=== PATIENT | female | born 1945 | race Caucasian/White ===

== ENCOUNTER → 2017-06-18 | Outpatient (CLI) | payer MEDICARE, BC ==
[~2017-06-18] MED LIST: AMLO5TAB22 PO; DIOV80TA4 PO; LEVEMIR SQ; LYRI50CA2 PO; NOVOLOGP2 SQ; PROG1CAP PO; PROT40TA PO; WARF1TAB PO; Z.0.COMMODE-3:1; Z.0.CPM; Z.0.WALKERFRONT
--- NOTE | 2017-06-24 11:33 | RSPPFT ---
DATE OF PROCEDURE: 06/18/17 COMMENTS: Spirometry with FVC of 1.9 predicted 3.3, FEV1 of 1.4 predicted 2.4, FEV1/FVC ratio at 75% predicted 80%. Lung volumes show air trapping with RV at 4.0 predicted 2.5. IMPRESSION: On the basis of the above, patient has a mild obstructive lung defect with FEF 25-75 at 1.0 predicted 2.0. DLCO is 43% of predicted but within predicted range when corrected for alveolar volume.
== END ==
LOC: HRSP 13:07
PROVIDERS: ATTEND Internal Medicine Pulmonary Disease
DX: J44.9 Chronic obstructive pulmonary disease, unspecified (principal)
CPT/HCPCS: 94060; 94618; 94726; 94729

== ENCOUNTER 2017-08-15 16:22 | Emergency (ER) | payer MEDICARE, BC ==
[~2017-08-15] VITALS: Ht 149.9 cm; Wt 98.3 kg
[2017-08-15 16:27] VITALS: BP 159/88; PULSE 75; RESP 16; TEMP 98.5; O2SAT 96
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
[2017-08-15] MEDS ORDERED: INSU1INJ14 SQ (17:18)
[2017-08-15] MEDS ORDERED: WARF4TAB52 PO (17:18)
[2017-08-15] MEDS ORDERED: TACR1 PO (17:18)
[2017-08-15] MEDS ORDERED: NOVOLOGSS SQ (17:18)
[2017-08-15] MEDS ORDERED: METO50TA PO (17:18)
[2017-08-15] MEDS ORDERED: VALS1TAB64 PO (17:18)
[2017-08-15] MEDS ORDERED: AMLO5TAB2 PO (17:18)
[2017-08-15] MEDS ORDERED: PANT40TA3 PO (17:18)
[2017-08-15] MEDS ORDERED: WARF-58 PO (17:18)
[2017-08-15] MEDS ORDERED: LYRI50CA PO (17:18)
[2017-08-15] MEDS ORDERED: TRAD5TAB PO (17:18)
[2017-08-15] MEDS ORDERED: HYDR-3516 PO (17:37)
== END 2017-08-15 17:54 | disposition home or self-care (01) ==
LOC: PHEFT 16:22
DX: S60.222A Contusion of left hand, initial encounter (principal); I10 Essential (primary) hypertension; E11.9 Type 2 diabetes mellitus without complications; E78.00 Pure hypercholesterolemia, unspecified; W20.8XXA Other cause of strike by thrown, projected or falling object, initial encounter; Z94.4 Liver transplant status; Z79.01 Long term (current) use of anticoagulants; Z79.4 Long term (current) use of insulin; Z86.79 Personal history of other diseases of the circulatory system; Z87.39 Personal history of other diseases of the musculoskeletal system and connective tissue; Z86.69 Personal history of other diseases of the nervous system and sense organs
CPT/HCPCS: 73130; 99283

== ENCOUNTER → 2017-11-16 | Outpatient (CLI) | payer MEDICARE, BC ==
[~2017-11-16] MED LIST changes: +AMLO5TAB2 PO; -AMLO5TAB22 PO; -DIOV80TA4 PO; +HYDR-3516 PO; +INSU1INJ14 SQ; -LEVEMIR SQ; +LYRI50CA PO; -LYRI50CA2 PO; +METO50TA PO; -NOVOLOGP2 SQ; +NOVOLOGSS SQ; +PANT40TA3 PO; -PROG1CAP PO; -PROT40TA PO; +TACR1 PO; +TRAD5TAB PO; +VALS1TAB64 PO; +WARF-58 PO; -WARF1TAB PO; +WARF4TAB52 PO; -Z.0.COMMODE-3:1; -Z.0.CPM; -Z.0.WALKERFRONT
--- NOTE | 2017-11-16 11:20 | RADRPT ---
EXAM DATE: 11/16/2017 10:35 AM EDT AGE/SEX: 72 years / Female INDICATIONS: Dysphagia since 2010, liquids and solids cause choking and coughing CLINICAL DATA: This is the patient's initial encounter. Patient reports that signs and symptoms have been present for > 1 year and indicates a pain score of 0/10. MEDICAL/SURGICAL HISTORY: Gastroesophageal reflux disease. esophageal varicies None. COMPARISON: No prior exams available for comparison. FLUORO TIME: 1.2 IMAGE COUNT: 0 FINDINGS: A modified barium swallow was performed with speech pathology. Patient was given a variety of liquids to swallow. For a full detailed report, see report by the speech pathologist. CONCLUSION: Successful modified barium swallow. Electronically signed by: Leonadro Paniagua MD 11/16/2017 11:18 AM EDT
== END ==
LOC: HRAD 09:50
DX: R13.12 Dysphagia, oropharyngeal phase (principal)
CPT/HCPCS: 74230; 92611; G8996; G8997; G8998

== ENCOUNTER 2017-12-29 22:53 | Inpatient (IN) ==
--- NOTE | 2017-12-29 23:27 | ED ---
HPI General Chief complaint: Neuro Symptoms/Deficit Stated complaint: Headaches Time Seen by Provider: 12/29/17 23:20 History of Present Illness HPI narrative: Patient 72-year-old female who presents emergency department for rather abrupt onset of a headache. Patient's on Coumadin for history of portal venous thrombosis. Patient has a history of high blood pressure has not taken any of her blood pressure medication tonight. Patient apparently got up to go to the bathroom when she had onset of headache. She adamantly denies falling. Per EMS blood pressure significantly elevated in excess of 200 systolic in route to the hospital. She threw up twice in the ambulance stating that she felt very dizzy. She states her headache is on the left side of her head. Severe. Context and duration as above. Related Data Home Medications Medication Instructions Recorded Confirmed ciprofloxacin HCl [Cipro] 500 mg PO DAILY 12/25/17 12/25/17 insulin degludec [Tresiba 18 unit SUB-Q HS 12/25/17 12/29/17 FlexTouch U-100] linagliptin [Tradjenta] 5 mg PO QAM 12/25/17 12/29/17 metoprolol tartrate 50 mg PO BID 12/25/17 12/29/17 pantoprazole 40 mg PO DAILY 12/25/17 12/29/17 pregabalin [Lyrica] 50 mg PO BID 12/25/17 12/29/17 tacrolimus 6 mg PO Q12H 12/25/17 12/29/17 valsartan 80 mg PO DAILY 12/25/17 12/29/17 amlodipine 10 mg PO DAILY 12/29/17 12/29/17 warfarin 3 mg PO DAILY 12/29/17 12/29/17 Allergies Allergy/AdvReac Type Severity Reaction Status Date / Time Sulfa (Sulfonamide Allergy Severe Itching Verified 12/29/17 23:18 Antibiotics) Review of Systems Except as stated in HPI: all other systems reviewed are negative [facility] Medical History Medical History GERD (gastroesophageal reflux disease) (Chronic) HBP (high blood pressure) (Chronic) Diabetes (Chronic) Carpal tunnel syndrome (Acute) FHx: total knee replacement (Acute) Hx of acute arthritis (Acute) Surgical History Surgical History Liver transplant recipient (Chronic) History of ear surgery (Acute) Hx of tonsillectomy (Acute) Family History Family History Father FH: premature coronary heart disease Mother Stroke HTN (hypertension) Diabetes Social History Social History Substance History: No History of Abuse Second Hand Smoke Exposure: No () Smoking Status: Never smoker How Often Do You Have a Drink Containing Alcohol: Never Recent Travel in [facility] within the Last 8 Weeks: No Recent Out of Country Travel within the Last 8 Weeks: No Exam Narrative Exam Narrative: GENERAL: Well-developed diaphoretic female with a GCS of 13: [id number]. Emesis on her shirt. SKIN: Focused skin assessment warm/diaphoretic HEAD: Atraumatic. Normocephalic. EYES: Pupils equal and round. No scleral icterus. No injection or drainage. ENT: No nasal bleeding or discharge. Mucous membranes pink and moist. NECK: Trachea midline. No JVD. CARDIOVASCULAR: Regular rate and rhythm. No murmur appreciated. RESPIRATORY: No accessory muscle use. Clear to auscultation. Breath sounds equal bilaterally. GASTROINTESTINAL: Abdomen soft, non-tender, nondistended. Hepatic and splenic margins not palpable. MUSCULOSKELETAL: No obvious deformities. No clubbing. No cyanosis. No edema. NEUROLOGICAL: Awake and alert and oriented, mildly confused, open eyes to verbal. She has generalized weakness but has equal strength bilaterally in all 4 extremities. No obvious cranial nerve deficits. Extract movements intact, pupils equal round and reactive to light and accommodation peer PSYCHIATRIC: Appropriate mood and affect; insight and judgment normal. Procedures Intubation Sedative: etomidate Mg Given: 20 Paralytic: rocuronium Mg Given: 100 Laryngoscope: other (CMAC 4) ET Tube Size: 8 ET Tube Uncuffed: No Tube Placement Confirmation: visualized tube passing through cords, equal breath sounds bilaterally, no breath sounds over epigastrium and confirmation by capnometry Patient Tolerated Procedure: other (Desat approximately 40 or <30secs) Intubation Complications: difficult intubation and hypoxia Additional Comments: Patient being intubated by Dr. Galicia, difficult intubation. She attempted once, asked for my assistance. Sat ~40%, BVM up to 99%. Anterior airway, but intubated fairly smoothly. One attempt from me. Per Dr. Uribe will get CXR in OR. Course Initial Documented Vital Signs Temperature 97.9 F 12/29/17 23:19 Pulse Rate 120 H 12/29/17 23:19 Respiratory Rate 18 12/29/17 23:19 Blood Pressure 169/75 H 12/29/17 23:19 Pulse Oximetry 92 L 12/29/17 23:19 Last Documented Vital Signs Temperature 97.9 F 12/29/17 23:19 Pulse Rate 128 H 12/30/17 01:15 Respiratory Rate 14 12/30/17 01:15 Blood Pressure 186/80 H 12/30/17 01:15 Pulse Oximetry 99 12/30/17 01:15 Critical Care Time Critical Care Time: Yes Total Critical Care Time: 35 Attestation: Aggregate critical care time was 35 minutes. Time to perform other separately billable procedures was not included in the critical care time. My time did not include minutes spent treating any other patients simultaneously or on activities that did not directly contribute to the patient's treatment. The services I provided to this patient were to treat and/or prevent clinically significant deterioration that could result in: , disability, organ failure I provided critical care services requiring my management, as noted below: Chart data review, documentation time, medication orders and management, vital sign assessments/reviewing monitor data, ordering and reviewing lab tests, ordering and interpreting/reviewing x-rays and diagnostic studies, care of the patient and discussion of the patient with the admitting physicians. Medical Decision Making MDM Narrative Medical decision making narrative: Patient is a 72-year-old female presents emergency department for fairly sudden onset headache about an hour prior to presentation. She threw up several times on the way to the ER as well. CT scan he did show a subdural hemorrhage with about a centimeter of irfk-cq-afkaw shift. The patient has remained a GCS of 13 for some mild confusion and losing 1 point for eyes in the emergency department. She is on Coumadin for a a portal venous thrombosis which occurred just prior to her having a liver transplant. Her INR here was 2.8. I could not initially reach her transplant officer at the [facility], therefore he I have weighed the risks and benefits of reversing her anticoagulation and I think that she needs aggressive reversal of her anticoagulation. K Centra was ordered as well as vitamin K. Patient also hypertensive. Patient was discussed with Dr. Uribe who would like the patient to receive K Centra and then have emergent decompression. This was discussed with the family and they are agreeable. He would like the patient to be intubated prior to be moved up to the OR. At 00 50 the patient was discussed with Dr. Galicia who is at the bedside seeing the patient and who will admit to the [facility], she will intubate and the patient will be taken to the operating room. She is in critical condition. Dr. Galicia is also ordered a Cardene drip. Lab Data Result diagrams: 12/29/17 23:25 12/30/17 01:38 Lab Results 12/29/17 12/29/17 12/29/17 Range/Units 23:25 23:25 23:25 WBC 8.5 (4.0-11.0) th/mm3 RBC 5.14 (4.00-5.30) mil/mm3 Hgb 15.7 H (11.6-15.3) gm/dL Hct 45.7 (35.0-46.0) % MCV 89.0 (80.0-100.0) fL MCH 30.6 (27.0-34.0) pg MCHC 34.4 (32.0-36.0) % RDW 13.9 (11.6-17.2) % Plt Count 211 (150-450) th/mm3 MPV 7.7 (7.0-11.0) fL Prelim Diff (Auto) Slide review pending Neut % (Auto) 32.7 (16.0-70.0) % Lymph % (Auto) 55.5 H (9.0-44.0) % [place] % (Auto) 9.4 H (0.0-8.0) % Eos % (Auto) 1.3 (0.0-4.0) % Baso % (Auto) 1.1 (0.0-2.0) % Neut # (Auto) 2.8 (1.8-7.7) th/mm3 Lymph # (Auto) 4.7 (1.0-4.8) th/mm3 [place] # (Auto) 0.8 (0.0-0.9) th/mm3 Eos # (Auto) 0.1 (0.0-0.4) th/mm3 Baso # (Auto) 0.1 (0.0-0.2) th/mm3 WBC Differential . Diff Scan Auto diff confirmed Differential Comment . Platelet Estimate Normal (Normal) Platelet Morphology Normal (Normal) RBC Morphology Normal (Normal) PT 28.2 H (9.8-11.6) sec INR 2.8 Ratio APTT 33.1 H (24.3-30.1) sec Fibrinogen (227-377) mg/dL D-Dimer Quant (PE/DVT) (0.00-0.50) mg/L FEU Patient Temperature O2 Saturation (90-100) % ABG pH (7.380-7.420) ABG pCO2 (38-42) mmHg ABG pO2 (61-120) mmHG ABG HCO3 (22-26) mmol/L ABG O2 Content (12.0-20.0) Vol % ABG Base Excess (-2-2) mmol/L ABG Methemoglobin (0-2) % Hemoglobin (12.0-16.0) G/DL Carboxyhemoglobin (0-4) % Inspired O2 % Critical Value Sodium 141 (136-145) meq/L Potassium 2.9 L* (3.5-5.1) meq/L Chloride 105 (98-107) meq/L Carbon Dioxide 24.0 (21.0-32.0) meq/L Anion Gap 12 (5-15) meq/L BUN 12 (7-18) mg/dL Creatinine 1.48 H (0.50-1.00) mg/dL Estimated GFR 35 L (>89) mL/min Random Glucose 270 H (74-106) mg/dL Calcium 8.7 (8.5-10.1) mg/dL Total Bilirubin 0.6 (0.2-1.0) mg/dL AST 36 (15-37) U/L ALT 37 (10-53) U/L Alkaline Phosphatase 61 (45-117) U/L Total Protein 7.7 (6.4-8.2) g/dL Albumin 3.9 (3.4-5.0) g/dL Blood Type Blood Type Recheck Antibody Screen Blood Bank Comment 12/30/17 12/30/17 12/30/17 Range/Units 00:00 01:38 01:38 WBC (4.0-11.0) th/mm3 RBC (4.00-5.30) mil/mm3 Hgb (11.6-15.3) gm/dL Hct (35.0-46.0) % MCV (80.0-100.0) fL MCH (27.0-34.0) pg MCHC (32.0-36.0) % RDW (11.6-17.2) % Plt Count (150-450) th/mm3 MPV (7.0-11.0) fL Prelim Diff (Auto) Neut % (Auto) (16.0-70.0) % Lymph % (Auto) (9.0-44.0) % [place] % (Auto) (0.0-8.0) % Eos % (Auto) (0.0-4.0) % Baso % (Auto) (0.0-2.0) % Neut # (Auto) (1.8-7.7) th/mm3 Lymph # (Auto) (1.0-4.8) th/mm3 [place] # (Auto) (0.0-0.9) th/mm3 Eos # (Auto) (0.0-0.4) th/mm3 Baso # (Auto) (0.0-0.2) th/mm3 WBC Differential Diff Scan Differential Comment Platelet Estimate (Normal) Platelet Morphology (Normal) RBC Morphology (Normal) PT 12.2 H D (9.8-11.6) sec INR 1.2 Ratio APTT 25.4 D (24.3-30.1) sec Fibrinogen 347 (227-377) mg/dL D-Dimer Quant (PE/DVT) 0.46 (0.00-0.50) mg/L FEU Patient Temperature 98.6 O2 Saturation 97 (90-100) % ABG pH 7.45 H (7.380-7.420) ABG pCO2 31 L (38-42) mmHg ABG pO2 380 H (61-120) mmHG ABG HCO3 21 L (22-26) mmol/L ABG O2 Content 22.0 H (12.0-20.0) Vol % ABG Base Excess -2.0 (-2-2) mmol/L ABG Methemoglobin 1.5 (0-2) % Hemoglobin 15.5 (12.0-16.0) G/DL Carboxyhemoglobin 1.0 (0-4) % Inspired O2 21 % Critical Value No Sodium (136-145) meq/L Potassium (3.5-5.1) meq/L Chloride (98-107) meq/L Carbon Dioxide (21.0-32.0) meq/L Anion Gap (5-15) meq/L BUN (7-18) mg/dL Creatinine (0.50-1.00) mg/dL Estimated GFR (>89) mL/min Random Glucose (74-106) mg/dL Calcium (8.5-10.1) mg/dL Total Bilirubin (0.2-1.0) mg/dL AST (15-37) U/L ALT (10-53) U/L Alkaline Phosphatase (45-117) U/L Total Protein (6.4-8.2) g/dL Albumin (3.4-5.0) g/dL Blood Type A Positive Blood Type Recheck Not needed Antibody Screen Negative Blood Bank Comment 12/30/17 12/30/17 Range/Units 01:38 01:38 WBC (4.0-11.0) th/mm3 RBC (4.00-5.30) mil/mm3 Hgb (11.6-15.3) gm/dL Hct (35.0-46.0) % MCV (80.0-100.0) fL MCH (27.0-34.0) pg MCHC (32.0-36.0) % RDW (11.6-17.2) % Plt Count (150-450) th/mm3 MPV (7.0-11.0) fL Prelim Diff (Auto) Neut % (Auto) (16.0-70.0) % Lymph % (Auto) (9.0-44.0) % [place] % (Auto) (0.0-8.0) % Eos % (Auto) (0.0-4.0) % Baso % (Auto) (0.0-2.0) % Neut # (Auto) (1.8-7.7) th/mm3 Lymph # (Auto) (1.0-4.8) th/mm3 [place] # (Auto) (0.0-0.9) th/mm3 Eos # (Auto) (0.0-0.4) th/mm3 Baso # (Auto) (0.0-0.2) th/mm3 WBC Differential Diff Scan Differential Comment Platelet Estimate (Normal) Platelet Morphology (Normal) RBC Morphology (Normal) PT (9.8-11.6) sec INR Ratio APTT (24.3-30.1) sec Fibrinogen (227-377) mg/dL D-Dimer Quant (PE/DVT) (0.00-0.50) mg/L FEU Patient Temperature O2 Saturation (90-100) % ABG pH (7.380-7.420) ABG pCO2 (38-42) mmHg ABG pO2 (61-120) mmHG ABG HCO3 (22-26) mmol/L ABG O2 Content (12.0-20.0) Vol % ABG Base Excess (-2-2) mmol/L ABG Methemoglobin (0-2) % Hemoglobin (12.0-16.0) G/DL Carboxyhemoglobin (0-4) % Inspired O2 % Critical Value Sodium 138 (136-145) meq/L Potassium 3.3 L (3.5-5.1) meq/L Chloride 103 (98-107) meq/L Carbon Dioxide 23.3 (21.0-32.0) meq/L Anion Gap 12 (5-15) meq/L BUN 11 (7-18) mg/dL Creatinine 1.21 H (0.50-1.00) mg/dL Estimated GFR 44 L (>89) mL/min Random Glucose 285 H (74-106) mg/dL Calcium 8.2 L (8.5-10.1) mg/dL Total Bilirubin (0.2-1.0) mg/dL AST (15-37) U/L ALT (10-53) U/L Alkaline Phosphatase (45-117) U/L Total Protein (6.4-8.2) g/dL Albumin (3.4-5.0) g/dL Blood Type Blood Type Recheck Antibody Screen Blood Bank Comment Imaging Data Radiologist's impression: Head CT 12/29/17 23:19 CONCLUSION: 1. Moderate to large left subdural hematoma with mass effect and midline shift to the right. 2. Slight asymmetry of the suprasellar cisterns with prominence left uncal region which could indicate impending herniation. Discharge Plan Discharge Disposition Patient Disposition: 30 Still Patient Discharge Condition Condition: Critical Discharge Details Diagnosis: SDH (subdural hematoma), Warfarin-induced coagulopathy, Liver transplant recipient, Hypertensive emergency Physicians Team ED Provider: Aristeo Pierce Primary Care Provider: UNKNOWN, Attending Provider: Lilia Galicia Discharge Interventions Interventions: ED Discharge Assessment Last Done: 12/30/17 01:51 Status ED Status: Left Department Discharge Information Discharge Date/Time: 12/30/17 01:52
[2017-12-29 23:44] LABS: Baso # (Auto) 0.1 th/mm3 (0.0-0.2); Baso % (Auto) 1.1 % (0.0-2.0); Eos # (Auto) 0.1 th/mm3 (0.0-0.4); Eos % (Auto) 1.3 % (0.0-4.0); Hematocrit 45.7 % (35.0-46.0); Hemoglobin 15.7 gm/dL (11.6-15.3); Lymph # (Auto) 4.7 th/mm3 (1.0-4.8); Lymph % (Auto) 55.5 % (9.0-44.0); Mean Corpuscular HGB Conc 34.4 % (32.0-36.0); Mean Corpuscular Hemoglobin 30.6 pg (27.0-34.0); Mean Platelet Volume 7.7 fL (7.0-11.0); Mono # (Auto) 0.8 th/mm3 (0.0-0.9); Mono % (Auto) 9.4 % (0.0-8.0); Neut # (Auto) 2.8 th/mm3 (1.8-7.7); Neut % (Auto) 32.7 % (16.0-70.0); Platelet Count 211 th/mm3 (150-450); Red Blood Count 5.14 mil/mm3 (4.00-5.30); Red Cell Distribution Width 13.9 % (11.6-17.2); White Blood Count 8.5 th/mm3 (4.0-11.0)
--- NOTE | 2017-12-29 23:46 | CT ---
EXAM DATE: 12/29/2017 11:38 PM EDT AGE/SEX: 72 years / Female INDICATIONS: Cephalgia. CLINICAL DATA: This is the patient's initial encounter. Patient reports that signs and symptoms have been present for 1 day and indicates a pain score of 5/10. MEDICAL/SURGICAL HISTORY: Hypertension. Tonsillectomy. RADIATION DOSE: 56.35 CTDI (mGy) COMPARISON: [facility], CT TEMPORAL BONE W/O IV CONT, 01/14/2013. . TECHNIQUE: CT of the head without contrast. Using automated exposure control and adjustment of the mA and/or kV according to patient size, radiation dose was kept as low as reasonably achievable to ob tain optimal diagnostic quality images. DICOM format image data is available electronically for revi ew and comparison. FINDINGS: There is a moderate to large sized left subdural hematoma extending along the frontal, parietal and t emporal convexities. This measures up to approximately 1.3 cm in greatest diameter with adjacent mass effect. There is a small amount of subdural hemorrhage extending along the left anterior falx as wel l. There is significant midline shift to the right of approximately 1 cm with deformity of the left lateral ventricular system. Calcifications are also noted along the falx. There is slight asymmetry in the region of the supersellar cisterns with mild prominence in the left uncal region. The posterio r fossa and brainstem are otherwise unremarkable. The bone windows demonstrate no evidence of fracture or underlying bony abnormality. CONCLUSION: 1. Moderate to large left subdural hematoma with mass effect and midline shift to the right. 2. Slight asymmetry of the suprasellar cisterns with prominence left uncal region which could indica te impending herniation. Electronically signed by: Abebe Nowak MD 12/29/2017 11:45 PM EDT
[2017-12-29 23:56] LABS: Activated Partial Thrombo Time 33.1 sec (24.3-30.1); INR 2.8 Ratio; Prothrombin Time 28.2 sec (9.8-11.6)
[2017-12-30] MEDS ORDERED: Phytonadione Inj 10 MG in Sodium Chlor 0.9% Inj 50 ML IV.SIG ONE (00:02)
[2017-12-30] MEDS ORDERED: PROTHROMBIN COMPLEX IV.SIG PRN (00:02)
[2017-12-30 00:14] LABS: Alanine Aminotransferase 37 U/L (10-53); Albumin 3.9 g/dL (3.4-5.0); Alkaline Phosphatase 61 U/L (45-117); Anion Gap 12 meq/L (5-15); Aspartate Aminotransferase 36 U/L (15-37); Blood Urea Nitrogen 12 mg/dL (7-18); Calcium 8.7 mg/dL (8.5-10.1); Chloride 105 meq/L (98-107); Glomerular Filtration Rate 35 mL/min (>89); Glucose,Random 270 mg/dL (74-106); Sodium 141 meq/L (136-145); Total Protein 7.7 g/dL (6.4-8.2)
[2017-12-30 00:15] LABS: Potassium 2.9 meq/L (3.5-5.1)
[2017-12-30] MEDS ORDERED: Dextrose 50% in Water 50 ML Vial IV.PUSH PRN (00:22)
[2017-12-30 00:25] LABS: Platelet Estimate Normal (Normal); Platelet Morphology Normal (Normal); RBC Morphology Normal (Normal)
--- NOTE | 2017-12-30 00:26 | P.HPCC ---
History of Present Illness Service: Critical Care Medicine Primary Care Physician: UNKNOWN Chief Complaint: headache History of Present Illness: 72-year-old female with past medical history of hypertension, diabetes , prior liver transplant in 2010, on chronic anticoagulation with warfarin due to history of portal vein thrombosis which preexisted transplant. She reportedly got up to go to the bathroom around 10 PM. She developed headache, nausea and multiple episodes of vomiting. There is no reported head trauma. CT brain demonstrates left subdural hematoma with 1 cm left to right shift. INR 2.8. Administering k Centra 25 U/kg, vitamin K 10 mg IV. Blood pressure 169/75. Initiating Cardene drip. Dr. Uribe has been consulted and will be taking patient emergently to operating room following correction of coagulopathy. - Diagnosis (1) SDH (subdural hematoma) (2) GERD (gastroesophageal reflux disease) (3) Liver transplant recipient (4) HBP (high blood pressure) (5) Diabetes (6) Warfarin-induced coagulopathy Inpatient Certification: I certify that the inpatient services were ordered in accordance with Medicare regulations governing the order. This includes certification that hospital inpatient services are reasonable and necessary and in the case of services not specified as inpatient-only under 42 CFR 419.22(n), that they are appropriately provided as inpatient services in accordance to with the 2-midnight benchmark under 43 CFR 412.3(e) Review of Systems All other systems reviewed negative except as stated in HPI PMFSH - History History Provided By: Patient, Family Member, Master Fire Control Technician / EMT - Medical History Medical History: Medical History (Last Updated 12/30/17 @ 01:32 by Lilia Galicia MD) GERD (gastroesophageal reflux disease) (Chronic) HBP (high blood pressure) (Chronic) Diabetes (Chronic) Carpal tunnel syndrome FHx: total knee replacement Hx of acute arthritis - Surgical History Surgical History: Surgical History (Last Updated 12/30/17 @ 01:49 by Lilia Galicia MD) Liver transplant recipient (Chronic) History of ear surgery Hx of tonsillectomy - Family History Family History: Family History (Last Updated 12/30/17 @ 01:31 by Lilia Galicia MD) Father FH: premature coronary heart disease Mother Stroke HTN (hypertension) Diabetes - Tobacco History Second Hand Smoke Exposure: No () Smoking Status: Never smoker - Alcohol History How Often Do You Have a Drink Containing Alcohol: Never - Substance Use History Substance History: No History of Abuse - Travel History Recent Travel in the [place] Within the Last 8 Weeks: No Recent Travel Out of the Country Within the Last 8 Weeks: No - Immunization History Tetanus Immunization: >5 Years Hx Influenza Vaccine This Season: Yes Medications and Allergies Active Medications: Active Medications Phytonadione 10 mg/ Sodium (Chloride) 51 mls @ 102 mls/hr IV.SIG ONCE ONE Stop: 12/30/17 00:31 Last Admin: 12/30/17 00:23 Dose: 102 mls/hr Prothrombin Complex Concent ( (Human) 2,500 unit/ Syringe/Bag) 100 mls @ 500 mls/hr IV.SIG ONCE PRN PRN Reason: BLEEDING Sodium Chloride (Ns Flush) 2 ml IV.FLUSH PRN PRN PRN Reason: FLUSH AFTER USING IV ACCESS Allergies Allergy/AdvReac Type Severity Reaction Status Date / Time Sulfa (Sulfonamide Allergy Severe Itching Verified 12/29/17 23:18 Antibiotics) Home Medications Medication Instructions Recorded Confirmed Type ciprofloxacin HCl [Cipro] 500 mg PO DAILY 12/25/17 12/25/17 History insulin degludec [Tresiba 18 unit SUB-Q HS 12/25/17 12/29/17 History FlexTouch U-100] linagliptin [Tradjenta] 5 mg PO QAM 12/25/17 12/29/17 History metoprolol tartrate 50 mg PO BID 12/25/17 12/29/17 History pantoprazole 40 mg PO DAILY 12/25/17 12/29/17 History pregabalin [Lyrica] 50 mg PO BID 12/25/17 12/29/17 History tacrolimus 6 mg PO Q12H 12/25/17 12/29/17 History valsartan 80 mg PO DAILY 12/25/17 12/29/17 History amlodipine 10 mg PO DAILY 12/29/17 12/29/17 History warfarin 3 mg PO DAILY 12/29/17 12/29/17 History Results - Labs CBC & Chem 7: 12/29/17 23:25 12/30/17 01:38 Labs: Short CBC 12/29/17 Range/Units 23:25 WBC 8.5 (4.0-11.0) th/mm3 Hgb 15.7 H (11.6-15.3) gm/dL Hct 45.7 (35.0-46.0) % Plt Count 211 (150-450) th/mm3 BMP 12/29/17 23:25 Sodium 141 Potassium 2.9 L* Chloride 105 Carbon Dioxide 24.0 BUN 12 Creatinine 1.48 H Calcium 8.7 Liver Function 12/29/17 Range/Units 23:25 Total Bilirubin 0.6 (0.2-1.0) mg/dL AST 36 (15-37) U/L ALT 37 (10-53) U/L Alkaline Phosphatase 61 (45-117) U/L Albumin 3.9 (3.4-5.0) g/dL - Imaging Impressions Head CT 12/29/17 23:19 CONCLUSION: 1. Moderate to large left subdural hematoma with mass effect and midline shift to the right. 2. Slight asymmetry of the suprasellar cisterns with prominence left uncal region which could indicate impending herniation. Exam Vital signs: Vital Signs 12/29/17 23:19 Temperature 97.9 F Pulse Rate 120 H Respiratory Rate 18 Blood Pressure 169/75 H Pulse Oximetry 92 L Intake & Output 12/29/17 12/29/17 12/30/17 06:59 18:59 06:59 Weight 100 kg Narrative: GENERAL: Well-nourished, overweight female sitting up in ED stretcher. She is sleepy but arouses to voice and answers questions of orientation SKIN: Warm and dry. HEAD: Atraumatic. Normocephalic. EYES: Pupils equal and round, 2 mm and reactive bilaterally. No scleral icterus. No injection or drainage. ENT: No nasal bleeding or discharge. Mucous membranes pink and moist. NECK: Trachea midline. No JVD. CARDIOVASCULAR: Regular rate and rhythm. No murmurs rubs or gallops. RESPIRATORY: Breathing comfortably on nasal cannula. No accessory muscle use. Clear to auscultation. Breath sounds equal bilaterally. GASTROINTESTINAL: Abdomen soft, non-tender, nondistended. Bowel sounds present. MUSCULOSKELETAL: Extremities without clubbing, cyanosis, or edema. NEUROLOGICAL: Sleepy but arouses and opens eyes to voice. He. Oriented to self , place, year. Positive right pronator drift, good registration officer strength. She reports intact sensation to soft touch. Strength 5/ bilateral lower extremities. No clonus. Caprini VTE Risk Assessment Caprini VTE Risk Assessment: Moderate/High Risk (score >= 2) VTE Pharmacological Exception Reason: Intracranial lesions Caprini Risk Assessment Model: Point Value = 1 Point Value = 2 Point Value = 3 Point Value = 5 Age 41-60 Minor surgery BMI > 25 kg/m2 Swollen legs Varicose veins or History of unexplained or recurrent spontaneous Oral contraceptives or hormone replacement Sepsis (< 1 month) Serious lung disease, including pneumonia (< 1 month) Abnormal pulmonary function Acute myocardial infarction Congestive heart failure (< 1 month) History of inflammatory bowel disease Medical patient at bed rest Age 61-74 Arthroscopic surgery Major open surgery (> 45 min) Laparoscopic surgery (> 45 min) Malignancy Confined to bed (> 72 hours) Immobilizing plaster cast Central venous access Age >= 75 History of VTE Family history of VTE Factor V Leiden Prothrombin [id number] Lupus anticoagulant Anticardiolipin antibodies Elevated serum homocysteine Heparin-induced thrombocytopenia Other congenital or acquired thrombophilia Stroke (< 1 month) Elective arthroplasty Hip, pelvis, or leg fracture Acute spinal cord injury (< 1 month) Prophylaxis Regimen: Total Risk Factor Score Risk Level Prophylaxis Regimen 0-1 Low Early ambulation 2 Moderate Order ONE of the following: *Sequential Compression Device (SCD) *Heparin 5000 units SQ BID 3-4 Higher Order ONE of the following medications: *Heparin 5000 units SQ TID *Enoxaparin/Lovenox 40 mg SQ daily (WT < 150 kg, CrCl > 30 mL/min) *Enoxaparin/Lovenox 30 mg SQ daily (WT < 150 kg, CrCl > 10-29 mL/min) *Enoxaparin/Lovenox 30 mg SQ BID (WT < 150 kg, CrCl > 30 mL/min) AND/OR *Sequential Compression Device (SCD) 5 or more Highest Order ONE of the following medications: *Heparin 5000 units SQ TID (Preferred with Epidurals) *Enoxaparin/Lovenox 40 mg SQ daily (WT < 150 kg, CrCl > 30 mL/min) *Enoxaparin/Lovenox 30 mg SQ daily (WT < 150 kg, CrCl > 10-29 mL/min) *Enoxaparin/Lovenox 30 mg SQ BID (WT < 150 kg, CrCl > 30 mL/min) AND *Sequential Compression Device (SCD) Assessment and Plan - Problem List (1) SDH (subdural hematoma) Code(s): S06.5X9A - Traumatic subdural hemorrhage with loss of consciousness of unspecified duration, initial encounter Status: Acute (2) GERD (gastroesophageal reflux disease) Code(s): K21.9 - Gastro-esophageal reflux disease without esophagitis Status: Chronic (3) Liver transplant recipient Code(s): Z94.4 - Liver transplant status Status: Chronic (4) HBP (high blood pressure) Code(s): I10 - Essential (primary) hypertension Status: Chronic (5) Diabetes Code(s): E11.9 - Type 2 diabetes mellitus without complications Status: Chronic (6) Warfarin-induced coagulopathy Code(s): D68.32 - Hemorrhagic disorder due to extrinsic circulating anticoagulants; T45.515A - Adverse effect of anticoagulants, initial encounter Status: Acute - Assessment and Plan Plan: NEURO: Acute left subdural hematoma with mass-effect Received K Centra 25 units/KG and vitamin K 10 mg IV. Repeat INR ordered. We will be taken emergently to the OR by Dr. Uribe. Keppra 500 mg IV every 12 hours for seizure prophylaxis. Blood pressure management as per below. Received mannitol 25 g IV in the emergency department. Propofol for sedation with target RASS -2. Peripheral neuropathy Hold Lyrica 50 mill grams p.o. twice daily RESP: Acute respiratory failure Intubated in the ED by Dr. Pierce for airway protection and hyperventilation prior to going to the OR. Anterior airway with grade 2/3 view with CMAC. No ventilator weaning until stablized from neurosurgical standpoint Follow-up post intubation x-ray CV: Malignant hypertension Cardene drip to maintain systolic blood pressure less than 160 Hold metoprolol 50 twice daily, valsartan 80 mg p.o. daily, Norvasc 10 mg daily acutely. GI: History of liver transplant Transplant was performed at [facility] in 2010. Her submarine element coordinator is Mariya Munoz. She does not have the phone number but family will bring it in. Confer with submarine element coordinator in a.m. Confirm prograf dosing. Check trough level in am. GERD Continue PPI FEN/RENAL: Chronic kidney disease stage III Hypokalemia Replace potassium with 80 mEq IV. Rushing will be inserted. Monitor intake and output. ID: Immunosuppressed state Monitor for signs and symptoms of infection. Claudia Operative cefazolin per neurosurgery. HEME: Warfarin induced coagulopathyINR 2.8. History of portal vein thrombosis Warfarin on hold. Received K Centra/vitamin K on 12/30 as per above. Repeat INR pending. Platelet count is normal ENDO: Diabetes mellitus with acute hyperglycemia Hold Tradjenta 5 mg p.o. every morning, receive 18 units subcu nightly. Medium dose insulin sliding scale every 6 hours. PROPH: SCDs for DVT prophylaxis. Continue Protonix for stress ulcer prophylaxis and history of GERD ACCESS: Peripheral IV providing adequate access at this time. Will place central line If needed. Will need art line for hemodynamic monitoring. Full code , patient, daughters updated at bedside. Discussed with Dr. Pierce. Discussed with Dr. Uribe Patient is critically ill with high risk for further deterioration. Critical care time 60 minutes exclusive of separately billable procedures per
[2017-12-30] MEDS ORDERED: Potassium Chloride 25 MEQ Effervescent Tablet PO PRN (00:27)
[2017-12-30] MEDS ORDERED: Magnesium Sulfate Inj 4 GM in Sodium Chlor 0.9% Inj 92 ML IV.SIG PRN (00:27)
[2017-12-30] MEDS ORDERED: Potassium Phosphate Inj 30 MMOL in Sodium Chlor 0.9% Inj 250 ML IV.SIG PRN (00:27)
[2017-12-30] MEDS ORDERED: Magnesium Oxide 400 MG Tablet PO PRN (00:27)
[2017-12-30] MEDS ORDERED: Magnesium Sulfate Inj 2 GM in Sodium Chlor 0.9% Inj 96 ML IV.SIG PRN (00:27)
[2017-12-30] MEDS ORDERED: Sodium Phosphate Inj 30 MMOL in Sodium Chlor 0.9% Inj 250 ML IV.SIG PRN (00:27)
[2017-12-30] MEDS ORDERED: Potassium Chlor 40 mEq Premix 40 MEQ/100 ML PIGGYBACK IV.SIG PRN ×2 (00:27)
[2017-12-30] MEDS ORDERED: Potassium Phosphate 500 MG Soluble Tablet PO PRN (00:27)
[2017-12-30] MEDS ORDERED: Etomidate Inj 20 MG/10 ML Ampul IV.PUSH ONE (00:47)
[2017-12-30] MEDS ORDERED: Etomidate Inj 40 MG/20 ML Vial IV.PUSH ONE (00:47)
[2017-12-30] MEDS ORDERED: niCARdipine Inj 25 MG/10 ML Vial ONE (00:51)
[2017-12-30] MEDS ORDERED: Thrombin Topical Soln 5,000 UNIT Vial TOPICAL ONE (00:55)
[2017-12-30] MEDS ORDERED: ceFAZolin 2 GM Premix Inj 2 GM/50 ML PIGGYBACK IV.SIG ONE (00:56)
[2017-12-30] MEDS ORDERED: Lidocaine 1%/Epinephrine 1:100,000 Inj 20 ML Vial ONE (01:02)
[2017-12-30] MEDS ORDERED: Propofol Inj 500 MG/50 ML Vial ONE ×2 (01:07→03:34)
[2017-12-30] MEDS ORDERED: Bisacodyl 10 MG Supp RECTAL PRN ×2 (01:34→02:21)
[2017-12-30] MEDS: niCARdipine Inj 25 MG in Sodium Chlor 0.9% Inj 240 ML IV.CONT PRN ×7 (01:36→23:13)
--- NOTE | 2017-12-30 01:37 | P.CONNS ---
History of Present Illness Service: neurosurgery Consult date: 12/30/17 Requesting Physician: Aristeo Pierce Reason for Consult: Subdural hematoma Primary Care Provider: UNKNOWN Chief Complaint: headache, altered ental status History of Present Illness: This is a 72-year-old female with past medical history of arterial hypertension , diabetes mellitus, prior liver transplant in 2010, on chronic anticoagulation with coumadin due to portal vein thrombosis. She reportedly got up to go to the bathroom around 10 PM. She developed sudden headaches, nausea and multiple episodes of vomiting. No tonic-clonic movement seen. No tongue biting. No seizure activity reported. No incontinence of stool or urine. There is no reported head trauma. CT brain demonstrates left subdural hematoma with 1 cm left to right shift. INR 2.8. Administering k Centra 25 U/kg, vitamin K 10 mg IV. Blood pressure 169/75. Initiating Cardene drip. Neurosurgery consultation was requested Review of Systems All other systems reviewed negative except as stated in HPI PMFSH - History History Provided By: Patient, Construction Mgr / EMT - Medical History Medical History: Medical History (Last Reviewed 12/30/17 @ 13:37 by Wesley Uribe MD) GERD (gastroesophageal reflux disease) (Chronic) HBP (high blood pressure) (Chronic) Diabetes (Chronic) Carpal tunnel syndrome FHx: total knee replacement Hx of acute arthritis - Surgical History Surgical History: Surgical History (Last Reviewed 12/30/17 @ 13:37 by Wesley Uribe MD) Liver transplant recipient (Chronic) History of ear surgery Hx of tonsillectomy - Family History Family History: Family History (Last Reviewed 12/30/17 @ 13:37 by Wesley Uribe MD) Father FH: premature coronary heart disease Mother Stroke HTN (hypertension) Diabetes - Tobacco History Second Hand Smoke Exposure: No Smoking Status: Never smoker - Alcohol History How Often Do You Have a Drink Containing Alcohol: Never - Substance Use History Substance History: No History of Abuse - Travel History Recent Travel in the [place] Within the Last 8 Weeks: No Recent Travel Out of the Country Within the Last 8 Weeks: No - Immunization History Tetanus Immunization: >5 Years Hx Influenza Vaccine This Season: Yes Medications and Allergies Active Medications: Active Medications Dextrose (D50w Vial) 50 ml IV.PUSH UNSCH PRN PRN Reason: PER HYPOGLYCEMIA PROTOCOL Glucagon (Glucagon Inj) 1 mg OTHER PRN PRN PRN Reason: for Hypoglycemia Protocol Prothrombin Complex Concent ( (Human) 2,500 unit/ Syringe/Bag) 100 mls @ 500 mls/hr IV.SIG ONCE PRN PRN Reason: BLEEDING Magnesium Sulfate Inj 2 gm/ (Sodium Chloride) 100 mls @ 50 mls/hr IV.SIG UNSCH PRN PRN Reason: For Magnesium 1.2 - 1.6 mg/dL Potassium Chloride (Kcl 20 Meq Premix Inj) 20 meq in 100 mls @ 50 mls/hr IV.SIG Q2H PRN PRN Reason: For Potassium 3.3 - 3.5 mEq/L Potassium Chloride (Kcl 40 Meq Premix Inj) 40 meq in 100 mls @ 25 mls/hr IV.SIG UNSCH PRN PRN Reason: For Potassium 3.3 - 3.5 mEq/L Sodium Phosphate 30 mmol/ (Sodium Chloride) 260 mls @ 42 mls/hr IV.SIG UNSCH PRN PRN Reason: For Phosphorus < 2.5 mg/dL Magnesium Sulfate Inj 4 gm/ (Sodium Chloride) 100 mls @ 50 mls/hr IV.SIG UNSCH PRN PRN Reason: For Magnesium 0.9 - 1.1 mg/dL Potassium Chloride (Kcl 40 Meq Premix Inj) 40 meq in 100 mls @ 25 mls/hr IV.SIG Q2H PRN PRN Reason: For Potassium 2.8 - 3.2 mEq/L Potassium Chloride (Kcl 20 Meq Premix Inj) 20 meq in 100 mls @ 50 mls/hr IV.SIG Q2H PRN PRN Reason: For Potassium 2.8 - 3.2 mEq/L Potassium Phosphate 30 mmol/ (Sodium Chloride) 260 mls @ 42 mls/hr IV.SIG UNSCH PRN PRN Reason: SEE LABEL COMMENTS Nicardipine HCl 25 mg/ Sodium (Chloride) 250 mls @ 50 mls/hr IV.CONT TITRATE PRN; Protocol PRN Reason: Per Protocol Insulin Aspart (Novolog Insulin Correctional Sugar Inj) 0 unit SQ Q4HR GRICELDA; Protocol Magnesium Oxide (Mag-Ox) 800 mg PO UNSCH PRN PRN Reason: For Magnesium 1.2 - 1.6 mg/dL Potassium Bicarb/Potassium Chloride (K-Lyte Cl Eff) 50 meq PO UNSCH PRN PRN Reason: For Potassium 3.3 - 3.5 mEq/L Potassium Phosphate (K-Phos Original) 2,000 mg PO Q4H PRN PRN Reason: Phosphorus Less Than 2.5 mg/dL Potassium Phosphate (K-Phos Original) 2,000 mg PO UNSCH PRN PRN Reason: SEE LABEL COMMENTS Sodium Chloride (Ns Flush) 2 ml IV.FLUSH PRN PRN PRN Reason: FLUSH AFTER USING IV ACCESS Allergies Allergy/AdvReac Type Severity Reaction Status Date / Time Sulfa (Sulfonamide Allergy Severe Itching Verified 12/29/17 23:18 Antibiotics) Home Medications Medication Instructions Recorded Confirmed Type ciprofloxacin HCl [Cipro] 500 mg PO DAILY 12/25/17 12/25/17 History insulin degludec [Tresiba 18 unit SUB-Q HS 12/25/17 12/29/17 History FlexTouch U-100] linagliptin [Tradjenta] 5 mg PO QAM 12/25/17 12/29/17 History metoprolol tartrate 50 mg PO BID 12/25/17 12/29/17 History pantoprazole 40 mg PO DAILY 12/25/17 12/29/17 History pregabalin [Lyrica] 50 mg PO BID 12/25/17 12/29/17 History tacrolimus 6 mg PO Q12H 12/25/17 12/29/17 History valsartan 80 mg PO DAILY 12/25/17 12/29/17 History amlodipine 10 mg PO DAILY 12/29/17 12/29/17 History warfarin 3 mg PO DAILY 12/29/17 12/29/17 History Exam Vital signs: Vital Signs 12/29/17 23:19 Temperature 97.9 F Pulse Rate 120 H Respiratory Rate 18 Blood Pressure 169/75 H Pulse Oximetry 92 L Intake & Output 12/29/17 12/29/17 12/30/17 06:59 18:59 06:59 Weight 100 kg Narrative: The patient is intubated and sedated. Localizes to painful stimuli with all 4 extremities. Cranial Nerves: Pupils equal, 3 mm round, reactive to light. Eyes appear conjugated. There was no nystagmus, no papilledema. Face musculature appeared symmetrical at rest. Face sensation, olfaction, and hearing cannot be adequately assessed due to the patient's neurological condition. The patient has a corneal reflex. The patient has a gag reflex. The sternocleidomastoid and trapezius were symmetrical. Cervical Spine: The patient's neck is soft, supple, without nuchal rigidity. Motor: His muscle tone and bulk are normal. He moves purposefully all 4 extremities symmetrically. Reflexes: Deep tendon reflexes are 2+ and symmetrical in the biceps, triceps, and brachioradialis, bilaterally, in the upper extremities. In the lower extremities, the patellar and ankles are 2+, bilaterally. There is a bilateral plantar flexion response. There is no clonus or other abnormal reflexes noted. Sensory: On examination there there is response to painful stimuli, localizing with both upper and lower extremities. Cerebellar: Examination cannot be adequately assessed due to the patient's neurological condition. Lungs: clear Heart: Regular rhythm and rate Skin: warm and dry Results - Laboratory Findings CBC and BMP: 12/29/17 23:25 12/30/17 12:00 Abnormal lab findings: Abnormal Labs 12/29/17 12/29/17 12/29/17 23:25 23:25 23:25 Hgb 15.7 H Lymph % (Auto) 55.5 H Burke % (Auto) 9.4 H PT 28.2 H APTT 33.1 H Potassium 2.9 L* Creatinine 1.48 H Estimated GFR 35 L Random Glucose 270 H Assessment and Plan - Plan - Problem List (1) SDH (subdural hematoma) Code(s): S06.5X9A - Traumatic subdural hemorrhage with loss of consciousness of unspecified duration, initial encounter Status: Acute (2) GERD (gastroesophageal reflux disease) Code(s): K21.9 - Gastro-esophageal reflux disease without esophagitis Status: Chronic (3) Liver transplant recipient Code(s): Z94.4 - Liver transplant status Status: Chronic (4) HBP (high blood pressure) Code(s): I10 - Essential (primary) hypertension Status: Chronic (5) Diabetes Code(s): E11.9 - Type 2 diabetes mellitus without complications Status: Chronic (6) Warfarin-induced coagulopathy Code(s): D68.32 - Hemorrhagic disorder due to extrinsic circulating anticoagulants; T45.515A - Adverse effect of anticoagulants, initial encounter Status: Acute I reviewed her clinical and radiological findings including Head CT 12/29/17 23:19 CONCLUSION: 1. Moderate to large left subdural hematoma with mass effect and midline shift to the right. 2. Slight asymmetry of the suprasellar She has compression of the sterns with prominence left uncal region which could indicate impending herniation. NEURO: Acute left subdural hematoma with mass-effect Received K Centra 25 units/KG and vitamin K 10 mg IV. Repeat INR ordered. We will be taken emergently to the OR for a craniotomy with evacuation of the subdural hematoma in an attempt to save her life. Ricardo discussed the step-by- step details of the surgical procedure, its indications, alternatives, risks, and potential complications. Risks and potential complications include, but are not limited to, infection, blood loss, CSF leak, partial or complete loss of sight in one or both eyes, paresis, paralysis, permanent pain or difficulty swallowing, loss of bowel or bladder function, complications from anesthesia, blood clot, stroke, myocardial infarction, or even . The possibility of nonoperative treatment has been offered. Keppra 500 mg IV every 12 hours for seizure prophylaxis. Blood pressure management as per below. Received mannitol 25 g IV in the emergency department. Propofol for sedation with target RASS -2. Peripheral neuropathy Hold Lyrica 50 mill grams p.o. twice daily Acute respiratory failure Intubated in the ED by Dr. Pierce for airway protection and hyperventilation prior to going to the OR. Anterior airway with grade 2/3 view with CMAC. 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 daily, Norvasc 10 mg daily acutely. History of liver transplant Transplant was performed at [facility] in 2010. Her sales recruiting coordinator is Mariya Munoz. Confer with sales recruiting coordinator in a.m. Confirm prograf dosing. Check trough level in am. GERD Continue PPI Chronic kidney disease stage III Hypokalemia Replace potassium with 80 mEq IV. Rushing will be inserted. Monitor intake and output. Immunosuppressed state Monitor for signs and symptoms of infection. Claudia Operative cefazolin per neurosurgery. Warfarin induced coagulopathyINR 2.8. History of portal vein thrombosis Warfarin on hold. Received K Centra/vitamin K on 12/30 as per above. Repeat INR pending. Platelet count is normal Diabetes mellitus with acute hyperglycemia Hold Tradjenta 5 mg p.o. every morning, receive 18 units subcu nightly. Medium dose insulin sliding scale every 6 hours. DVT PROPHILAXIS: SCDs for DVT prophylaxis. Continue Protonix for stress ulcer prophylaxis and history of GERD Junrinjocelyne VTE Risk Assessment Caprini VTE Risk Assessment: Moderate/High Risk (score >= 2) VTE Pharmacological Exception Reason: Intracranial lesions Caprini Risk Assessment Model: Point Value = 1 Point Value = 2 Point Value = 3 Point Value = 5 Age 41-60 Minor surgery BMI > 25 kg/m2 Swollen legs Varicose veins or History of unexplained or recurrent spontaneous Oral contraceptives or hormone replacement Sepsis (< 1 month) Serious lung disease, including pneumonia (< 1 month) Abnormal pulmonary function Acute myocardial infarction Congestive heart failure (< 1 month) History of inflammatory bowel disease Medical patient at bed rest Age 61-74 Arthroscopic surgery Major open surgery (> 45 min) Laparoscopic surgery (> 45 min) Malignancy Confined to bed (> 72 hours) Immobilizing plaster cast Central venous access Age >= 75 History of VTE Family history of VTE Factor V Leiden Prothrombin [id number] Lupus anticoagulant Anticardiolipin antibodies Elevated serum homocysteine Heparin-induced thrombocytopenia Other congenital or acquired thrombophilia Stroke (< 1 month) Elective arthroplasty Hip, pelvis, or leg fracture Acute spinal cord injury (< 1 month) Prophylaxis Regimen: Total Risk Factor Score Risk Level Prophylaxis Regimen 0-1 Low Early ambulation 2 Moderate Order ONE of the following: *Sequential Compression Device (SCD) *Heparin 5000 units SQ BID 3-4 Higher Order ONE of the following medications: *Heparin 5000 units SQ TID *Enoxaparin/Lovenox 40 mg SQ daily (WT < 150 kg, CrCl > 30 mL/min) *Enoxaparin/Lovenox 30 mg SQ daily (WT < 150 kg, CrCl > 10-29 mL/min) *Enoxaparin/Lovenox 30 mg SQ BID (WT < 150 kg, CrCl > 30 mL/min) AND/OR *Sequential Compression Device (SCD) 5 or more Highest Order ONE of the following medications: *Heparin 5000 units SQ TID (Preferred with Epidurals) *Enoxaparin/Lovenox 40 mg SQ daily (WT < 150 kg, CrCl > 30 mL/min) *Enoxaparin/Lovenox 30 mg SQ daily (WT < 150 kg, CrCl > 10-29 mL/min) *Enoxaparin/Lovenox 30 mg SQ BID (WT < 150 kg, CrCl > 30 mL/min) AND *Sequential Compression Device (SCD)
--- NOTE | 2017-12-30 01:38 | P.OP ---
- Preoperative Diagnosis (1) SDH (subdural hematoma) - Postoperative Diagnosis (1) SDH (subdural hematoma) Date of procedure: 12/30/17 Procedure: Left frontal temporal parietal decompressive craniectomy, evacuation of acute subdural hematoma Anesthesia: QUINTON Surgeon: Wesley Uribe MD Merchandising Team Lead: Abebe Rodriguez Pathology: other (subdural hematoma) Operation and Findings: INDICATIONS FOR THE PROCEDURE Ms Cole is a 72 year old female who was brought to [facility] with altered mental status. CT of the brain showed a large acute subdural hematoma with mass effect and midline shift A surgical decompression was indicated as recommended by the Trauma Commitee of [place] [employer] in an attempt to save the patient's life DETAILS OF THE SURGICAL PROCEDURE The patient was endotracheally intubated and mechanically ventilated. A Rushing catheter, bilateral KRISTOHPER hose and sequential compression devices were placed and kept throughout the procedure. The patient was positioned supine on a 3080 table over a soft mattress. The eyes were tapped shut after ointment was applied by the anesthesiologist to prevent corneal abrasion. A Theo hugger was placed over the exposed lower body to maintain control of the core body temperature. The head was placed on a gel doughnut. All pressure points were carefully padded with egg crate mattress. The left frontotemporal parietal area was shaved, prepped and draped in the usual sterile fashion. A standard inverted question darnell incision was outlined on the scalp and infiltrated with 1% lidocaine with epinephrine. The skin incision was made with a #10 blade down to the level of the periosteum in the frontoparietal region and to the temporalis fascia in the temporal region. Emanuel clips were applied to the scalp. Using a Bovie, the temporalis fascia and muscle were incised and a subperiosteal dissection was performed reflecting the scalp flap anteriorly. The scalp was covered with a moist sponge and held in position using fish hooks. The TPS drill was brought to the field and a bur hole was made in the temporalparietal region using the craniotome attachment. Then, using the footplate attachment, a large frontotemporoparietal craniotomy flap was elevated. The dura was bulging, very tense with severe pressure and an underlying dark coloration related to the acute subdural hematoma. The dura was opened with a 15 blade and metzembaun scissors and a large subdural hematoma was found, causing significant mass effect. The hematoma was evacuated by gentle irrigation and sent to the lab for histologic analysis. The bleeding was controlled using the bipolar director of content marketing. Then the incision was irrigated with saline solution. The dural edges were tacked to the bone. The brain was bulging due to underling edema. The bone flap was packed in sterile conditions and stored in the operative room freezer. Then the incision was irrigated with saline solution. There diffuse bleeding due to her coagulopathy. A 10 millimeter Rusty-Mendieta drain was then left in the subgaleal space and externalized through a separate stab incision. The incision was then closed in layers. 0 Vicryl in interrupted sutures were used to close the temporalis fascia. The galea was closed with interrupted 3-0 Vicryl. [place] were applied to the skin. The drain was secured with a 3-0 nylon. At the end of the procedure, the sponge, needle and instrument counts were all correct. Estimated blood loss was less than 100 cc or less. No blood transfusion was given. No intraoperative complications occurred. The patient received prophylactic antibiotics. The patient was then transferred to the recovery room in stable condition. COMPLICATIONS None ESTIMATED BLOOD LOSS Less than 100 cc.
[2017-12-30] MEDS ORDERED: Morphine Inj 4 MG/ML Vial IV.PUSH PRN (01:45)
[2017-12-30] MEDS: Propofol 1000 mg/100 ml Inj 1,000 MG/100 ML BOTTLE IV.CONT PRN ×5 (01:50→18:49)
[2017-12-30 01:53] LABS: ABG PCO2 31 mmHg (38-42); ABG PO2 380 mmHG (61-120)
[2017-12-30 02:11] LABS: Activated Partial Thrombo Time 25.4 sec (24.3-30.1); INR 1.2 Ratio; Prothrombin Time 12.2 sec (9.8-11.6)
[2017-12-30 02:13] LABS: D-Dimer 0.46 mg/L FEU (0.00-0.50)
[2017-12-30] MEDS ORDERED: Acetaminophen 325 MG Tablet PO PRN (02:21)
[2017-12-30 02:25] LABS: Calcium 8.2 mg/dL (8.5-10.1); Carbon Dioxide 23.3 meq/L (21.0-32.0); Potassium 3.3 meq/L (3.5-5.1)
[2017-12-30] MEDS ORDERED: fentaNYL Citrate Inj 100 MCG/2 ML Ampul ONE (03:34)
[2017-12-30 03:41] LABS: ABG Base Excess -3.3 mmol/L (-2-2); ABG PCO2 30 mmHg (38-42); ABG PO2 249 mmHG (61-120)
[2017-12-30] MEDS: Insulin NovoLOG Aspart Correctional Sugar Inj SQ SCH ×6 (03:51→20:13)
[2017-12-30] MEDS: Sod Chloride 0.9% Inj 1,000 ML IV.CONT SCH ×2 (04:00→15:00)
[2017-12-30] MEDS ORDERED: Chlorhexidine Gluconate 2% 1 Pack (2 Cloths) TOPICAL PRN (04:00)
[2017-12-30] MEDS: Chlorhexidine Gluconate 2% 1 Pack (2 Cloths) TOPICAL SCH (04:01)
[2017-12-30 04:11] LABS: ABG Base Excess -0.8 mmol/L (-2-2); ABG PCO2 34 mmHg (38-42); ABG PO2 152 mmHg (61-120)
--- NOTE | 2017-12-30 05:05 | XR ---
EXAM DATE: 12/30/2017 4:41 AM EDT AGE/SEX: 72 years / Female INDICATIONS: Shortness of breath. CLINICAL DATA: This is the patient's subsequent encounter. Patient reports that signs and symptoms h ave been present for 2 days and indicates a pain score of Nonresponsive. MEDICAL/SURGICAL HISTORY: . Hypertension. Diabetes mellitus type II. None. COMPARISON: [facility] [place] 1V SINGLE AP, 12/25/2017. . FINDINGS: A single AP semierect portable view of the chest was obtained. The patient has been intubated with th e endotracheal tube tip approximately 3 cm above the carson. The study is more mid inspiratory with c rowding of the lung vasculature. There are no confluent infiltrates or effusions. Multiple overlying electrocardiogram leads and tubing are present. The heart size is at the upper limits of normal. The bony thorax remains intact. Tracheal calcifications are present. CONCLUSION: 1. Interval intubation. 2. Mid inspiratory study with crowding of the lung vasculature. Electronically signed by: Abebe Nowak MD 12/30/2017 5:04 AM EDT
[2017-12-30] MEDS: Potassium Chlor 20 mEq Premix 20 MEQ/100 ML PIGGYBACK IV.SIG PRN (05:15)
[2017-12-30 05:30] LABS: INR 1.2 Ratio
[2017-12-30] MEDS: fentaNYL Citrate Inj 100 MCG/2 ML Ampul IV.PUSH PRN (06:14)
[2017-12-30] MEDS: Pantoprazole Inj 40 MG Vial IV.PUSH SCH (07:59)
[2017-12-30] MEDS ORDERED: Senna/Docusate Sodium 8.6/50 MG Tablet PO SCH (09:00)
[2017-12-30] MEDS: Sodium Chloride 23.4% Inj 188 MEQ in Sod Chloride 0.9% Inj 1,000 ML IV.CONT SCH (09:43)
[2017-12-30] MEDS: Labetalol HCl Inj 100 MG/20 ML Vial IV.PUSH PRN ×2 (10:22→20:14)
[2017-12-30] MEDS ORDERED: Esmolol Bolus Inj 100 MG/10 ML Vial IV.PUSH ONE (12:00)
--- NOTE | 2017-12-30 12:28 | P.PNNS ---
Subjective Interval history: 72 y/o female with moderate to large left subdural hematoma with mass effect and midline shift to the right, she underwent emergent craniotomy for evacuation of SDH and placement of ICP monitor. Currently intubated, sedated. ICPs controlled o Physical Exam Vital signs: Vital Signs 12/29/17 23:19 12/29/17 23:30 12/30/17 00:00 Temperature 97.9 F Pulse Rate 120 H 116 H 114 H Respiratory Rate 18 14 14 Blood Pressure 169/75 H 203/121 H 216/91 H Pulse Oximetry 92 L 94 L 96 12/30/17 00:30 12/30/17 00:45 12/30/17 01:00 Temperature Pulse Rate 114 H 114 H 124 H Respiratory Rate 14 14 14 Blood Pressure 204/85 H 204/85 H 194/88 H Pulse Oximetry 96 96 100 12/30/17 01:10 12/30/17 01:15 12/30/17 03:30 Temperature Pulse Rate 128 H 89 Respiratory Rate 14 14 Blood Pressure 186/80 H 136/66 Pulse Oximetry 100 99 12/30/17 04:00 12/30/17 04:19 12/30/17 05:00 Temperature 97.5 F L Pulse Rate 92 H 116 H Respiratory Rate 14 14 19 Blood Pressure 140/68 138/64 Pulse Oximetry 100 12/30/17 06:00 12/30/17 08:00 12/30/17 08:22 Temperature 98.2 F Pulse Rate 120 H 116 H Respiratory Rate 23 14 16 Blood Pressure 138/64 141/61 H Pulse Oximetry 100 12/30/17 08:56 12/30/17 11:10 Temperature Pulse Rate 116 H Respiratory Rate 18 Blood Pressure Pulse Oximetry 100 Intake & Output 12/29/17 12/30/17 12/30/17 18:59 06:59 18:59 Intake Total 1350 / 1350 600 / 600 Output Total 1325 / 1325 Balance 25 / 25 600 / 600 Weight 100.4 kg Intake: IV 350 / 350 600 / 600 Diprivan 1000 mg/100 ml Inj 1, 100 / 100 100 / 100 000 mg In 100 ml @ 5 MCG/KG/MIN 3 mls/hr IV.CONT TITRATE PRN Rx#:[id number] Cardene Inj 25 MG In NS Inj 240 250 / 250 500 / 500 ML @ 5 MG/HR 50 mls/hr IV.CONT TITRATE PRN Rx#:[id number] Anesthesia Amount 1000 / 1000 Output: Estimated Blood Loss 200 / 200 Urine Amount (Catheter) 1075 / 1075 Indwelling Urethral Catheter 1075 / 1075 Wound Drainage 50 / 50 # 1 Left Head 30 / 30 # 2 Left Head 20 / 20 Other: # Bowel Movements 0 Narrative: Intubated, well sedated, no response to pain, reports off sedation slight withdrawal left upper pupils equal head with dressing, clean and dry, ICP monitor in place - Urinary Catheter Management Indwelling Urethral Catheter Cath placed during this visit: yes Reason for continuing: Hourly intake/output Insertion date: 12/30/17 Insertion time: 01:30 Assessment and Plan - Plan 72 y/o female s/p emergent craniotomy for evacuation of large left SDH, and placement of ICP monitor 12/30/[address] 12/29/17 23:19 CONCLUSION: 1. Moderate to large left subdural hematoma with mass effect and midline shift to the right. 2. Slight asymmetry of the suprasellar cisterns with prominence left uncal region which could indicate impending herniation. Plan: cont ICP monitoring neuro checks follow up CT Brain tomorrow morning critical care management
[2017-12-30 12:46] LABS: INR 1.2 Ratio; Prothrombin Time 11.8 sec (9.8-11.6)
--- NOTE | 2017-12-30 13:30 | P.OP ---
- Preoperative Diagnosis (1) SDH (subdural hematoma) Date of procedure: 12/30/17 Procedure: Right frontal bur hole with placement of an intracranial pressure monitor Anesthesia: QUINTON Surgeon: Wesley Uribe MD Fagot Heater: MERVAT Pathology: none sent Operation and Findings: INDICATIONS FOR THE PROCEDURE Ms Cole is a 72 year old female who was brought to [facility] with altered mental status. CT of the brain showed a large acute subdural hematoma with mass effect and midline shift A surgical decompression was indicated as recommended by the Trauma Commitee of [place] [employer] in an attempt to save the patient's life DETAILS OF THE SURGICAL PROCEDURE The right frontal area was shaved, prepped and draped in the usual sterile fashion. An entry point was selected behind the hairline, approximately 30 mm lateral to the midline. The incision was infiltrated with 1% lidocaine with epinephrine 1:100,000 dilution. A small incision was made with a 15 blade down to the level of the periosteum. Using a twist drill a romel hole was made. The dura was opened with a blunt stylet, and a Chaparro bolt was secured to the bone. A fiberoptic transducer was calibrated according to the rnfa's instructions, and advanced into the parenchyma of the frontal lobe through the bolt. An intracranial pressure of 5 mmHg was achieved with a good waveform. A Betadine sterile dressing was applied. The patient tolerated the procedure well. There were no intraoperative complications. Blood loss was minimal.
--- NOTE | 2017-12-30 17:16 | ECG ---
Date Performed: 12/29/2017 Time Performed: 23:24:06 PTAGE: 72 years EKG: ATRIAL FIBRILLATION WITH RAPID VENTRICULAR RESPONSE INFERIOR MYOCARDIAL INFARCTION ABNORMAL ECG Compared to PREVIOUS TRACING , now in AF with RVR PREVIOUS TRACIN12/25/2017 16.43 DOCTOR: Micaela Terrazas Interpretating Date/Time 12/30/2017 17:15:15
[2017-12-30] MEDS: Senna/Docusate Sodium 8.6/50 MG Tablet PO SCH ×2 (19:38→20:13)
[2017-12-31] MEDS: Insulin NovoLOG Aspart Correctional Sugar Inj SQ SCH ×6 (00:10→20:57)
[2017-12-31] MEDS: Labetalol HCl Inj 100 MG/20 ML Vial IV.PUSH PRN (00:13)
[2017-12-31] MEDS: Sod Chloride 0.9% Inj 1,000 ML IV.CONT SCH ×3 (01:25→17:38)
[2017-12-31] MEDS: Propofol 1000 mg/100 ml Inj 1,000 MG/100 ML BOTTLE IV.CONT PRN ×6 (01:26→21:16)
[2017-12-31] MEDS: niCARdipine Inj 25 MG in Sodium Chlor 0.9% Inj 240 ML IV.CONT PRN ×8 (01:29→19:10)
[2017-12-31] MEDS: Chlorhexidine Gluconate 2% 1 Pack (2 Cloths) TOPICAL SCH (03:30)
[2017-12-31 04:17] LABS: Baso % (Auto) 0.5 % (0.0-2.0); Eos % (Auto) 0.2 % (0.0-4.0); Hematocrit 31.2 % (35.0-46.0); Hemoglobin 10.7 gm/dL (11.6-15.3); Lymph # (Auto) 0.9 th/mm3 (1.0-4.8); Mean Corpuscular HGB Conc 34.2 % (32.0-36.0); Mean Corpuscular Volume 90.6 fL (80.0-100.0); Mean Platelet Volume 7.6 fL (7.0-11.0); Mono # (Auto) 0.5 th/mm3 (0.0-0.9); Mono % (Auto) 10.5 % (0.0-8.0); Neut # (Auto) 3.3 th/mm3 (1.8-7.7); Neut % (Auto) 69.8 % (16.0-70.0); Platelet Count 115 th/mm3 (150-450); Red Blood Count 3.44 mil/mm3 (4.00-5.30); Red Cell Distribution Width 14.2 % (11.6-17.2); White Blood Count 4.8 th/mm3 (4.0-11.0)
[2017-12-31 04:19] LABS: INR 1.2 Ratio; Prothrombin Time 12.2 sec (9.8-11.6)
--- NOTE | 2017-12-31 04:34 | CT ---
EXAM DATE: 12/31/2017 4:28 AM EDT AGE/SEX: 72 years / Female INDICATIONS: Follow-up intercranial hemorrhage after craniotomy and placement of subdural drainage c anton. CLINICAL DATA: This is the patient's initial encounter. Patient reports that signs and symptoms have been present for 2 days and indicates a pain score of Nonresponsive. MEDICAL/SURGICAL HISTORY: Non-responsive. Non-responsive. RADIATION DOSE: 56.35 CTDI (mGy) COMPARISON: [facility] [place]/O CONTRAST, 12/29/2017. . TECHNIQUE: CT of the head without contrast. Using automated exposure control and adjustment of the mA and/or kV according to patient size, radiation dose was kept as low as reasonably achievable to ob tain optimal diagnostic quality images. DICOM format image data is available electronically for revi ew and comparison. FINDINGS: The patient is status post interval left frontal parietal craniotomy and placement of a left subdural drainage catheter. The previously noted subdural hematoma is no longer present. There is no signific ant residual. The previously noted mass effect and midline shift have resolved. There has been interv al placement of a right frontal pressure probe. The ventricular system is now within normal limits. T he posterior fossa and brainstem are unremarkable. CONCLUSION: 1. Status post left craniotomy and placement of left subdural drainage catheter with removal of the previously noted subdural hematoma with no significant residual. 2. Interval resolution of mass effect and midline shift. 3. No new hemorrhage. . Electronically signed by: Abebe Nowak MD 12/31/2017 4:32 AM EDT
[2017-12-31 04:49] LABS: Albumin 2.6 g/dL (3.4-5.0); Calcium 6.9 mg/dL (8.5-10.1); Carbon Dioxide 21.2 meq/L (21.0-32.0); Magnesium 1.1 mg/dL (1.5-2.5); Phosphorus 1.8 mg/dL (2.5-4.9); Potassium 3.8 meq/L (3.5-5.1)
--- NOTE | 2017-12-31 05:05 | XR ---
EXAM DATE: 12/31/2017 4:04 AM EDT AGE/SEX: 72 years / Female INDICATIONS: Short of breath. CLINICAL DATA: This is the patient's subsequent encounter. Patient reports that signs and symptoms h ave been present for 1 week and indicates a pain score of 0/10. MEDICAL/SURGICAL HISTORY: Hypertension. Diabetes mellitus type II. None. COMPARISON: [facility] – [place], CHEST 1V SINGLE AP, 12/30/2017. . FINDINGS: A single AP semierect view of the chest was obtained and again demonstrates an endotracheal tube in p lace with the tip 3 cm above the carson. There are multiple overlying tubes electrocardiogram leads. No definite confluent infiltrate or effusion is identified. The heart size appears at the upper limit s of normal. There are tracheal calcifications. CONCLUSION: No significant change. Electronically signed by: Abebe Nowak MD 12/31/2017 5:04 AM EDT
[2017-12-31] MEDS: fentaNYL Citrate Inj 100 MCG/2 ML Ampul IV.PUSH PRN ×6 (05:57→19:15)
[2017-12-31] MEDS: Potassium Phosphate 500 MG Soluble Tablet PO PRN (06:02)
[2017-12-31] MEDS: Sodium Chloride 23.4% Inj 188 MEQ in Sod Chloride 0.9% Inj 1,000 ML IV.CONT SCH (08:02)
--- NOTE | 2017-12-31 08:28 | P.PNCC ---
Subjective Subjective Remarks/Hospital Course: 72-year-old female with past medical history of hypertension, diabetes , prior liver transplant in 2010, on chronic anticoagulation for warfarin (per family report due to prior hx of portal vein thrombosis prior to her transplant) . She reportedly got up to go to the bathroom around 10 PM. She developed headache, nausea and multiple episodes of vomiting. There is no reported head trauma. CT brain demonstrates left subdural hematoma with 1 cm left to right shift. INR 2.8. Administering k Centra 25 U/kg, vitamin K 10 mg IV. Blood pressure 169/75. Initiating Cardene drip. Dr. Uribe has been consulted and will be taking patient emergently to operating room following correction of coagulopathy. Subjective: 12/31 Underwent Left frontal temporal parietal decompressive craniectomy, evacuation of acute subdural hematoma on 12/[address] Uribe R frontal fiberoptic ICP monitor also in place. ICPs are <3. Repeat CT brain this morning demonstrates no residual subdural. Mass-effect is resolved. Remains on mechanical ventilation and cardene drip for hypertension management. Objective Vital Signs / I&O: Vital Signs 12/30/17 08:56 12/30/17 11:10 12/30/17 12:00 Temperature 98.8 F Pulse Rate 116 H 86 Respiratory Rate 18 18 Blood Pressure 142/68 H Pulse Oximetry 100 12/30/17 16:00 12/30/17 17:32 12/30/17 20:00 Temperature 99.9 F H 99.2 F Pulse Rate 95 H 100 H Respiratory Rate 16 16 19 Blood Pressure 145/60 H 136/54 L Pulse Oximetry 100 12/30/17 21:35 12/31/17 00:00 12/31/17 00:43 Temperature 100.3 F H Pulse Rate 106 H Respiratory Rate 16 20 21 Blood Pressure 139/60 Pulse Oximetry 100 98 97 12/31/17 04:00 12/31/17 04:12 12/31/17 04:15 Temperature 99.9 F H Pulse Rate 106 H Respiratory Rate 18 24 Blood Pressure 138/54 L Pulse Oximetry 98 97 100 12/31/17 07:54 Temperature Pulse Rate Respiratory Rate 18 Blood Pressure Pulse Oximetry 97 Intake & Output 12/30/17 12/31/17 12/31/17 18:59 06:59 18:59 Intake Total 2317 / 2317 2200 / 2200 240 / 240 Output Total 635 / 635 480 / 480 Balance 1682 / 1682 1720 / 1720 240 / 240 Weight 102.6 kg Intake: IV 2155 / 2155 2200 / 2200 240 / 240 Diprivan 1000 mg/100 ml Inj 1, 300 / 300 200 / 200 000 mg In 100 ml @ 5 MCG/KG/MIN 3 mls/hr IV.CONT TITRATE PRN Rx#:[id number] NS Inj 1,000 ML @ 100 mls/hr IV 1000 / 1000 1000 / 1000 .CONT .Q10H GRICELDA Rx#:[id number] Cardene Inj 25 MG In NS Inj 240 750 / 750 1000 / 1000 240 / 240 ML @ 5 MG/HR 50 mls/hr IV.CONT TITRATE PRN Rx#:[id number] KCl 20 mEq Premix Inj 20 meq In 0 / 0 100 ml @ 50 mls/hr IV.SIG Q2H PRN Rx#:[id number] Keppra Inj 500 MG In NS Inj 100 105 / 105 0 / 0 ML @ 400 mls/hr IV.SIG Q12H GRICELDA Rx#:[id number] Other 162 / 162 Output: Urine Amount (Catheter) 550 / 550 400 / 400 Indwelling Urethral Catheter 550 / 550 400 / 400 Wound Drainage 85 / 85 80 / 80 # 1 Left Head 40 / 40 30 / 30 # 2 Left Head 45 / 45 50 / 50 Other: Other Intake Source Saline Solution # Bowel Movements 0 Result Diagrams: 12/31/17 04:00 12/31/17 12:00 Objective Remarks: Drips: Cardene 15 mg/h Propofol 50 mcg/kg/min GENERAL: Well-nourished, well-developed overweight female patient who is orotracheally intubated and sedated. SKIN: Warm and dry, well-perfused HEAD: Normocephalic. Fiberoptic ICP monitor in place. ICP currently -1. KUMAR in place 2 with serosanguineous output. Dressing overlies left craniectomy flap EYES: Pupils equal and round, pinpoint and reactive.. No scleral icterus. No injection or drainage. ENT: No nasal bleeding or discharge. Mucous membranes pink and moist. NECK: Trachea midline. No JVD. CARDIOVASCULAR: Regular rate and rhythm, sinus rhythm on the monitor. 2 out of 6 system murmur left sternal border RESPIRATORY: Orotracheally intubated. Clear to auscultation bilaterally. GASTROINTESTINAL: Abdomen soft, non-tender, nondistended. Healed scar right upper quadrant. : Rushing in place with yellow urine output MUSCULOSKELETAL: Extremities without clubbing, cyanosis. Trace edema throughout. Scar overlies left knee L radial art line in place with distal perfusion intact. NEUROLOGICAL: Sedation placed on hold. Opens eyes. Spontaneously moves L side. Withdraws RUE/RLE. Assessment and Plan - Problem List (1) SDH (subdural hematoma) Code(s): S06.5X9A - Traumatic subdural hemorrhage with loss of consciousness of unspecified duration, initial encounter Status: Acute (2) GERD (gastroesophageal reflux disease) Code(s): K21.9 - Gastro-esophageal reflux disease without esophagitis Status: Chronic (3) Liver transplant recipient Code(s): Z94.4 - Liver transplant status Status: Chronic (4) HBP (high blood pressure) Code(s): I10 - Essential (primary) hypertension Status: Chronic (5) Diabetes Code(s): E11.9 - Type 2 diabetes mellitus without complications Status: Chronic (6) Warfarin-induced coagulopathy Code(s): D68.32 - Hemorrhagic disorder due to extrinsic circulating anticoagulants; T45.515A - Adverse effect of anticoagulants, initial encounter Status: Acute - Assessment and Plan Plan: NEURO: Acute left subdural hematoma with mass-effect Status post left craniectomy and subdural hematoma evacuation and ICP monitor insertion 12/30/[address] Uribe Repeat CT brain o residual subdural or mass-effect. Was on Coumadin for PVT with INR 2.8 upon presentation.. Received K Centra 25 units/KG and vitamin K 10 mg IV preoperatively. Repeat INR 1.2. Received mannitol 25 g IV in the emergency department 12/30 KUMAR drain and ICP monitor management per neurosurgery. Keppra 500 mg IV every 12 hours for seizure prophylaxis. Blood pressure management as per below. Propofol for sedation with target RASS -2. Fentanyl as needed for analgesia Peripheral neuropathy Hold Lyrica 50 mill grams p.o. twice daily RESP: Acute respiratory failure Intubated in the ED by Dr. Pierce for airway protection and hyperventilation prior to going to the OR. Anterior airway with grade 2/3 view with CMAC. Ventilator weaning when appropriate from neurosurgical standpoint. Chest x-ray satisfactory endotracheal tube position. Mild cardiomegaly CV: Malignant hypertension Cardene drip to maintain systolic blood pressure less than 160 Resumed metoprolol 50 twice daily, Norvasc 10 mg daily. Still hypertensive so started losartan 50 daily (home med is valsartan 80 mg daily which has been recalled). 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 Her patient financial coordinator is Mariya Munoz [phone] Discussed with patient financial coordinator - Current tacrolimus dosing is 3 mg po [id number] with target trough 3-5. Trough was 4.8 on admission, prograf was held, now 2. Will resume at above dosing and monitor trough. Ms Munoz also provided history that the indication for warfarin is Factor V Leiden heterozygosity and that it was managed by a physician executive outside of the [facility] system. Family states it is Dr. Kaiser. GERD Continue PPI Initiate tube feeds with Glucerna 1.5 and advance to goal rate 65 ml/hr, f/u nutrition recs. FEN/RENAL: Chronic kidney disease stage III Hypokalemia (resolved) Continue Rushing. Lasix 40 mg IV q12 x3. KCl 40 mEq per tube q8 x3. ID: Immunosuppressed state Monitor for signs and symptoms of infection. Claudia Operative cefazolin per neurosurgery. HEME: Warfarin induced coagulopathyINR 2.8 (resolved) Factor V Leiden heterozygosity - indication for chronic anticoagulation. History of portal vein thrombosis (remote, prior to transplant, not the indication for warfarin per her transplant team) Thrombocytopenia Warfarin on hold. Received K Centra/vitamin K on 12/30 as per above. Anemia Partially dilutional, partially operative loss Magnetic Doctor is Dr. Kaiser, she sees him in the [place] office. I called Dr. Kaiser's office; they will fax his progress note and prior labs. Spoke with ELAINE Chandler with Dr. Kaiser who states Ms Cole was on warfarin due to Factor V Leiden heterozygosity with prior h/o portal vein thrombosis. Pt has no other history of venous thromboembolism. She has no prior issues with bleeding except for variceal bleed prior to transplant. The fact that she has now had spontaneous subdural while INR was therapeutic could preclude her from therapeutic anticoagulation indefinitely given heterozygosity for mutation. ENDO: Diabetes mellitus with acute hyperglycemia Hold Tradjenta 5 mg p.o. every morning, hold Tresiba 18 units subcu nightly. On Medium dose insulin sliding scale every 4 hours (21 units last 24 hours). GLucose is >200 this morning. Detemir 8 units subcut q12. PROPH: SCDs for DVT prophylaxis. Continue Protonix for stress ulcer prophylaxis and history of GERD ACCESS: Peripheral IV providing adequate access at this time. Left radial art line placed 12/30 in OR #2 Full code Discussed with Dr. Uribe. Discussed with her patient financial coordinator and ULTRASOUND TECHNICIAN with her outpatient physician executive. Updated patients daughters at bedside and their questions were answered. Level 3 follow-up
[2017-12-31] MEDS: Pantoprazole Inj 40 MG Vial IV.PUSH SCH (08:39)
[2017-12-31] MEDS: Senna/Docusate Sodium 8.6/50 MG Tablet PO SCH ×2 (08:39→20:54)
[2017-12-31 08:40] LABS: ABG PCO2 30 mmHg (38-42); ABG PO2 76 mmHg (61-120)
[2017-12-31] MEDS ORDERED: Potassium Chloride 25 MEQ Effervescent Tablet NG/OG ONE (09:13)
[2017-12-31] MEDS: amLODIPine 10 MG Tablet NG/OG SCH (09:51)
[2017-12-31] MEDS: Insulin Detemir Inj 1,000 UNIT/10 ML Vial SQ SCH ×2 (09:51→20:55)
[2017-12-31] MEDS: Metoprolol Tartrate 50 MG Tablet PO SCH ×2 (09:51→20:54)
--- NOTE | 2017-12-31 11:00 | P.PNNS ---
Subjective Interval history: 12/31: reported ICP controlled overnight Physical Exam Vital signs: Vital Signs 12/30/17 11:10 12/30/17 12:00 12/30/17 16:00 Temperature 98.8 F 99.9 F H Pulse Rate 86 95 H Respiratory Rate 18 18 16 Blood Pressure 142/68 H 145/60 H Pulse Oximetry 100 12/30/17 17:32 12/30/17 20:00 12/30/17 21:35 Temperature 99.2 F Pulse Rate 100 H Respiratory Rate 16 19 16 Blood Pressure 136/54 L Pulse Oximetry 100 100 12/31/17 00:00 12/31/17 00:43 12/31/17 04:00 Temperature 100.3 F H 99.9 F H Pulse Rate 106 H 106 H Respiratory Rate 20 21 18 Blood Pressure 139/60 138/54 L Pulse Oximetry 98 97 98 12/31/17 04:12 12/31/17 04:15 12/31/17 07:54 Temperature Pulse Rate Respiratory Rate 24 18 Blood Pressure Pulse Oximetry 97 100 97 12/31/17 08:00 12/31/17 09:00 12/31/17 10:50 Temperature 99.9 F H Pulse Rate 96 H 102 H Respiratory Rate 18 14 Blood Pressure 140/66 Pulse Oximetry 97 94 L Intake & Output 12/30/17 12/31/17 12/31/17 18:59 06:59 18:59 Intake Total 2317 / 2317 2200 / 2200 690 / 690 Output Total 635 / 635 480 / 480 Balance 1682 / 1682 1720 / 1720 690 / 690 Weight 102.6 kg Intake: IV 2155 / 2155 2200 / 2200 690 / 690 Diprivan 1000 mg/100 ml Inj 1, 300 / 300 200 / 200 100 / 100 000 mg In 100 ml @ 5 MCG/KG/MIN 3 mls/hr IV.CONT TITRATE PRN Rx#:[id number] NS Inj 1,000 ML @ 100 mls/hr IV 1000 / 1000 1000 / 1000 .CONT .Q10H GRICELDA Rx#:[id number] Cardene Inj 25 MG In NS Inj 240 750 / 750 1000 / 1000 490 / 490 ML @ 5 MG/HR 50 mls/hr IV.CONT TITRATE PRN Rx#:[id number] Magnesium Sulfate Inj 4 GM In 100 / 100 NS Inj 92 ML @ 50 mls/hr IV.SIG UNSCH PRN Rx#:[id number] KCl 20 mEq Premix Inj 20 meq In 0 / 0 100 ml @ 50 mls/hr IV.SIG Q2H PRN Rx#:[id number] Keppra Inj 500 MG In NS Inj 100 105 / 105 0 / 0 ML @ 400 mls/hr IV.SIG Q12H GRICELDA Rx#:[id number] Other 162 / 162 Output: Urine Amount (Catheter) 550 / 550 400 / 400 Indwelling Urethral Catheter 550 / 550 400 / 400 Wound Drainage 85 / 85 80 / 80 # 1 Left Head 40 / 40 30 / 30 # 2 Left Head 45 / 45 50 / 50 Other: Other Intake Source Saline Solution # Bowel Movements 0 Narrative: Intubated ICPs controlled - Urinary Catheter Management Indwelling Urethral Catheter Cath placed during this visit: yes Reason for continuing: Hourly intake/output Insertion date: 12/30/17 Insertion time: 01:30 Assessment and Plan - Plan Impression 72 y/o female s/p craniotomy for evacuation of SDH, placement of ICP monitor Plan: cont ICP monitoring cont critical care management
[2018-01-01] MEDS: Insulin NovoLOG Aspart Correctional Sugar Inj SQ SCH ×6 (00:59→20:18)
[2018-01-01] MEDS: Propofol 1000 mg/100 ml Inj 1,000 MG/100 ML BOTTLE IV.CONT PRN ×6 (01:02→21:40)
[2018-01-01 01:52] LABS: Baso % (Auto) 0.8 % (0.0-2.0); Eos % (Auto) 0.3 % (0.0-4.0); Hematocrit 29.3 % (35.0-46.0); Hemoglobin 10.1 gm/dL (11.6-15.3); Lymph # (Auto) 0.5 th/mm3 (1.0-4.8); Lymph % (Auto) 12.1 % (9.0-44.0); Mean Corpuscular HGB Conc 34.4 % (32.0-36.0); Mean Corpuscular Hemoglobin 30.9 pg (27.0-34.0); Mean Corpuscular Volume 89.9 fL (80.0-100.0); Mean Platelet Volume 7.8 fL (7.0-11.0); Mono # (Auto) 0.4 th/mm3 (0.0-0.9); Mono % (Auto) 8.6 % (0.0-8.0); Neut # (Auto) 3.4 th/mm3 (1.8-7.7); Neut % (Auto) 78.2 % (16.0-70.0); Platelet Count 109 th/mm3 (150-450); Red Blood Count 3.26 mil/mm3 (4.00-5.30); Red Cell Distribution Width 14.1 % (11.6-17.2); White Blood Count 4.4 th/mm3 (4.0-11.0)
[2018-01-01 02:22] LABS: Calcium 6.6 mg/dL (8.5-10.1); Carbon Dioxide 20.4 meq/L (21.0-32.0); Potassium 3.1 meq/L (3.5-5.1)
[2018-01-01 02:34] LABS: Total Protein 5.7 g/dL (6.4-8.2)
[2018-01-01 04:25] LABS: Magnesium 1.6 mg/dL (1.5-2.5)
[2018-01-01] MEDS ORDERED: niCARdipine Inj 25 MG/10 ML Vial ONE (04:54)
[2018-01-01] MEDS: niCARdipine Inj 25 MG in Sodium Chlor 0.9% Inj 240 ML IV.CONT PRN ×2 (04:57→22:09)
[2018-01-01] MEDS: Potassium Chlor 20 mEq Premix 20 MEQ/100 ML PIGGYBACK IV.SIG PRN ×2 (05:00→07:00)
[2018-01-01] MEDS ORDERED: Calcium Gluconate Inj 2 GM in Sodium Chlor 0.9% Inj 100 ML IV.SIG ONE (06:00)
[2018-01-01] MEDS ORDERED: Calcium Chloride Inj 2 GM in Sodium Chlor 0.9% Inj 100 ML IV.SIG ONE (06:00)
[2018-01-01 06:16] LABS: ABG Base Excess -5.5 mmol/L (-2-2); ABG PCO2 26 mmHg (38-42); ABG PO2 73 mmHg (61-120)
[2018-01-01] MEDS ORDERED: Mineral Oil Liq 30 ML UDC PO ONE (07:02)
--- NOTE | 2018-01-01 07:18 | P.PNCC ---
Subjective Subjective Remarks/Hospital Course: 72-year-old female with past medical history of hypertension, diabetes , prior liver transplant in 2010, on chronic anticoagulation for warfarin (per family report due to prior hx of portal vein thrombosis prior to her transplant) . She reportedly got up to go to the bathroom around 10 PM. She developed headache, nausea and multiple episodes of vomiting. There is no reported head trauma. CT brain demonstrates left subdural hematoma with 1 cm left to right shift. INR 2.8. Administering k Centra 25 U/kg, vitamin K 10 mg IV. Blood pressure 169/75. Initiating Cardene drip. Dr. Uribe has been consulted and will be taking patient emergently to operating room following correction of coagulopathy. 12/31 Underwent Left frontal temporal parietal decompressive craniectomy, evacuation of acute subdural hematoma on 12/[address] Uribe R frontal fiberoptic ICP monitor also in place. ICPs are <3. Repeat CT brain this morning demonstrates no residual subdural. Mass-effect is resolved. Remains on mechanical ventilation and cardene drip for hypertension management. Subjective 01/01: No acute events overnight. T-max 99.9. No bowel movement. Replacing calcium, potassium magnesium. Quite tachypneic this a.m. Objective Vital Signs / I&O: Vital Signs 12/31/17 07:54 12/31/17 08:00 12/31/17 09:00 Temperature 99.9 F H Pulse Rate 96 H 102 H Respiratory Rate 18 18 Blood Pressure 140/66 Pulse Oximetry 97 97 12/31/17 10:50 12/31/17 12:00 12/31/17 15:54 Temperature 99.4 F Pulse Rate 94 H Respiratory Rate 14 18 18 Blood Pressure 120/54 L Pulse Oximetry 94 L 94 L 94 L 12/31/17 16:00 12/31/17 20:00 12/31/17 20:29 Temperature 98.6 F 98.7 F Pulse Rate 94 H 82 Respiratory Rate 16 23 28 H Blood Pressure 126/56 L 140/56 L Pulse Oximetry 94 L 93 L 93 L 12/31/17 20:45 01/01/18 00:00 01/01/18 00:25 Temperature 98.7 F Pulse Rate 109 H 90 97 H Respiratory Rate 27 H 26 H 32 H Blood Pressure 136/56 L Pulse Oximetry 95 99 01/01/18 02:00 01/01/18 03:43 Temperature Pulse Rate 98 H 94 H Respiratory Rate 22 Blood Pressure Pulse Oximetry 97 Intake & Output 12/31/17 01/01/18 01/01/18 18:59 06:59 18:59 Intake Total 2745 / 2745 550 / 550 100 / 100 Output Total 1715 / 1715 Balance 1030 / 1030 550 / 550 100 / 100 Intake: IV 2745 / 2745 550 / 550 100 / 100 Diprivan 1000 mg/100 ml Inj 1, 300 / 300 300 / 300 000 mg In 100 ml @ 5 MCG/KG/MIN 3 mls/hr IV.CONT TITRATE PRN Rx#:[id number] NS Inj 1,000 ML @ 100 mls/hr IV 1000 / 1000 .CONT .Q10H GRICELDA Rx#:[id number] Cardene Inj 25 MG In NS Inj 240 1240 / 1240 250 / 250 ML @ 5 MG/HR 50 mls/hr IV.CONT TITRATE PRN Rx#:[id number] Magnesium Sulfate Inj 4 GM In 100 / 100 NS Inj 92 ML @ 50 mls/hr IV.SIG UNSCH PRN Rx#:[id number] KCl 20 mEq Premix Inj 20 meq In 0 / 0 100 / 100 100 ml @ 50 mls/hr IV.SIG Q2H PRN Rx#:[id number] Keppra Inj 500 MG In NS Inj 100 105 / 105 ML @ 400 mls/hr IV.SIG Q12H GRICELDA Rx#:[id number] Output: Urine Amount (Catheter) 1575 / 1575 Indwelling Urethral Catheter 1575 / 1575 Wound Drainage 140 / 140 # 1 Left Head 10 / 10 # 2 Left Head 130 / 130 Result Diagrams: 01/01/18 01:40 01/01/18 01:40 Imaging: ITS Impressions Chest X-Ray 12/31/17 06:00 CONCLUSION: No significant change. Head CT 12/31/17 06:00 CONCLUSION: 1. Status post left craniotomy and placement of left subdural drainage catheter with removal of the previously noted subdural hematoma with no significant residual. 2. Interval resolution of mass effect and midline shift. 3. No new hemorrhage. . Objective Remarks: GENERAL: 72-year-old female patient who is orotracheally intubated and sedated. SKIN: Warm and dry, well-perfused HEAD: Normocephalic. Fiberoptic ICP monitor in place. ICP currently -2. KUMAR in place 2 with serosanguineous output. Kerlix dressing overlies left craniectomy flap EYES: Pupils equal and round, pinpoint round 1 mm and reactive.. No scleral icterus. No injection or drainage. ENT: No nasal bleeding or discharge. Mucous membranes pink and moist. NECK: Trachea midline. No JVD. CARDIOVASCULAR: Regular rate and rhythm, S1, S2 no S 4.. 2/6 systolic murmur left sternal border RESPIRATORY: Diminished due to body habitus. Clear anteriorly without wheezes, rales, rhonchi. Tachypneic the same with respiratory rates around 30 GASTROINTESTINAL: Abdomen soft, non-tender, nondistended. Well-healed scar right upper quadrant. : Rushing in place with yellow urine output MUSCULOSKELETAL: Extremities with trace bilateral upper and lower extremity edema throughout. Scar overlies left knee L radial art line in place with distal perfusion intact. NEUROLOGICAL: Opens eyes spontaneously to voice.. Currently sedated and not moving upper lower extremities spontaneously. Withdraws bilateral upper and lower extremities. Assessment and Plan - Assessment and Plan Plan: NEURO/PSYCH: Acute left subdural hematoma with mass-effect Status left frontal temporal parietal decompressive craniectomy, evacuation of acute subdural hematoma and right frontal bur hole with placement of an intracranial pressure monitor 12/30/[address] Uribe Peripheral neuropathy Repeat CT brain o residual subdural or mass-effect. Was on warfarin for SMV/IMV thrombosis diagnosed 2008 with INR 2.8 upon presentation.. Received prothrombin complex concentrate 25 units/KG and phytonodione 10 mg IV preoperatively. Repeat INR 1.2 on 12/31. Received mannitol 25 g IV in the emergency department 12/30 KUMAR drain and ICP monitor management per neurosurgery. Levetiracetam 500 mg IV every 12 hours for seizure prophylaxis. Blood pressure management as per below. Propofol currently at 50 mcg/kg/min for sedation. Fentanyl drip will be started today/currently on 50 mcg every hour as needed for analgesia Target RASS -2 Hold pregabalin 50 mill grams p.o. twice daily RESP: Acute respiratory failure secondary to altered mental status Difficult airway [facility] 16/550/45 Ventilator bundle Albuterol/ipratropium aerosols every 4 hours with albuterol aerosols every 2 hours as needed for dyspnea Spontaneous breathing trials when clinically indicated Chest x-ray satisfactory endotracheal tube position. Mild cardiomegaly Patient is on Ventolin HFA 90 mcg inhaler every 4 hours as needed. CV: Malignant hypertension Hypercholesterolemia Nicardipine drip at 6 mg an hour to maintain systolic blood pressure less than 160 Resumed metoprolol tartrate 50 twice daily, amlodipine 10 mg daily. Still hypertensive so started losartan 50 daily (home med is valsartan 80 mg daily). 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 Her curriculum development coordinator is Mariya Alexander [phone] Discussed with curriculum development coordinator - Current tacrolimus dosing is 3 mg po [id number] with target trough 3-5. Trough was 4.8 on admission, prograf was held, now 2. Will resume at above dosing and monitor trough. Ms Munoz also provided history that the indication for warfarin is Factor V Leiden heterozygosity and that it was managed by a adult day care worker outside of the [place] system. Family states it is Dr. Kaiser. Lansoprazole 30 mg daily for GI prophylaxis. Patient is on pantoprazole at home. Docusate serum/senna 1 tablet twice daily for bowel regimen. Add polythene glycol 17 g twice daily Initiate tube feeds with Glucerna 1.5 and advance to goal rate 65 ml/hr, f/u nutrition recs. FEN/RENAL: Chronic kidney disease stage IIIa Hypocalcemia Hypopotassemia Hypomagnesia Receiving 80 mEq KCl IV 1 now. Receiving 0.67 g calcium chloride IV. Receiving 2 g mag sulfate IV 1 now. Recheck in a.m. Maintain Rushing Monitor urine output Accurate I's and O's ICU electrolyte protocol Currently on 2% saline at 20 cc an hour. We changed to 3% saline at 20 cc an hour at goal sodium 150 155 ID: Immunosuppressed state Monitor for signs and symptoms of infection. Claudia Operative cefazolin per neurosurgery. HEME/ONC: Warfarin induced coagulopathyINR 2.8 (resolved) Factor V Leiden heterozygosity - indication for chronic anticoagulation. 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 Resumed after liver translation 11/09 Thrombocytopenia Normocytic anemia Warfarin on hold. Dental Secretary is Dr. Kaiser, she sees him in the [place] office. Spoke with ELAINE Chandler with Dr. Kaiser who states Ms Cole was on warfarin due to Factor V Leiden heterozygosity with prior h/o portal vein thrombosis. Pt has no other history of venous thromboembolism. She has no prior issues with bleeding except for variceal bleed prior to transplant. The fact that she has now had spontaneous subdural while INR was therapeutic could preclude her from therapeutic anticoagulation indefinitely given heterozygosity for mutation. ENDO: Diabetes mellitus with acute hyperglycemia Hold linagliptin 5 mg p.o. every morning, hold insulin degludec flex touch 18 units subcu nightly. On Medium dose aspart insulin sliding scale every 4 hours (18 units last 24 hours). GLucose is >200 this morning. Insulin detemir 8 units subcut q12. MSK: Elevated BMI Weight loss encouraged PROPH: SCDs for DVT prophylaxis. Continue lansoprazole for stress ulcer prophylaxis and history of GERD ACCESS: Peripheral IV providing adequate access at this time. Left radial art line placed 12/30 in OR #2 Full code Level 3 follow-up
[2018-01-01] MEDS ORDERED: Calcium Chloride Inj 1 GM in Sodium Chlor 0.9% Inj 100 ML IV.SIG ONE (07:30)
[2018-01-01] MEDS: Sod Chloride 0.9% Inj 1,000 ML IV.CONT SCH ×2 (07:51→15:21)
[2018-01-01] MEDS: Chlorhexidine Gluconate 2% 1 Pack (2 Cloths) TOPICAL SCH (07:51)
[2018-01-01] MEDS ORDERED: CALCIUM CHLORIDE IV.SIG ONE (08:00)
[2018-01-01] MEDS ORDERED: SODIUM CHLOR 0.9% IV.SIG ONE (08:00)
--- NOTE | 2018-01-01 08:55 | P.PCN ---
Date of procedure: 01/01/18 Pre-op diagnosis: Respiratory failure/left subdural hematoma. Need for hypertonic saline. Post-op diagnosis: same Procedure: DATE: 01/01/2018 CENTRAL LINE PLACEMENT: Right internal jugular vein. Ultrasound-guided INDICATION: Central venous access CONSENT Informed consent for procedure was obtained. DESCRIPTION OF THE PROCEDURE The patient was placed in supine position. The skin was cleansed with Chloraprep. Additional barrier precautions included large sterile drape, sterile gloves, sterile gown, face mask, and hat. 1 % lidocaine was used for local anesthesia. Under direct ultrasound guidance and on second attempt, the vein was accessed with an introducer needle. The guide wire was advanced and the tract was dilated. Using Seldinger technique a 7 Indonesian 20 cm antimicrobial coated triple-lumen catheter was advanced to a depth of 16 centimeters. The guide wire was removed. All ports had good return of dark venous blood and flushed easily with saline. The central line was secured with 2.0 silk. Noted the site was sutured secondary to body habitus/diaphoresis unable to place StatLock securely a sterile dressing with antibiotic disc was applied. Please note that on first attempt of a left IJ an initial attempt and right IJ, the vein was accessed with the introducer needle. The guidewire was advanced about 20 cm but resistance was met. Procedure was stopped and pressure was placed for 5 minutes. ESTIMATED BLOOD LOSS: Minimal COMPLICATIONS: No apparent complications. STAT chest x-ray pending at time of dictation
--- NOTE | 2018-01-01 09:26 | XR ---
EXAM DATE: 01/01/2018 9:12 AM EDT AGE/SEX: 72 years / Female INDICATIONS: Central line placement. CLINICAL DATA: This is the patient's subsequent encounter. Patient reports that signs and symptoms h ave been present for 4 - 6 days and indicates a pain score of Nonresponsive. MEDICAL/SURGICAL HISTORY: Diabetes mellitus type II. Hypertension. None. COMPARISON: . FINDINGS: Single AP view of the chest. Endotracheal tube, nasogastric tube remain in place. Right IJ central ve nous catheter is in place with tip in the distal SVC. Cardiac silhouette is mildly enlarged. There is new hazy opacity in the right hemithorax that may represent parenchymal opacity or layering pleural effusion. No evidence of pneumothorax. CONCLUSION: 1. Right IJ central venous catheter now in place. No evidence of pneumothorax. 2. Hazy opacity in the right hemithorax may represent parenchymal opacity or layering pleural effusi on. Electronically signed by: Ralph Howard MD 01/01/2018 9:25 AM EDT
[2018-01-01] MEDS: fentaNYL 10 mcg/mL Premix Drip 2,500 MCG/250 ML BAG IV.SIG PRN (09:29)
[2018-01-01] MEDS: Potassium Chlor 40 mEq Premix 40 MEQ/100 ML PIGGYBACK IV.SIG SCH ×2 (09:52→11:14)
[2018-01-01] MEDS: Mag Sulf 1 gm/100 ml Premix 100 ML IV.SIG SCH ×2 (10:22→10:44)
[2018-01-01] MEDS: Hypromellose 0.3% Opth Gel 10 GM Bottle EACH EYE SCH ×2 (10:23→21:39)
[2018-01-01] MEDS: amLODIPine 10 MG Tablet NG/OG SCH (10:44)
[2018-01-01] MEDS: Metoprolol Tartrate 50 MG Tablet PO SCH ×2 (10:44→20:19)
[2018-01-01] MEDS: Senna/Docusate Sodium 8.6/50 MG Tablet PO SCH ×2 (10:45→20:19)
[2018-01-01] MEDS: Insulin Detemir Inj 1,000 UNIT/10 ML Vial SQ SCH ×2 (10:46→20:17)
[2018-01-01] MEDS: Polyethylene Glycol 3350 17 GM Packet NG/OG SCH ×2 (10:46→20:30)
--- NOTE | 2018-01-01 12:56 | P.DIET ---
Nutritional Evaluation Type of nutrition evaluation: initial Nutrition consult regarding: Tube Feeding [place] [facility] [place]: [facility] TF[place] Subjective Subjective Comments: SCCM and APEN guidelines for critically ill patients used for assessment here Objective - Diagnosis Subdural Hemorrhage - Objective [place] body weight: 100 kg % IBW: 200 Body Weight Used for Calculations: IBW (IBW used for Kcal needs and Actual wt 100kg used for protein needs) Energy Needs - Lower Range (kCal/kg): 11 Energy Needs - Upper Range (kCal/kg): 14 Lower Limit kCal/kg (kCals): 1,100 Upper Limit kCal/kg (kCals): 1,400 Lower Limit Protein Factor (Grams per Kg): 2.0 Upper Limit Protein Factor (Grams per Kg): 2.3 Lower Protein Needs (Protein): 100 Upper Protein Needs (Protein): 115 Dietitian Reviewed in Medical Record: Curent medications, Intake & Output, Labs , Medical history, Tube feeding Diet Order: TF'ing only: Glucerna 1.5 @ goal rate 65ml/hr Objective Comments: PMH Includes: HTN, DN, Liver Transplant 2010, Chronic anticoagulation w/Warfarin , GERD, HTN Labs Include: Creatinine 1.18, estGFR 45, Glucose 177, Accucheck 206 Meds Include: Propofol, Novolog SSI, Levemir, Lactulose, Prevacid, Prograf Feeding - Current Tube Feeding Tube Feeding Product: Glucerna 1.5 Diprivan Rate: 24 Lipid kCals From Diprivan: 634 Assessment Assessment: Pt is at nutritional risk r/t need for TF'ing. To meet pt's assessed needs, Rec TF'ing w/Vital High Protein @ goal rate 50ml/hr to offer 1200kcal(1834kcal w/ current propofol rate), 105g Protein and 1003ml free water. Labs reviewed- monitor renal labs closely. Additional Recs r/t Clinical Course. Recommendations: 1.To meet pt's assessed needs, Rec TF'ing w/Vital High Protein @ goal rate 50ml/ hr 2. Additional Recs r/t Clinical Course Dietitian to Monitor: Lab values, Renal labs, Glucose level, Intake & Output, Tube feeding tolerance, Weight change, Medical course
[2018-01-01 15:56] LABS: Sodium 148 meq/L (136-145)
[2018-01-01] MEDS ORDERED: Chlorothiazide Inj 500 MG Vial IV.PUSH ONE (17:00)
--- NOTE | 2018-01-01 17:42 | ECHRPT ---
Indication: SHORTNESS OF BREATH CONCLUSIONS Normal left ventricular size. Wall thickness is measured at the upper limits of normal. The left ventricular systolic function is hyperdynamic with an estimated ejection fraction in the ra nge of 65- 70%. Moderate mitral annular calcification. Trace mitral valve regurgitation. Aortic valve sclerosis is present. There is trace tricuspid valve regurgitation. Trivial pulmonary valve regurgitation. A right sided pleural effusion is present. BP: / HR: Rhythm: Sinus MEASUREMENTS (Male / Female) Normal Values Technical Quality:Fair 2D ECHO LV Diastolic Diameter PLAX 3.9 cm 4.2 - 5.9 / 3.9 - 5.3 cm LV Systolic Diameter PLAX 2.6 cm IVS Diastolic Thickness 1.1 cm 0.6 - 1.0 / 0.6 - 0.9 cm LVPW Diastolic Thickness 1.1 cm 0.6 - 1.0 / 0.6 - 0.9 cm LV Relative Wall Thickness 0.6 RV Internal Dim ED PLAX 2.7 cm LVOT Diameter 1.8 cm Aortic Root Diameter 2.9 cm LA Systolic Diameter LX 3.2 cm 3.0 - 4.0 / 2.7 - 3.8 cm M-MODE AV Cusp Separation MM 1.1 cm DOPPLER AV Peak Velocity 263.0 cm/s AV Peak Gradient 27.7 mmHg AV Mean Gradient 15.0 mmHg AV Velocity Time Integral 57.2 cm LVOT Peak Velocity 147.0 cm/s LVOT Peak Gradient 8.6 mmHg LVOT Velocity Time Integral 30.8 cm AV Area Cont Eq vti 1.4 cm AV Area Cont Eq pk 1.4 cm Mitral E Point Velocity 111.0 cm/s Mitral A Point Velocity 157.0 cm/s Mitral E to A Ratio 0.7 TR Peak Velocity 263.0 cm/s TR Peak Gradient 27.7 mmHg PV Peak Velocity 93.2 cm/s PV Peak Gradient 3.5 mmHg FINDINGS LEFT VENTRICLE Normal left ventricular size. Wall thickness is measured at the upper limits of normal. The left ventricular systolic function is hyperdynamic with an estimated ejection fraction in the ra nge of 65- 70%. RIGHT VENTRICLE Normal right ventricular size and systolic function. LEFT ATRIUM The left atrial size is normal. RIGHT ATRIUM The right atrial size is normal. ATRIAL SEPTUM The interatrial septum not well visualized. AORTA The aortic root and proximal ascending aorta are normal in size on limited imaging. MITRAL VALVE Moderate mitral annular calcification. Trace mitral valve regurgitation. AORTIC VALVE Aortic valve sclerosis is present. TRICUSPID VALVE There is trace tricuspid valve regurgitation. PULMONARY VALVE Trivial pulmonary valve regurgitation. VESSELS The inferior vena cava was not well visualized. PERICARDIUM A right sided pleural effusion is present. No pericardial effusion. Jovany Mahmood MD, FACC, [facility] [place] (Electronically Signed) Final Date:01 January 2018 17:41
[2018-01-01] MEDS: Labetalol HCl Inj 100 MG/20 ML Vial IV.PUSH PRN (18:15)
[2018-01-01 18:49] LABS: Potassium 3.8 meq/L (3.5-5.1)
--- NOTE | 2018-01-01 19:17 | P.PNNS ---
Subjective Interval history: 72-year-old female with past medical history of hypertension, diabetes , prior liver transplant in 2010, on chronic anticoagulation with warfarin due to history of portal vein thrombosis which preexisted transplant. She reportedly got up to go to the bathroom around 10 PM. She developed headache, nausea and multiple episodes of vomiting. There is no reported head trauma. CT brain demonstrates left subdural hematoma with 1 cm left to right shift. INR 2.8. Administering k Centra 25 U/kg, vitamin K 10 mg IV. Blood pressure 169/75. Initiating Cardene drip. Dr. Uribe has been consulted and will be taking patient emergently to operating room following correction of coagulopathy. 8/3. Slight improvement in response to pain with withdrawal Physical Exam Vital signs: Vital Signs 12/31/17 20:00 12/31/17 20:29 12/31/17 20:45 Temperature 98.7 F Pulse Rate 82 109 H Respiratory Rate 23 28 H 27 H Blood Pressure 140/56 L Pulse Oximetry 93 L 93 L 01/01/18 00:00 01/01/18 00:25 01/01/18 02:00 Temperature 98.7 F Pulse Rate 90 97 H 98 H Respiratory Rate 26 H 32 H Blood Pressure 136/56 L Pulse Oximetry 95 99 01/01/18 03:43 01/01/18 04:00 01/01/18 06:00 Temperature 99.9 F H Pulse Rate 94 H 119 H 91 H Respiratory Rate 22 20 Blood Pressure 145/62 H Pulse Oximetry 97 95 01/01/18 07:35 01/01/18 08:00 01/01/18 10:00 Temperature 98.1 F Pulse Rate 92 H 95 H 76 Respiratory Rate 29 H 20 Blood Pressure 133/49 L Pulse Oximetry 94 L 93 L 01/01/18 10:47 01/01/18 11:15 01/01/18 12:00 Temperature 98.2 F Pulse Rate 76 71 Respiratory Rate 17 16 17 Blood Pressure 117/57 L Pulse Oximetry 96 96 01/01/18 14:00 01/01/18 15:38 01/01/18 16:00 Temperature 98.3 F Pulse Rate 71 66 68 Respiratory Rate 17 17 Blood Pressure 124/59 L Pulse Oximetry 94 L 96 01/01/18 18:00 Temperature Pulse Rate 76 Respiratory Rate Blood Pressure Pulse Oximetry Intake & Output 0801/01/18 01/02/18 06:59 18:59 06:59 Intake Total 763 / 763 1375 / 1375 Output Total 2170 / 2170 1850 / 1850 Balance -1407 / -1407 -475 / -475 Weight 105.4 kg Intake: IV 550 / 550 710 / 710 Diprivan 1000 mg/100 ml Inj 1, 300 / 300 300 / 300 000 mg In 100 ml @ 5 MCG/KG/MIN 3 mls/hr IV.CONT TITRATE PRN Rx#:[id number] Cardene Inj 25 MG In NS Inj 240 250 / 250 ML @ 5 MG/HR 50 mls/hr IV.CONT TITRATE PRN Rx#:[id number] KCl 20 mEq Premix Inj 20 meq In 100 / 100 100 ml @ 50 mls/hr IV.SIG Q2H PRN Rx#:[id number] KCl 40 mEq Premix Inj 40 meq In 100 / 100 100 ml @ 25 mls/hr IV.SIG Q4H GRICELDA Rx#:[id number] Keppra Inj 500 MG In NS Inj 100 210 / 210 ML @ 400 mls/hr IV.SIG Q12H GRICELDA Rx#:[id number] Tube Feeding 213 / 213 605 / 605 Tube Irrigant 60 / 60 Output: Urine Amount (Catheter) 2049 / 1799 Indwelling Urethral Catheter 2049 / 1799 Wound Drainage 120 / 120 50 / 50 # 1 Left Head 10 / 10 10 / 10 # 2 Left Head 110 / 110 40 / 40 Narrative: CARDIOVASCULAR: Regular rate and rhythm, S1, S2 no S 4.. 2/6 systolic murmur left sternal border RESPIRATORY: Diminished due to body habitus. Clear anteriorly without wheezes, rales, rhonchi. Tachypneic the same with respiratory rates around 30 GASTROINTESTINAL: Abdomen soft, non-tender, nondistended. Well-healed scar right upper quadrant. : Rushing in place with yellow urine output MUSCULOSKELETAL: Extremities with trace bilateral upper and lower extremity edema throughout. Scar overlies left knee L radial art line in place with distal perfusion intact. NEUROLOGICAL: Opens eyes spontaneously to voice.. Currently sedated and not moving upper lower extremities spontaneously. Withdraws bilateral upper and lower extremities. - Urinary Catheter Management Indwelling Urethral Catheter Cath placed during this visit: yes Reason for continuing: Hourly intake/output Insertion date: 12/30/17 Insertion time: 01:30 Assessment and Plan - Plan Impression 72 y/o female s/p craniotomy for evacuation of SDH, placement of ICP monitor Plan: Continue neuro checks in a serial fashion. Continue blood pressure management Pulmonary: aggressive pulmonary toilette, nasotracheal suction, and breathing treatments with nebulizers. Daily PT and OT Renal: Continue to monitor closely urine output, BUN and creatinine Endocrine: Continue to Monitor serial Acu checks and SSI as needed in detail ID continue to monitor for signs of infection Continue Protonix for stress ulcer prophylaxis Continue James hose and SCD's for DVT prophylaxis
[2018-01-02] MEDS: Insulin NovoLOG Aspart Correctional Sugar Inj SQ SCH ×7 (00:16→23:22)
[2018-01-02] MEDS ORDERED: niCARdipine Inj 25 MG/10 ML Vial ONE ×3 (01:02→06:40)
[2018-01-02] MEDS: niCARdipine Inj 25 MG in Sodium Chlor 0.9% Inj 240 ML IV.CONT PRN ×8 (01:07→23:47)
[2018-01-02 01:21] LABS: Phosphorus 2.4 mg/dL (2.5-4.9)
[2018-01-02] MEDS: Labetalol HCl Inj 100 MG/20 ML Vial IV.PUSH PRN ×4 (01:43→06:30)
[2018-01-02] MEDS: Chlorhexidine Gluconate 2% 1 Pack (2 Cloths) TOPICAL SCH (05:54)
[2018-01-02] MEDS: Propofol 1000 mg/100 ml Inj 1,000 MG/100 ML BOTTLE IV.CONT PRN ×4 (05:55→20:20)
[2018-01-02 05:59] LABS: ABG Base Excess -1.3 mmol/L (-2-2); ABG PCO2 37 mmHg (38-42); ABG PO2 73 mmHg (61-120)
--- NOTE | 2018-01-02 06:12 | XR ---
EXAM DATE: 01/02/2018 5:47 AM EDT AGE/SEX: 72 years / Female INDICATIONS: Respiratory failure. CLINICAL DATA: This is the patient's subsequent encounter. Patient reports that signs and symptoms h ave been present for 1 week and indicates a pain score of Nonresponsive. MEDICAL/SURGICAL HISTORY: . Diabetes mellitus type II. Hypertension. None. COMPARISON: [facility] [place], CHEST 1V SINGLE AP, 01/01/2018. . FINDINGS: There is persistent consolidation in the left lower lung with loss of delineation of the entire left hemidiaphragm. Hazy opacity in the right mid and lower lung is also stable. ET tube tip well above th e carson. Right internal jugular catheter tip projects over the cavoatrial junction. Gastric tube tra verses the [id number]. CONCLUSION: Persistent left lower lung consolidation and hazy opacity right lower lung. Electronically signed by: Everardo Juarez MD 01/02/2018 6:10 AM EDT
[2018-01-02 06:59] LABS: Baso % (Auto) 0.6 % (0.0-2.0); Eos % (Auto) 0.8 % (0.0-4.0); Hematocrit 27.7 % (35.0-46.0); Hemoglobin 9.3 gm/dL (11.6-15.3); Lymph # (Auto) 0.4 th/mm3 (1.0-4.8); Lymph % (Auto) 15.1 % (9.0-44.0); Mean Corpuscular HGB Conc 33.6 % (32.0-36.0); Mean Corpuscular Hemoglobin 30.7 pg (27.0-34.0); Mean Corpuscular Volume 91.3 fL (80.0-100.0); Mean Platelet Volume 7.7 fL (7.0-11.0); Mono # (Auto) 0.3 th/mm3 (0.0-0.9); Mono % (Auto) 10.6 % (0.0-8.0); Neut # (Auto) 2.1 th/mm3 (1.8-7.7); Neut % (Auto) 72.9 % (16.0-70.0); Platelet Count 113 th/mm3 (150-450); Red Blood Count 3.03 mil/mm3 (4.00-5.30); Red Cell Distribution Width 14.3 % (11.6-17.2); White Blood Count 2.8 th/mm3 (4.0-11.0)
[2018-01-02 07:12] LABS: Activated Partial Thrombo Time 29.2 sec (24.3-30.1); INR 1.1 Ratio; Prothrombin Time 11.2 sec (9.8-11.6)
[2018-01-02] MEDS ORDERED: Methylnaltrexone Inj 12 MG/0.6 ML Vial SQ ONE (08:09)
[2018-01-02] MEDS ORDERED: Mineral Oil Liq 30 ML UDC PO ONE (08:09)
--- NOTE | 2018-01-02 08:15 | P.PNCC ---
Subjective Subjective Remarks/Hospital Course: 72-year-old female with past medical history of hypertension, diabetes , prior liver transplant in 2010, on chronic anticoagulation for warfarin (per family report due to prior hx of portal vein thrombosis prior to her transplant) . She reportedly got up to go to the bathroom around 10 PM. She developed headache, nausea and multiple episodes of vomiting. There is no reported head trauma. CT brain demonstrates left subdural hematoma with 1 cm left to right shift. INR 2.8. Administering k Centra 25 U/kg, vitamin K 10 mg IV. Blood pressure 169/75. Initiating Cardene drip. Dr. Uribe has been consulted and will be taking patient emergently to operating room following correction of coagulopathy. 12/31 Underwent Left frontal temporal parietal decompressive craniectomy, evacuation of acute subdural hematoma on 12/[address] Uribe R frontal fiberoptic ICP monitor also in place. ICPs are <3. Repeat CT brain this morning demonstrates no residual subdural. Mass-effect is resolved. Remains on mechanical ventilation and cardene drip for hypertension management. 01/01: No acute events overnight. T-max 99.9. No bowel movement. Replacing calcium, potassium magnesium. Quite tachypneic this a.m. Subjective 01/02: Afebrile. Replacing phosphorus this a.m. Appears more comfortable on fentanyl and propofol drips. Remains on nicardipine drip at 6 mg an hour to maintain systolic blood pressure less than 140. Objective Vital Signs / I&O: Vital Signs 01/01/18 10:00 01/01/18 10:47 01/01/18 11:15 Temperature Pulse Rate 76 76 Respiratory Rate 17 16 Blood Pressure Pulse Oximetry 96 01/01/18 12:00 01/01/18 14:00 01/01/18 15:38 Temperature 98.2 F Pulse Rate 71 71 66 Respiratory Rate 17 17 Blood Pressure 117/57 L Pulse Oximetry 96 94 L 01/01/18 16:00 01/01/18 18:00 01/01/18 20:00 Temperature 98.3 F 98.7 F Pulse Rate 68 76 74 Respiratory Rate 17 16 Blood Pressure 124/59 L 140/56 L Pulse Oximetry 96 95 01/01/18 20:15 01/01/18 20:23 01/01/18 22:00 Temperature Pulse Rate 72 72 Respiratory Rate 16 16 Blood Pressure Pulse Oximetry 95 01/01/18 23:45 01/02/18 00:00 01/02/18 02:00 Temperature 99.1 F Pulse Rate 89 82 62 Respiratory Rate 16 16 Blood Pressure 140/56 L Pulse Oximetry 93 L 93 L 01/02/18 04:00 01/02/18 04:16 01/02/18 06:00 Temperature 98.7 F Pulse Rate 64 65 64 Respiratory Rate 16 17 Blood Pressure 138/54 L Pulse Oximetry 96 93 L 01/02/18 07:36 Temperature Pulse Rate 68 Respiratory Rate 16 Blood Pressure Pulse Oximetry 94 L Intake & Output 01/01/18 01/02/18 01/02/18 18:59 06:59 18:59 Intake Total 1375 / 1375 1586 / 1586 250 / 250 Output Total 1850 / 1850 650 / 650 Balance -475 / -475 936 / 936 250 / 250 Weight 105.2 kg Intake: IV 710 / 710 1200 / 1200 250 / 250 Diprivan 1000 mg/100 ml Inj 1, 300 / 300 200 / 200 000 mg In 100 ml @ 5 MCG/KG/MIN 3 mls/hr IV.CONT TITRATE PRN Rx#:[id number] Cardene Inj 25 MG In NS Inj 240 1000 / 1000 250 / 250 ML @ 5 MG/HR 50 mls/hr IV.CONT TITRATE PRN Rx#:[id number] KCl 20 mEq Premix Inj 20 meq In 100 / 100 100 ml @ 50 mls/hr IV.SIG Q2H PRN Rx#:[id number] KCl 40 mEq Premix Inj 40 meq In 100 / 100 100 ml @ 25 mls/hr IV.SIG Q4H GRICELDA Rx#:[id number] Keppra Inj 500 MG In NS Inj 100 210 / 210 ML @ 400 mls/hr IV.SIG Q12H GRICELDA Rx#:[id number] Tube Feeding 605 / 605 326 / 326 Tube Irrigant 60 / 60 Water Bolus Amount 60 / 60 Output: Urine Amount (Catheter) 1800 / 1800 650 / 650 Indwelling Urethral Catheter 1800 / 1800 650 / 650 Wound Drainage 50 / 50 # 1 Left Head 10 / 10 # 2 Left Head 40 / 40 Result Diagrams: 01/02/18 06:30 01/02/18 00:46 Imaging: Head CT 12/29/17 23:19 CONCLUSION: 1. Moderate to large left subdural hematoma with mass effect and midline shift to the right. 2. Slight asymmetry of the suprasellar cisterns with prominence left uncal region which could indicate impending herniation. Chest X-Ray 12/30/17 02:24 CONCLUSION: 1. Interval intubation. 2. Mid inspiratory study with crowding of the lung vasculature. Chest X-Ray 12/31/17 06:00 CONCLUSION: No significant change. Head CT 12/31/17 06:00 CONCLUSION: 1. Status post left craniotomy and placement of left subdural drainage catheter with removal of the previously noted subdural hematoma with no significant residual. 2. Interval resolution of mass effect and midline shift. 3. No new hemorrhage. . Chest X-Ray 01/01/18 00:00 CONCLUSION: 1. Right IJ central venous catheter now in place. No evidence of pneumothorax. 2. Hazy opacity in the right hemithorax may represent parenchymal opacity or layering pleural effusion. Chest X-Ray 01/02/18 06:00 CONCLUSION: Persistent left lower lung consolidation and hazy opacity right lower lung. Objective Remarks: GENERAL: 72-year-old female patient who is orotracheally intubated and sedated. SKIN: Warm and dry, well-perfused HEAD: Normocephalic. Fiberoptic ICP removed 01/01. ICP currently -2. KUMAR in place 2 with serosanguineous output 10/40 cc. Kerlix dressing overlies left craniectomy flap EYES: Pupils equal and round, pinpoint round 2 mm and reactive.. No scleral icterus. No injection or drainage. ENT: No nasal bleeding or discharge. Mucous membranes pink and moist. NECK: Trachea midline. No JVD. CARDIOVASCULAR: Regular rate and rhythm, S1, S2 no S 4.. 2/6 systolic murmur left sternal border RESPIRATORY: Diminished due to body habitus. Clear anteriorly without wheezes, rales, rhonchi. Tachypneic the same with respiratory rates around 30 GASTROINTESTINAL: Abdomen soft, non-tender, nondistended. Well-healed scar right upper quadrant. : Rushing in place with yellow urine output MUSCULOSKELETAL: Extremities with trace bilateral upper and lower extremity edema throughout. Scar overlies left knee L radial art line in place with distal perfusion intact. NEUROLOGICAL: Opens eyes spontaneously to voice.. Currently sedated and not moving upper lower extremities spontaneously. Withdraws bilateral upper and lower extremities. Assessment and Plan - Assessment and Plan Plan: NEURO/PSYCH: Acute left subdural hematoma with mass-effect Status left frontal temporal parietal decompressive craniectomy, evacuation of acute subdural hematoma and right frontal bur hole with placement of an intracranial pressure monitor 12/30/[address] Uribe ICP monitor removed 01/[address] brain o residual subdural or mass-effect. Was on warfarin for SMV/IMV thrombosis diagnosed 2008 with INR 2.8 upon presentation.. Received prothrombin complex concentrate 25 units/KG and phytonodione 10 mg IV preoperatively. Repeat INR 1.2 on 12/31. Received mannitol 25 g IV in the emergency department 12/30 KUMAR drain management per neurosurgery. cc ss Levetiracetam 500 mg IV every 12 hours for seizure prophylaxis. Blood pressure management as per below. Goal 120-140 systolic Propofol currently at 30 mcg/kg/min for sedation. Fentanyl drip currently at 75 mcg/h Target RASS -2 Hold pregabalin 50 mill grams p.o. twice daily RESP: Acute respiratory failure secondary to altered mental status Difficult airway [facility] 16/1.06/07/44 Ventilator bundle Albuterol/ipratropium aerosols every 4 hours with albuterol aerosols every 2 hours as needed for dyspnea Spontaneous breathing trials when clinically indicated Chest x-ray satisfactory endotracheal tube position. Mild cardiomegaly Patient is on Ventolin HFA 90 mcg inhaler every 4 hours as needed. CV: Malignant hypertension Hypercholesterolemia Nicardipine drip at 6 mg an hour to maintain systolic blood pressure less than 160 Resumed metoprolol tartrate 50 twice daily and increase to 3 times daily, amlodipine 10 mg daily. Still hypertensive so started losartan 50 daily and increase to twice daily ( home med is valsartan 80 mg daily). As needed labetalol 01/01 2d Echo - Normal left ventricular size. Wall thickness is measured at the upper limits of normal. The left ventricular systolic function is hyperdynamic with an estimated ejection fraction in the range of 65-70%. Moderate mitral annular calcification. Trace mitral valve regurgitation. Aortic valve sclerosis is present. There is trace tricuspid valve regurgitation. Trivial pulmonary valve regurgitation. A right sided pleural effusion is present. 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 Her closing coordinator is Mariya Munoz [phone] Discussed with closing coordinator - Current tacrolimus dosing is 3 mg po [id number] with target trough 3-5. Currently 6.3. A.m. pending. Possibly will decrease to 2 mg every 12 hours Trough was 4.8 on admission, prograf was held, now 2. Will resume at above dosing and monitor trough. Ms Munoz also provided history that the indication for warfarin is Factor V Leiden heterozygosity and that it was managed by a diesel locomotive firer/fireman outside of the [place] system. Family states it is Dr. Kaiser. Lansoprazole 30 mg daily for GI prophylaxis. Patient is on pantoprazole 40 mg daily at home. Docusate serum/senna 1 tablet twice daily for bowel regimen. Add polythene glycol 17 g twice daily. Add lactulose 30 cc 4 times daily, mineral oil 15 cc 1 and glycerin suppository 1. Follow-up KUB. Initiate tube feeds with vital high-protein goal 50 cc an hour. Current Glucerna 1.5 at 30 cc an hour. FEN/RENAL: Chronic kidney disease stage IIIa Hypophosphatemia Hypernatremia Receiving 15 mmol K-Phos IV 1 now. Maintain Rushing Monitor urine output Accurate I's and O's ICU electrolyte protocol Currently on 3% saline at 20 cc an hour and normal saline at 30 cc an hour ID: Immunosuppressed state Monitor for signs and symptoms of infection. Claudia Operative cefazolin per neurosurgery. HEME/ONC: Warfarin induced coagulopathyINR 2.8 (resolved) Factor V Leiden heterozygosity - indication for chronic anticoagulation. 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 Resumed after liver translation 11/09 Thrombocytopenia Normocytic anemia Leukopenia Warfarin on hold. Cross Tie Cutter is Dr. Kaiser, she sees him in the [facility] office. Spoke with ELAINE Chandler with Dr. Kaiser who states Ms Cole was on warfarin due to Factor V Leiden heterozygosity with prior h/o portal vein thrombosis. Pt has no other history of venous thromboembolism. She has no prior issues with bleeding except for variceal bleed prior to transplant. The fact that she has now had spontaneous subdural while INR was therapeutic could preclude her from therapeutic anticoagulation indefinitely given heterozygosity for mutation. ENDO: Diabetes mellitus with acute hyperglycemia Hold linagliptin 5 mg p.o. every morning, hold insulin degludec flex touch 18 units subcu nightly. On Medium dose aspart insulin sliding scale every 4 hours (18 units last 24 hours). GLucose is >200 this morning. Insulin detemir 14 units subcut q12. MSK: Elevated BMI Weight loss encouraged PROPH: SCDs for DVT prophylaxis. Continue lansoprazole for stress ulcer prophylaxis and history of GERD ACCESS: Right IJ CVL day #2 placed /. Left radial art line placed 12/30 in OR # 3 Full code Level 3 follow-up
[2018-01-02 08:31] LABS: Alanine Aminotransferase 18 U/L (10-53); Albumin 2.1 g/dL (3.4-5.0); Anion Gap 9 meq/L (5-15); Aspartate Aminotransferase 15 U/L (15-37); Blood Urea Nitrogen 17 mg/dL (7-18); Calcium 7.9 mg/dL (8.5-10.1); Carbon Dioxide 22.2 meq/L (21.0-32.0); Chloride 117 meq/L (98-107); Glomerular Filtration Rate 51 mL/min (>89); Glucose,Random 211 mg/dL (74-106); Potassium 3.9 meq/L (3.5-5.1); Sodium 148 meq/L (136-145)
[2018-01-02 08:41] LABS: Alkaline Phosphatase 50 U/L (45-117); Total Protein 5.8 g/dL (6.4-8.2)
--- NOTE | 2018-01-02 08:58 | XR ---
EXAM DATE: 01/02/2018 8:40 AM EDT AGE/SEX: 72 years / Female INDICATIONS: Abdominal distention. CLINICAL DATA: This is the patient's initial encounter. Patient reports that signs and symptoms have been present for 1 week and indicates a pain score of Nonresponsive. MEDICAL/SURGICAL HISTORY: . Diabetes mellitus type II. Hypertension. None. COMPARISON: POI, XR ABDOMEN KUB, 10/31/2016. C, CT ABDOMEN & PELVIS W CONTRAST, 12/25/2017. . FINDINGS: The abdominal bowel gas pattern is normal. There is a nasogastric tubing overlying the stomach with the proximal port below the level of the diaphragm. No abnormal masses, calcifications, or organomeg vanessa is seen. The osseous structures are unremarkable. CONCLUSION: No evidence of bowel obstruction. Gastric tubing appears appropriate in position. Electronically signed by: Becki Min MD 01/02/2018 8:57 AM EDT
[2018-01-02] MEDS: amLODIPine 10 MG Tablet NG/OG SCH (09:15)
[2018-01-02] MEDS: Senna/Docusate Sodium 8.6/50 MG Tablet PO SCH ×2 (09:15→20:13)
[2018-01-02] MEDS: Insulin Detemir Inj 1,000 UNIT/10 ML Vial SQ SCH ×2 (09:25→20:13)
[2018-01-02] MEDS: Glycerin Adult 2 GM Supp RECTAL SCH ×2 (09:25→20:30)
[2018-01-02] MEDS: Hypromellose 0.3% Opth Gel 10 GM Bottle EACH EYE SCH ×2 (09:26→20:15)
[2018-01-02] MEDS: Metoprolol Tartrate 50 MG Tablet PO SCH ×2 (09:26→12:47)
[2018-01-02] MEDS: Polyethylene Glycol 3350 17 GM Packet NG/OG SCH ×2 (09:27→20:15)
[2018-01-02] MEDS: fentaNYL 10 mcg/mL Premix Drip 2,500 MCG/250 ML BAG IV.SIG PRN (09:43)
[2018-01-02] MEDS ORDERED: Potassium Phosphate Inj 15 MMOL in Sodium Chlor 0.9% Inj 150 ML IV.SIG ONE (10:00)
--- NOTE | 2018-01-02 15:29 | P.PNNS ---
Subjective Interval history: Postop day #2 left craniotomy evacuation large subdural hematoma. Bone flap left out. ICP monitor discontinued 01/01/2018. Drain in place. 50 cc out drain #2 the past day, minimal output drain #1. Nursing staff reports patient grimacing and flexing/localizing with upper extremities with sedation off Physical Exam Vital signs: Vital Signs 01/01/18 15:38 01/01/18 16:00 01/01/18 18:00 Temperature 98.3 F Pulse Rate 66 68 76 Respiratory Rate 17 17 Blood Pressure 124/59 L Pulse Oximetry 94 L 96 01/01/18 20:00 01/01/18 20:15 01/01/18 20:23 Temperature 98.7 F Pulse Rate 74 72 Respiratory Rate 16 16 16 Blood Pressure 140/56 L Pulse Oximetry 95 95 01/01/18 22:00 01/01/18 23:45 01/02/18 00:00 Temperature 99.1 F Pulse Rate 72 89 82 Respiratory Rate 16 16 Blood Pressure 140/56 L Pulse Oximetry 93 L 93 L 01/02/18 02:00 01/02/18 04:00 01/02/18 04:16 Temperature 98.7 F Pulse Rate 62 64 65 Respiratory Rate 16 17 Blood Pressure 138/54 L Pulse Oximetry 96 93 L 01/02/18 06:00 01/02/18 07:36 01/02/18 08:00 Temperature 98.7 F Pulse Rate 64 68 70 Respiratory Rate 16 16 Blood Pressure 133/50 L Pulse Oximetry 94 L 93 L 01/02/18 10:00 01/02/18 12:00 01/02/18 12:04 Temperature 98.8 F Pulse Rate 67 72 35 L Respiratory Rate 16 16 Blood Pressure 146/56 H Pulse Oximetry 94 L 01/02/18 14:00 Temperature Pulse Rate 69 Respiratory Rate Blood Pressure Pulse Oximetry Intake & Output 01/01/18 01/02/18 01/02/18 18:59 06:59 18:59 Intake Total 1375 / 1375 1941 / 1941 950 / 950 Output Total 1850 / 1850 650 / 650 Balance -475 / -475 1291 / 1291 950 / 950 Weight 105.2 kg Intake: IV 710 / 710 1555 / 1555 950 / 950 Diprivan 1000 mg/100 ml Inj 1, 300 / 300 200 / 200 200 / 200 000 mg In 100 ml @ 5 MCG/KG/MIN 3 mls/hr IV.CONT TITRATE PRN Rx#:[id number] Cardene Inj 25 MG In NS Inj 240 1000 / 1000 750 / 750 ML @ 5 MG/HR 50 mls/hr IV.CONT TITRATE PRN Rx#:[id number] KCl 20 mEq Premix Inj 20 meq In 100 / 100 100 ml @ 50 mls/hr IV.SIG Q2H PRN Rx#:[id number] KCl 40 mEq Premix Inj 40 meq In 100 / 100 100 ml @ 25 mls/hr IV.SIG Q4H GRICELDA Rx#:[id number] fentaNYL 10 mcg/mL Premix Drip 250 / 250 2,500 mcg In 250 ml @ 50 MCG/HR 5 mls/hr IV.SIG TITRATE PRN Rx #:[id number] Keppra Inj 500 MG In NS Inj 100 210 / 210 105 / 105 ML @ 400 mls/hr IV.SIG Q12H GRICELDA Rx#:[id number] Tube Feeding 605 / 605 326 / 326 Tube Irrigant 60 / 60 Water Bolus Amount 60 / 60 Output: Urine Amount (Catheter) 1800 / 1800 650 / 650 Indwelling Urethral Catheter 1800 / 1800 650 / 650 Wound Drainage 50 / 50 # 1 Left Head 10 / 10 # 2 Left Head 40 / 40 Narrative: Intubated and sedated on propofol and fentanyl. Head dressing dry and intact Drains [address] Respirations clear Cardiac regular Abdomen soft Pupils 2 mm nonreactive Slight wandering gaze-disconjugate with minimal oculocephalic responses. Presently no grimacing or response to deep pain upper and lower extremities with IV sedation infusing. - Urinary Catheter Management Indwelling Urethral Catheter Cath placed during this visit: yes Reason for continuing: Hourly intake/output Insertion date: 12/30/17 Insertion time: 01:30 Assessment and Plan - Plan Impression 72 y/o female s/p craniotomy for evacuation of SDH, placement of ICP monitor No significant change in neurologic exam over the past day Plan: Continue neuro checks in a serial fashion. Continue blood pressure management Pulmonary: aggressive pulmonary toilette, nasotracheal suction, and breathing treatments with nebulizers. Daily PT and OT Renal: Continue to monitor closely urine output, BUN and creatinine Endocrine: Continue to Monitor serial Acu checks and SSI as needed in detail ID continue to monitor for signs of infection Continue Protonix for stress ulcer prophylaxis Continue James hose and SCD's for DVT prophylaxis Plan discontinue 1 drain today, second drain tomorrow depending on output.
[2018-01-02] MEDS: Sod Chloride 0.9% Inj 1,000 ML IV.CONT SCH (15:46)
[2018-01-02] MEDS ORDERED: hydrALAZINE 25 MG Tablet PO SCH (18:00)
[2018-01-02] MEDS: Carvedilol 12.5 MG Tablet PO SCH (20:13)
[2018-01-03] MEDS: niCARdipine Inj 25 MG in Sodium Chlor 0.9% Inj 240 ML IV.CONT PRN (01:56)
[2018-01-03] MEDS: niCARdipine Inj 25 MG in Sodium Chlor 0.9% Inj 250 ML IV.CONT PRN ×3 (03:50→08:01)
[2018-01-03] MEDS: Propofol 1000 mg/100 ml Inj 1,000 MG/100 ML BOTTLE IV.CONT PRN ×2 (03:54→09:44)
[2018-01-03] MEDS: Chlorhexidine Gluconate 2% 1 Pack (2 Cloths) TOPICAL SCH (04:22)
[2018-01-03] MEDS: Insulin NovoLOG Aspart Correctional Sugar Inj SQ SCH ×5 (04:22→20:43)
[2018-01-03 05:22] LABS: Baso % (Auto) 0.8 % (0.0-2.0); Eos # (Auto) 0.1 th/mm3 (0.0-0.4); Eos % (Auto) 2.6 % (0.0-4.0); Hematocrit 27.7 % (35.0-46.0); Hemoglobin 9.2 gm/dL (11.6-15.3); Lymph # (Auto) 0.5 th/mm3 (1.0-4.8); Mean Corpuscular HGB Conc 33.2 % (32.0-36.0); Mean Corpuscular Hemoglobin 30.5 pg (27.0-34.0); Mean Corpuscular Volume 91.8 fL (80.0-100.0); Mean Platelet Volume 7.6 fL (7.0-11.0); Mono # (Auto) 0.4 th/mm3 (0.0-0.9); Mono % (Auto) 13.7 % (0.0-8.0); Neut # (Auto) 2.1 th/mm3 (1.8-7.7); Neut % (Auto) 65.9 % (16.0-70.0); Platelet Count 135 th/mm3 (150-450); Red Blood Count 3.02 mil/mm3 (4.00-5.30); Red Cell Distribution Width 14.1 % (11.6-17.2); White Blood Count 3.1 th/mm3 (4.0-11.0)
[2018-01-03 05:42] LABS: Albumin 1.9 g/dL (3.4-5.0); Anion Gap 10 meq/L (5-15); Aspartate Aminotransferase 28 U/L (15-37); Blood Urea Nitrogen 16 mg/dL (7-18); Calcium 8.1 mg/dL (8.5-10.1); Carbon Dioxide 23.3 meq/L (21.0-32.0); Chloride 120 meq/L (98-107); Glomerular Filtration Rate 52 mL/min (>89); Glucose,Random 181 mg/dL (74-106); Magnesium 1.8 mg/dL (1.5-2.5); Potassium 3.5 meq/L (3.5-5.1); Sodium 153 meq/L (136-145)
[2018-01-03 05:43] LABS: Alanine Aminotransferase 23 U/L (10-53); Phosphorus 2.8 mg/dL (2.5-4.9)
[2018-01-03 05:46] LABS: Alkaline Phosphatase 56 U/L (45-117); Total Protein 5.7 g/dL (6.4-8.2)
[2018-01-03] MEDS ORDERED: hydrALAZINE 25 MG Tablet PO SCH (07:53)
--- NOTE | 2018-01-03 08:48 | P.PNCC ---
Subjective Subjective Remarks/Hospital Course: 72-year-old female with past medical history of hypertension, diabetes , prior liver transplant in 2010, on chronic anticoagulation for warfarin (per family report due to prior hx of portal vein thrombosis prior to her transplant) . She reportedly got up to go to the bathroom around 10 PM. She developed headache, nausea and multiple episodes of vomiting. There is no reported head trauma. CT brain demonstrates left subdural hematoma with 1 cm left to right shift. INR 2.8. Administering k Centra 25 U/kg, vitamin K 10 mg IV. Blood pressure 169/75. Initiating Cardene drip. Dr. Uribe has been consulted and will be taking patient emergently to operating room following correction of coagulopathy. 12/31 Underwent Left frontal temporal parietal decompressive craniectomy, evacuation of acute subdural hematoma on 12/[address] Uribe R frontal fiberoptic ICP monitor also in place. ICPs are <3. Repeat CT brain this morning demonstrates no residual subdural. Mass-effect is resolved. Remains on mechanical ventilation and cardene drip for hypertension management. 01/01: No acute events overnight. T-max 99.9. No bowel movement. Replacing calcium, potassium magnesium. Quite tachypneic this a.m. 01/02: Afebrile. Replacing phosphorus this a.m. Appears more comfortable on fentanyl and propofol drips. Remains on nicardipine drip at 6 mg an hour to maintain systolic blood pressure less than 140. Subjective 01/03: Afebrile. Currently on nicardipine 15 mg/h. Was off last night. Tube feeds currently at 30 cc an hour due to high residuals. Positive bowel movement 2. Remains on propofol and fentanyl drips. Objective Vital Signs / I&O: Vital Signs 01/02/18 10:00 01/02/18 12:00 01/02/18 12:04 Temperature 98.8 F Pulse Rate 67 72 35 L Respiratory Rate 16 16 Blood Pressure 146/56 H Pulse Oximetry 94 L 01/02/18 14:00 01/02/18 16:00 01/02/18 16:02 Temperature 98.7 F Pulse Rate 69 73 69 Respiratory Rate 16 16 Blood Pressure 143/57 H Pulse Oximetry 94 L 93 L 01/02/18 17:59 01/02/18 20:00 01/02/18 20:04 Temperature 98.8 F Pulse Rate 73 76 74 Respiratory Rate 16 17 Blood Pressure 148/54 H Pulse Oximetry 93 L 92 L 01/02/18 22:00 01/02/18 23:06 01/03/18 00:00 Temperature 98.6 F Pulse Rate 68 75 72 Respiratory Rate 16 16 Blood Pressure 142/50 H Pulse Oximetry 94 L 94 L 01/03/18 02:00 01/03/18 03:00 01/03/18 04:00 Temperature 98.7 F Pulse Rate 67 72 74 Respiratory Rate 16 26 H Blood Pressure 142/48 H Pulse Oximetry 93 L 93 L 01/03/18 06:00 01/03/18 07:32 Temperature Pulse Rate 95 H 80 Respiratory Rate 17 Blood Pressure Pulse Oximetry 98 Intake & Output 01/02/18 01/03/18 01/03/18 18:59 06:59 18:59 Intake Total 2805 / 2805 2508 / 2508 260 / 260 Output Total 880 / 880 2060 / 2060 Balance 1925 / 1925 448 / 448 260 / 260 Weight 109.7 kg Intake: IV 2305 / 2305 1805 / 1805 260 / 260 Diprivan 1000 mg/100 ml Inj 1, 200 / 200 200 / 200 000 mg In 100 ml @ 5 MCG/KG/MIN 3 mls/hr IV.CONT TITRATE PRN Rx#:[id number] NS Inj 1,000 ML @ 30 mls/hr IV. 1000 / 1000 CONT .Q24H GRICELDA Rx#:[id number] Cardene Inj 25 MG In NS Inj 250 1000 / 1000 1000 / 1000 260 / 260 ML @ 5 MG/HR 52 mls/hr IV.CONT TITRATE PRN Rx#:[id number] Sodium Chloride 3% Inj 500 ML @ 500 / 500 10 mls/hr IV.SIG Q24H GRICELDA Rx#: [id number] Magnesium Sulfate Inj 4 GM In 0 / 0 NS Inj 92 ML @ 50 mls/hr IV.SIG UNSCH PRN Rx#:[id number] KCl 20 mEq Premix Inj 20 meq In 0 / 0 100 ml @ 50 mls/hr IV.SIG Q2H PRN Rx#:[id number] Keppra Inj 500 MG In NS Inj 100 105 / 105 105 / 105 0 / 0 ML @ 400 mls/hr IV.SIG Q12H GRICELDA Rx#:[id number] Tube Feeding 200 / 200 553 / 553 Tube Irrigant 200 / 200 Water Bolus Amount 100 / 100 150 / 150 Output: Estimated Blood Loss 200 / 200 Urine Amount (Catheter) 800 / 800 1780 / 1780 Indwelling Urethral Catheter 800 / 800 178 / 1780 Wound Drainage 80 / 80 80 / 80 # 1 Left Head # 2 Left Head 70 / 70 70 / 70 Other: Date of Last Bowel Movement 01/03/18 # Bowel Movements 1 # Incontinent Bowel Movements 1 Result Diagrams: 01/03/18 05:10 01/03/18 05:10 Imaging: Head CT 12/29/17 23:19 CONCLUSION: 1. Moderate to large left subdural hematoma with mass effect and midline shift to the right. 2. Slight asymmetry of the suprasellar cisterns with prominence left uncal region which could indicate impending herniation. Chest X-Ray 12/30/17 02:24 CONCLUSION: 1. Interval intubation. 2. Mid inspiratory study with crowding of the lung vasculature. Chest X-Ray 12/31/17 06:00 CONCLUSION: No significant change. Head CT 12/31/17 06:00 CONCLUSION: 1. Status post left craniotomy and placement of left subdural drainage catheter with removal of the previously noted subdural hematoma with no significant residual. 2. Interval resolution of mass effect and midline shift. 3. No new hemorrhage. . Chest X-Ray 01/01/18 00:00 CONCLUSION: 1. Right IJ central venous catheter now in place. No evidence of pneumothorax. 2. Hazy opacity in the right hemithorax may represent parenchymal opacity or layering pleural effusion. Abdomen X-Ray 01/02/18 00:00 CONCLUSION: No evidence of bowel obstruction. Gastric tubing appears appropriate in position. Chest X-Ray 01/02/18 06:00 CONCLUSION: Persistent left lower lung consolidation and hazy opacity right lower lung. Objective Remarks: GENERAL: 72-year-old female patient who is orotracheally intubated and sedated. SKIN: Warm and dry, well-perfused HEAD: Normocephalic. Fiberoptic ICP removed 01/01. ICP currently -2. KUMAR in place 2 with serosanguineous output 10/40 cc. Kerlix dressing overlies left craniectomy flap EYES: Pupils equal and round, pinpoint round 2 mm and reactive.. No scleral icterus. No injection or drainage. ENT: No nasal bleeding or discharge. Mucous membranes pink and moist. NECK: Trachea midline. No JVD. Obese. Right IJ is clean dry and intact. CARDIOVASCULAR: Regular rate and rhythm, S1, S2 no S 4.. 2/6 systolic murmur left sternal border RESPIRATORY: Diminished due to body habitus. Clear anteriorly without wheezes, rales, rhonchi. Tachypneic the same with respiratory rates around 30 GASTROINTESTINAL: Abdomen soft, non-tender, nondistended. Well-healed scar right upper quadrant. : Rushing in place with yellow urine output MUSCULOSKELETAL: Extremities with trace bilateral upper and lower extremity edema throughout. Scar overlies left knee L radial art line in place with distal perfusion intact. NEUROLOGICAL: Opens eyes spontaneously to voice.. Currently sedated and not moving upper lower extremities spontaneously. Withdraws bilateral upper and lower extremities. Assessment and Plan - Assessment and Plan Plan: NEURO/PSYCH: Acute left subdural hematoma with mass-effect Status left frontal temporal parietal decompressive craniectomy, evacuation of acute subdural hematoma and right frontal bur hole with placement of an intracranial pressure monitor 12/30/[address] Uribe ICP monitor removed 01/[address] brain o residual subdural or mass-effect. Was on warfarin for SMV/IMV thrombosis diagnosed 2008 with INR 2.8 upon presentation.. Received prothrombin complex concentrate 25 units/KG and phytonodione 10 mg IV preoperatively. Repeat INR 1.2 on 12/31. Received mannitol 25 g IV in the emergency department 12/30 KUMAR drain management per neurosurgery. 10/40 cc ss Levetiracetam 500 mg IV every 12 hours for seizure prophylaxis. Blood pressure management as per below. Goal 120-140 systolic Propofol currently at 30 mcg/kg/min for sedation. Fentanyl drip currently at 100 mcg/h Target RASS -2 Hold pregabalin 50 mill grams p.o. twice daily RESP: Acute respiratory failure secondary to altered mental status Difficult airway [facility] 15/1.06/07/44 Ventilator bundle Albuterol/ipratropium aerosols every 4 hours with albuterol aerosols every 2 hours as needed for dyspnea Spontaneous breathing trials when clinically indicated Chest x-ray satisfactory endotracheal tube position. Mild cardiomegaly. Recheck in a.m. 01/04 with ABG Patient is on Ventolin HFA 90 mcg inhaler every 4 hours as needed. CV: Malignant hypertension Hypercholesterolemia Nicardipine drip at 15 mg an hour to maintain systolic blood pressure less than 140 Resumed initially metoprolol tartrate 50 twice daily and increased to 3 times daily Switch to carvedilol 25 mg twice daily, amlodipine 10 mg daily. Added hydralazine 75 mg 3 times daily Still hypertensive so started losartan 50 daily and increase to twice daily ( home med is valsartan 80 mg daily). As needed labetalol 10 mg every hour and clonidine 0.1 mg by tube every 4 hours 01/01 2d Echo - Normal left ventricular size. Wall thickness is measured at the upper limits of normal. The left ventricular systolic function is hyperdynamic with an estimated ejection fraction in the range of 65-70%. Moderate mitral annular calcification. Trace mitral valve regurgitation. Aortic valve sclerosis is present. There is trace tricuspid valve regurgitation. Trivial pulmonary valve regurgitation. A right sided pleural effusion is present. 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 Her airport operations coordinator is Mariya [phone] Discussed with airport operations coordinator - Current tacrolimus dosing is 3 mg po [id number] with target trough 3-5. Currently 3.2. A.m. pending. Trough was 4.8 on admission, prograf was held, now 3.2. Will resume at above dosing and monitor trough. Ms Munoz also provided history that the indication for warfarin is Factor V Leiden heterozygosity and that it was managed by a viscose department worker outside of the [facility] system. Family states it is Dr. Kaiser. Lansoprazole 30 mg daily for GI prophylaxis. Patient is on pantoprazole 40 mg daily at home. Docusate serum/senna 1 tablet twice daily for bowel regimen. Add polythene glycol 17 g twice daily. Follow-up KUB revealed no obstructive type process.. Initiate tube feeds with vital high-protein goal 50 cc an hour. Current at 30 cc an hour. Metoclopramide 10 mg 3 times daily FEN/RENAL: Chronic kidney disease stage IIIa Hypophosphatemia Hypernatremia Receiving 15 mmol K-Phos IV 1 now. Maintain Rushing Monitor urine output Accurate I's and O's ICU electrolyte protocol Currently on 3% saline at 10 cc an hour ID: Immunosuppressed state Monitor for signs and symptoms of infection. Claudia Operative cefazolin per neurosurgery. HEME/ONC: Warfarin induced coagulopathyINR 2.8 (resolved) Factor V Leiden heterozygosity - indication for chronic anticoagulation. 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 Resumed after liver translation 11/09 Thrombocytopenia Normocytic anemia Leukopenia Warfarin on hold. Branch Billing Payroll Clerk is Dr. Kaiser, she sees him in the [place] office. Spoke with ELAINE Chandler with Dr. Kaiser who states Ms Cole was on warfarin due to Factor V Leiden heterozygosity with prior h/o portal vein thrombosis. Pt has no other history of venous thromboembolism. She has no prior issues with bleeding except for variceal bleed prior to transplant. The fact that she has now had spontaneous subdural while INR was therapeutic could preclude her from therapeutic anticoagulation indefinitely given heterozygosity for mutation. ENDO: Diabetes mellitus with acute hyperglycemia Hold linagliptin 5 mg p.o. every morning, hold insulin degludec flex touch 18 units subcu nightly. On Medium dose aspart insulin sliding scale every 4 hours (24 units last 24 hours). GLucose is >200 this morning. Insulin detemir 18 units subcut q12. MSK: Elevated BMI Weight loss encouraged PROPH: SCDs for DVT prophylaxis. Continue lansoprazole for stress ulcer prophylaxis and history of GERD ACCESS: Right IJ CVL day #3 placed 01/01. Left radial art line placed 12/30 in OR # 5 Full code Level 3 follow-up
[2018-01-03] MEDS: Mag Sulf 1 gm/100 ml Premix 100 ML IV.SIG SCH ×2 (09:39→10:48)
[2018-01-03] MEDS: hydrALAZINE 25 MG Tablet PO SCH ×3 (09:40→17:21)
[2018-01-03] MEDS: Carvedilol 12.5 MG Tablet PO SCH ×2 (09:40→20:45)
[2018-01-03] MEDS: amLODIPine 10 MG Tablet NG/OG SCH (09:41)
[2018-01-03] MEDS: Insulin Detemir Inj 1,000 UNIT/10 ML Vial SQ SCH ×2 (09:42→20:44)
[2018-01-03] MEDS: Hypromellose 0.3% Opth Gel 10 GM Bottle EACH EYE SCH ×2 (09:43→20:57)
[2018-01-03] MEDS: Polyethylene Glycol 3350 17 GM Packet NG/OG SCH ×2 (09:43→21:56)
[2018-01-03] MEDS: Glycerin Adult 2 GM Supp RECTAL SCH ×2 (09:43→21:55)
[2018-01-03] MEDS: Senna/Docusate Sodium 8.6/50 MG Tablet PO SCH ×2 (09:44→20:43)
[2018-01-03] MEDS: Potassium Chlor 20 mEq Premix 20 MEQ/100 ML PIGGYBACK IV.SIG PRN (10:08)
[2018-01-03] MEDS: Potassium Chlor 20 mEq Premix 20 MEQ/100 ML PIGGYBACK IV.SIG SCH ×2 (10:08→12:16)
--- NOTE | 2018-01-03 23:53 | P.PNNS ---
Physical Exam Vital signs: Vital Signs 01/03/18 00:00 01/03/18 02:00 01/03/18 03:00 Temperature 98.6 F Pulse Rate 72 67 72 Respiratory Rate 16 16 Blood Pressure 142/50 H Pulse Oximetry 94 L 93 L 01/03/18 04:00 01/03/18 06:00 01/03/18 07:32 Temperature 98.7 F Pulse Rate 74 95 H 80 Respiratory Rate 26 H 17 Blood Pressure 142/48 H Pulse Oximetry 93 L 98 01/03/18 08:00 01/03/18 10:00 01/03/18 11:46 Temperature 99.5 F Pulse Rate 90 74 78 Respiratory Rate 17 18 Blood Pressure 160/50 H Pulse Oximetry 91 L 94 L 01/03/18 12:00 01/03/18 14:00 01/03/18 15:54 Temperature 99.9 F H Pulse Rate 92 H 82 96 H Respiratory Rate 16 20 Blood Pressure 174/56 H Pulse Oximetry 92 L 96 01/03/18 16:00 01/03/18 18:00 01/03/18 19:35 Temperature 100.7 F H Pulse Rate 92 H 95 H 83 Respiratory Rate 21 21 Blood Pressure 162/46 H Pulse Oximetry 96 96 01/03/18 20:00 01/03/18 22:00 01/03/18 23:31 Temperature 100.4 F H Pulse Rate 88 83 88 Respiratory Rate 17 16 Blood Pressure 168/50 H Pulse Oximetry 98 97 Intake & Output 01/03/18 01/03/18 01/04/18 06:59 18:59 06:59 Intake Total 2508 / 2508 2360 / 2360 Output Total 2060 / 2060 3100 / 3100 Balance 448 / 448 -740 / -740 Weight 109.7 kg Intake: IV 1805 / 1805 1760 / 1760 Diprivan 1000 mg/100 ml Inj 1, 200 / 200 100 / 100 000 mg In 100 ml @ 5 MCG/KG/MIN 3 mls/hr IV.CONT TITRATE PRN Rx#:[id number] NS Inj 1,000 ML @ 30 mls/hr IV. 1000 / 1000 CONT .Q24H GRICELDA Rx#:[id number] Cardene Inj 25 MG In NS Inj 250 1000 / 1000 260 / 260 ML @ 5 MG/HR 52 mls/hr IV.CONT TITRATE PRN Rx#:[id number] Sodium Chloride 3% Inj 500 ML @ 500 / 500 10 mls/hr IV.SIG Q24H GRICELDA Rx#: [id number] Magnesium Sulfate 1 gm/D5W 100 200 / 200 ml Premix 100 ML @ 100 mls/hr IV.SIG Q1H GRICELDA Rx#:[id number] Magnesium Sulfate Inj 4 GM In 0 / 0 NS Inj 92 ML @ 50 mls/hr IV.SIG UNSCH PRN Rx#:[id number] KCl 20 mEq Premix Inj 20 meq In 200 / 200 100 ml @ 50 mls/hr IV.SIG Q2H GRICELDA Rx#:[id number] Keppra Inj 500 MG In NS Inj 100 105 / 105 0 / 0 ML @ 400 mls/hr IV.SIG Q12H GRICELDA Rx#:[id number] Tube Feeding 553 / 553 400 / 400 Water Bolus Amount 150 / 150 200 / 200 Output: Estimated Blood Loss 200 / 200 Urine Amount (Catheter) 1780 / 1780 3000 / 3000 Indwelling Urethral Catheter 1779 / 1779 3000 / 3000 Wound Drainage 80 / 80 100 / 100 # 1 Left Head 10 / 10 # 2 Left Head 70 / 70 100 / 100 Other: Date of Last Bowel Movement 01/03/18 01/03/18 01/03/18 # Bowel Movements 1 2 # Incontinent Bowel Movements 1 2 Narrative: Intubated and sedated on propofol and fentanyl. Head dressing dry and intact Drains [address] Respirations clear Cardiac regular Abdomen soft Pupils 2 mm nonreactive Slight wandering gaze-disconjugate with minimal oculocephalic responses. Presently no grimacing or response to deep pain upper and lower extremities with IV sedation infusing. - Urinary Catheter Management Indwelling Urethral Catheter Cath placed during this visit: yes Reason for continuing: Hourly intake/output Insertion date: 12/30/17 Insertion time: 01:30 Assessment and Plan - Plan Impression 72 y/o female s/p craniotomy for evacuation of SDH, placement of ICP monitor No significant change in neurologic exam over the past day Plan: Continue neuro checks in a serial fashion. Continue blood pressure management Pulmonary: aggressive pulmonary toilette, nasotracheal suction, and breathing treatments with nebulizers. Daily PT and OT Renal: Continue to monitor closely urine output, BUN and creatinine Endocrine: Continue to Monitor serial Acu checks and SSI as needed in detail ID continue to monitor for signs of infection Continue Protonix for stress ulcer prophylaxis Continue James hose and SCD's for DVT prophylaxis Plan discontinue 1 drain today, second drain tomorrow depending on output.
[2018-01-04] MEDS: Insulin NovoLOG Aspart Correctional Sugar Inj SQ SCH ×6 (00:32→20:26)
[2018-01-04 01:35] LABS: Sodium 151 meq/L (136-145)
[2018-01-04] MEDS: Labetalol HCl Inj 100 MG/20 ML Vial IV.PUSH PRN ×3 (02:50→05:36)
[2018-01-04] MEDS: fentaNYL 10 mcg/mL Premix Drip 2,500 MCG/250 ML BAG IV.SIG PRN (03:35)
[2018-01-04 04:26] LABS: Baso % (Auto) 0.8 % (0.0-2.0); Eos % (Auto) 1.1 % (0.0-4.0); Hematocrit 25.1 % (35.0-46.0); Hemoglobin 8.3 gm/dL (11.6-15.3); Lymph # (Auto) 0.7 th/mm3 (1.0-4.8); Lymph % (Auto) 25.7 % (9.0-44.0); Mean Corpuscular HGB Conc 33.1 % (32.0-36.0); Mean Corpuscular Hemoglobin 30.2 pg (27.0-34.0); Mean Corpuscular Volume 91.2 fL (80.0-100.0); Mean Platelet Volume 7.5 fL (7.0-11.0); Mono # (Auto) 0.4 th/mm3 (0.0-0.9); Mono % (Auto) 15.7 % (0.0-8.0); Neut # (Auto) 1.5 th/mm3 (1.8-7.7); Neut % (Auto) 56.7 % (16.0-70.0); Platelet Count 109 th/mm3 (150-450); Red Blood Count 2.75 mil/mm3 (4.00-5.30); Red Cell Distribution Width 14.1 % (11.6-17.2); White Blood Count 2.6 th/mm3 (4.0-11.0)
[2018-01-04 04:38] LABS: Alanine Aminotransferase 27 U/L (10-53); Albumin 1.7 g/dL (3.4-5.0); Anion Gap 9 meq/L (5-15); Aspartate Aminotransferase 29 U/L (15-37); Blood Urea Nitrogen 23 mg/dL (7-18); Calcium 7.8 mg/dL (8.5-10.1); Chloride 117 meq/L (98-107); Glomerular Filtration Rate 51 mL/min (>89); Glucose,Random 195 mg/dL (74-106); Magnesium 1.9 mg/dL (1.5-2.5); Potassium 3.7 meq/L (3.5-5.1); Sodium 152 meq/L (136-145)
[2018-01-04 04:41] LABS: Alkaline Phosphatase 58 U/L (45-117); Total Protein 5.4 g/dL (6.4-8.2)
--- NOTE | 2018-01-04 04:42 | XR ---
EXAM DATE: 01/04/2018 4:33 AM EDT AGE/SEX: 72 years / Female INDICATIONS: Short of breath. CLINICAL DATA: This is the patient's subsequent encounter. Patient reports that signs and symptoms h ave been present for 3 days and indicates a pain score of Nonresponsive. MEDICAL/SURGICAL HISTORY: . Diabetes mellitus type II. Hypertension. None. COMPARISON: C, CHEST 1V SINGLE AP, 01/02/2018. . FINDINGS: Enteric tube, right jugular line, cardiomegaly again seen. There are bilateral parenchymal infiltrate s not changed. Osseous structures are intact. CONCLUSION: Stable appearance of the chest. Electronically signed by: Ritchie Hahn MD 01/04/2018 4:40 AM EDT
[2018-01-04 06:12] LABS: ABG Base Excess 1.3 mmol/L (-2-2); ABG PCO2 38 mmHg (38-42); ABG PO2 94 mmHg (61-120)
--- NOTE | 2018-01-04 08:30 | P.PNCC ---
Subjective Subjective Remarks/Hospital Course: 72-year-old female with past medical history of hypertension, diabetes , prior liver transplant in 2010, on chronic anticoagulation for warfarin (per family report due to prior hx of portal vein thrombosis prior to her transplant) . She reportedly got up to go to the bathroom around 10 PM. She developed headache, nausea and multiple episodes of vomiting. There is no reported head trauma. CT brain demonstrates left subdural hematoma with 1 cm left to right shift. INR 2.8. Administering k Centra 25 U/kg, vitamin K 10 mg IV. Blood pressure 169/75. Initiating Cardene drip. Dr. Uribe has been consulted and will be taking patient emergently to operating room following correction of coagulopathy. 12/31 Underwent Left frontal temporal parietal decompressive craniectomy, evacuation of acute subdural hematoma on 12/[address] Uribe R frontal fiberoptic ICP monitor also in place. ICPs are <3. Repeat CT brain this morning demonstrates no residual subdural. Mass-effect is resolved. Remains on mechanical ventilation and cardene drip for hypertension management. 01/01: No acute events overnight. T-max 99.9. No bowel movement. Replacing calcium, potassium magnesium. Quite tachypneic this a.m. 01/02: Afebrile. Replacing phosphorus this a.m. Appears more comfortable on fentanyl and propofol drips. Remains on nicardipine drip at 6 mg an hour to maintain systolic blood pressure less than 140. Subjective 01/03: Afebrile. Currently on nicardipine 15 mg/h. Was off last night. Tube feeds currently at 30 cc an hour due to high residuals. Positive bowel movement 2. Remains on propofol and fentanyl drips. 01/04: Neuro exam remains unchanged, low-grade temperature noted. Poorly controlled hypertension with minimal stimulation becomes very hypotensive. Remains sedated with propofol and fentanyl. Will restart Cardene for blood pressure control to facilitate weaning trials Objective Vital Signs / I&O: Vital Signs 01/03/18 10:00 01/03/18 11:46 01/03/18 12:00 Temperature 99.9 F H Pulse Rate 74 78 92 H Respiratory Rate 18 16 Blood Pressure 174/56 H Pulse Oximetry 94 L 92 L 01/03/18 14:00 01/03/18 15:54 01/03/18 16:00 Temperature 100.7 F H Pulse Rate 82 96 H 92 H Respiratory Rate 20 21 Blood Pressure 162/46 H Pulse Oximetry 96 96 01/03/18 18:00 01/03/18 19:35 01/03/18 20:00 Temperature 100.4 F H Pulse Rate 95 H 83 88 Respiratory Rate 21 17 Blood Pressure 168/50 H Pulse Oximetry 96 98 01/03/18 22:00 01/03/18 23:31 01/04/18 00:05 Temperature 98.1 F Pulse Rate 83 88 84 Respiratory Rate 16 17 Blood Pressure 150/59 H Pulse Oximetry 97 99 01/04/18 02:00 01/04/18 03:59 01/04/18 04:00 Temperature 100.5 F H Pulse Rate 84 77 73 Respiratory Rate 16 17 Blood Pressure 143/53 H Pulse Oximetry 98 99 01/04/18 04:15 01/04/18 06:00 01/04/18 07:35 Temperature Pulse Rate 84 76 Respiratory Rate 16 16 Blood Pressure Pulse Oximetry 97 Intake & Output 01/03/18 01/04/18 01/04/18 18:59 06:59 18:59 Intake Total 2360 / 2360 1250 / 1250 Output Total 3100 / 3100 700 / 700 Balance -740 / -740 550 / 550 Weight 108 kg Intake: IV 1760 / 1760 600 / 600 Diprivan 1000 mg/100 ml Inj 1, 100 / 100 000 mg In 100 ml @ 5 MCG/KG/MIN 3 mls/hr IV.CONT TITRATE PRN Rx#:[id number] NS Inj 1,000 ML @ 30 mls/hr IV. 1000 / 1000 CONT .Q24H [facility] Rx#:[id number] Cardene Inj 25 MG In NS Inj 250 260 / 260 ML @ 5 MG/HR 52 mls/hr IV.CONT TITRATE PRN Rx#:[id number] Sodium Chloride 3% Inj 500 ML @ 500 / 500 10 mls/hr IV.SIG Q24H [facility] Rx#: [id number] Magnesium Sulfate 1 gm/D5W 100 200 / 200 ml Premix 100 ML @ 100 mls/hr IV.SIG Q1H [facility] Rx#:[id number] Magnesium Sulfate Inj 4 GM In 0 / 0 NS Inj 92 ML @ 50 mls/hr IV.SIG UNSCH PRN Rx#:[id number] KCl 20 mEq Premix Inj 20 meq In 200 / 200 100 ml @ 50 mls/hr IV.SIG Q2H [facility] Rx#:[id number] fentaNYL 10 mcg/mL Premix Drip 100 / 100 2,500 mcg In 250 ml @ 50 MCG/HR 5 mls/hr IV.SIG TITRATE PRN Rx #:[id number] Keppra Inj 500 MG In NS Inj 100 0 / 0 ML @ 400 mls/hr IV.SIG Q12H [facility] Rx#:[id number] Tube Feeding 400 / 400 550 / 550 Tube Irrigant 100 / 100 Water Bolus Amount 200 / 200 Output: Urine Amount (Catheter) 3000 / 3000 700 / 700 Indwelling Urethral Catheter 3000 / 3000 700 / 700 Wound Drainage 100 / 100 # 2 Left Head 100 / 100 Other: Date of Last Bowel Movement 01/03/18 01/03/18 # Bowel Movements 2 # Incontinent Bowel Movements 2 Result Diagrams: 01/04/18 04:00 01/04/18 04:00 Objective Remarks: GENERAL: 72-year-old female patient who is orotracheally intubated and sedated. SKIN: Warm and dry, well-perfused HEAD: Normocephalic. Fiberoptic ICP removed 01/01. ICP currently -2. KUMAR in place 2 with serosanguineous output. Kerlix dressing overlies left craniectomy flap EYES: Pupils equal and round, pinpoint round 2 mm and reactive.. No scleral icterus. No injection or drainage. ENT: No nasal bleeding or discharge. Mucous membranes pink and moist. NECK: Trachea midline. No JVD. Obese. Right IJ is clean dry and intact. CARDIOVASCULAR: Regular rate and rhythm, S1, S2 no S 4.. 2/6 systolic murmur left sternal border RESPIRATORY: Diminished due to body habitus. Clear anteriorly without wheezes, rales, rhonchi. Tachypneic the same with respiratory rates around 30 GASTROINTESTINAL: Abdomen soft, non-tender, nondistended. Well-healed scar right upper quadrant. : Rushing in place with yellow urine output MUSCULOSKELETAL: Extremities with trace bilateral upper and lower extremity edema throughout. Scar overlies left knee L radial art line in place with distal perfusion intact. NEUROLOGICAL: Opens eyes spontaneously to voice.. On sedation not moving upper lower extremities spontaneously. Withdraws severino upper and lower extremities. Assessment and Plan - Assessment and Plan Plan: NEURO/PSYCH: Acute left subdural hematoma with mass-effect Status left frontal temporal parietal decompressive craniectomy, evacuation of acute subdural hematoma and ICP monitor 12/30/[address] Uribe ICP monitor removed 01/[address] brain o residual subdural or mass-effect. Was on warfarin for SMV/IMV thrombosis diagnosed 2008 with INR 2.8 upon presentation. Received prothrombin complex concentrate 25 units/KG and phytonodione 10 mg IV preoperatively. Repeat INR 1.2 on 12/31. Received mannitol 25 g IV in the emergency department 12/30 KUMAR drain management per neurosurgery. Levetiracetam 500 mg IV every 12 hours for seizure prophylaxis. Blood pressure management as per below. Goal 120-140 systolic Propofol and fentanyl for sedation and vent synchrony. Start sedation vacation when okayed by neurosurgery Target RASS -2 Hold pregabalin 50 mill grams p.o. twice daily RESP: Acute respiratory failure secondary to altered mental status Difficult airway PRVC 15/550/1.06/07/44. Ventilator bundle Albuterol/ipratropium aerosols every 4 hours with albuterol aerosols every 2 hours as needed for dyspnea Spontaneous breathing trials when clinically indicated Chest x-ray satisfactory endotracheal tube position. Mild cardiomegaly. Recheck in a.m. 01/04 with ABG Patient is on Ventolin HFA 90 mcg inhaler every 4 hours as needed. Check sputum culture patient has bibasilar infiltrates CV: Malignant hypertension Hypercholesterolemia Nicardipine drip to maintain systolic blood pressure less than 140 Continue Carvedilol 25 mg twice daily, amlodipine 10 mg daily. Increase hydralazine to 100 mg 3 times daily Continue losartan 50 BID (home med is valsartan 80 mg daily). Add scheduled clonidine 0.2 mg every 8 hours As needed labetalol 10 mg every hour and clonidine 0.1 mg by tube every 4 hours. 01/01 2d Echo - Normal left ventricular size. Wall thickness is measured at the upper limits of normal. The left ventricular systolic function is hyperdynamic with an estimated ejection fraction in the range of 65-70%. 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 Her clinical resource coordinator is Mariya Munoz [phone] Discussed with clinical resource coordinator - Current tacrolimus dosing is 3 mg po [id number] with target trough 3-5. Currently 3.2. A.m. pending. Trough was 4.8 on admission, prograf was held, now 3.5 on 01/03 today level pending. Continue current dosing Ms Munoz also provided history that the indication for warfarin is Factor V Leiden heterozygosity and that it was managed by a digital account supervisor outside of the [place] system. Family states it is Dr. Kaiser. Lansoprazole 30 mg daily for GI prophylaxis. Patient is on pantoprazole 40 mg daily at home. Docusate serum/senna 1 tablet twice daily for bowel regimen. Add polythene glycol 17 g twice daily. Follow-up KUB revealed no obstructive type process.. Tube feeds with vital high-protein goal 50 cc an hour. Current at 30 cc an hour. Metoclopramide 10 mg 3 times daily FEN/RENAL: Chronic kidney disease stage IIIa Hypophosphatemia Hypernatremia Maintain Rushing Monitor urine output Accurate I's and O's ICU electrolyte protocol Currently on 3% saline at 10 cc an hour ID: Immunosuppressed state Low-grade fever, bilateral lung infiltrates Monitor for signs and symptoms of infection. Claudia Operative cefazolin per neurosurgery. Check sputum culture. HEME/ONC: Warfarin induced coagulopathyINR 2.8 (resolved) Factor V Leiden heterozygosity - indication for chronic anticoagulation. 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 Resumed after liver translation 11/09 Thrombocytopenia Normocytic anemia Leukopenia Warfarin on hold. Box Bender is Dr. Kaiser, she sees him in the [place] office. Spoke with ELAINE Chandler with Dr. Kaiser who states Ms Cole was on warfarin due to Factor V Leiden heterozygosity with prior h/o portal vein thrombosis. Pt has no other history of venous thromboembolism. She has no prior issues with bleeding except for variceal bleed prior to transplant. The fact that she has now had spontaneous subdural while INR was therapeutic could preclude her from therapeutic anticoagulation indefinitely given heterozygosity for mutation. ENDO: Diabetes mellitus with acute hyperglycemia Hold linagliptin 5 mg p.o. every morning, hold insulin degludec flex touch 18 units subcu nightly. On Medium dose aspart insulin sliding scale every 4 hours (24 units last 24 hours). GLucose is >200 this morning. Insulin detemir 18 units subcut q12. PROPH: SCDs for DVT prophylaxis. Continue lansoprazole for stress ulcer prophylaxis and history of GERD ACCESS: Right IJ CVL day #4 placed 8/3. Left radial art line placed 12/30 in OR # 6 Full code CCT 32 MIN Patient is critically ill with severe encephalopathy and uncontrolled and malignant hypertension. Multiple medication adjustment made added clonidine restarted nicardipine increased hydralazine. Continue nicardipine infusion to permit weaning of sedation. Remains critically ill at this time
[2018-01-04 08:52] LABS: Sodium 152 meq/L (136-145)
[2018-01-04] MEDS: amLODIPine 10 MG Tablet NG/OG SCH (09:45)
[2018-01-04] MEDS: Hypromellose 0.3% Opth Gel 10 GM Bottle EACH EYE SCH ×2 (09:45→20:00)
[2018-01-04] MEDS: Carvedilol 12.5 MG Tablet PO SCH ×2 (09:45→21:55)
[2018-01-04] MEDS: Senna/Docusate Sodium 8.6/50 MG Tablet PO SCH ×2 (09:45→21:56)
[2018-01-04] MEDS: Glycerin Adult 2 GM Supp RECTAL SCH ×2 (09:46→21:37)
[2018-01-04] MEDS: Polyethylene Glycol 3350 17 GM Packet NG/OG SCH ×3 (09:46→21:59)
[2018-01-04] MEDS: Insulin Detemir Inj 1,000 UNIT/10 ML Vial SQ SCH ×2 (09:46→21:57)
[2018-01-04] MEDS: niCARdipine Inj 25 MG in Sodium Chlor 0.9% Inj 250 ML IV.CONT PRN (10:34)
[2018-01-04 14:14] LABS: Sodium 151 meq/L (136-145)
[2018-01-04] MEDS: Propofol 1000 mg/100 ml Inj 1,000 MG/100 ML BOTTLE IV.CONT PRN (16:00)
[2018-01-04] MEDS ORDERED: Lidocaine 1%/Epinephrine 1:100,000 Inj 20 ML Vial INFILTRATN ONE (18:00)
[2018-01-04 18:48] LABS: Sodium 152 meq/L (136-145)
[2018-01-04] MEDS: niCARdipine Inj 50 MG in Sodium Chlor 0.9% Inj 230 ML IV.CONT PRN (19:03)
--- NOTE | 2018-01-04 19:12 | P.PNNS ---
Subjective Interval history: Pt sedated on Diprivan and Fentanyl drips. Pt becomes hypertensive if held. Intubated PRVC A/C rate 16. Peep 7. FiO2 45%. <Ciaran Cotton - Last Filed: 01/04/18 19:06> Physical Exam Vital signs: Vital Signs 01/03/18 19:35 01/03/18 20:00 01/03/18 22:00 Temperature 100.4 F H Pulse Rate 83 88 83 Respiratory Rate 21 17 Blood Pressure 168/50 H Pulse Oximetry 96 98 01/03/18 23:31 01/04/18 00:05 01/04/18 02:00 Temperature 98.1 F Pulse Rate 88 84 84 Respiratory Rate 16 17 Blood Pressure 150/59 H Pulse Oximetry 97 99 01/04/18 03:59 01/04/18 04:00 01/04/18 04:15 Temperature 100.5 F H Pulse Rate 77 73 Respiratory Rate 16 17 16 Blood Pressure 143/53 H Pulse Oximetry 98 99 01/04/18 06:00 01/04/18 07:35 01/04/18 08:00 Temperature 99.5 F Pulse Rate 84 76 77 Respiratory Rate 16 16 Blood Pressure 152/54 H Pulse Oximetry 97 96 01/04/18 10:00 01/04/18 11:14 01/04/18 12:00 Temperature 99.2 F Pulse Rate 76 78 84 Respiratory Rate 16 16 Blood Pressure 158/62 H Pulse Oximetry 95 94 L 01/04/18 14:00 01/04/18 15:32 01/04/18 16:00 Temperature 99.2 F Pulse Rate 82 94 H 86 Respiratory Rate 22 16 Blood Pressure 148/52 H Pulse Oximetry 94 L 93 L 01/04/18 18:00 Temperature Pulse Rate 78 Respiratory Rate Blood Pressure Pulse Oximetry Intake & Output 01/04/18 01/04/18 01/05/18 06:59 18:59 06:59 Intake Total 1350 / 1350 856 / 856 Output Total 700 / 700 345 / 345 Balance 650 / 650 511 / 511 Weight 108 kg Intake: IV 700 / 700 250 / 250 Diprivan 1000 mg/100 ml Inj 1, 100 / 100 000 mg In 100 ml @ 5 MCG/KG/MIN 3 mls/hr IV.CONT TITRATE PRN Rx#:[id number] Cardene Inj 25 MG In NS Inj 250 250 / 250 ML @ 5 MG/HR 52 mls/hr IV.CONT TITRATE PRN Rx#:[id number] Sodium Chloride 3% Inj 500 ML @ 500 / 500 10 mls/hr IV.SIG Q24H [facility] Rx#: [id number] fentaNYL 10 mcg/mL Premix Drip 100 / 100 2,500 mcg In 250 ml @ 50 MCG/HR 5 mls/hr IV.SIG TITRATE PRN Rx #:[id number] Tube Feeding 550 / 550 516 / 516 Tube Irrigant 100 / 100 90 / 90 Output: Urine Amount (Catheter) 700 / 700 275 / 275 Indwelling Urethral Catheter 700 / 700 275 / 275 Wound Drainage 70 / 70 # 2 Left Head 70 / 70 Other: Date of Last Bowel Movement 01/03/18 01/04/18 # Bowel Movements 1 - Constitutional obese - Routine HEENT Exam Head: Absent: normocephalic (Left craniectomy site clean and dry. No signs of infection.), atraumatic Eye: Present: PERRL (Pupils 2mm bilaterally reactive bilaterally.). Absent: conjunctival icterus ENT: Absent: oropharynx clear (ET tube in place.) - Routine Neck Exam Present: trachea midline - Routine Respiratory Exam Present: patient mechanically ventilated. Absent: CTA bilaterally (Mild coarse bs bilaterally.), respiratory distress, wheezes - Routine Cardiovascular Exam Present: RRR, S1, S2. Absent: murmur - Routine Abdominal Exam Present: soft, normoactive bowel sounds. Absent: distended - Routine Skin Exam Absent: cyanosis, erythema - Routine Neurological Exam Present: altered mental status (Pt sedated.), moving all extremities (Withdraws extremities to pain.) - Detailed Neurological Exam: Coma Scale Eye Opening: None Verbal Response: None Motor Response: Normal flexion [place] Coma Scale Total: 6 - Routine Psychiatric Exam Present: unable to assess - Urinary Catheter Management Indwelling Urethral Catheter Cath placed during this visit: yes Reason for continuing: Hourly intake/output Insertion date: 12/30/17 Insertion time: 01:30 <Ciaran Cotton - Last Filed: 01/04/18 19:06> Vital signs: Vital Signs 01/04/18 10:00 01/04/18 11:14 01/04/18 12:00 Temperature 99.2 F Pulse Rate 76 78 84 Respiratory Rate 16 16 Blood Pressure 158/62 H Pulse Oximetry 95 94 L 01/04/18 14:00 01/04/18 15:32 01/04/18 16:00 Temperature 99.2 F Pulse Rate 82 94 H 86 Respiratory Rate 22 16 Blood Pressure 148/52 H Pulse Oximetry 94 L 93 L 01/04/18 18:00 01/04/18 20:00 01/04/18 20:33 Temperature 101.3 F H Pulse Rate 78 83 99 H Respiratory Rate 16 22 Blood Pressure 140/50 L Pulse Oximetry 95 96 01/04/18 22:00 01/05/18 00:00 01/05/18 00:15 Temperature 99.2 F Pulse Rate 81 84 73 Respiratory Rate 16 16 Blood Pressure 151/60 H Pulse Oximetry 97 98 01/05/18 02:00 01/05/18 04:00 01/05/18 04:02 Temperature 99.5 F Pulse Rate 84 81 78 Respiratory Rate 16 16 Blood Pressure 160/56 H Pulse Oximetry 98 95 01/05/18 06:00 01/05/18 07:42 Temperature Pulse Rate 84 97 H Respiratory Rate 23 Blood Pressure Pulse Oximetry 93 L Intake & Output 01/04/18 01/05/18 01/05/18 18:59 06:59 18:59 Intake Total 856 / 856 1850 / 1850 Output Total 345 / 345 670 / 670 Balance 511 / 511 1180 / 1180 Weight 107.4 kg Intake: IV 250 / 250 1250 / 1250 Cardene Inj 25 MG In NS Inj 250 250 / 250 250 / 250 ML @ 5 MG/HR 52 mls/hr IV.CONT TITRATE PRN Rx#:[id number] Sodium Chloride 3% Inj 500 ML @ 500 / 500 10 mls/hr IV.SIG Q24H [facility] Rx#: [id number] NS Inj 500 ML @ As Directed IV. 500 / 500 SIG ONCE ONE Rx#:[id number] Tube Feeding 516 / 516 400 / 400 Tube Irrigant 90 / 90 200 / 200 Output: Urine Amount (Catheter) 275 / 275 650 / 650 Indwelling Urethral Catheter 275 / 275 650 / 650 Wound Drainage 70 / 70 20 / 20 # 2 Left Head 70 / 70 20 / 20 Other: Date of Last Bowel Movement 01/04/18 01/04/18 # Bowel Movements 1 - Urinary Catheter Management Indwelling Urethral Catheter Cath placed during this visit: no <Humza Borden - Last Filed: 01/05/18 08:32> Assessment and Plan - Assessment (1) Hypertensive emergency Code(s): I16.1 - Hypertensive emergency Status: Acute (2) Subdural hematoma Code(s): S06.5X9A - Traumatic subdural hemorrhage with loss of consciousness of unspecified duration, initial encounter Status: Acute - Plan Impression 72 y/o female s/p craniotomy for evacuation of SDH, placement of ICP monitor No significant change in neurologic exam over the past day Plan: Continue neuro checks in a serial fashion. Continue blood pressure management Pulmonary: aggressive pulmonary toilette, nasotracheal suction, and breathing treatments with nebulizers. Daily PT and OT Renal: Continue to monitor closely urine output, BUN and creatinine Endocrine: Continue to Monitor serial Acu checks and SSI as needed in detail ID continue to monitor for signs of infection Continue Protonix for stress ulcer prophylaxis Continue James hose and SCD's for DVT prophylaxis <Ciaran Cotton - Last Filed: 01/04/18 19:06> - Attending Attestation The exam, history, and the medical decision-making described in the above note were completed with the assistance of the mid-level provider. I reviewed and agree with the findings presented. I attest that I had a [id number] encounter with the patient on the same day, and personally performed and documented my assessment and findings in the medical record. <Humza Borden - Last Filed: 01/05/18 08:32>
[2018-01-04] MEDS ORDERED: Sodium Chlor 0.9% Inj 500 ML IV.SIG ONE (20:00)
[2018-01-04] MEDS: Potassium Phosphate 500 MG Soluble Tablet PO PRN (20:26)
[2018-01-05] MEDS: Insulin NovoLOG Aspart Correctional Sugar Inj SQ SCH ×6 (00:55→21:07)
[2018-01-05 01:06] LABS: Sodium 153 meq/L (136-145)
[2018-01-05] MEDS: Labetalol HCl Inj 100 MG/20 ML Vial IV.PUSH PRN ×2 (04:21→06:25)
[2018-01-05 05:09] LABS: Hemoglobin 8.6 gm/dL (11.6-15.3); Mean Corpuscular HGB Conc 33.1 % (32.0-36.0); Mean Corpuscular Hemoglobin 30.3 pg (27.0-34.0); Mean Corpuscular Volume 91.4 fL (80.0-100.0); Mean Platelet Volume 7.5 fL (7.0-11.0); Platelet Count 117 th/mm3 (150-450); Red Blood Count 2.84 mil/mm3 (4.00-5.30); Red Cell Distribution Width 14.3 % (11.6-17.2)
--- NOTE | 2018-01-05 05:14 | XR ---
EXAM DATE: 01/05/2018 4:50 AM EDT AGE/SEX: 72 years / Female INDICATIONS: Shortness of breath. Possible respiratory disease. CLINICAL DATA: This is the patient's subsequent encounter. Patient reports that signs and symptoms h ave been present for 4 - 6 days and indicates a pain score of Nonresponsive. MEDICAL/SURGICAL HISTORY: . Diabetes mellitus type II. Hypertension. None. COMPARISON: C, CHEST 1V SINGLE AP, 01/04/2018. . FINDINGS: Mild interstitial prominence, and left greater than right lower lobe airspace disease with air bronch ogram formation. Endotracheal tube and enteric tube again seen. Right jugular line overlies the SVC. CONCLUSION: Stable appearance of the chest. Electronically signed by: Ritchie Hahn MD 01/05/2018 5:13 AM EDT
[2018-01-05 05:33] LABS: Albumin 1.7 g/dL (3.4-5.0); Anion Gap 10 meq/L (5-15); Aspartate Aminotransferase 30 U/L (15-37); Blood Urea Nitrogen 33 mg/dL (7-18); Calcium 8.3 mg/dL (8.5-10.1); Chloride 118 meq/L (98-107); Glomerular Filtration Rate 57 mL/min (>89); Glucose,Random 189 mg/dL (74-106); Magnesium 2.1 mg/dL (1.5-2.5); Potassium 3.9 meq/L (3.5-5.1); Sodium 152 meq/L (136-145)
[2018-01-05 05:34] LABS: Alanine Aminotransferase 27 U/L (10-53)
[2018-01-05 05:36] LABS: Alkaline Phosphatase 63 U/L (45-117); Total Protein 5.7 g/dL (6.4-8.2)
[2018-01-05] MEDS: Hypromellose 0.3% Opth Gel 10 GM Bottle EACH EYE SCH ×2 (09:18→20:00)
[2018-01-05] MEDS: Glycerin Adult 2 GM Supp RECTAL SCH ×2 (09:21→21:11)
[2018-01-05] MEDS: Carvedilol 12.5 MG Tablet PO SCH ×2 (09:21→21:04)
[2018-01-05] MEDS: Insulin Detemir Inj 1,000 UNIT/10 ML Vial SQ SCH ×2 (09:22→21:44)
[2018-01-05] MEDS: amLODIPine 10 MG Tablet NG/OG SCH (09:22)
[2018-01-05] MEDS: Polyethylene Glycol 3350 17 GM Packet NG/OG SCH ×2 (09:22→21:11)
[2018-01-05] MEDS: Senna/Docusate Sodium 8.6/50 MG Tablet PO SCH ×2 (09:23→21:04)
[2018-01-05] MEDS: niCARdipine Inj 50 MG in Sodium Chlor 0.9% Inj 230 ML IV.CONT PRN ×2 (09:36→23:03)
[2018-01-05] MEDS ORDERED: Vancomycin Consult Pharmacy 1 EACH OTHER SCH (10:00)
--- NOTE | 2018-01-05 10:06 | P.PNCC ---
Subjective Subjective Remarks/Hospital Course: 72-year-old female with past medical history of hypertension, diabetes , prior liver transplant in 2010, on chronic anticoagulation for warfarin (per family report due to prior hx of portal vein thrombosis prior to her transplant) . She reportedly got up to go to the bathroom around 10 PM. She developed headache, nausea and multiple episodes of vomiting. There is no reported head trauma. CT brain demonstrates left subdural hematoma with 1 cm left to right shift. INR 2.8. Administering k Centra 25 U/kg, vitamin K 10 mg IV. Blood pressure 169/75. Initiating Cardene drip. Dr. Uribe has been consulted and will be taking patient emergently to operating room following correction of coagulopathy. 12/31 Underwent Left frontal temporal parietal decompressive craniectomy, evacuation of acute subdural hematoma on 12/[address] Uribe R frontal fiberoptic ICP monitor also in place. ICPs are <3. Repeat CT brain this morning demonstrates no residual subdural. Mass-effect is resolved. Remains on mechanical ventilation and cardene drip for hypertension management. 01/01: No acute events overnight. T-max 99.9. No bowel movement. Replacing calcium, potassium magnesium. Quite tachypneic this a.m. 01/02: Afebrile. Replacing phosphorus this a.m. Appears more comfortable on fentanyl and propofol drips. Remains on nicardipine drip at 6 mg an hour to maintain systolic blood pressure less than 140. Subjective 01/03: Afebrile. Currently on nicardipine 15 mg/h. Was off last night. Tube feeds currently at 30 cc an hour due to high residuals. Positive bowel movement 2. Remains on propofol and fentanyl drips. 01/04: Neuro exam remains unchanged, low-grade temperature noted. Poorly controlled hypertension with minimal stimulation becomes very hypotensive. Remains sedated with propofol and fentanyl. Will restart Cardene for blood pressure control to facilitate weaning trials 01/05: Remains intubated sedated. Neuro unchanged. Sedation restarted due to hypoxia and ventilator asynchrony. Increased ET tube secretions, chest x-ray showing bibasilar infiltrate. Currently FiO2 at 60%. Probable healthcare associated pneumonia, fever up to 101.3. Start vancomycin and cefepime. Unable to completely discontinue sedation due to uncontrolled hypertension Objective Vital Signs / I&O: Vital Signs 01/04/18 10:00 01/04/18 11:14 01/04/18 12:00 Temperature 99.2 F Pulse Rate 76 78 84 Respiratory Rate 16 16 Blood Pressure 158/62 H Pulse Oximetry 95 94 L 01/04/18 14:00 01/04/18 15:32 01/04/18 16:00 Temperature 99.2 F Pulse Rate 82 94 H 86 Respiratory Rate 22 16 Blood Pressure 148/52 H Pulse Oximetry 94 L 93 L 01/04/18 18:00 01/04/18 20:00 01/04/18 20:33 Temperature 101.3 F H Pulse Rate 78 83 99 H Respiratory Rate 16 22 Blood Pressure 140/50 L Pulse Oximetry 95 96 01/04/18 22:00 01/05/18 00:00 01/05/18 00:15 Temperature 99.2 F Pulse Rate 81 84 73 Respiratory Rate 16 16 Blood Pressure 151/60 H Pulse Oximetry 97 98 01/05/18 02:00 01/05/18 04:00 01/05/18 04:02 Temperature 99.5 F Pulse Rate 84 81 78 Respiratory Rate 16 16 Blood Pressure 160/56 H Pulse Oximetry 98 95 01/05/18 06:00 01/05/18 07:42 Temperature Pulse Rate 84 97 H Respiratory Rate 23 Blood Pressure Pulse Oximetry 93 L Intake & Output 01/04/18 01/05/18 01/05/18 18:59 06:59 18:59 Intake Total 856 / 856 1850 / 1850 250 / 250 Output Total 345 / 345 670 / 670 Balance 511 / 511 1180 / 1180 250 / 250 Weight 107.4 kg Intake: IV 250 / 250 1250 / 1250 250 / 250 Cardene Inj 50 MG In NS Inj 230 250 / 250 250 / 250 250 / 250 ML @ 5 MG/HR 25 mls/hr IV.CONT TITRATE PRN Rx#:[id number] Sodium Chloride 3% Inj 500 ML @ 500 / 500 10 mls/hr IV.SIG Q24H GRICELDA Rx#: [id number] NS Inj 500 ML @ As Directed IV. 500 / 500 SIG ONCE ONE Rx#:[id number] Tube Feeding 516 / 516 400 / 400 Tube Irrigant 90 / 90 200 / 200 Output: Urine Amount (Catheter) 275 / 275 650 / 650 Indwelling Urethral Catheter 275 / 275 650 / 650 Wound Drainage 70 / 70 20 / 20 # 2 Left Head 70 / 70 Other: Date of Last Bowel Movement 01/04/18 01/04/18 # Bowel Movements 1 Result Diagrams: 01/05/18 04:45 01/05/18 04:45 Objective Remarks: GENERAL: 72-year-old female patient who is orotracheally intubated and sedated with propofol SKIN: Warm and dry, well-perfused HEAD: Normocephalic. Fiberoptic ICP removed 01/01. KUMAR in place with serosanguineous output. Kerlix dressing overlies left craniectomy flap EYES: Pupils equal and round, sluggishly reactive.. No scleral icterus. No injection or drainage. ENT: No nasal bleeding or discharge. Mucous membranes pink and moist. NECK: Trachea midline. No JVD. Obese. Right IJ is clean dry and intact. CARDIOVASCULAR: Regular rate and rhythm, S1, S2 no S 4.. 2/6 systolic murmur left sternal border RESPIRATORY: Diminished due to body habitus. Clear anteriorly without wheezes, rales, rhonchi. GASTROINTESTINAL: Abdomen soft, non-tender, nondistended. Well-healed scar right upper quadrant. : Rushing in place with yellow urine output MUSCULOSKELETAL: Extremities with trace bilateral upper and lower extremity edema throughout. Scar overlies left knee. L radial art line in place with distal perfusion intact. NEUROLOGICAL: Currently sedated with propofol 40 mcg/kg/min. On sedation not moving upper lower extremities spontaneously. Weakly withdraws severino upper and lower extremities. Assessment and Plan - Assessment and Plan Plan: NEURO/PSYCH: Acute left subdural hematoma with mass-effect Status left frontal temporal parietal decompressive craniectomy, evacuation of subdural hematoma and ICP monitor 12/30/[address] Uribe ICP monitor removed 01/[address] brain o residual subdural or mass-effect. Was on warfarin for SMV/IMV thrombosis diagnosed 2008 with INR 2.8 upon presentation. Received prothrombin complex concentrate 25 units/KG and phytonodione 10 mg IV preoperatively. Repeat INR 1.2 on 12/31. Received mannitol 25 g IV in the emergency department 12/30 KUMAR drain management per neurosurgery. Levetiracetam 500 mg IV every 12 hours for seizure prophylaxis. Blood pressure management as per below. Goal 120-140 systolic Propofol and fentanyl for sedation and vent synchrony. Daily sedation vacation when okayed by neurosurgery Unable to wean sedation off completely due to uncontrolled hypertension Hold pregabalin 50 mill grams p.o. twice daily RESP: Acute respiratory failure secondary to altered mental status Difficult airway Healthcare associated pneumonia [facility] 15/1.06/07/44. Ventilator bundle Albuterol/ipratropium aerosols every 4 hours with albuterol aerosols every 2 hours as needed for dyspnea Spontaneous breathing trials when clinically indicated. Currently unable to do because of increased oxygen requirement Chest x-ray today with bibasilar infiltrates. Sputum culture pending Start vancomycin and cefepime Patient is on Ventolin HFA 90 mcg inhaler every 4 hours as needed. CV: Malignant hypertension Hypercholesterolemia Nicardipine drip to maintain systolic blood pressure less than 140 Continue Carvedilol 25 mg twice daily, amlodipine 10 mg daily. Hydralazine to 100 mg 3 times daily Continue losartan 50 BID (home med is valsartan 80 mg daily). Scheduled clonidine 0.2 mg every 8 hours As needed labetalol 10 mg every hour and clonidine 0.1 mg by tube every 4 hours. 01/01 2d Echo - Normal left ventricular size. LVEF 65-70%. 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 pharmacy intake coordinator is Mariya [phone] Discussed with transplant rn - Current tacrolimus dosing is 3 mg po [id number] with target trough 3-5. Currently 3.0. Trough was 4.8 on admission, prograf was held, now 3.0 on 01/04. Continue current dosing of 3 mg BID Ms Munoz provided history that warfarin is for Factor V Leiden heterozygosity and that it was managed by a armhole raiser lockstitch outside of the [employer] system. Family states it is Dr. Kaiser. Lansoprazole 30 mg daily for GI prophylaxis. Patient is on pantoprazole 40 mg daily at home. Docusate serum/senna 1 tablet twice daily for bowel regimen. Add polythene glycol 17 g twice daily. Follow-up KUB revealed no obstructive type process.. Tube feeds with vital high-protein goal 50 cc an hour. Current at 30 cc an hour. Metoclopramide 10 mg 3 times daily FEN/RENAL: Chronic kidney disease stage IIIa Hypophosphatemia Hypernatremia Maintain Rushing. Monitor urine output Accurate I's and O's ICU electrolyte protocol Currently on 3% saline at 10 cc an hour ID: Immunosuppressed state High fever, bilateral lung infiltrates Sepsis Appears to have developed healthcare associated pneumonia Received Claudia Operative cefazolin per neurosurgery. Follow-up sputum culture. Check blood and urine culture Broad-spectrum antibiotics with vancomycin and cefepime HEME/ONC: Warfarin induced coagulopathyINR 2.8 (resolved) Factor V Leiden heterozygosity - indication for chronic anticoagulation. 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 Resumed after liver translation 11/09 Thrombocytopenia, anemia, leukopenia Warfarin on hold. Wigs Salesperson is Dr. Kaiser, she sees him in the [place] office. Spoke with Roseanna Lea, SIDE PIECE COVERER with Dr. Kaiser who states Ms Cole was on warfarin due to Factor V Leiden heterozygosity with prior h/o portal vein thrombosis. Pt has no other history of venous thromboembolism. She has no prior issues with bleeding except for variceal bleed prior to transplant. The fact that she has now had spontaneous subdural while INR was therapeutic could preclude her from therapeutic anticoagulation indefinitely given heterozygosity for mutation. ENDO: Diabetes mellitus with acute hyperglycemia Hold linagliptin 5 mg p.o. every morning, hold insulin degludec flex touch 18 units subcu nightly. On Medium dose aspart insulin sliding scale every 4 hours (24 units last 24 hours). GLucose is >200 this morning. Insulin detemir 18 units subcut q12, increase to 22 q12 PROPH: SCDs for DVT prophylaxis. Continue lansoprazole for stress ulcer prophylaxis and history of GERD ACCESS: Right IJ CVL day #5 placed 01/01. Left radial art line placed 12/30 in OR # 7 Full code CCT 35 MIN Patient is critically ill with severe encephalopathy from acute subdural hemorrhage and uncontrolled and malignant hypertension. No improvement in mentation. Now complicated with severe sepsis most likely from healthcare associated pneumonia and hypoxemic respiratory failure. Remains critically ill at this time Code Status: Full code
[2018-01-05] MEDS ORDERED: Vancomycin Inj 1,250 MG in Sodium Chlor 0.9% Inj 250 ML IV.SIG ONE (11:00)
[2018-01-05] MEDS: fentaNYL Citrate Inj 100 MCG/2 ML Ampul IV.PUSH PRN ×3 (11:34→20:10)
[2018-01-05] MEDS: Propofol 1000 mg/100 ml Inj 1,000 MG/100 ML BOTTLE IV.CONT PRN ×2 (17:31→21:47)
[2018-01-05] MEDS ORDERED: Sodium Chlor 0.9% Inj 500 ML IV.SIG ONE (18:00)
[2018-01-05 21:30] LABS: Bacteria,Urine Moderate /hpf; Bilirubin,Urine Negative (Negative); Clarity,Urine Cloudy (Clear); Color,Urine Amber (Yellw/Straw); Glucose,Urine (UA) Negative (Negative); Leukocyte Esterase,Urine Moderate (Negative); Mucus,Urine Few /lpf (Occasional); Nitrite,Urine Negative (Negative); Specific Gravity,Urine 1.034 (1.002-1.035); Squamous Epithelial Cell,Urine 2 /hpf (0-5)
--- NOTE | 2018-01-05 22:52 | P.PNNS ---
Physical Exam Vital signs: Vital Signs 01/05/18 00:00 01/05/18 00:15 01/05/18 02:00 Temperature 99.2 F Pulse Rate 84 73 84 Respiratory Rate 16 16 Blood Pressure 151/60 H Pulse Oximetry 97 98 01/05/18 04:00 01/05/18 04:02 01/05/18 06:00 Temperature 99.5 F Pulse Rate 81 78 84 Respiratory Rate 16 16 Blood Pressure 160/56 H Pulse Oximetry 98 95 01/05/18 07:42 01/05/18 08:00 01/05/18 10:00 Temperature 100.0 F H Pulse Rate 97 H 96 H 84 Respiratory Rate 23 16 Blood Pressure 184/64 H Pulse Oximetry 93 L 98 01/05/18 10:19 01/05/18 12:00 01/05/18 13:30 Temperature 101.5 F H Pulse Rate 81 Respiratory Rate 20 20 16 Blood Pressure 112/46 L Pulse Oximetry 95 96 98 01/05/18 14:00 01/05/18 16:00 01/05/18 16:22 Temperature 99.6 F Pulse Rate 79 75 Respiratory Rate 23 20 Blood Pressure 129/50 L Pulse Oximetry 97 01/05/18 18:00 01/05/18 18:29 01/05/18 20:00 Temperature 100.3 F H Pulse Rate 83 92 H 73 Respiratory Rate 31 H 26 H Blood Pressure 129/60 Pulse Oximetry 01/05/18 20:24 Temperature Pulse Rate Respiratory Rate 18 Blood Pressure Pulse Oximetry 97 Intake & Output 01/05/18 01/05/18 01/06/18 06:59 18:59 06:59 Intake Total 1850 / 1850 1797.5 / 1797.5 100 / 100 Output Total 670 / 670 425 / 425 Balance 1180 / 1180 1372.5 / 1372.5 100 / 100 Weight 107.4 kg Intake: IV 1250 / 1250 1312.5 / 1312.5 100 / 100 Diprivan 1000 mg/100 ml Inj 1, 100 / 100 100 / 100 000 mg In 100 ml @ 5 MCG/KG/MIN 3 mls/hr IV.CONT TITRATE PRN Rx#:[id number] Cardene Inj 50 MG In NS Inj 230 250 / 250 250 / 250 ML @ 5 MG/HR 25 mls/hr IV.CONT TITRATE PRN Rx#:[id number] Sodium Chloride 3% Inj 500 ML @ 500 / 500 10 mls/hr IV.SIG Q24H GRICELDA Rx#: [id number] Maxipime Inj 2,000 MG In NS Inj 200 / 200 100 ML @ 200 mls/hr IV.SIG Q8H GRICELDA Rx#:[id number] NS Inj 500 ML @ 999 mls/hr IV. 500 / 500 500 / 500 SIG BOLUS ONE Rx#:[id number] Vancomycin Inj 1,250 MG In NS 262.5 / 262.5 Inj 250 ML @ 250 mls/hr IV.SIG ONCE ONE Rx#:[id number] Tube Feeding 400 / 400 435 / 435 Tube Irrigant 200 / 200 50 / 50 Output: Stool 5 / 5 Urine Amount (Catheter) 650 / 650 350 / 350 Indwelling Urethral Catheter 650 / 650 350 / 350 Wound Drainage 70 # 2 Left Head Other: Date of Last Bowel Movement 01/04/18 01/05/18 01/05/18 - Urinary Catheter Management Indwelling Urethral Catheter Cath placed during this visit: yes Reason for continuing: Hourly intake/output Insertion date: 12/30/17 Insertion time: 01:30 Assessment and Plan - Assessment (1) Hypertensive emergency Code(s): I16.1 - Hypertensive emergency Status: Acute (2) Subdural hematoma Code(s): S06.5X9A - Traumatic subdural hemorrhage with loss of consciousness of unspecified duration, initial encounter Status: Acute - Plan Impression 72 y/o female s/p craniotomy for evacuation of SDH, placement of ICP monitor No significant change in neurologic exam over the past day Plan: Continue neuro checks in a serial fashion. Continue blood pressure management Pulmonary: aggressive pulmonary toilette, nasotracheal suction, and breathing treatments with nebulizers. Daily PT and OT Renal: Continue to monitor closely urine output, BUN and creatinine Endocrine: Continue to Monitor serial Acu checks and SSI as needed in detail ID continue to monitor for signs of infection Continue Protonix for stress ulcer prophylaxis Continue James jhon and SCD's for DVT prophylaxis
[2018-01-06] MEDS: Insulin NovoLOG Aspart Correctional Sugar Inj SQ SCH ×6 (00:49→20:15)
[2018-01-06 01:07] LABS: Sodium 152 meq/L (136-145)
[2018-01-06] MEDS: Propofol 1000 mg/100 ml Inj 1,000 MG/100 ML BOTTLE IV.CONT PRN (02:08)
--- NOTE | 2018-01-06 05:36 | CT ---
EXAM DATE: 01/06/2018 5:14 AM EDT AGE/SEX: 72 years / Female INDICATIONS: Follow up hemorrhage. CLINICAL DATA: This is the patient's subsequent encounter. Patient reports that signs and symptoms h ave been present for 1 week and indicates a pain score of Nonresponsive. MEDICAL/SURGICAL HISTORY: None. Craniotomy. RADIATION DOSE: 56.35 CTDI (mGy) [place] [facility] [place]. . TECHNIQUE: CT of the head without contrast. Using automated exposure control and adjustment of the mA and/or kV according to patient size, radiation dose was kept as low as reasonably achievable to ob tain optimal diagnostic quality images. DICOM format image data is available electronically for revi ew and comparison. FINDINGS: There are calcifications of the vertebral arteries and carotid arteries. The patient is status post l eft sided craniectomy, with a subdural drain identified, tip terminating in the left frontal region. There is a small parenchymal focus of hemorrhage with surrounding edema in the left temporal lobe. Th ere is opacification of the sphenoid, and ethmoid air cells. CONCLUSION: 1. Postsurgical changes are identified. 2. There is an evolving area of low density with trace associated intraparenchymal blood in the left temporal lobe identified. . Electronically signed by: Ritchie Hahn MD 01/06/2018 5:35 AM EDT
[2018-01-06 06:16] LABS: Hematocrit 21.9 % (35.0-46.0); Hemoglobin 7.4 gm/dL (11.6-15.3); Mean Corpuscular HGB Conc 33.8 % (32.0-36.0); Mean Corpuscular Hemoglobin 31.1 pg (27.0-34.0); Mean Corpuscular Volume 92.2 fL (80.0-100.0); Platelet Count 102 th/mm3 (150-450); Red Blood Count 2.38 mil/mm3 (4.00-5.30); Red Cell Distribution Width 14.5 % (11.6-17.2); White Blood Count 2.7 th/mm3 (4.0-11.0)
--- NOTE | 2018-01-06 06:28 | XR ---
EXAM DATE: 01/06/2018 6:25 AM EDT AGE/SEX: 72 years / Female INDICATIONS: Shortness of breath. CLINICAL DATA: This is the patient's subsequent encounter. Patient reports that signs and symptoms h ave been present for 1 week and indicates a pain score of Nonresponsive. MEDICAL/SURGICAL HISTORY: . . Diabetes mellitus type II. Hypertension. None. COMPARISON: [facility] – [place]ST 1V SINGLE AP, 01/05/2018. . FINDINGS: There is patchy airspace disease in the lower lobes as well as right upper lobe, increased from previ ous. Cardiomegaly, endotracheal tube, right jugular line and NG tube are noted. CONCLUSION: Increased right upper lobe airspace disease otherwise stable. Electronically signed by: Ritchie Hahn MD 01/06/2018 6:27 AM EDT
[2018-01-06 06:42] LABS: Albumin 1.6 g/dL (3.4-5.0); Anion Gap 11 meq/L (5-15); Blood Urea Nitrogen 47 mg/dL (7-18); Calcium 8.3 mg/dL (8.5-10.1); Carbon Dioxide 22.6 meq/L (21.0-32.0); Chloride 119 meq/L (98-107); Glomerular Filtration Rate 35 mL/min (>89); Glucose,Random 160 mg/dL (74-106); Potassium 3.9 meq/L (3.5-5.1); Sodium 153 meq/L (136-145)
[2018-01-06 06:43] LABS: Alanine Aminotransferase 22 U/L (10-53); Aspartate Aminotransferase 20 U/L (15-37)
[2018-01-06 06:45] LABS: Alkaline Phosphatase 57 U/L (45-117); Total Protein 5.3 g/dL (6.4-8.2)
[2018-01-06] MEDS: Hypromellose 0.3% Opth Gel 10 GM Bottle EACH EYE SCH ×2 (09:05→20:15)
[2018-01-06] MEDS: Glycerin Adult 2 GM Supp RECTAL SCH ×2 (09:06→20:16)
[2018-01-06] MEDS: Carvedilol 12.5 MG Tablet PO SCH ×2 (09:06→20:14)
[2018-01-06] MEDS: Insulin Detemir Inj 1,000 UNIT/10 ML Vial SQ SCH ×2 (09:07→20:15)
[2018-01-06] MEDS: Polyethylene Glycol 3350 17 GM Packet NG/OG SCH ×2 (09:07→20:16)
[2018-01-06] MEDS: amLODIPine 10 MG Tablet NG/OG SCH (09:08)
[2018-01-06] MEDS: Senna/Docusate Sodium 8.6/50 MG Tablet PO SCH ×2 (09:08→20:14)
[2018-01-06] MEDS: Dexmedetomidine Inj 200 MCG in Sodium Chlor 0.9% Inj 48 ML IV.CONT PRN ×3 (10:37→21:01)
[2018-01-06] MEDS ORDERED: RASS Change Order MISCELLANE ONE (11:00)
--- NOTE | 2018-01-06 12:32 | P.PNCC ---
Subjective Subjective Remarks/Hospital Course: 72-year-old female with past medical history of hypertension, diabetes , prior liver transplant in 2010, on chronic anticoagulation for warfarin (per family report due to prior hx of portal vein thrombosis prior to her transplant) . She reportedly got up to go to the bathroom around 10 PM. She developed headache, nausea and multiple episodes of vomiting. There is no reported head trauma. CT brain demonstrates left subdural hematoma with 1 cm left to right shift. INR 2.8. Administering k Centra 25 U/kg, vitamin K 10 mg IV. Blood pressure 169/75. Initiating Cardene drip. Dr. Uribe has been consulted and will be taking patient emergently to operating room following correction of coagulopathy. 12/31 Underwent Left frontal temporal parietal decompressive craniectomy, evacuation of acute subdural hematoma on 12/[address] Uribe R frontal fiberoptic ICP monitor also in place. ICPs are <3. Repeat CT brain this morning demonstrates no residual subdural. Mass-effect is resolved. Remains on mechanical ventilation and cardene drip for hypertension management. 01/01: No acute events overnight. T-max 99.9. No bowel movement. Replacing calcium, potassium magnesium. Quite tachypneic this a.m. 01/02: Afebrile. Replacing phosphorus this a.m. Appears more comfortable on fentanyl and propofol drips. Remains on nicardipine drip at 6 mg an hour to maintain systolic blood pressure less than 140. Subjective 01/03: Afebrile. Currently on nicardipine 15 mg/h. Was off last night. Tube feeds currently at 30 cc an hour due to high residuals. Positive bowel movement 2. Remains on propofol and fentanyl drips. 01/04: Neuro exam remains unchanged, low-grade temperature noted. Poorly controlled hypertension with minimal stimulation becomes very hypotensive. Remains sedated with propofol and fentanyl. Will restart Cardene for blood pressure control to facilitate weaning trials 01/05: Remains intubated sedated. Neuro unchanged. Sedation restarted due to hypoxia and ventilator asynchrony. Increased ET tube secretions, chest x-ray showing bibasilar infiltrate. Currently FiO2 at 60%. Probable healthcare associated pneumonia, fever up to 101.3. Start vancomycin and cefepime. Unable to completely discontinue sedation due to uncontrolled hypertension 01/06: CT of the head done today shows evolving area of low density with trace associated intraparenchymal blood in the left temporal lobe identified. Clinically remains unchanged. Sputum culture growing E. coli and Enterobacter. Fever trending down after starting cefepime yesterday. Sedation with propofol will change to Precedex to facilitate neuro exam Objective Vital Signs / I&O: Vital Signs 01/05/18 13:30 01/05/18 14:00 01/05/18 16:00 Temperature 99.6 F Pulse Rate 79 75 Respiratory Rate 16 23 Blood Pressure 129/50 L Pulse Oximetry 98 01/05/18 16:22 01/05/18 18:00 01/05/18 18:29 Temperature Pulse Rate 83 92 H Respiratory Rate 20 31 H Blood Pressure Pulse Oximetry 97 01/05/18 20:00 01/05/18 20:24 01/05/18 22:00 Temperature 100.3 F H Pulse Rate 73 75 Respiratory Rate 26 H 18 Blood Pressure 129/60 Pulse Oximetry 97 01/05/18 23:37 01/06/18 00:00 01/06/18 02:00 Temperature 99.2 F Pulse Rate 73 72 Respiratory Rate 16 16 Blood Pressure 138/60 Pulse Oximetry 99 01/06/18 04:00 01/06/18 04:09 01/06/18 06:00 Temperature 98.6 F Pulse Rate 70 67 Respiratory Rate 16 17 Blood Pressure 133/60 Pulse Oximetry 100 01/06/18 08:00 01/06/18 08:37 01/06/18 10:00 Temperature 98.3 F Pulse Rate 72 70 Respiratory Rate 16 19 Blood Pressure 173/74 H Pulse Oximetry 100 97 Intake & Output 01/05/18 01/06/18 01/06/18 18:59 06:59 18:59 Intake Total 1797.5 / 1797.5 1309 / 1309 Output Total 425 / 425 750 / 750 Balance 1372.5 / 1372.5 559 / 559 Weight 110.8 kg Intake: IV 1312.5 / 1312.5 670 / 670 Diprivan 1000 mg/100 ml Inj 1, 100 / 100 200 / 200 000 mg In 100 ml @ 5 MCG/KG/MIN 3 mls/hr IV.CONT TITRATE PRN Rx#:[id number] Cardene Inj 50 MG In NS Inj 230 250 / 250 250 / 250 ML @ 5 MG/HR 25 mls/hr IV.CONT TITRATE PRN Rx#:[id number] Sodium Chloride 3% Inj 500 ML @ 120 / 120 10 mls/hr IV.SIG Q24H [facility] Rx#: [id number] Maxipime Inj 2,000 MG In NS Inj 200 / 200 100 / 100 100 ML @ 200 mls/hr IV.SIG Q8H [facility] Rx#:[id number] NS Inj 500 ML @ 999 mls/hr IV. 500 / 500 SIG BOLUS ONE Rx#:[id number] Vancomycin Inj 1,250 MG In NS 262.5 / 262.5 Inj 250 ML @ 250 mls/hr IV.SIG ONCE ONE Rx#:[id number] Tube Feeding 435 / 435 489 / 489 Tube Irrigant 50 / 50 150 / 150 Output: Stool 5 / 5 Urine Amount (Catheter) 350 / 350 750 / 750 Indwelling Urethral Catheter 350 / 350 750 / 750 Wound Drainage 70 / 70 # 2 Left Head 70 / 70 Other: Date of Last Bowel Movement 01/05/18 01/06/18 01/05/18 # Bowel Movements 1 Result Diagrams: 01/06/18 06:00 01/06/18 06:00 Objective Remarks: GENERAL: 72-year-old female patient who is orotracheally intubated and sedated now with Precedex SKIN: Warm and dry, well-perfused HEAD: Normocephalic. Fiberoptic ICP removed 01/01. KUMAR in place with serosanguineous output. Kerlix dressing overlies left craniectomy flap EYES: Pupils equal and round, sluggishly reactive. No scleral icterus. No injection or drainage. ENT: No nasal bleeding or discharge. Mucous membranes pink and moist. NECK: Trachea midline. No JVD. Obese. Right IJ is clean dry and intact. CARDIOVASCULAR: Regular rate and rhythm, S1, S2 no S 4.. 2/6 systolic murmur left sternal border RESPIRATORY: Diminished due to body habitus. Clear anteriorly without wheezes, rales, rhonchi. GASTROINTESTINAL: Abdomen soft, non-tender, nondistended. Well-healed scar right upper quadrant. : Rushing in place with yellow urine output MUSCULOSKELETAL: Extremities with trace upper and lower extremity edema. Scar overlies left knee. L radial art line in place with distal perfusion intact. NEUROLOGICAL: Currently sedated with Precedex at 0.2 mcg/kg/hour. On sedation not moving upper lower extremities spontaneously. Weakly withdraws severino upper and lower extremities. Wincing to painful stimuli, partial eye opening Assessment and Plan - Assessment and Plan Plan: NEURO/PSYCH: Acute left subdural hematoma with mass-effect s/p left frontal temporal parietal decompressive craniectomy, evacuation of SDH and ICP monitor 12/30/[address] Uribe ICP monitor removed 01/[address] brain o residual subdural or mass-effect. F/u CT 01/06/18-an evolving area of low density with trace associated intraparenchymal blood in the left temporal lobe identified Was on warfarin for SMV/IMV thrombosis diagnosed 2008 with INR 2.8 upon presentation. Received prothrombin complex concentrate 25 units/KG and phytonodione 10 mg IV preoperatively. Repeat INR 1.2 on 12/31. Received mannitol 25 g IV in the emergency department 12/30 KUMAR drain management per neurosurgery. Levetiracetam 500 mg IV every 12 hours for seizure prophylaxis. Blood pressure management as per below. Goal 120-140 systolic Start Precedex to facilitate neuro exam. Discontinue propofol. Use as needed fentanyl Check EEG. Holding pregabalin 50 mill grams p.o. twice daily RESP: Acute respiratory failure secondary to altered mental status Difficult airway Healthcare associated pneumonia [facility] 15/550/1.06/07/44. Ventilator bundle Albuterol/ipratropium aerosols every 4 hours with albuterol aerosols every 2 hours as needed for dyspnea Spontaneous breathing trials when clinically indicated. Mental status will not permit extubation Chest x-ray today with bibasilar infiltrates. Sputum culture E Coli, Enterobacter Continue vancomycin and cefepime Patient is on Ventolin HFA 90 mcg inhaler every 4 hours as needed. CV: Malignant hypertension Hypercholesterolemia Nicardipine drip to maintain systolic blood pressure less than 140 Continue Carvedilol 25 mg twice daily, amlodipine 10 mg daily. Hydralazine to 100 mg 3 times daily- ? Unavailable Continue losartan 50 BID (home med is valsartan 80 mg daily). Scheduled clonidine 0.2 mg every 8 hours As needed labetalol 10 mg every hour and clonidine 0.1 mg by tube every 4 hours. 01/01 2d Echo - Normal left ventricular size. LVEF 65-70%. 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 sustainability coordinator is Mariya Munoz [phone] Discussed with housekeeping coordinator - Current tacrolimus dosing is 3 mg po [id number] with target trough 3-5. Trough was 4.8 on admission, prograf was held, now 3.0 on 01/04. Current dosing of 3 mg BID. Level less than 2.0 01/06, increase tacrolimus to 6 mg twice daily Ms Munoz provided history that warfarin is for Factor V Leiden heterozygosity and that it was managed by a boiler setter outside of the [facility] system. Family states it is Dr. Kaiser. Lansoprazole 30 mg daily for GI prophylaxis. Patient is on pantoprazole 40 mg daily at home. Docusate serum/senna 1 tablet twice daily for bowel regimen. Add polythene glycol 17 g twice daily. Follow-up KUB revealed no obstructive type process.. Tube feeds with vital high-protein goal 50 cc an hour. Current at 30 cc an hour. Metoclopramide 10 mg 3 times daily FEN/RENAL: Chronic kidney disease stage IIIa Hypophosphatemia Hypernatremia Maintain Rushing. Monitor urine output Accurate I's and O's, ICU electrolyte protocol Currently on 3% saline at 10 cc an hour ID: Immunosuppressed state Healthcare associated pneumonia Sepsis Appears to have developed healthcare associated pneumonia. Sputum culture with enterococcus and E. coli Broad-spectrum antibiotics with vancomycin and cefepime Received Claudia Operative cefazolin per neurosurgery. HEME/ONC: Warfarin induced coagulopathyINR 2.8 (resolved) Factor V Leiden heterozygosity - indication for chronic anticoagulation. 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 Resumed after liver translation 11/09 Thrombocytopenia, anemia, leukopenia Warfarin on hold. Kicking Machine Operator is Dr. Kaiser, she sees him in the [place] office. Spoke with ELAINE Chandler with Dr. Kaiser who states Ms Cole was on warfarin due to Factor V Leiden heterozygosity with prior h/o portal vein thrombosis. Pt has no other history of venous thromboembolism. She has no prior issues with bleeding except for variceal bleed prior to transplant. The fact that she has now had spontaneous subdural while INR was therapeutic could preclude her from therapeutic anticoagulation indefinitely given heterozygosity for mutation. ENDO: Diabetes mellitus with acute hyperglycemia Hold linagliptin 5 mg p.o. every morning, hold insulin degludec flex touch 18 units subcu nightly. On Medium dose aspart insulin sliding scale every 4 hours (24 units last 24 hours). GLucose is >200 this morning. Insulin detemir 18 units subcut q12, increase to 22 q12 PROPH: SCDs for DVT prophylaxis. Continue lansoprazole for stress ulcer prophylaxis and history of GERD ACCESS: Right IJ CVL day #6 placed /. Left radial art line placed 12/30 in OR # 8 Full code CCT 35 MIN Patient is critically ill with severe encephalopathy from acute subdural hemorrhage and uncontrolled and malignant hypertension. No improvement in mentation. Now complicated with severe sepsis most likely from healthcare associated pneumonia and hypoxemic respiratory failure. Remains critically ill at this time
[2018-01-06] MEDS ORDERED: Vancomycin Inj 1,500 MG in Sodium Chlor 0.9% Inj 500 ML IV.SIG SCH (13:00)
--- NOTE | 2018-01-06 14:09 | P.CONPAL ---
Consult Service: Palliative Care Requesting Physician: Jose Patterson Reason for Consult: a. To assist with evaluation and management of symptoms including: Dyspnea, encephalopathy, pain b. To assist medical decision maker(s) with: better understanding of current medical conditions; weighing benefits/burdens of medical treatment options; making medical treatment decisions. Primary Care Provider: UNKNOWN History of Present Illness History of Present Illness: This 72-year-old female, with a past history of cirrhosis leading to liver transplant 2010, hypertension, neuropathy, and diabetes, presented to the hospital on 12/29/17 because of sudden onset of left-sided headache and subsequent vomiting and altered mental status. The patient has been on Coumadin for quite some time since a portal vein thrombosis prior to her liver transplant. En route to the hospital, her systolic blood pressure was noted to be 200. There was reportedly no history of trauma. In the emergency department , findings included: * Lethargy * Temp 97.9, pulse 120, respirations 18, blood pressure 169/75, oxygen saturation 92% * White count 8.5, hemoglobin 15.7 * INR 2.8 * Sodium 141, creatinine 1.48, albumin 3.9 * CT scan of the head revealed a subdural hematoma on the left, with 1 cm left to right shift. Cardene was initiated for control of the blood pressure, the patient was INTUBATED, and she was then taken to the operating room by neurosurgery. She underwent a decompressive craniectomy, evacuation of acute subdural hematoma, and placement of ICP monitor. By the following day, a repeat CT scan indicated that the subdural hematoma was resolved, and the midline shift no longer existed. By 01/01/18, the ICP monitor was discontinued, but the patient had some increased tachypnea. Chest x-rays revealed bilateral haziness consistent with consolidation/infiltrate. A right internal jugular line was placed. The patient's hypertension would worsen when sedation was lightened during the subsequent couple days, but finally today she was able to be taken off the sedation. She has had minimal response to stimuli up to this point in time. A repeat CT scan on 01/06/18 indicated a small hemorrhage in the left frontal area , but no recurrent subdural. The family was questioning some of the staff with respect to advanced directives , and Palliative Care was consulted to assist with symptom management, and to enter into discussions with the family regarding her current illnesses and problems, the prognosis, and the benefits and burdens of the various treatment choices. Function/Cognitive Trajectory: The patient was reportedly functioning independently prior to this admission, but she had been becoming more debilitated over the past few months. She was weaker, having more difficulty getting around, and was getting short of breath with minimal exertion. She had come to the emergency department the week before this admission because of abdominal pain, but lab work and scanning did not reveal any pathology. The family believes that her mental status had remained sharp. Review of Systems other (History provided by family, records, and staff) Constitutional: Reports headache(s) (Acute just prior to admission), Denies chills Eyes: Denies irritation Ears, Nose, Mouth, and Throat: Reports dizziness (After the headache started), Denies bleeding gums, Denies mouth lesions Cardiovascular: Reports shortness of breath (More tachypneic the past couple days intermittently), Denies chest pain Respiratory: Denies cough Gastrointestinal: Denies abdominal pain, Denies black, tarry stools, Denies vomiting blood Musculoskeletal: Denies back pain Skin/Breast: Denies itching, Denies lesions Neurologic: Denies convulsions, Denies seizure-like activity Psychiatric: Reports confusion (After the headache started) Endocrine: Denies flushing Hematologic/Lymphatic: Denies easy bleeding Allergic/Immunologic: Denies hives PMFSH - History History Provided By: Patient, Breast Buffer / EMT - Medical History Medical History: Medical History (Last Updated 01/06/18 @ 14:05 by Alma Delia Keenan MD) Anticoagulated on Coumadin Degenerative arthritis GERD (gastroesophageal reflux disease) Neuropathy Carpal tunnel syndrome Hx of acute arthritis - Surgical History Surgical History: Surgical History (Last Updated 01/06/18 @ 14:06 by Alma Delia Keenan MD) History of ear surgery History of tonsillectomy and adenoidectomy Liver transplant recipient Total knee replacement status - Family History Family History: Family History (Last Reviewed 01/01/18 @ 13:56 by Cathleen Lacey) Father FH: premature coronary heart disease Mother Stroke HTN (hypertension) Diabetes - Tobacco History Second Hand Smoke Exposure: No Smoking Status: Unknown if ever smoked - Alcohol History How Often Do You Have a Drink Containing Alcohol: Unable to Obtain - Substance Use History Substance History: No History of Abuse - Travel History Recent Travel in the [place] Within the Last 8 Weeks: No Recent Travel Out of the Country Within the Last 8 Weeks: No - Immunization History Tetanus Immunization: Unable to Assess Hx Influenza Vaccine This Season: Unable to Assess Medications and Allergies Active Medications: Active Medications Acetaminophen (Tylenol Liq) 650 mg NG/OG Q6H PRN PRN Reason: FEVER Last Admin: 01/05/18 12:21 Dose: 650 mg Al Hydroxide/Mg Hydroxide (Milk Of Magnesia Liq) 30 ml PO Q12H PRN PRN Reason: Mild Constipation Albuterol (Albuterol Neb (Prn)) 2.5 mg NEB Q2HR NEB PRN PRN Reason: SHORTNESS OF BREATH/WHEEZING Last Admin: 01/06/18 12:42 Dose: 2.5 mg Amlodipine Besylate (Norvasc) 10 mg NG/OG DAILY [facility] Last Admin: 01/06/18 09:08 Dose: 10 mg Artificial Tears (Genteal Severe Dry Eye Relief 0.3% Opth Gel) 1 drops EACH EYE Q12H [facility] Last Admin: 01/06/18 09:05 Dose: 1 drops Carvedilol (Coreg) 25 mg PO BID [facility] Last Admin: 01/06/18 09:06 Dose: 25 mg Clonidine HCl (Catapres) 0.1 mg PO Q4H PRN PRN Reason: SBP > 140, HR > 60 Last Admin: 01/04/18 02:13 Dose: 0.1 mg Clonidine HCl (Catapres) 0.3 mg PO Q8HR [facility] Last Admin: 01/06/18 13:34 Dose: 0.3 mg Dextrose (D50w Vial) 50 ml IV.PUSH UNSCH PRN PRN Reason: PER HYPOGLYCEMIA PROTOCOL Fentanyl Citrate (Fentanyl Inj) 50 mcg IV.PUSH Q1H PRN PRN Reason: Acute Pain Last Admin: 01/05/18 20:10 Dose: 50 mcg Glucagon (Glucagon Inj) 1 mg OTHER PRN PRN PRN Reason: for Hypoglycemia Protocol Glycerin (Glycerin Adult Supp) 2 gm RECTAL BID [facility] Last Admin: 01/06/18 09:06 Dose: Not Given Hydralazine HCl (Apresoline) 100 mg PO TID [facility] Last Admin: 01/06/18 13:34 Dose: 100 mg Prothrombin Complex Concent ( (Human) 2,500 unit/ Syringe/Bag) 100 mls @ 500 mls/hr IV.SIG ONCE PRN PRN Reason: BLEEDING Magnesium Sulfate Inj 2 gm/ (Sodium Chloride) 100 mls @ 50 mls/hr IV.SIG UNSCH PRN PRN Reason: For Magnesium 1.2 - 1.6 mg/dL Last Infusion: 01/03/18 07:00 Dose: Infused Potassium Chloride (Kcl 20 Meq Premix Inj) 20 meq in 100 mls @ 50 mls/hr IV.SIG Q2H PRN PRN Reason: For Potassium 3.3 - 3.5 mEq/L Last Infusion: 12/31/17 07:00 Dose: Infused Potassium Chloride (Kcl 40 Meq Premix Inj) 40 meq in 100 mls @ 25 mls/hr IV.SIG UNSCH PRN PRN Reason: For Potassium 3.3 - 3.5 mEq/L Sodium Phosphate 30 mmol/ (Sodium Chloride) 260 mls @ 42 mls/hr IV.SIG UNSCH PRN PRN Reason: For Phosphorus < 2.5 mg/dL Magnesium Sulfate Inj 4 gm/ (Sodium Chloride) 100 mls @ 50 mls/hr IV.SIG UNSCH PRN PRN Reason: For Magnesium 0.9 - 1.1 mg/dL Last Infusion: 01/03/18 07:00 Dose: Infused Potassium Chloride (Kcl 40 Meq Premix Inj) 40 meq in 100 mls @ 25 mls/hr IV.SIG Q2H PRN PRN Reason: For Potassium 2.8 - 3.2 mEq/L Potassium Chloride (Kcl 20 Meq Premix Inj) 20 meq in 100 mls @ 50 mls/hr IV.SIG Q2H PRN PRN Reason: For Potassium 2.8 - 3.2 mEq/L Last Infusion: 01/03/18 07:00 Dose: Infused Potassium Phosphate 30 mmol/ (Sodium Chloride) 260 mls @ 42 mls/hr IV.SIG UNSCH PRN PRN Reason: SEE LABEL COMMENTS Sodium Chloride (Sodium Chloride 3% Inj) 500 mls @ 10 mls/hr IV.SIG Q24H [facility] Last Admin: 01/06/18 05:01 Dose: 10 mls/hr Nicardipine HCl 50 mg/ Sodium (Chloride) 250 mls @ 25 mls/hr IV.CONT TITRATE PRN; Protocol PRN Reason: Per Protocol Last Titration: 01/06/18 06:00 Dose: 0 mg/hr, 0 mls/hr Cefepime HCl 2,000 mg/ Sodium (Chloride) 100 mls @ 200 mls/hr IV.SIG Q8H [facility] Last Admin: 01/06/18 09:09 Dose: 200 mls/hr Pharmacy Profile Note (Vancomycin Consult Pharmacy) 0 mls @ 0 mls/hr OTHER UNSCH [facility] Vancomycin HCl 1,500 mg/ (Sodium Chloride) 515 mls @ 250 mls/hr IV.SIG Q24H [facility] Last Admin: 01/06/18 13:34 Dose: 250 mls/hr Dexmedetomidine HCl 200 mcg/ (Sodium Chloride) 50 mls @ 5.54 mls/hr IV.CONT TITRATE PRN; Protocol PRN Reason: Per Protocol Last Admin: 01/06/18 10:37 Dose: 0.2 mcg/kg/hr, 5.54 mls/hr Insulin Aspart (Novolog Insulin Correctional Sugar Inj) 0 unit SQ Q4HR [facility]; Protocol Last Admin: 01/06/18 12:00 Dose: 2 unit Insulin Detemir (Levemir Inj) 22 unit SQ BID [facility] Last Admin: 01/06/18 09:07 Dose: 22 unit Labetalol HCl (Trandate Inj) 10 mg IV.PUSH Q1H PRN PRN Reason: SBP>160, DBP>90 Last Admin: 01/05/18 06:25 Dose: 10 mg Lactulose (Lactulose Liq) 30 ml PO DAILY PRN PRN Reason: SEVERE CONSITIPATION Lansoprazole (Prevacid Solutab) 30 mg NG/OG DAILY [facility] Last Admin: 01/06/18 09:08 Dose: 30 mg Levetiracetam (Keppra Liq) 500 mg NG/OG BID [facility] Last Admin: 01/06/18 09:06 Dose: 500 mg Losartan Potassium (Cozaar) 50 mg NG/OG BID [facility] Last Admin: 01/06/18 09:06 Dose: 50 mg Magnesium Oxide (Mag-Ox) 800 mg PO UNSCH PRN PRN Reason: For Magnesium 1.2 - 1.6 mg/dL Metoclopramide HCl (Reglan Inj) 10 mg IV.PUSH Q8H [facility]; Protocol Last Admin: 01/06/18 09:08 Dose: 10 mg Miscellaneous Information ([facility] Ordered Lab Info) 0 each OTHER ONCE ONE Stop: 01/08/18 12:46 Ondansetron HCl (Zofran Odt) 4 mg PO Q6H PRN PRN Reason: NAUSEA OR VOMITING Polyethylene Glycol (Miralax) 17 gm NG/OG BID [facility] Last Admin: 01/06/18 09:07 Dose: 17 gm Potassium Bicarb/Potassium Chloride (K-Lyte Cl Eff) 50 meq PO UNSCH PRN PRN Reason: For Potassium 3.3 - 3.5 mEq/L Potassium Phosphate (K-Phos Original) 2,000 mg PO Q4H PRN PRN Reason: Phosphorus Less Than 2.5 mg/dL Last Admin: 01/04/18 20:26 Dose: 2,000 mg Potassium Phosphate (K-Phos Original) 2,000 mg PO UNSCH PRN PRN Reason: SEE LABEL COMMENTS Senna/Docusate Sodium (Claudia-Colace) 1 tab PO BID [facility] Last Admin: 01/06/18 09:08 Dose: 1 tab Sennosides (Senokot) 17.2 mg PO Q12H PRN PRN Reason: Moderate Constipation Sodium Chloride (Ns Flush) 2 ml IV.FLUSH BID [facility] Last Admin: 01/06/18 09:08 Dose: 2 ml Sodium Chloride (Ns Flush) 2 ml IV.FLUSH PRN PRN PRN Reason: FLUSH AFTER USING IV ACCESS Tacrolimus (Prograf) 6 mg PO BID@0600,1800 [facility] Allergies Allergy/AdvReac Type Severity Reaction Status Date / Time Sulfa (Sulfonamide Allergy Severe Itching Verified 12/29/17 23:18 Antibiotics) Home Medications Medication Instructions Recorded Confirmed Type ciprofloxacin HCl [Cipro] 500 mg PO DAILY 12/25/17 12/25/17 History insulin degludec [Tresiba 18 unit SUB-Q HS 12/25/17 12/29/17 History FlexTouch U-100] linagliptin [Tradjenta] 5 mg PO QAM 12/25/17 12/29/17 History metoprolol tartrate 50 mg PO BID 12/25/17 12/29/17 History pantoprazole 40 mg PO DAILY 12/25/17 12/29/17 History pregabalin [Lyrica] 50 mg PO BID 12/25/17 12/29/17 History tacrolimus 6 mg PO Q12H 12/25/17 12/29/17 History valsartan 80 mg PO DAILY 12/25/17 12/29/17 History amlodipine 10 mg PO DAILY 12/29/17 12/29/17 History warfarin 3 mg PO DAILY 12/29/17 12/29/17 History Advance Directives Living Will: No Healthcare Surrogate: No Power of Health Psychologist: No Family/friends goals: The patient's and 2 daughters all report that the patient had told them in the past that she would not want to be kept alive artificially if she had an injury or medical problems "keep her from going back home normal." They definitely feel that she would want to be withdrawn from life support and allowed to naturally if she is not waking up after being off sedation this week. Ethical and Legal Issues: The patient is unable to make her own wishes known. The patient lacks capacity for decision-making, and it seems very unlikely that she will regain that capacity. The patient's is the decision-making proxy. Physical Exam Vital Signs: Vital Signs - 24 hr 01/05/18 14:00 01/05/18 16:00 01/05/18 16:22 Temperature 99.6 F Pulse Rate 79 75 Respiratory Rate 23 20 Blood Pressure 129/50 L Pulse Oximetry 97 01/05/18 18:00 01/05/18 18:29 01/05/18 20:00 Temperature 100.3 F H Pulse Rate 83 92 H 73 Respiratory Rate 31 H 26 H Blood Pressure 129/60 Pulse Oximetry 01/05/18 20:24 01/05/18 22:00 01/05/18 23:37 Temperature Pulse Rate 75 Respiratory Rate 18 16 Blood Pressure Pulse Oximetry 97 99 01/06/18 00:00 01/06/18 02:00 01/06/18 04:00 Temperature 99.2 F 98.6 F Pulse Rate 73 72 70 Respiratory Rate 16 16 Blood Pressure 138/60 133/60 Pulse Oximetry 100 01/06/18 04:09 01/06/18 06:00 01/06/18 08:00 Temperature 98.3 F Pulse Rate 67 72 Respiratory Rate 17 16 Blood Pressure 173/74 H Pulse Oximetry 100 01/06/18 08:37 01/06/18 10:00 01/06/18 12:40 Temperature Pulse Rate 70 Respiratory Rate 19 19 Blood Pressure Pulse Oximetry 97 95 01/06/18 12:44 Temperature Pulse Rate 80 Respiratory Rate 21 Blood Pressure Pulse Oximetry I&O: Intake & Output 01/04/18 01/05/18 01/06/18 01/07/18 06:59 06:59 06:59 06:59 Intake Total 3710 / 3710 2706 / 2706 3106.5 / 3106.5 Output Total 3800 / 3800 1015 / 1015 1175 / 1175 Balance -90 / -90 1691 / 1691 1931.5 / 1931.5 Weight 108 kg 107.4 kg 110.8 kg Physical Exam: CONSTITUTIONAL/GENERAL: This is an adequately nourished patient, in no apparent distress; unresponsive, intubated. TUBES/LINES/DRAINS: ET tube, OG tube, SCDs, central line SKIN: No jaundice, rashes, or lesions. Ecchymoses on upper extremities. No wounds seen anteriorly. Skin temperature appropriate. Not diaphoretic. HEAD: Atraumatic. Normocephalic. EYES: Pupils equal and round, 1.5 mm. No scleral icterus. No injection or drainage. Fundi not examined. ENT: Nose without bleeding or purulent drainage. Throat without visible erythema , exudates, masses, or lesions. NECK: Trachea midline. Supple, nontender. No palpable thyroid enlargement or nodularity. CARDIOVASCULAR: Regular rate and rhythm without murmurs, gallops, or rubs. No JVD. Peripheral pulses symmetric. RESPIRATORY/CHEST: Symmetric, unlabored respirations. Scattered rhonchi. GASTROINTESTINAL: Abdomen soft, non-tender, nondistended. No hepato-splenomegaly , or palpable masses. No guarding. Bowel sounds present. GENITOURINARY: Without palpable bladder distension. Rushing catheter in place. MUSCULOSKELETAL: Extremities without clubbing, cyanosis, or edema. No joint tenderness or effusion noted. No calf tenderness. No mottling or clubbing. LYMPHATICS: No palpable cervical or supraclavicular adenopathy. NEUROLOGICAL: Does not respond to voice, touch, or pain PSYCHIATRIC: Unable to assess due to clinical condition. Diagnostic Tests Laboratory: Laboratory Results - last 72 hr 01/03/18 01/03/18 01/03/18 16:24 18:46 20:27 WBC RBC Hgb Hct MCV MCH MCHC RDW Plt Count MPV Neut % (Auto) Lymph % (Auto) [place] % (Auto) Eos % (Auto) Baso % (Auto) Neut # (Auto) Lymph # (Auto) [place] # (Auto) Eos # (Auto) Baso # (Auto) WBC Differential Differential Comment Puncture Site Patient Temperature O2 Saturation ABG pH ABG pCO2 ABG pO2 ABG HCO3 ABG O2 Content ABG Base Excess ABG Methemoglobin Hemoglobin Carboxyhemoglobin O2 Delivery Device Vent Setting Inspired O2 Critical Value Sodium 150 H Potassium Chloride Carbon Dioxide Anion Gap BUN Creatinine Estimated GFR POC Glucose 209 H 237 H Random Glucose Osmolality Calcium Phosphorus Magnesium Total Bilirubin AST ALT Alkaline Phosphatase Total Protein Albumin Urine Color Urine Clarity Urine pH Ur Specific Thelma Urine Protein Urine Glucose (UA) Urine Ketones Urine Occult Blood Urine Nitrate Urine Bilirubin Urine Urobilinogen Ur Leukocyte Esterase Urine RBC Urine WBC Urine WBC Clumps Ur Squamous Epith Cells Urine Bacteria Granular Casts Urine Mucus Micro UA Comment Urine Culture Comments Tacrolimus 01/04/18 01/04/18 01/04/18 00:12 01:15 04:00 WBC RBC Hgb Hct MCV MCH MCHC RDW Plt Count MPV Neut % (Auto) Lymph % (Auto) [place] % (Auto) Eos % (Auto) Baso % (Auto) Neut # (Auto) Lymph # (Auto) [place] # (Auto) Eos # (Auto) Baso # (Auto) WBC Differential Differential Comment Puncture Site Patient Temperature O2 Saturation ABG pH ABG pCO2 ABG pO2 ABG HCO3 ABG O2 Content ABG Base Excess ABG Methemoglobin Hemoglobin Carboxyhemoglobin O2 Delivery Device Vent Setting Inspired O2 Critical Value Sodium 151 H 152 H Potassium 3.7 Chloride 117 H Carbon Dioxide 26.0 Anion Gap 9 BUN 23 H Creatinine 1.07 H Estimated GFR 51 L POC Glucose 222 H Random Glucose 195 H Osmolality 320 H Calcium 7.8 L Phosphorus 2.0 L Magnesium 1.9 Total Bilirubin 0.4 AST 29 ALT 27 Alkaline Phosphatase 58 Total Protein 5.4 L Albumin 1.7 L Urine Color Urine Clarity Urine pH Ur Specific Thelma Urine Protein Urine Glucose (UA) Urine Ketones Urine Occult Blood Urine Nitrate Urine Bilirubin Urine Urobilinogen Ur Leukocyte Esterase Urine RBC Urine WBC Urine WBC Clumps Ur Squamous Epith Cells Urine Bacteria Granular Casts Urine Mucus Micro UA Comment Urine Culture Comments Tacrolimus 01/04/18 01/04/18 01/04/18 04:00 04:00 05:02 WBC 2.6 L RBC 2.75 L Hgb 8.3 L Hct 25.1 L MCV 91.2 MCH 30.2 MCHC 33.1 RDW 14.1 Plt Count 109 L MPV 7.5 Neut % (Auto) 56.7 Lymph % (Auto) 25.7 [place] % (Auto) 15.7 H Eos % (Auto) 1.1 Baso % (Auto) 0.8 Neut # (Auto) 1.5 L Lymph # (Auto) 0.7 L [place] # (Auto) 0.4 Eos # (Auto) 0.0 Baso # (Auto) 0.0 WBC Differential . Differential Comment Auto diff final Puncture Site Patient Temperature O2 Saturation ABG pH ABG pCO2 ABG pO2 ABG HCO3 ABG O2 Content ABG Base Excess ABG Methemoglobin Hemoglobin Carboxyhemoglobin O2 Delivery Device Vent Setting Inspired O2 Critical Value Sodium Potassium Chloride Carbon Dioxide Anion Gap BUN Creatinine Estimated GFR POC Glucose 207 H Random Glucose Osmolality Calcium Phosphorus Magnesium Total Bilirubin AST ALT Alkaline Phosphatase Total Protein Albumin Urine Color Urine Clarity Urine pH Ur Specific Thelma Urine Protein Urine Glucose (UA) Urine Ketones Urine Occult Blood Urine Nitrate Urine Bilirubin Urine Urobilinogen Ur Leukocyte Esterase Urine RBC Urine WBC Urine WBC Clumps Ur Squamous Epith Cells Urine Bacteria Granular Casts Urine Mucus Micro UA Comment Urine Culture Comments Tacrolimus 3.0 L 01/04/18 01/04/18 01/04/18 06:00 07:27 09:33 WBC RBC Hgb Hct MCV MCH MCHC RDW Plt Count MPV Neut % (Auto) Lymph % (Auto) [place] % (Auto) Eos % (Auto) Baso % (Auto) Neut # (Auto) Lymph # (Auto) [place] # (Auto) Eos # (Auto) Baso # (Auto) WBC Differential Differential Comment Puncture Site Art line Patient Temperature 98.6 O2 Saturation 96 ABG pH 7.44 H ABG pCO2 38 ABG pO2 94 ABG HCO3 25 ABG O2 Content 11.6 L ABG Base Excess 1.3 ABG Methemoglobin 0.9 Hemoglobin 8.5 L Carboxyhemoglobin 1.5 O2 Delivery Device Ventilator Vent Setting Prvc/ac Inspired O2 45 Critical Value No Sodium 152 H Potassium Chloride Carbon Dioxide Anion Gap BUN Creatinine Estimated GFR POC Glucose 205 H Random Glucose Osmolality 321 H Calcium Phosphorus Magnesium Total Bilirubin AST ALT Alkaline Phosphatase Total Protein Albumin Urine Color Urine Clarity Urine pH Ur Specific Thelma Urine Protein Urine Glucose (UA) Urine Ketones Urine Occult Blood Urine Nitrate Urine Bilirubin Urine Urobilinogen Ur Leukocyte Esterase Urine RBC Urine WBC Urine WBC Clumps Ur Squamous Epith Cells Urine Bacteria Granular Casts Urine Mucus Micro UA Comment Urine Culture Comments Tacrolimus 01/04/18 01/04/18 01/04/18 12:58 13:30 15:46 WBC RBC Hgb Hct MCV MCH MCHC RDW Plt Count MPV Neut % (Auto) Lymph % (Auto) [place] % (Auto) Eos % (Auto) Baso % (Auto) Neut # (Auto) Lymph # (Auto) [place] # (Auto) Eos # (Auto) Baso # (Auto) WBC Differential Differential Comment Puncture Site Patient Temperature O2 Saturation ABG pH ABG pCO2 ABG pO2 ABG HCO3 ABG O2 Content ABG Base Excess ABG Methemoglobin Hemoglobin Carboxyhemoglobin O2 Delivery Device Vent Setting Inspired O2 Critical Value Sodium 151 H Potassium Chloride Carbon Dioxide Anion Gap BUN Creatinine Estimated GFR POC Glucose 212 H 205 H Random Glucose Osmolality 327 H Calcium Phosphorus Magnesium Total Bilirubin AST ALT Alkaline Phosphatase Total Protein Albumin Urine Color Urine Clarity Urine pH Ur Specific Thelma Urine Protein Urine Glucose (UA) Urine Ketones Urine Occult Blood Urine Nitrate Urine Bilirubin Urine Urobilinogen Ur Leukocyte Esterase Urine RBC Urine WBC Urine WBC Clumps Ur Squamous Epith Cells Urine Bacteria Granular Casts Urine Mucus Micro UA Comment Urine Culture Comments Tacrolimus 01/04/18 01/04/18 01/05/18 18:10 20:10 00:26 WBC RBC Hgb Hct MCV MCH MCHC RDW Plt Count MPV Neut % (Auto) Lymph % (Auto) [place] % (Auto) Eos % (Auto) Baso % (Auto) Neut # (Auto) Lymph # (Auto) [place] # (Auto) Eos # (Auto) Baso # (Auto) WBC Differential Differential Comment Puncture Site Patient Temperature O2 Saturation ABG pH ABG pCO2 ABG pO2 ABG HCO3 ABG O2 Content ABG Base Excess ABG Methemoglobin Hemoglobin Carboxyhemoglobin O2 Delivery Device Vent Setting Inspired O2 Critical Value Sodium 152 H Potassium Chloride Carbon Dioxide Anion Gap BUN Creatinine Estimated GFR POC Glucose 203 H 199 H Random Glucose Osmolality 327 H Calcium Phosphorus Magnesium Total Bilirubin AST ALT Alkaline Phosphatase Total Protein Albumin Urine Color Urine Clarity Urine pH Ur Specific Thelma Urine Protein Urine Glucose (UA) Urine Ketones Urine Occult Blood Urine Nitrate Urine Bilirubin Urine Urobilinogen Ur Leukocyte Esterase Urine RBC Urine WBC Urine WBC Clumps Ur Squamous Epith Cells Urine Bacteria Granular Casts Urine Mucus Micro UA Comment Urine Culture Comments Tacrolimus 0801/05/18 01/05/18 00:35 04:45 04:45 WBC RBC Hgb Hct MCV MCH MCHC RDW Plt Count MPV Neut % (Auto) Lymph % (Auto) [place] % (Auto) Eos % (Auto) Baso % (Auto) Neut # (Auto) Lymph # (Auto) [place] # (Auto) Eos # (Auto) Baso # (Auto) WBC Differential Differential Comment Puncture Site Patient Temperature O2 Saturation ABG pH ABG pCO2 ABG pO2 ABG HCO3 ABG O2 Content ABG Base Excess ABG Methemoglobin Hemoglobin Carboxyhemoglobin O2 Delivery Device Vent Setting Inspired O2 Critical Value Sodium 153 H 152 H Potassium 3.9 Chloride 118 H Carbon Dioxide 24.0 Anion Gap 10 BUN 33 H Creatinine 0.97 Estimated GFR 57 L POC Glucose Random Glucose 189 H Osmolality 322 H 325 H Calcium 8.3 L Phosphorus Magnesium 2.1 Total Bilirubin 0.4 AST 30 ALT 27 Alkaline Phosphatase 63 Total Protein 5.7 L Albumin 1.7 L Urine Color Urine Clarity Urine pH Ur Specific Thelma Urine Protein Urine Glucose (UA) Urine Ketones Urine Occult Blood Urine Nitrate Urine Bilirubin Urine Urobilinogen Ur Leukocyte Esterase Urine RBC Urine WBC Urine WBC Clumps Ur Squamous Epith Cells Urine Bacteria Granular Casts Urine Mucus Micro UA Comment Urine Culture Comments Tacrolimus 2.4 L 01/05/18 01/05/18 01/05/18 04:45 04:45 04:57 WBC 3.0 L RBC 2.84 L Hgb 8.6 L Hct 26.0 L MCV 91.4 MCH 30.3 MCHC 33.1 RDW 14.3 Plt Count 117 L MPV 7.5 Neut % (Auto) Lymph % (Auto) [place] % (Auto) Eos % (Auto) Baso % (Auto) Neut # (Auto) Lymph # (Auto) [place] # (Auto) Eos # (Auto) Baso # (Auto) WBC Differential Differential Comment Puncture Site Patient Temperature O2 Saturation ABG pH ABG pCO2 ABG pO2 ABG HCO3 ABG O2 Content ABG Base Excess ABG Methemoglobin Hemoglobin Carboxyhemoglobin O2 Delivery Device Vent Setting Inspired O2 Critical Value Sodium Potassium Chloride Carbon Dioxide Anion Gap BUN Creatinine Estimated GFR POC Glucose 204 H Random Glucose Osmolality Calcium Phosphorus 2.7 Magnesium Total Bilirubin AST ALT Alkaline Phosphatase Total Protein Albumin Urine Color Urine Clarity Urine pH Ur Specific Thelma Urine Protein Urine Glucose (UA) Urine Ketones Urine Occult Blood Urine Nitrate Urine Bilirubin Urine Urobilinogen Ur Leukocyte Esterase Urine RBC Urine WBC Urine WBC Clumps Ur Squamous Epith Cells Urine Bacteria Granular Casts Urine Mucus Micro UA Comment Urine Culture Comments Tacrolimus 01/05/18 01/05/18 01/05/18 08:34 11:28 12:30 WBC RBC Hgb Hct MCV MCH MCHC RDW Plt Count MPV Neut % (Auto) Lymph % (Auto) [place] % (Auto) Eos % (Auto) Baso % (Auto) Neut # (Auto) Lymph # (Auto) [place] # (Auto) Eos # (Auto) Baso # (Auto) WBC Differential Differential Comment Puncture Site Patient Temperature O2 Saturation ABG pH ABG pCO2 ABG pO2 ABG HCO3 ABG O2 Content ABG Base Excess ABG Methemoglobin Hemoglobin Carboxyhemoglobin O2 Delivery Device Vent Setting Inspired O2 Critical Value Sodium 153 H Potassium Chloride Carbon Dioxide Anion Gap BUN Creatinine Estimated GFR POC Glucose 189 H 189 H Random Glucose Osmolality Calcium Phosphorus Magnesium Total Bilirubin AST ALT Alkaline Phosphatase Total Protein Albumin Urine Color Urine Clarity Urine pH Ur Specific Thelma Urine Protein Urine Glucose (UA) Urine Ketones Urine Occult Blood Urine Nitrate Urine Bilirubin Urine Urobilinogen Ur Leukocyte Esterase Urine RBC Urine WBC Urine WBC Clumps Ur Squamous Epith Cells Urine Bacteria Granular Casts Urine Mucus Micro UA Comment Urine Culture Comments Tacrolimus 01/05/18 01/05/18 01/05/18 12:30 16:37 19:30 WBC RBC Hgb Hct MCV MCH MCHC RDW Plt Count MPV Neut % (Auto) Lymph % (Auto) [place] % (Auto) Eos % (Auto) Baso % (Auto) Neut # (Auto) Lymph # (Auto) [place] # (Auto) Eos # (Auto) Baso # (Auto) WBC Differential Differential Comment Puncture Site Patient Temperature O2 Saturation ABG pH ABG pCO2 ABG pO2 ABG HCO3 ABG O2 Content ABG Base Excess ABG Methemoglobin Hemoglobin Carboxyhemoglobin O2 Delivery Device Vent Setting Inspired O2 Critical Value Sodium Potassium Chloride Carbon Dioxide Anion Gap BUN Creatinine Estimated GFR POC Glucose 202 H Random Glucose Osmolality 323 H 326 H Calcium Phosphorus Magnesium Total Bilirubin AST ALT Alkaline Phosphatase Total Protein Albumin Urine Color Urine Clarity Urine pH Ur Specific Thelma Urine Protein Urine Glucose (UA) Urine Ketones Urine Occult Blood Urine Nitrate Urine Bilirubin Urine Urobilinogen Ur Leukocyte Esterase Urine RBC Urine WBC Urine WBC Clumps Ur Squamous Epith Cells Urine Bacteria Granular Casts Urine Mucus Micro UA Comment Urine Culture Comments Tacrolimus 01/05/18 01/05/18 01/05/18 19:30 20:15 20:15 WBC RBC Hgb Hct MCV MCH MCHC RDW Plt Count MPV Neut % (Auto) Lymph % (Auto) [place] % (Auto) Eos % (Auto) Baso % (Auto) Neut # (Auto) Lymph # (Auto) [place] # (Auto) Eos # (Auto) Baso # (Auto) WBC Differential Differential Comment Puncture Site Patient Temperature O2 Saturation ABG pH ABG pCO2 ABG pO2 ABG HCO3 ABG O2 Content ABG Base Excess ABG Methemoglobin Hemoglobin Carboxyhemoglobin O2 Delivery Device Vent Setting Inspired O2 Critical Value Sodium 153 H Potassium Chloride Carbon Dioxide Anion Gap BUN Creatinine Estimated GFR POC Glucose 197 H Random Glucose Osmolality Calcium Phosphorus Magnesium Total Bilirubin AST ALT Alkaline Phosphatase Total Protein Albumin Urine Color Pepper Urine Clarity Cloudy H Urine pH 5.0 Ur Specific Thelma 1.034 Urine Protein 100 H Urine Glucose (UA) Negative Urine Ketones Trace H Urine Occult Blood Negative Urine Nitrate Negative Urine Bilirubin Negative Urine Urobilinogen 2.0 H Ur Leukocyte Esterase Moderate H Urine RBC 3 Urine WBC 166 H Urine WBC Clumps Rare H Ur Squamous Epith Cells 2 Urine Bacteria Moderate H Granular Casts 6 Urine Mucus Few H Micro UA Comment Culture indicated Urine Culture Comments Culture indicated Tacrolimus 01/06/18 01/06/18 01/06/18 00:30 00:31 03:37 WBC RBC Hgb Hct MCV MCH MCHC RDW Plt Count MPV Neut % (Auto) Lymph % (Auto) [place] % (Auto) Eos % (Auto) Baso % (Auto) Neut # (Auto) Lymph # (Auto) [place] # (Auto) Eos # (Auto) Baso # (Auto) WBC Differential Differential Comment Puncture Site Patient Temperature O2 Saturation ABG pH ABG pCO2 ABG pO2 ABG HCO3 ABG O2 Content ABG Base Excess ABG Methemoglobin Hemoglobin Carboxyhemoglobin O2 Delivery Device Vent Setting Inspired O2 Critical Value Sodium 152 H Potassium Chloride Carbon Dioxide Anion Gap BUN Creatinine Estimated GFR POC Glucose 200 H 210 H Random Glucose Osmolality 328 H Calcium Phosphorus Magnesium Total Bilirubin AST ALT Alkaline Phosphatase Total Protein Albumin Urine Color Urine Clarity Urine pH Ur Specific Thelma Urine Protein Urine Glucose (UA) Urine Ketones Urine Occult Blood Urine Nitrate Urine Bilirubin Urine Urobilinogen Ur Leukocyte Esterase Urine RBC Urine WBC Urine WBC Clumps Ur Squamous Epith Cells Urine Bacteria Granular Casts Urine Mucus Micro UA Comment Urine Culture Comments Tacrolimus 01/06/18 01/06/18 01/06/18 06:00 06:00 06:00 WBC 2.7 L RBC 2.38 L Hgb 7.4 L Hct 21.9 L MCV 92.2 MCH 31.1 MCHC 33.8 RDW 14.5 Plt Count 102 L MPV 8.0 Neut % (Auto) Lymph % (Auto) [place] % (Auto) Eos % (Auto) Baso % (Auto) Neut # (Auto) Lymph # (Auto) [place] # (Auto) Eos # (Auto) Baso # (Auto) WBC Differential Differential Comment Puncture Site Patient Temperature O2 Saturation ABG pH ABG pCO2 ABG pO2 ABG HCO3 ABG O2 Content ABG Base Excess ABG Methemoglobin Hemoglobin Carboxyhemoglobin O2 Delivery Device Vent Setting Inspired O2 Critical Value Sodium 153 H Potassium 3.9 Chloride 119 H Carbon Dioxide 22.6 Anion Gap 11 BUN 47 H Creatinine 1.49 H Estimated GFR 35 L POC Glucose Random Glucose 160 H Osmolality 328 H Calcium 8.3 L Phosphorus Magnesium Total Bilirubin 0.4 AST 20 ALT 22 Alkaline Phosphatase 57 Total Protein 5.3 L Albumin 1.6 L Urine Color Urine Clarity Urine pH Ur Specific Thelma Urine Protein Urine Glucose (UA) Urine Ketones Urine Occult Blood Urine Nitrate Urine Bilirubin Urine Urobilinogen Ur Leukocyte Esterase Urine RBC Urine WBC Urine WBC Clumps Ur Squamous Epith Cells Urine Bacteria Granular Casts Urine Mucus Micro UA Comment Urine Culture Comments Tacrolimus Less than 2.0 L 01/06/18 01/06/18 07:51 13:23 WBC RBC Hgb Hct MCV MCH MCHC RDW Plt Count MPV Neut % (Auto) Lymph % (Auto) [place] % (Auto) Eos % (Auto) Baso % (Auto) Neut # (Auto) Lymph # (Auto) [place] # (Auto) Eos # (Auto) Baso # (Auto) WBC Differential Differential Comment Puncture Site Patient Temperature O2 Saturation ABG pH ABG pCO2 ABG pO2 ABG HCO3 ABG O2 Content ABG Base Excess ABG Methemoglobin Hemoglobin Carboxyhemoglobin O2 Delivery Device Vent Setting Inspired O2 Critical Value Sodium Potassium Chloride Carbon Dioxide Anion Gap BUN Creatinine Estimated GFR POC Glucose 148 H 186 H Random Glucose Osmolality Calcium Phosphorus Magnesium Total Bilirubin AST ALT Alkaline Phosphatase Total Protein Albumin Urine Color Urine Clarity Urine pH Ur Specific Thelma Urine Protein Urine Glucose (UA) Urine Ketones Urine Occult Blood Urine Nitrate Urine Bilirubin Urine Urobilinogen Ur Leukocyte Esterase Urine RBC Urine WBC Urine WBC Clumps Ur Squamous Epith Cells Urine Bacteria Granular Casts Urine Mucus Micro UA Comment Urine Culture Comments Tacrolimus Result Diagrams: 01/06/18 06:00 01/06/18 06:00 Microbiology: Microbiology 01/05/18 20:15 Urine Culture - Preliminary Clean Catch Urine Group D Enterococcus 01/05/18 12:36 Aerobic Blood Culture - Preliminary Blood - Peripheral No growth in 1 day Anaerobic Blood Culture - Preliminary No growth in 1 day 01/05/18 12:30 Aerobic Blood Culture - Preliminary Blood - Peripheral No growth in 1 day Anaerobic Blood Culture - Preliminary No growth in 1 day 01/04/18 09:30 Gram Stain - Final Sputum - Endotracheal Sputum Culture - Final Escherichia coli Enterobacter cloacae Imaging: Abdomen X-Ray 01/02/18 00:00 CONCLUSION: No evidence of bowel obstruction. Gastric tubing appears appropriate in position. Chest X-Ray 01/06/18 06:00 CONCLUSION: Increased right upper lobe airspace disease otherwise stable. Head CT 01/06/18 06:00 CONCLUSION: 1. Postsurgical changes are identified. 2. There is an evolving area of low density with trace associated intraparenchymal blood in the left temporal lobe identified. . Patient/Family Conference Present at Family Conference: , two daughtersKevon [facility] Family Conference Time: 39 Family Conference Location: Consult Room Issues Discussed: * Palliative care role, purpose, approach * Additional medical, psychosocial, and spiritual history * Patients general health, functional status, and cognitive changes in the months leading up to the current hospitalization * Patient/family understanding of the current medical problems * Patient/family understanding of prognosis * Patients goals of care as best understood from advance directives and/or conversations and/or values * Current medical treatment options and benefits/burdens of those options * Likely scenarios comparing ongoing aggressive care with a transition to comfort measures only * Questions answered to the best of my ability * Palliative care contact information provided Assessment and Plan Pertinent Non-Medical Issues: Psychosocial: Originally from [place], came to [place] in 1999. Lives with . Second marriage, now for 20 years. She has 2 daughters that live locally and a son that lives in [place]. 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 Spiritual: Holiness background, not connected with any buddhist or clergy recently. Family would like a battery vent plug inserter come visit. Legal: The patient lacks capacity for decision-making, and it seems very unlikely that she will regain that capacity. The patient's is the decision-making proxy. Ethical issues impacting care: Important Contacts: : Jair Cole Cell phone: [phone] Prognosis: Her prognosis is poor, as it appears that she has had a significant brain injury. Code Status: Alternative Code Plan: * ALTERNATE CODE, intubation only, per request of and both daughters 01/06 * DECISION-MAKING: The patient lacks capacity for decision-making, and it seems very unlikely that she will regain that capacity. The patient's is the decision-making proxy. * GOALS: The patient's family reports that the patient made it clear that she would not want to be kept alive artificially if she had a significant injury to her brain that would prevent a resumption of "normal life." They understand the sedation was just discontinued today, and would like to "give it a couple days to see if she wakes up." If she does not improve significantly, with a informed me that they would be looking to have us compassionately withdraw the life support. * SYMPTOMS: The patient's encephalopathy is profound. Dyspnea is being managed by the ventilator. I see no obvious signs of pain now, 7 days postop. I have no further medication recommendations at this time. * Rn Residential visit requested. * I discussed the case with Dr. Patterson and with Dr. Borden. * Palliative Care will continue to follow the patient during this hospitalization. Time Spent Total Floor Time (mins): 78 Face to Face Time (mins): 20 >50% Time in Counseling or Coordination of Care: Yes (d/w Dr. Patterson, Dr. Borden, and with RN) Appreciation Thank you for the opportunity to participate in the care of Ileana Cole.
[2018-01-06] MEDS: fentaNYL Citrate Inj 100 MCG/2 ML Ampul IV.PUSH PRN ×2 (15:59→20:14)
--- NOTE | 2018-01-06 17:55 | P.PNNS ---
Subjective Interval history: Pt seen early this morning. She is sedated with Diprivan. She is not opening eyes or following commands. Pupils 3mm bilaterally slight reaction bilaterally. <Ciaran Cotton - Last Filed: 01/06/18 17:57> Physical Exam Vital signs: Vital Signs 01/05/18 18:00 01/05/18 18:29 01/05/18 20:00 Temperature 100.3 F H Pulse Rate 83 92 H 73 Respiratory Rate 31 H 26 H Blood Pressure 129/60 Pulse Oximetry 01/05/18 20:24 01/05/18 22:00 01/05/18 23:37 Temperature Pulse Rate 75 Respiratory Rate 18 16 Blood Pressure Pulse Oximetry 97 99 01/06/18 00:00 01/06/18 02:00 01/06/18 04:00 Temperature 99.2 F 98.6 F Pulse Rate 73 72 70 Respiratory Rate 16 16 Blood Pressure 138/60 133/60 Pulse Oximetry 100 01/06/18 04:09 01/06/18 06:00 01/06/18 08:00 Temperature 98.3 F Pulse Rate 67 72 Respiratory Rate 17 16 Blood Pressure 173/74 H Pulse Oximetry 100 01/06/18 08:37 01/06/18 10:00 01/06/18 12:00 Temperature 98.2 F Pulse Rate 70 72 Respiratory Rate 19 18 Blood Pressure 134/62 Pulse Oximetry 97 96 01/06/18 12:40 01/06/18 12:44 01/06/18 14:00 Temperature Pulse Rate 80 76 Respiratory Rate 19 21 Blood Pressure Pulse Oximetry 95 01/06/18 16:00 01/06/18 16:29 Temperature 99.0 F Pulse Rate 76 Respiratory Rate 16 19 Blood Pressure 122/58 L Pulse Oximetry 96 97 Intake & Output 01/05/18 01/06/18 01/06/18 18:59 06:59 18:59 Intake Total 1797.5 / 1797.5 1309 / 1309 50 / 50 Output Total 425 / 425 750 / 750 Balance 1372.5 / 1372.5 559 / 559 50 / 50 Weight 110.8 kg Intake: IV 1312.5 / 1312.5 670 / 670 50 / 50 Precedex Inj 200 MCG In NS Inj 50 / 50 48 ML @ 0.2 MCG/KG/HR 5.54 mls/ hr IV.CONT TITRATE PRN Rx#: [id number] Diprivan 1000 mg/100 ml Inj 1, 100 / 100 200 / 200 000 mg In 100 ml @ 5 MCG/KG/MIN 3 mls/hr IV.CONT TITRATE PRN Rx#:[id number] Cardene Inj 50 MG In NS Inj 230 250 / 250 250 / 250 ML @ 5 MG/HR 25 mls/hr IV.CONT TITRATE PRN Rx#:[id number] Sodium Chloride 3% Inj 500 ML @ 120 / 120 10 mls/hr IV.SIG Q24H GRICELDA Rx#: [id number] Maxipime Inj 2,000 MG In NS Inj 200 / 200 100 / 100 100 ML @ 200 mls/hr IV.SIG Q8H GRICELDA Rx#:[id number] NS Inj 500 ML @ 999 mls/hr IV. 500 / 500 SIG BOLUS ONE Rx#:[id number] Vancomycin Inj 1,250 MG In NS 262.5 / 262.5 Inj 250 ML @ 250 mls/hr IV.SIG ONCE ONE Rx#:[id number] Tube Feeding 435 / 435 489 / 489 Tube Irrigant 50 / 50 150 / 150 Output: Stool 5 / 5 Urine Amount (Catheter) 350 / 350 750 / 750 Indwelling Urethral Catheter 350 / 350 750 / 750 Wound Drainage 70 / 70 # 2 Left Head 70 / 70 Other: Date of Last Bowel Movement 01/05/18 01/06/18 01/06/18 # Bowel Movements 1 - Constitutional no acute distress, obese Comments: Sedated on Diprivan. - Routine HEENT Exam Head: Absent: atraumatic (Left craniectomy site clean and dry without signs of infection.) Eye: Present: PERRL (Pupils 3mm bilaterally reactive bilaterally. Not opening eyes.). Absent: conjunctival icterus ENT: Absent: oropharynx clear (ET intubated.) - Routine Neck Exam Present: trachea midline - Routine Respiratory Exam Present: patient mechanically ventilated (PRVC A/C rate 16. Peep 7. FiO2 55%.) , CTA bilaterally. Absent: respiratory distress, rhonchi, wheezes - Routine Cardiovascular Exam Present: RRR, S1, S2. Absent: murmur - Routine Abdominal Exam Present: soft, normoactive bowel sounds. Absent: distended - Routine Skin Exam Absent: cyanosis, erythema Comments: SCDs in place. - Routine Neurological Exam Present: motor deficit (Not following for muscle testing. She withdraws LEs slightly and minimally withdraws UEs to pain.), altered mental status (Pt sedated on Diprivan.). Absent: alert (Not opening eyes. Sedated on Diprivan.) - Detailed Neurological Exam: Coma Scale Eye Opening: None Verbal Response: None Motor Response: None (Slight withdrawal in LEs and minimal withdrawal in UEs.) [place] Coma Scale Total: 3 - Routine Psychiatric Exam Present: unable to assess - Urinary Catheter Management Indwelling Urethral Catheter Cath placed during this visit: yes Reason for continuing: Hourly intake/output Insertion date: 12/30/17 Insertion time: 01:30 <Ciaran Cotton - Last Filed: 01/06/18 17:57> Vital signs: Vital Signs 01/05/18 18:29 01/05/18 20:00 01/05/18 20:24 Temperature 100.3 F H Pulse Rate 92 H 73 Respiratory Rate 31 H 26 H 18 Blood Pressure 129/60 Pulse Oximetry 97 01/05/18 22:00 01/05/18 23:37 01/06/18 00:00 Temperature 99.2 F Pulse Rate 75 73 Respiratory Rate 16 16 Blood Pressure 138/60 Pulse Oximetry 99 01/06/18 02:00 01/06/18 04:00 01/06/18 04:09 Temperature 98.6 F Pulse Rate 72 70 Respiratory Rate 16 17 Blood Pressure 133/60 Pulse Oximetry 100 01/06/18 06:00 01/06/18 08:00 01/06/18 08:37 Temperature 98.3 F Pulse Rate 67 72 Respiratory Rate 16 19 Blood Pressure 173/74 H Pulse Oximetry 100 97 01/06/18 10:00 01/06/18 12:00 01/06/18 12:40 Temperature 98.2 F Pulse Rate 70 72 Respiratory Rate 18 19 Blood Pressure 134/62 Pulse Oximetry 96 95 01/06/18 12:44 01/06/18 14:00 01/06/18 16:00 Temperature 99.0 F Pulse Rate 80 76 76 Respiratory Rate 21 16 Blood Pressure 122/58 L Pulse Oximetry 96 01/06/18 16:29 Temperature Pulse Rate Respiratory Rate 19 Blood Pressure Pulse Oximetry 97 Intake & Output 01/05/18 01/06/18 01/06/18 18:59 06:59 18:59 Intake Total 1797.5 / 1797.5 1309 / 1309 50 / 50 Output Total 425 / 425 750 / 750 Balance 1372.5 / 1372.5 559 / 559 50 / 50 Weight 110.8 kg Intake: IV 1312.5 / 1312.5 670 / 670 50 / 50 Precedex Inj 200 MCG In NS Inj 50 / 50 48 ML @ 0.2 MCG/KG/HR 5.54 mls/ hr IV.CONT TITRATE PRN Rx#: [id number] Diprivan 1000 mg/100 ml Inj 1, 100 / 100 200 / 200 000 mg In 100 ml @ 5 MCG/KG/MIN 3 mls/hr IV.CONT TITRATE PRN Rx#:[id number] Cardene Inj 50 MG In NS Inj 230 250 / 250 250 / 250 ML @ 5 MG/HR 25 mls/hr IV.CONT TITRATE PRN Rx#:[id number] Sodium Chloride 3% Inj 500 ML @ 120 / 120 10 mls/hr IV.SIG Q24H GRICELDA Rx#: [id number] Maxipime Inj 2,000 MG In NS Inj 200 / 200 100 / 100 100 ML @ 200 mls/hr IV.SIG Q8H GRICELDA Rx#:[id number] NS Inj 500 ML @ 999 mls/hr IV. 500 / 500 SIG BOLUS ONE Rx#:[id number] Vancomycin Inj 1,250 MG In NS 262.5 / 262.5 Inj 250 ML @ 250 mls/hr IV.SIG ONCE ONE Rx#:[id number] Tube Feeding 435 / 435 489 / 489 Tube Irrigant 50 / 50 150 / 150 Output: Stool 5 / 5 Urine Amount (Catheter) 350 / 350 750 / 750 Indwelling Urethral Catheter 350 / 350 750 / 750 Wound Drainage 70 / 70 # 2 Left Head 70 / 70 Other: Date of Last Bowel Movement 01/05/18 01/06/18 01/06/18 # Bowel Movements 1 - Urinary Catheter Management Indwelling Urethral Catheter Cath placed during this visit: no <Humza Borden - Last Filed: 01/06/18 18:18> Assessment and Plan - Assessment (1) Hypertensive emergency Code(s): I16.1 - Hypertensive emergency Status: Acute (2) Subdural hematoma Code(s): S06.5X9A - Traumatic subdural hemorrhage with loss of consciousness of unspecified duration, initial encounter Status: Acute - Plan Impression 72 y/o female s/p craniotomy for evacuation of SDH, placement of ICP monitor No significant change in neurologic exam over the past day Follow up CT head from 01/06/18 shows post op changes with bone flap removal and no significant subdural collection. Midline shift improved from preop. Plan: Continue neuro checks in a serial fashion. Continue blood pressure management Pulmonary: aggressive pulmonary toilette, nasotracheal suction, and breathing treatments with nebulizers. Daily PT and OT Renal: Continue to monitor closely urine output, BUN and creatinine Endocrine: Continue to Monitor serial Acu checks and SSI as needed in detail ID continue to monitor for signs of infection Continue Protonix for stress ulcer prophylaxis Continue James hose and SCD's for DVT prophylaxis The KUMAR drain exit site was cleaned with Betadine. Lidocaine 1% with epi was used for local anesthetic. The KUMAR drain suction was released. The drain was removed. 2 noah were placed without any further drainage. Sterile technique was used. <Ciaran Cotton - Last Filed: 01/06/18 17:57> - Attending Attestation The exam, history, and the medical decision-making described in the above note were completed with the assistance of the mid-level provider. I reviewed and agree with the findings presented. I attest that I had a [id number] encounter with the patient on the same day, and personally performed and documented my assessment and findings in the medical record. Discussed with and family at bedside. They relate that they do not want to continued supportive care if prognosis for functional outcome is a grim and requesting palliative care consultation. I am recommending weaning the sedation to evaluate her neurologic function and if this remains poor with a comatose state and this was flexed severe traumatic brain injury and likelihood of functional recovery would be poor. Discussed with skid worker and palliative care. <Humza Borden - Last Filed: 01/06/18 18:18>
[2018-01-06 21:27] LABS: Sodium 151 meq/L (136-145)
[2018-01-07] MEDS: Insulin NovoLOG Aspart Correctional Sugar Inj SQ SCH ×6 (00:28→21:14)
[2018-01-07] MEDS: Dexmedetomidine Inj 200 MCG in Sodium Chlor 0.9% Inj 48 ML IV.CONT PRN ×4 (00:29→11:26)
[2018-01-07] MEDS: Labetalol HCl Inj 100 MG/20 ML Vial IV.PUSH PRN ×2 (05:16→14:30)
--- NOTE | 2018-01-07 07:04 | MG ---
cc: Golden Burt MD DATE: 01/06/2018 ELECTROENCEPHALOGRAM RECORD NUMBER: [id number]. DESCRIPTION: Left-sided craniotomy bone flap. Cefepime. There is left hemisphere slowing in the delta range, with some field into the right hemisphere, with some phase reversing delta waves over the left central frontal head region, with some slight sharply contoured waves there, although no spikes are noted. It is fairly rhythmic at about 1-2 Hz, does not look particularly epileptiform. Photic stimulation is performed without significant posterior driving. IMPRESSION: Left hemisphere slowing. No epileptiform activity. Clinical correlation is needed. MD LEIDY Aviles/CHRISTOPHER , 04:39 PM , 04:44 PM
[2018-01-07] MEDS: amLODIPine 10 MG Tablet NG/OG SCH (08:05)
[2018-01-07] MEDS: Carvedilol 12.5 MG Tablet PO SCH ×2 (08:05→21:14)
[2018-01-07] MEDS: Insulin Detemir Inj 1,000 UNIT/10 ML Vial SQ SCH ×2 (08:06→21:14)
[2018-01-07] MEDS: Polyethylene Glycol 3350 17 GM Packet NG/OG SCH ×2 (08:07→20:49)
[2018-01-07] MEDS: Senna/Docusate Sodium 8.6/50 MG Tablet PO SCH ×2 (08:07→20:49)
[2018-01-07] MEDS: Glycerin Adult 2 GM Supp RECTAL SCH ×2 (08:08→20:49)
[2018-01-07 08:30] LABS: Vancomycin,Random 20.7 Comment
[2018-01-07 08:55] LABS: ABG Base Excess -0.8 mmol/L (-2-2); ABG PCO2 33 mmHg (38-42); ABG PO2 86 mmHg (61-120)
[2018-01-07] MEDS: Hypromellose 0.3% Opth Gel 10 GM Bottle EACH EYE SCH ×2 (10:17→21:13)
--- NOTE | 2018-01-07 11:50 | P.PNPAL ---
Reason for Visit Reason for visit: a. To assist with evaluation and management of symptoms including: Dyspnea, encephalopathy, pain b. To assist medical decision maker(s) with: better understanding of current medical conditions; weighing benefits/burdens of medical treatment options; making medical treatment decisions. Subjective Subjective/Interval History: INTERVAL NOTE: Rechecking patient to assess pain, dyspnea, encephalopathy Neurologically, the patient seems about the same, not responding to voice, touch , or noxious stimulation while I am in the room. She is breathing a few breaths over the ventilator. Remains afebrile, highest temperature 99.6 last evening. White count 2.7. EEG revealed left hemispheric slowing. She remains on some Precedex but no sedation since yesterday. Objective Vital Signs: Vital Signs 01/06/18 12:00 01/06/18 12:40 01/06/18 12:44 Temperature 98.2 F Pulse Rate 72 80 Respiratory Rate 18 19 21 Blood Pressure 134/62 Pulse Oximetry 96 95 01/06/18 14:00 01/06/18 16:00 01/06/18 16:29 Temperature 99.0 F Pulse Rate 76 76 Respiratory Rate 16 19 Blood Pressure 122/58 L Pulse Oximetry 96 97 01/06/18 18:00 01/06/18 19:36 01/06/18 20:00 Temperature 99.6 F Pulse Rate 76 82 Respiratory Rate 23 21 Blood Pressure 157/72 H Pulse Oximetry 100 92 L 01/07/18 00:00 01/07/18 01:10 01/07/18 04:00 Temperature 99.2 F 99.2 F Pulse Rate 77 78 Respiratory Rate 19 16 19 Blood Pressure 130/59 L 187/76 H Pulse Oximetry 95 97 97 01/07/18 04:20 01/07/18 08:00 01/07/18 10:00 Temperature 98.9 F Pulse Rate 78 Respiratory Rate 16 22 22 Blood Pressure 158/72 H Pulse Oximetry 97 97 97 Intake & Output 01/06/18 01/07/18 01/07/18 18:59 06:59 18:59 Intake Total 599 / 599 1147 / 1147 100 / 100 Output Total 325 / 325 400 / 400 Balance 274 / 274 747 / 747 100 / 100 Weight 113 kg Intake: IV 50 / 50 490 / 490 100 / 100 Precedex Inj 200 MCG In NS Inj 50 / 50 150 / 150 100 / 100 48 ML @ 0.2 MCG/KG/HR 5.54 mls/ hr IV.CONT TITRATE PRN Rx#: [id number] Sodium Chloride 3% Inj 500 ML @ 240 / 240 10 mls/hr IV.SIG Q24H GRICELDA Rx#: [id number] Maxipime Inj 2,000 MG In NS Inj 100 / 100 100 ML @ 200 mls/hr IV.SIG Q12H GRICELDA Rx#:[id number] Tube Feeding 399 / 399 537 / 537 Tube Irrigant 150 / 150 120 / 120 Output: Urine Amount (Catheter) 325 / 325 400 / 400 Indwelling Urethral Catheter 325 / 325 400 / 400 Other: Date of Last Bowel Movement 01/06/18 01/07/18 01/07/18 # Bowel Movements 1 Physical Exam: CONSTITUTIONAL/GENERAL: This is an adequately nourished patient, in no apparent distress; unresponsive, intubated. TUBES/LINES/DRAINS: ET tube, OG tube, SCDs, central line EYES: Pupils equal and round, 2 mm. No scleral icterus. No injection or drainage. Fundi not examined. CARDIOVASCULAR: Regular rate and rhythm without murmurs, gallops, or rubs. No JVD. Peripheral pulses symmetric. RESPIRATORY/CHEST: Symmetric, unlabored respirations. Scattered rhonchi. GASTROINTESTINAL: Abdomen soft, non-tender, nondistended. No hepato-splenomegaly , or palpable masses. No guarding. Bowel sounds present. GENITOURINARY: Without palpable bladder distension. Rushing catheter in place. MUSCULOSKELETAL: Extremities without clubbing, cyanosis, or edema. No joint tenderness or effusion noted. No calf tenderness. No mottling or clubbing. NEUROLOGICAL: Does not respond to voice, touch, or pain PSYCHIATRIC: Unable to assess due to clinical condition. Diagnostic Tests Laboratory: Laboratory Results - last 72 hr 01/04/18 01/04/18 01/04/18 04:00 12:58 13:30 WBC RBC Hgb Hct MCV MCH MCHC RDW Plt Count MPV Puncture Site Patient Temperature O2 Saturation ABG pH ABG pCO2 ABG pO2 ABG HCO3 ABG O2 Content ABG Base Excess ABG Methemoglobin Kojo Test Hemoglobin Carboxyhemoglobin O2 Delivery Device Vent Setting Inspired O2 Critical Value Sodium 151 H Potassium Chloride Carbon Dioxide Anion Gap BUN Creatinine Estimated GFR POC Glucose 212 H Random Glucose Osmolality 327 H Calcium Phosphorus Magnesium Total Bilirubin AST ALT Alkaline Phosphatase Ammonia Total Protein Albumin Urine Color Urine Clarity Urine pH Ur Specific [place] Urine Protein Urine Glucose (UA) Urine Ketones Urine Occult Blood Urine Nitrate Urine Bilirubin Urine Urobilinogen Ur Leukocyte Esterase Urine RBC Urine WBC Urine WBC Clumps Ur Squamous Epith Cells Urine Bacteria Granular Casts Urine Mucus Micro UA Comment Urine Culture Comments Random Vancomycin Tacrolimus 3.0 L 01/04/18 01/04/18 01/04/18 15:46 18:10 20:10 WBC RBC Hgb Hct MCV MCH MCHC RDW Plt Count MPV Puncture Site Patient Temperature O2 Saturation ABG pH ABG pCO2 ABG pO2 ABG HCO3 ABG O2 Content ABG Base Excess ABG Methemoglobin Kojo Test Hemoglobin Carboxyhemoglobin O2 Delivery Device Vent Setting Inspired O2 Critical Value Sodium 152 H Potassium Chloride Carbon Dioxide Anion Gap BUN Creatinine Estimated GFR POC Glucose 205 H 203 H Random Glucose Osmolality 327 H Calcium Phosphorus Magnesium Total Bilirubin AST ALT Alkaline Phosphatase Ammonia Total Protein Albumin Urine Color Urine Clarity Urine pH Ur Specific [place] Urine Protein Urine Glucose (UA) Urine Ketones Urine Occult Blood Urine Nitrate Urine Bilirubin Urine Urobilinogen Ur Leukocyte Esterase Urine RBC Urine WBC Urine WBC Clumps Ur Squamous Epith Cells Urine Bacteria Granular Casts Urine Mucus Micro UA Comment Urine Culture Comments Random Vancomycin Tacrolimus 01/05/18 01/05/18 01/05/18 00:26 00:35 04:45 WBC RBC Hgb Hct MCV MCH MCHC RDW Plt Count MPV Puncture Site Patient Temperature O2 Saturation ABG pH ABG pCO2 ABG pO2 ABG HCO3 ABG O2 Content ABG Base Excess ABG Methemoglobin Kojo Test Hemoglobin Carboxyhemoglobin O2 Delivery Device Vent Setting Inspired O2 Critical Value Sodium 153 H 152 H Potassium 3.9 Chloride 118 H Carbon Dioxide 24.0 Anion Gap 10 BUN 33 H Creatinine 0.97 Estimated GFR 57 L POC Glucose 199 H Random Glucose 189 H Osmolality 322 H 325 H Calcium 8.3 L Phosphorus Magnesium 2.1 Total Bilirubin 0.4 AST 30 ALT 27 Alkaline Phosphatase 63 Ammonia Total Protein 5.7 L Albumin 1.7 L Urine Color Urine Clarity Urine pH Ur Specific [place] Urine Protein Urine Glucose (UA) Urine Ketones Urine Occult Blood Urine Nitrate Urine Bilirubin Urine Urobilinogen Ur Leukocyte Esterase Urine RBC Urine WBC Urine WBC Clumps Ur Squamous Epith Cells Urine Bacteria Granular Casts Urine Mucus Micro UA Comment Urine Culture Comments Random Vancomycin Tacrolimus 01/05/18 01/05/18 01/05/18 04:45 04:45 04:45 WBC 3.0 L RBC 2.84 L Hgb 8.6 L Hct 26.0 L MCV 91.4 MCH 30.3 MCHC 33.1 RDW 14.3 Plt Count 117 L MPV 7.5 Puncture Site Patient Temperature O2 Saturation ABG pH ABG pCO2 ABG pO2 ABG HCO3 ABG O2 Content ABG Base Excess ABG Methemoglobin Kojo Test Hemoglobin Carboxyhemoglobin O2 Delivery Device Vent Setting Inspired O2 Critical Value Sodium Potassium Chloride Carbon Dioxide Anion Gap BUN Creatinine Estimated GFR POC Glucose Random Glucose Osmolality Calcium Phosphorus 2.7 Magnesium Total Bilirubin AST ALT Alkaline Phosphatase Ammonia Total Protein Albumin Urine Color Urine Clarity Urine pH Ur Specific [place] Urine Protein Urine Glucose (UA) Urine Ketones Urine Occult Blood Urine Nitrate Urine Bilirubin Urine Urobilinogen Ur Leukocyte Esterase Urine RBC Urine WBC Urine WBC Clumps Ur Squamous Epith Cells Urine Bacteria Granular Casts Urine Mucus Micro UA Comment Urine Culture Comments Random Vancomycin Tacrolimus 2.4 L 01/05/18 01/05/18 01/05/18 04:57 08:34 11:28 WBC RBC Hgb Hct MCV MCH MCHC RDW Plt Count MPV Puncture Site Patient Temperature O2 Saturation ABG pH ABG pCO2 ABG pO2 ABG HCO3 ABG O2 Content ABG Base Excess ABG Methemoglobin Kojo Test Hemoglobin Carboxyhemoglobin O2 Delivery Device Vent Setting Inspired O2 Critical Value Sodium Potassium Chloride Carbon Dioxide Anion Gap BUN Creatinine Estimated GFR POC Glucose 204 H 189 H 189 H Random Glucose Osmolality Calcium Phosphorus Magnesium Total Bilirubin AST ALT Alkaline Phosphatase Ammonia Total Protein Albumin Urine Color Urine Clarity Urine pH Ur Specific [place] Urine Protein Urine Glucose (UA) Urine Ketones Urine Occult Blood Urine Nitrate Urine Bilirubin Urine Urobilinogen Ur Leukocyte Esterase Urine RBC Urine WBC Urine WBC Clumps Ur Squamous Epith Cells Urine Bacteria Granular Casts Urine Mucus Micro UA Comment Urine Culture Comments Random Vancomycin Tacrolimus 01/05/18 01/05/18 01/05/18 12:30 12:30 16:37 WBC RBC Hgb Hct MCV MCH MCHC RDW Plt Count MPV Puncture Site Patient Temperature O2 Saturation ABG pH ABG pCO2 ABG pO2 ABG HCO3 ABG O2 Content ABG Base Excess ABG Methemoglobin Kojo Test Hemoglobin Carboxyhemoglobin O2 Delivery Device Vent Setting Inspired O2 Critical Value Sodium 153 H Potassium Chloride Carbon Dioxide Anion Gap BUN Creatinine Estimated GFR POC Glucose 202 H Random Glucose Osmolality 323 H Calcium Phosphorus Magnesium Total Bilirubin AST ALT Alkaline Phosphatase Ammonia Total Protein Albumin Urine Color Urine Clarity Urine pH Ur Specific [place] Urine Protein Urine Glucose (UA) Urine Ketones Urine Occult Blood Urine Nitrate Urine Bilirubin Urine Urobilinogen Ur Leukocyte Esterase Urine RBC Urine WBC Urine WBC Clumps Ur Squamous Epith Cells Urine Bacteria Granular Casts Urine Mucus Micro UA Comment Urine Culture Comments Random Vancomycin Tacrolimus 01/05/18 01/05/18 01/05/18 19:30 19:30 20:15 WBC RBC Hgb Hct MCV MCH MCHC RDW Plt Count MPV Puncture Site Patient Temperature O2 Saturation ABG pH ABG pCO2 ABG pO2 ABG HCO3 ABG O2 Content ABG Base Excess ABG Methemoglobin Kojo Test Hemoglobin Carboxyhemoglobin O2 Delivery Device Vent Setting Inspired O2 Critical Value Sodium 153 H Potassium Chloride Carbon Dioxide Anion Gap BUN Creatinine Estimated GFR POC Glucose 197 H Random Glucose Osmolality 326 H Calcium Phosphorus Magnesium Total Bilirubin AST ALT Alkaline Phosphatase Ammonia Total Protein Albumin Urine Color Urine Clarity Urine pH Ur Specific [place] Urine Protein Urine Glucose (UA) Urine Ketones Urine Occult Blood Urine Nitrate Urine Bilirubin Urine Urobilinogen Ur Leukocyte Esterase Urine RBC Urine WBC Urine WBC Clumps Ur Squamous Epith Cells Urine Bacteria Granular Casts Urine Mucus Micro UA Comment Urine Culture Comments Random Vancomycin Tacrolimus 01/05/18 01/06/18 01/06/18 20:15 00:30 00:31 WBC RBC Hgb Hct MCV MCH MCHC RDW Plt Count MPV Puncture Site Patient Temperature O2 Saturation ABG pH ABG pCO2 ABG pO2 ABG HCO3 ABG O2 Content ABG Base Excess ABG Methemoglobin Kojo Test Hemoglobin Carboxyhemoglobin O2 Delivery Device Vent Setting Inspired O2 Critical Value Sodium 152 H Potassium Chloride Carbon Dioxide Anion Gap BUN Creatinine Estimated GFR POC Glucose 200 H Random Glucose Osmolality 328 H Calcium Phosphorus Magnesium Total Bilirubin AST ALT Alkaline Phosphatase Ammonia Total Protein Albumin Urine Color Pepper Urine Clarity Cloudy H Urine pH 5.0 Ur Specific [place] 1.034 Urine Protein 100 H Urine Glucose (UA) Negative Urine Ketones Trace H Urine Occult Blood Negative Urine Nitrate Negative Urine Bilirubin Negative Urine Urobilinogen 2.0 H Ur Leukocyte Esterase Moderate H Urine RBC 3 Urine WBC 166 H Urine WBC Clumps Rare H Ur Squamous Epith Cells 2 Urine Bacteria Moderate H Granular Casts 6 Urine Mucus Few H Micro UA Comment Culture indicated Urine Culture Comments Culture indicated Random Vancomycin Tacrolimus 01/06/18 01/06/18 01/06/18 03:37 06:00 06:00 WBC RBC Hgb Hct MCV MCH MCHC RDW Plt Count MPV Puncture Site Patient Temperature O2 Saturation ABG pH ABG pCO2 ABG pO2 ABG HCO3 ABG O2 Content ABG Base Excess ABG Methemoglobin Kojo Test Hemoglobin Carboxyhemoglobin O2 Delivery Device Vent Setting Inspired O2 Critical Value Sodium 153 H Potassium 3.9 Chloride 119 H Carbon Dioxide 22.6 Anion Gap 11 BUN 47 H Creatinine 1.49 H Estimated GFR 35 L POC Glucose 210 H Random Glucose 160 H Osmolality 328 H Calcium 8.3 L Phosphorus Magnesium Total Bilirubin 0.4 AST 20 ALT 22 Alkaline Phosphatase 57 Ammonia Total Protein 5.3 L Albumin 1.6 L Urine Color Urine Clarity Urine pH Ur Specific [place] Urine Protein Urine Glucose (UA) Urine Ketones Urine Occult Blood Urine Nitrate Urine Bilirubin Urine Urobilinogen Ur Leukocyte Esterase Urine RBC Urine WBC Urine WBC Clumps Ur Squamous Epith Cells Urine Bacteria Granular Casts Urine Mucus Micro UA Comment Urine Culture Comments Random Vancomycin Tacrolimus Less than 2.0 L 01/06/18 01/06/18 01/06/18 06:00 07:51 13:23 WBC 2.7 L RBC 2.38 L Hgb 7.4 L Hct 21.9 L MCV 92.2 MCH 31.1 MCHC 33.8 RDW 14.5 Plt Count 102 L MPV 8.0 Puncture Site Patient Temperature O2 Saturation ABG pH ABG pCO2 ABG pO2 ABG HCO3 ABG O2 Content ABG Base Excess ABG Methemoglobin Kojo Test Hemoglobin Carboxyhemoglobin O2 Delivery Device Vent Setting Inspired O2 Critical Value Sodium Potassium Chloride Carbon Dioxide Anion Gap BUN Creatinine Estimated GFR POC Glucose 148 H 186 H Random Glucose Osmolality Calcium Phosphorus Magnesium Total Bilirubin AST ALT Alkaline Phosphatase Ammonia Total Protein Albumin Urine Color Urine Clarity Urine pH Ur Specific [place] Urine Protein Urine Glucose (UA) Urine Ketones Urine Occult Blood Urine Nitrate Urine Bilirubin Urine Urobilinogen Ur Leukocyte Esterase Urine RBC Urine WBC Urine WBC Clumps Ur Squamous Epith Cells Urine Bacteria Granular Casts Urine Mucus Micro UA Comment Urine Culture Comments Random Vancomycin Tacrolimus 01/06/18 01/06/18 01/06/18 14:30 16:06 19:22 WBC RBC Hgb Hct MCV MCH MCHC RDW Plt Count MPV Puncture Site Patient Temperature O2 Saturation ABG pH ABG pCO2 ABG pO2 ABG HCO3 ABG O2 Content ABG Base Excess ABG Methemoglobin Kojo Test Hemoglobin Carboxyhemoglobin O2 Delivery Device Vent Setting Inspired O2 Critical Value Sodium Potassium Chloride Carbon Dioxide Anion Gap BUN Creatinine Estimated GFR POC Glucose 178 H 167 H Random Glucose Osmolality Calcium Phosphorus Magnesium Total Bilirubin AST ALT Alkaline Phosphatase Ammonia Less than 10 L Total Protein Albumin Urine Color Urine Clarity Urine pH Ur Specific [place] Urine Protein Urine Glucose (UA) Urine Ketones Urine Occult Blood Urine Nitrate Urine Bilirubin Urine Urobilinogen Ur Leukocyte Esterase Urine RBC Urine WBC Urine WBC Clumps Ur Squamous Epith Cells Urine Bacteria Granular Casts Urine Mucus Micro UA Comment Urine Culture Comments Random Vancomycin Tacrolimus 01/06/18 01/06/18 01/07/18 20:25 23:54 03:41 WBC RBC Hgb Hct MCV MCH MCHC RDW Plt Count MPV Puncture Site Patient Temperature O2 Saturation ABG pH ABG pCO2 ABG pO2 ABG HCO3 ABG O2 Content ABG Base Excess ABG Methemoglobin Kojo Test Hemoglobin Carboxyhemoglobin O2 Delivery Device Vent Setting Inspired O2 Critical Value Sodium 151 H Potassium Chloride Carbon Dioxide Anion Gap BUN Creatinine Estimated GFR POC Glucose 172 H 180 H Random Glucose Osmolality 330 H Calcium Phosphorus Magnesium Total Bilirubin AST ALT Alkaline Phosphatase Ammonia Total Protein Albumin Urine Color Urine Clarity Urine pH Ur Specific [place] Urine Protein Urine Glucose (UA) Urine Ketones Urine Occult Blood Urine Nitrate Urine Bilirubin Urine Urobilinogen Ur Leukocyte Esterase Urine RBC Urine WBC Urine WBC Clumps Ur Squamous Epith Cells Urine Bacteria Granular Casts Urine Mucus Micro UA Comment Urine Culture Comments Random Vancomycin Tacrolimus 01/07/18 01/07/18 01/07/18 06:45 08:13 08:51 WBC RBC Hgb Hct MCV MCH MCHC RDW Plt Count MPV Puncture Site Right radial Patient Temperature 98.6 O2 Saturation 94 ABG pH 7.46 H ABG pCO2 33 L ABG pO2 86 ABG HCO3 23 ABG O2 Content 13.7 ABG Base Excess -0.8 ABG Methemoglobin 1.2 Kojo Test Present Hemoglobin 10.3 L Carboxyhemoglobin 1.4 O2 Delivery Device Ventilator Vent Setting Inspired O2 40 Critical Value No Sodium 152 H Potassium Chloride Carbon Dioxide Anion Gap BUN Creatinine Estimated GFR POC Glucose 175 H Random Glucose Osmolality 334 H Calcium Phosphorus Magnesium Total Bilirubin AST ALT Alkaline Phosphatase Ammonia Total Protein Albumin Urine Color Urine Clarity Urine pH Ur Specific [place] Urine Protein Urine Glucose (UA) Urine Ketones Urine Occult Blood Urine Nitrate Urine Bilirubin Urine Urobilinogen Ur Leukocyte Esterase Urine RBC Urine WBC Urine WBC Clumps Ur Squamous Epith Cells Urine Bacteria Granular Casts Urine Mucus Micro UA Comment Urine Culture Comments Random Vancomycin 20.7 Tacrolimus Result Diagrams: 01/06/18 06:00 01/07/18 06:45 Microbiology: Microbiology 01/05/18 12:36 Aerobic Blood Culture - Preliminary Blood - Peripheral No growth in 2 days Anaerobic Blood Culture - Preliminary No growth in 2 days 01/05/18 12:30 Aerobic Blood Culture - Preliminary Blood - Peripheral No growth in 2 days Anaerobic Blood Culture - Preliminary No growth in 2 days 01/05/18 20:15 Urine Culture - Preliminary Clean Catch Urine Group D Enterococcus 01/04/18 09:30 Gram Stain - Final Sputum - Endotracheal Sputum Culture - Final Escherichia coli Enterobacter cloacae Assessment and Plan Pertinent Non-Medical Issues: Psychosocial: Originally from [place], came to [place] in 1999. Lives with . Second marriage, now for 20 years. She has 2 daughters that live locally and a son that lives in [place]. 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 Spiritual: Zoroastrian background, not connected with any muslim or clergy recently. Family would like a commercial lending relationship manager come visit. Legal: The patient lacks capacity for decision-making, and it seems very unlikely that she will regain that capacity. The patient's is the decision-making proxy. Ethical issues impacting care: Important Contacts: : Jair Cole Cell phone: [phone] Prognosis: Her prognosis is poor, as it appears that she has had a significant brain injury. Code Status: Alternative Code Plan: * ALTERNATE CODE, intubation only, per request of and both daughters 01/06 * DECISION-MAKING: The patient lacks capacity for decision-making, and it seems very unlikely that she will regain that capacity. The patient's is the decision-making proxy. * GOALS: The patient's family reports that the patient made it clear that she would not want to be kept alive artificially if she had a significant injury to her brain that would prevent a resumption of "normal life." They understand the sedation was just discontinued Thursday, and would like to "give it a couple days to see if she wakes up." If she does not improve significantly, they informed me that they would be looking to have us compassionately withdraw the life support. * SYMPTOMS: The patient's encephalopathy is profound. Dyspnea is being managed by the ventilator. I see no obvious signs of pain now, 7 days postop. I have no further medication recommendations at this time. * Palliative Care will continue to follow the patient during this hospitalization. Time Spent Total Floor Time (mins): 36 Face to Face Time (mins): 19 >50% Time in Counseling or Coordination of Care: Yes (d/w RN) Attestation Attestation: To help prompt me to consider important information that might be impacting today's encounter and assessment, information from prior notes written by myself or my colleagues may have been "brought forward" into today's note. My signature on this note, however, is an attestation that I personally performed the exam, history, and/or decision-making noted today, and, unless otherwise indicated, the interactions with patient, family, and staff as well as the review of records all occurred today. I also attest that the listed assessment and stated plan reflect my best clinical judgment today based on the combination of historical information, prior notes, and today's exam/ interactions. When time spent is documented, it refers only to time spent today by the signer, or if indicated, combined time spent today by collaborating physician/nurse practitioner.
[2018-01-07 12:58] LABS: Sodium 154 meq/L (136-145)
[2018-01-07] MEDS: Vancomycin Inj 1,250 MG in Sodium Chlor 0.9% Inj 250 ML IV.SIG SCH (13:28)
--- NOTE | 2018-01-07 13:50 | P.PNCC ---
Subjective Subjective Remarks/Hospital Course: 72-year-old female with past medical history of hypertension, diabetes , prior liver transplant in 2010, on chronic anticoagulation for warfarin (per family report due to prior hx of portal vein thrombosis prior to her transplant) . She reportedly got up to go to the bathroom around 10 PM. She developed headache, nausea and multiple episodes of vomiting. There is no reported head trauma. CT brain demonstrates left subdural hematoma with 1 cm left to right shift. INR 2.8. Administering k Centra 25 U/kg, vitamin K 10 mg IV. Blood pressure 169/75. Initiating Cardene drip. Dr. Uribe has been consulted and will be taking patient emergently to operating room following correction of coagulopathy. 12/31 Underwent Left frontal temporal parietal decompressive craniectomy, evacuation of acute subdural hematoma on 12/[address] Uribe R frontal fiberoptic ICP monitor also in place. ICPs are <3. Repeat CT brain this morning demonstrates no residual subdural. Mass-effect is resolved. Remains on mechanical ventilation and cardene drip for hypertension management. 01/01: No acute events overnight. T-max 99.9. No bowel movement. Replacing calcium, potassium magnesium. Quite tachypneic this a.m. 01/02: Afebrile. Replacing phosphorus this a.m. Appears more comfortable on fentanyl and propofol drips. Remains on nicardipine drip at 6 mg an hour to maintain systolic blood pressure less than 140. Subjective 01/03: Afebrile. Currently on nicardipine 15 mg/h. Was off last night. Tube feeds currently at 30 cc an hour due to high residuals. Positive bowel movement 2. Remains on propofol and fentanyl drips. 01/04: Neuro exam remains unchanged, low-grade temperature noted. Poorly controlled hypertension with minimal stimulation becomes very hypotensive. Remains sedated with propofol and fentanyl. Will restart Cardene for blood pressure control to facilitate weaning trials 01/05: Remains intubated sedated. Neuro unchanged. Sedation restarted due to hypoxia and ventilator asynchrony. Increased ET tube secretions, chest x-ray showing bibasilar infiltrate. Currently FiO2 at 60%. Probable healthcare associated pneumonia, fever up to 101.3. Start vancomycin and cefepime. Unable to completely discontinue sedation due to uncontrolled hypertension 01/06: CT of the head done today shows evolving area of low density with trace associated intraparenchymal blood in the left temporal lobe identified. Clinically remains unchanged. Sputum culture growing E. coli and Enterobacter. Fever trending down after starting cefepime yesterday. Sedation with propofol will change to Precedex to facilitate neuro exam 01/07: Patient remains unresponsive, sedated only with Precedex at 0.5 mcg/kg/h. EEG showed Left hemisphere slowing. No epileptiform activity. Urine cx with Group D Enterococcus. Palliative care following, ALT CODE now Objective Vital Signs / I&O: Vital Signs 01/06/18 14:00 01/06/18 16:00 01/06/18 16:29 Temperature 99.0 F Pulse Rate 76 76 Respiratory Rate 16 19 Blood Pressure 122/58 L Pulse Oximetry 96 97 01/06/18 18:00 01/06/18 19:36 01/06/18 20:00 Temperature 99.6 F Pulse Rate 76 82 Respiratory Rate 23 21 Blood Pressure 157/72 H Pulse Oximetry 100 92 L 01/07/18 00:00 01/07/18 01:10 01/07/18 04:00 Temperature 99.2 F 99.2 F Pulse Rate 77 78 Respiratory Rate 19 16 19 Blood Pressure 130/59 L 187/76 H Pulse Oximetry 95 97 97 01/07/18 04:20 01/07/18 08:00 01/07/18 10:00 Temperature 98.9 F Pulse Rate 78 Respiratory Rate 16 22 22 Blood Pressure 158/72 H Pulse Oximetry 97 97 97 Intake & Output 01/06/18 01/07/18 01/07/18 18:59 06:59 18:59 Intake Total 599 / 599 1147 / 1147 100 / 100 Output Total 325 / 325 400 / 400 Balance 274 / 274 747 / 747 100 / 100 Weight 113 kg Intake: IV 50 / 50 490 / 490 100 / 100 Precedex Inj 200 MCG In NS Inj 50 / 50 150 / 150 100 / 100 48 ML @ 0.2 MCG/KG/HR 5.54 mls/ hr IV.CONT TITRATE PRN Rx#: [id number] Sodium Chloride 3% Inj 500 ML @ 240 / 240 10 mls/hr IV.SIG Q24H GRICELDA Rx#: [id number] Maxipime Inj 2,000 MG In NS Inj 100 / 100 100 ML @ 200 mls/hr IV.SIG Q12H GRICELDA Rx#:[id number] Tube Feeding 399 / 399 537 / 537 Tube Irrigant 150 / 150 120 / 120 Output: Urine Amount (Catheter) 325 / 325 400 / 400 Indwelling Urethral Catheter 325 / 325 400 / 400 Other: Date of Last Bowel Movement 01/06/18 01/07/18 01/07/18 # Bowel Movements 1 Result Diagrams: 01/06/18 06:00 01/07/18 11:42 Objective Remarks: GENERAL: 72-year-old female patient who is orotracheally intubated and sedated now with Precedex SKIN: Warm and dry, well-perfused HEAD: Normocephalic. Fiberoptic ICP removed 01/01. Left craniectomy site clean and dry without signs of infection. EYES: Pupils equal and round, sluggishly reactive. No scleral icterus. No injection or drainage. ENT: No nasal bleeding or discharge. Mucous membranes pink and moist. NECK: Trachea midline. No JVD. Obese. Right IJ is clean dry and intact. CARDIOVASCULAR: Regular rate and rhythm, S1, S2 no S 4. 2/6 systolic murmur left sternal border RESPIRATORY: Diminished due to body habitus. Clear anteriorly without wheezes, rales, rhonchi. GASTROINTESTINAL: Abdomen soft, non-tender, nondistended. Well-healed scar right upper quadrant. : Rushing in place with yellow urine output MUSCULOSKELETAL: Extremities with trace upper and lower extremity edema. Scar overlies left knee. L radial art line in place with distal perfusion intact. NEUROLOGICAL: Currently sedated with Precedex at 0.5 mcg/kg/hour. On sedation not moving upper lower extremities spontaneously. Winces to painful stimuli, partial eye opening. Very mild withdrawal Assessment and Plan - Assessment and Plan Plan: NEURO/PSYCH: Acute left subdural hematoma with mass-effect s/p left frontal temporal parietal decompressive craniectomy, evacuation of SDH and ICP monitor 12/30/[address] Uribe ICP monitor removed 01/[address] brain o residual subdural or mass-effect. F/u CT 01/06/18-an evolving area of low density with trace associated intraparenchymal blood in the left temporal lobe identified EEG 01/06: Left hemispheric slowing no seizures Was on warfarin for SMV/IMV thrombosis diagnosed 2008 with INR 2.8 upon presentation. Received prothrombin complex concentrate 25 units/KG and phytonodione 10 mg IV preoperatively. Repeat INR 1.2 on 12/31. Received mannitol 25 g IV in the emergency department 12/30 Levetiracetam 500 mg IV every 12 hours for seizure prophylaxis. Blood pressure management as per below. Goal 120-140 systolic Precedex to facilitate neuro exam. Use as needed fentanyl Holding pregabalin 50 mill grams p.o. twice daily RESP: Acute respiratory failure secondary to altered mental status Difficult airway Healthcare associated pneumonia [facility] /1.06/07/44. Ventilator bundle Albuterol/ipratropium aerosols every 4 hours with albuterol aerosols every 2 hours as needed for dyspnea Spontaneous breathing trials when clinically indicated. Mental status will not permit extubation Chest x-ray today with bibasilar infiltrates. Sputum culture E Coli, Enterobacter Continue vancomycin and cefepime Patient is on Ventolin HFA 90 mcg inhaler every 4 hours as needed. CV: Malignant hypertension Hypercholesterolemia Nicardipine drip to maintain systolic blood pressure less than 140, currently weaned off Continue Carvedilol 25 mg twice daily, amlodipine 10 mg daily. Hydralazine to 100 mg 3 times daily- ? Unavailable Continue losartan 50 BID (home med is valsartan 80 mg daily). Scheduled clonidine 0.2 mg every 8 hours As needed labetalol 10 mg every hour and clonidine 0.1 mg by tube every 4 hours. 01/01 2d Echo - Normal left ventricular size. LVEF 65-70%. 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 materials coordinator is Mariya Munoz [phone] Discussed with talent acquisition coordinator - Current tacrolimus dosing is 6 mg po [id number] with target trough 3-5. Ms Munoz provided history that warfarin is for Factor V Leiden heterozygosity and that it was managed by a vice president medical affairs outside of the [facility]. Family states it is Dr. Kaiser. Lansoprazole 30 mg daily for GI prophylaxis. Patient is on pantoprazole 40 mg daily at home. Docusate serum/senna 1 tablet twice daily for bowel regimen. Polythene glycol 17 g twice daily. F Tube feeds with vital high-protein Metoclopramide 10 mg 3 times daily FEN/RENAL: Chronic kidney disease stage IIIa Hypophosphatemia Hypernatremia Maintain Rushing. Monitor urine output Accurate I's and O's, ICU electrolyte protocol Currently on 3% saline at 10 cc an hour ID: Immunosuppressed state Healthcare associated pneumonia UTI Sepsis Appears to have developed healthcare associated pneumonia. Sputum culture E Coli, Enterobacter UTI with enterococcus Continue vancomycin and cefepime Received Claudia Operative cefazolin per neurosurgery. HEME/ONC: Warfarin induced coagulopathyINR 2.8 (resolved) Factor V Leiden heterozygosity - indication for chronic anticoagulation. 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 Resumed after liver translation 11/09 Thrombocytopenia, anemia, leukopenia Warfarin on hold. Ramp Jockey is Dr. Kaiser, she sees him in the [place] office. Spoke with Roseanna Lea, COMPUTATIONAL SCIENTIST with Dr. Kaiser who states Ms Cole was on warfarin due to Factor V Leiden heterozygosity with prior h/o portal vein thrombosis. The fact that she has now had spontaneous subdural while INR was therapeutic could preclude her from therapeutic anticoagulation indefinitely given heterozygosity for mutation. ENDO: Diabetes mellitus with acute hyperglycemia Hold linagliptin 5 mg p.o. every morning, hold insulin degludec flex touch 18 units subcu nightly. On Medium dose aspart insulin sliding scale every 4 hours (24 units last 24 hours). GLucose is >200 this morning. Insulin detemir 22 q12 PROPH: SCDs for DVT prophylaxis. Continue lansoprazole for stress ulcer prophylaxis and history of GERD ACCESS: Right IJ CVL day #7 placed 01/01. Left radial art line placed 12/30 in OR # 9 Full code CCT 35 MIN Patient is critically ill with severe encephalopathy from acute subdural hemorrhage and uncontrolled and malignant hypertension. No improvement in mentation. Now complicated with severe sepsis most likely from healthcare associated pneumonia and hypoxemic respiratory failure. Remains critically ill at this time Code Status: ALT CODE
--- NOTE | 2018-01-07 16:35 | P.PNNS ---
Subjective Interval history: Pt on Precedex. She is not opening eyes or following commands. <Ciaran Cotton - Last Filed: 01/07/18 16:27> Physical Exam Vital signs: Vital Signs 01/06/18 16:29 01/06/18 18:00 01/06/18 19:36 Temperature Pulse Rate 76 Respiratory Rate 19 23 Blood Pressure Pulse Oximetry 97 100 01/06/18 20:00 01/07/18 00:00 01/07/18 01:10 Temperature 99.6 F 99.2 F Pulse Rate 82 77 Respiratory Rate 21 19 16 Blood Pressure 157/72 H 130/59 L Pulse Oximetry 92 L 95 97 01/07/18 04:00 01/07/18 04:20 01/07/18 08:00 Temperature 99.2 F 98.9 F Pulse Rate 78 78 Respiratory Rate 19 16 22 Blood Pressure 187/76 H 158/72 H Pulse Oximetry 97 97 97 01/07/18 10:00 01/07/18 13:56 Temperature Pulse Rate Respiratory Rate 22 23 Blood Pressure Pulse Oximetry 97 96 Intake & Output 01/06/18 01/07/18 01/07/18 18:59 06:59 18:59 Intake Total 599 / 599 1147 / 1147 100 / 100 Output Total 325 / 325 400 / 400 Balance 274 / 274 747 / 747 100 / 100 Weight 113 kg Intake: IV 50 / 50 490 / 490 100 / 100 Precedex Inj 200 MCG In NS Inj 50 / 50 150 / 150 100 / 100 48 ML @ 0.2 MCG/KG/HR 5.54 mls/ hr IV.CONT TITRATE PRN Rx#: [id number] Sodium Chloride 3% Inj 500 ML @ 240 / 240 10 mls/hr IV.SIG Q24H GRICELDA Rx#: [id number] Maxipime Inj 2,000 MG In NS Inj 100 / 100 100 ML @ 200 mls/hr IV.SIG Q12H GRICELDA Rx#:[id number] Tube Feeding 399 / 399 537 / 537 Tube Irrigant 150 / 150 120 / 120 Output: Urine Amount (Catheter) 325 / 325 400 / 400 Indwelling Urethral Catheter 325 / 325 400 / 400 Other: Date of Last Bowel Movement 01/06/18 01/07/18 01/07/18 # Bowel Movements 1 - Constitutional no acute distress, obese Comments: Pt sedated on Precedex. - Routine HEENT Exam Head: Absent: normocephalic (left craniectomy site clean and dry.) Eye: Present: PERRL (Pupils 4mm bilaterally reactive bilaterally.) ENT: Absent: oropharynx clear (ET intubated.) - Routine Neck Exam Present: trachea midline - Routine Respiratory Exam Present: patient mechanically ventilated (PRVC A/C rate 16. Peep 7. FiO2 40%.) - Routine Cardiovascular Exam Present: RRR, S1, S2. Absent: murmur - Routine Abdominal Exam Present: soft, normoactive bowel sounds. Absent: distended - Routine Skin Exam Absent: cyanosis, erythema - Routine Neurological Exam Present: motor deficit (No spontaneous movement. Not following commands.). Absent: alert (Pupils 4mm bilaterally reactive bilaterally.) - Detailed Neurological Exam: Coma Scale Eye Opening: None Verbal Response: None Motor Response: None Rosalie Coma Scale Total: 3 - Routine Psychiatric Exam Present: unable to assess - Urinary Catheter Management Indwelling Urethral Catheter Cath placed during this visit: yes Reason for continuing: Hourly intake/output Insertion date: 12/30/17 Insertion time: 01:30 <Ciaran Cotton - Last Filed: 01/07/18 16:27> Vital signs: Vital Signs 01/07/18 10:00 01/07/18 12:00 01/07/18 13:56 Temperature 99.1 F Pulse Rate 72 Respiratory Rate 22 16 23 Blood Pressure 167/71 H Pulse Oximetry 97 96 96 01/07/18 14:00 01/07/18 16:00 01/07/18 18:00 Temperature 99.7 F H Pulse Rate 84 78 84 Respiratory Rate 24 Blood Pressure 157/67 H Pulse Oximetry 96 01/07/18 20:00 01/07/18 21:24 01/07/18 23:24 Temperature 99.8 F H Pulse Rate 88 95 H 78 Respiratory Rate 20 20 Blood Pressure 138/62 Pulse Oximetry 95 01/08/18 00:00 01/08/18 00:07 01/08/18 01:00 Temperature 99.2 F Pulse Rate 77 Respiratory Rate 23 20 20 Blood Pressure 168/71 H Pulse Oximetry 97 96 97 01/08/18 02:00 01/08/18 04:00 01/08/18 04:02 Temperature 99.0 F Pulse Rate 75 77 Respiratory Rate 23 20 Blood Pressure 155/57 H Pulse Oximetry 97 01/08/18 06:00 01/08/18 08:00 Temperature Pulse Rate 78 Respiratory Rate 16 Blood Pressure Pulse Oximetry 92 L Intake & Output 01/07/18 01/08/18 01/08/18 18:59 06:59 18:59 Intake Total 570 / 570 1892 / 1892 Output Total 500 / 500 400 / 400 Balance 70 / 70 1492 / 1492 Weight 114.1 kg Intake: IV 200 / 200 1330 / 1330 Precedex Inj 200 MCG In NS Inj 100 / 100 48 ML @ 0.2 MCG/KG/HR 5.54 mls/ hr IV.CONT TITRATE PRN Rx#: [id number] Cardene Inj 50 MG In NS Inj 230 1000 / 1000 ML @ 5 MG/HR 25 mls/hr IV.CONT TITRATE PRN Rx#:[id number] Sodium Chloride 3% Inj 500 ML @ 230 / 230 10 mls/hr IV.SIG Q24H GRICELDA Rx#: [id number] Maxipime Inj 2,000 MG In NS Inj 100 / 100 100 / 100 100 ML @ 200 mls/hr IV.SIG Q12H GRICELDA Rx#:[id number] Tube Feeding 280 / 280 442 / 442 Tube Irrigant 90 / 90 120 / 120 Output: Urine Amount (Catheter) 500 / 500 400 / 400 Indwelling Urethral Catheter 500 / 500 400 / 400 Other: Date of Last Bowel Movement 01/07/18 01/08/18 # Bowel Movements 1 2 # Incontinent Bowel Movements 2 - Urinary Catheter Management Indwelling Urethral Catheter Cath placed during this visit: no <Humza Borden - Last Filed: 01/08/18 09:42> Assessment and Plan - Assessment (1) Hypertensive emergency Code(s): I16.1 - Hypertensive emergency Status: Acute (2) Subdural hematoma Code(s): S06.5X9A - Traumatic subdural hemorrhage with loss of consciousness of unspecified duration, initial encounter Status: Acute - Plan Impression 72 y/o female s/p craniotomy for evacuation of SDH, placement of ICP monitor No significant change in neurologic exam over the past day Follow up CT head from 01/06/18 shows post op changes with bone flap removal and no significant subdural collection. Midline shift improved from preop. Plan: Continue neuro checks in a serial fashion. Continue blood pressure management Pulmonary: aggressive pulmonary toilette, nasotracheal suction, and breathing treatments with nebulizers. Daily PT and OT Renal: Continue to monitor closely urine output, BUN and creatinine Endocrine: Continue to Monitor serial Acu checks and SSI as needed in detail ID continue to monitor for signs of infection Continue Protonix for stress ulcer prophylaxis Continue James hose and SCD's for DVT prophylaxis <Ciaran Cotton - Last Filed: 01/07/18 16:27> - Attending Attestation The exam, history, and the medical decision-making described in the above note were completed with the assistance of the mid-level provider. I reviewed and agree with the findings presented. I attest that I had a [id number] encounter with the patient on the same day, and personally performed and documented my assessment and findings in the medical record. <Humza Borden - Last Filed: 01/08/18 09:42>
[2018-01-07] MEDS: niCARdipine Inj 50 MG in Sodium Chlor 0.9% Inj 230 ML IV.CONT PRN ×2 (19:27→23:02)
[2018-01-08] MEDS: Insulin NovoLOG Aspart Correctional Sugar Inj SQ SCH ×6 (00:19→22:07)
[2018-01-08] MEDS: niCARdipine Inj 50 MG in Sodium Chlor 0.9% Inj 230 ML IV.CONT PRN ×5 (02:33→17:31)
[2018-01-08] MEDS: Labetalol HCl Inj 100 MG/20 ML Vial IV.PUSH PRN ×3 (04:00→21:50)
--- NOTE | 2018-01-08 04:14 | XR ---
EXAM DATE: 01/08/2018 3:55 AM EDT AGE/SEX: 72 years / Female INDICATIONS: Respiratory disease. CLINICAL DATA: This is the patient's subsequent encounter. Patient reports that signs and symptoms h ave been present for 2 weeks and indicates a pain score of Nonresponsive. MEDICAL/SURGICAL HISTORY: . Hypertension. Diabetes mellitus type II. None. COMPARISON: [facility] [place], CHEST 1V SINGLE AP, 01/06/2018. [facility] [place], CHEST 1V SINGLE AP, 01/05/2018. . FINDINGS: Portable AP view of the chest demonstrates a normal size cardiac silhouette. Endotracheal tube, nasog astric tube, and right IJ line remain present. Multiple lines overlie the patient. There is right bas ilar pleural-parenchymal opacity with possible opacity in the right upper lobe. No pneumothorax is id entified. Bones demonstrate no acute finding. CONCLUSION: Stable chest x-ray with right basilar pleural-parenchymal opacity likely representing airspace consol idation with small pleural effusion. Electronically signed by: Leonardo Collier MD 01/08/2018 4:13 AM EDT
[2018-01-08 05:14] LABS: Hematocrit 23.3 % (35.0-46.0); Hemoglobin 7.6 gm/dL (11.6-15.3); Mean Corpuscular HGB Conc 32.5 % (32.0-36.0); Mean Corpuscular Hemoglobin 30.3 pg (27.0-34.0); Mean Corpuscular Volume 93.2 fL (80.0-100.0); Platelet Count 126 th/mm3 (150-450); Red Cell Distribution Width 14.6 % (11.6-17.2); White Blood Count 4.3 th/mm3 (4.0-11.0)
[2018-01-08 05:18] LABS: Alanine Aminotransferase 21 U/L (10-53); Albumin 1.5 g/dL (3.4-5.0); Alkaline Phosphatase 58 U/L (45-117); Anion Gap 7 meq/L (5-15); Aspartate Aminotransferase 19 U/L (15-37); Blood Urea Nitrogen 58 mg/dL (7-18); Calcium 8.1 mg/dL (8.5-10.1); Carbon Dioxide 24.4 meq/L (21.0-32.0); Chloride 124 meq/L (98-107); Glomerular Filtration Rate 34 mL/min (>89); Glucose,Random 132 mg/dL (74-106); Magnesium 2.5 mg/dL (1.5-2.5); Sodium 155 meq/L (136-145); Total Protein 5.6 g/dL (6.4-8.2)
[2018-01-08] MEDS: amLODIPine 10 MG Tablet NG/OG SCH (10:00)
[2018-01-08] MEDS: Senna/Docusate Sodium 8.6/50 MG Tablet PO SCH ×2 (10:00→21:38)
[2018-01-08] MEDS: Carvedilol 12.5 MG Tablet PO SCH ×2 (10:00→21:41)
[2018-01-08] MEDS: Glycerin Adult 2 GM Supp RECTAL SCH ×2 (10:01→22:04)
[2018-01-08] MEDS: Polyethylene Glycol 3350 17 GM Packet NG/OG SCH ×2 (10:02→22:03)
[2018-01-08] MEDS: Hypromellose 0.3% Opth Gel 10 GM Bottle EACH EYE SCH ×2 (10:10→21:42)
[2018-01-08] MEDS: Insulin Detemir Inj 1,000 UNIT/10 ML Vial SQ SCH ×2 (10:32→22:15)
[2018-01-08] MEDS ORDERED: Pharmacy Ordered Lab Info OTHER ONE (12:45)
--- NOTE | 2018-01-08 13:13 | P.DIET ---
Nutritional Evaluation Type of nutrition evaluation: follow-up Nutrition consult regarding: Tube Feeding Nutrition screening: [facility] [place] Screening comments: [facility] TF'ing Objective - Diagnosis Subdural Hemorrhage - Objective [place] body weight: 50 kg % IBW: 210 Body Weight Used for Calculations: IBW (IBW used for Kcal needs and Actual wt 100kg used for protein needs) Energy Needs - Lower Range (kCal/kg): 28 Energy Needs - Upper Range (kCal/kg): 33 Lower Limit kCal/kg (kCals): 1,400 Upper Limit kCal/kg (kCals): 1,650 Lower Limit Protein Factor (Grams per Kg): 2.0 Upper Limit Protein Factor (Grams per Kg): 2.3 Lower Protein Needs (Protein): 100 Upper Protein Needs (Protein): 115 Dietitian Reviewed in Medical Record: Curent medications, Intake & Output, Labs , Medical history, Tube feeding Diet Order: TF'ing only: Vital High Protein @ goal rate 50ml/hr Objective Comments: PMH Includes: HTN, DN, Liver Transplant 2010, Chronic anticoagulation w/Warfarin , GERD, HTN Labs Include: Creatinine 1.51, estGFR 34, Glucose 132, Accucheck 117 Meds Include: Novolog SSI, Levemir, Lactulose, Prevacid, Prograf +2BM, -UOP 900ml Feeding - Current Tube Feeding Tube Feeding Product: Glucerna 1.5 Tube Feeding Rate: 50 Current kCals Provided by Tube Feedin,800 Current Protein Provided by Tube Feeding (gPRO): 99 Current Free H2O Provided (m/l): 911 Assessment Assessment: Pt is at nutritional risk r/t need for TF'ing. Previous TF'ing Rec was for Vital High Protein @ goal rate 50ml/hr. Pt continues to receive TF'ing w/ Glucerna 1.5 and Propofol has been discontinued. Therefore, to meet pt's needs w /Glucerna 1.5, Rec a goal rate @ 45ml/hr PLUS Beneprotein packet TID to offer 1695 kcal, 107g Protein and 820ml free water. Labs reviewed-continue to monitor renal labs closely. Wt changes noted w/an increase of 8.9kg since admission. Additional Recs r/t Clinical Course. Recommendations: 1. Pt continues to receive TF'ing w/Glucerna 1.5 2. To meet pt's needs w/Glucerna 1.5, Rec a goal rate @ 45ml/hr PLUS Beneprotein packet TID 3. Additional Recs r/t Clinical Course Dietitian to Monitor: Lab values, Renal labs, Liver enzymes, Glucose level, Intake & Output, Tube feeding tolerance, Weight change, Medical course
[2018-01-08] MEDS: Vancomycin Inj 1,250 MG in Sodium Chlor 0.9% Inj 250 ML IV.SIG SCH (13:26)
--- NOTE | 2018-01-08 15:28 | P.PNCC ---
Subjective Subjective Remarks/Hospital Course: 72-year-old female with past medical history of hypertension, diabetes , prior liver transplant in 2010, on chronic anticoagulation for warfarin (per family report due to prior hx of portal vein thrombosis prior to her transplant) . She reportedly got up to go to the bathroom around 10 PM. She developed headache, nausea and multiple episodes of vomiting. There is no reported head trauma. CT brain demonstrates left subdural hematoma with 1 cm left to right shift. INR 2.8. Administering k Centra 25 U/kg, vitamin K 10 mg IV. Blood pressure 169/75. Initiating Cardene drip. Dr. Uribe has been consulted and will be taking patient emergently to operating room following correction of coagulopathy. 12/31 Underwent Left frontal temporal parietal decompressive craniectomy, evacuation of acute subdural hematoma on 12/[address] Uribe R frontal fiberoptic ICP monitor also in place. ICPs are <3. Repeat CT brain this morning demonstrates no residual subdural. Mass-effect is resolved. Remains on mechanical ventilation and cardene drip for hypertension management. 01/01: No acute events overnight. T-max 99.9. No bowel movement. Replacing calcium, potassium magnesium. Quite tachypneic this a.m. 01/02: Afebrile. Replacing phosphorus this a.m. Appears more comfortable on fentanyl and propofol drips. Remains on nicardipine drip at 6 mg an hour to maintain systolic blood pressure less than 140. Subjective 01/03: Afebrile. Currently on nicardipine 15 mg/h. Was off last night. Tube feeds currently at 30 cc an hour due to high residuals. Positive bowel movement 2. Remains on propofol and fentanyl drips. 01/04: Neuro exam remains unchanged, low-grade temperature noted. Poorly controlled hypertension with minimal stimulation becomes very hypotensive. Remains sedated with propofol and fentanyl. Will restart Cardene for blood pressure control to facilitate weaning trials 01/05: Remains intubated sedated. Neuro unchanged. Sedation restarted due to hypoxia and ventilator asynchrony. Increased ET tube secretions, chest x-ray showing bibasilar infiltrate. Currently FiO2 at 60%. Probable healthcare associated pneumonia, fever up to 101.3. Start vancomycin and cefepime. Unable to completely discontinue sedation due to uncontrolled hypertension 01/06: CT of the head done today shows evolving area of low density with trace associated intraparenchymal blood in the left temporal lobe identified. Clinically remains unchanged. Sputum culture growing E. coli and Enterobacter. Fever trending down after starting cefepime yesterday. Sedation with propofol will change to Precedex to facilitate neuro exam 01/07: Patient remains unresponsive, sedated only with Precedex at 0.5 mcg/kg/h. EEG showed Left hemisphere slowing. No epileptiform activity. Urine cx with Group D Enterococcus. Palliative care following, ALT CODE now. 01/08: Osmolality suitably concentrated. Left hemispheric swelling remains problematic. Unable to elicit any response today. Culture results well covered with antibiotics. Objective Vital Signs / I&O: Vital Signs 01/07/18 16:00 01/07/18 18:00 01/07/18 20:00 Temperature 99.7 F H 99.8 F H Pulse Rate 78 84 88 Respiratory Rate 24 20 Blood Pressure 157/67 H 138/62 Pulse Oximetry 96 95 01/07/18 21:24 01/07/18 23:24 01/08/18 00:00 Temperature 99.2 F Pulse Rate 95 H 78 77 Respiratory Rate 20 23 Blood Pressure 168/71 H Pulse Oximetry 97 01/08/18 00:07 01/08/18 01:00 01/08/18 02:00 Temperature Pulse Rate 75 Respiratory Rate 20 20 Blood Pressure Pulse Oximetry 96 97 01/08/18 04:00 01/08/18 04:02 01/08/18 06:00 Temperature 99.0 F Pulse Rate 77 78 Respiratory Rate 23 20 Blood Pressure 155/57 H Pulse Oximetry 97 01/08/18 08:00 Temperature Pulse Rate Respiratory Rate 16 Blood Pressure Pulse Oximetry 92 L Intake & Output 01/07/18 01/08/18 01/08/18 18:59 06:59 18:59 Intake Total 570 / 570 1892 / 1892 600 / 600 Output Total 500 / 500 400 / 400 Balance 70 / 70 1492 / 1492 600 / 600 Weight 114.1 kg Intake: IV 200 / 200 1330 / 1330 600 / 600 Precedex Inj 200 MCG In NS Inj 100 / 100 48 ML @ 0.2 MCG/KG/HR 5.54 mls/ hr IV.CONT TITRATE PRN Rx#: [id number] Cardene Inj 50 MG In NS Inj 230 1000 / 1000 500 / 500 ML @ 5 MG/HR 25 mls/hr IV.CONT TITRATE PRN Rx#:[id number] Sodium Chloride 3% Inj 500 ML @ 230 / 230 10 mls/hr IV.SIG Q24H [facility] Rx#: [id number] Maxipime Inj 2,000 MG In NS Inj 100 / 100 100 / 100 100 / 100 100 ML @ 200 mls/hr IV.SIG Q12H [facility] Rx#:[id number] Vancomycin Inj 1,250 MG In NS 0 / 0 Inj 250 ML @ 250 mls/hr IV.SIG Q24H [facility] Rx#:[id number] Tube Feeding 280 / 280 442 / 442 Tube Irrigant 90 / 90 120 / 120 Output: Urine Amount (Catheter) 500 / 500 400 / 400 Indwelling Urethral Catheter 500 / 500 400 / 400 Other: Date of Last Bowel Movement 01/07/18 01/08/18 # Bowel Movements 1 2 # Incontinent Bowel Movements 2 Result Diagrams: 01/08/18 04:40 01/08/18 04:40 Objective Remarks: GENERAL: 72-year-old female patient who is orotracheally intubated and minimally sedated now with Precedex SKIN: Warm and dry, well-perfused HEAD: Normocephalic. Fiberoptic ICP removed 01/01. Left craniectomy site clean and dry without signs of infection. EYES: Pupils equal and round, sluggishly reactive. No scleral icterus. No injection or drainage. ENT: No nasal bleeding or discharge. Mucous membranes pink and moist. NECK: Trachea midline. Obese. Right IJ is clean dry and intact. CARDIOVASCULAR: Regular rate and rhythm, S1, S2 no S 4. 2/6 systolic murmur left sternal border. No JVD. RESPIRATORY: Diminished in bases due to body habitus. Clear anteriorly without wheezes, rales, rhonchi. GASTROINTESTINAL: Abdomen soft, non-tender, nondistended. Well-healed scar right upper quadrant. No guarding. Bowel sounds present. : Rushing in place with yellow urine output MUSCULOSKELETAL: Extremities with some upper and lower extremity edema. Scar overlies left knee. L radial art line in place with distal perfusion intact. NEUROLOGICAL: Currently sedated with Precedex at 0.5 mcg/kg/hour. On sedation not moving upper lower extremities spontaneously. Winces to painful stimuli, partial eye opening. Very mild withdrawal only. Assessment and Plan - Assessment and Plan Plan: NEURO/PSYCH: Acute left subdural hematoma with mass-effect s/p left frontal temporal parietal decompressive craniectomy, evacuation of SDH and ICP monitor 12/30/[address] Uribe ICP monitor removed 01/[address] brain o residual subdural or mass-effect. F/u CT 01/06/18-an evolving area of low density with trace associated intraparenchymal blood in the left temporal lobe identified EEG 01/06: Left hemispheric slowing no seizures Was on warfarin for SMV/IMV thrombosis diagnosed 2008 with INR 2.8 upon presentation. Received prothrombin complex concentrate 25 units/KG and phytonodione 10 mg IV preoperatively. Repeat INR 1.2 on 12/31. Received mannitol 25 g IV in the emergency department 12/30 Levetiracetam 500 mg IV every 12 hours for seizure prophylaxis. Blood pressure management as per below. Goal 120-140 systolic Precedex to facilitate neuro exam. Use as needed fentanyl Holding pregabalin 50 mill grams p.o. twice daily RESP: Acute respiratory failure secondary to altered mental status Difficult airway Healthcare associated pneumonia [facility] 15550/1.06/07/44. Ventilator bundle Albuterol/ipratropium aerosols every 4 hours with albuterol aerosols every 2 hours as needed for dyspnea Spontaneous breathing trials when clinically indicated. Mental status will not permit extubation Chest x-ray today with bibasilar infiltrates. Sputum culture E Coli, Enterobacter Continue vancomycin and cefepime CV: Malignant hypertension Hypercholesterolemia Nicardipine drip to maintain systolic blood pressure less than 140, currently weaned off Continue Carvedilol 25 mg twice daily, amlodipine 10 mg daily. Hydralazine to 100 mg 3 times daily- ? Unavailable Continue losartan 50 BID (home med is valsartan 80 mg daily). Scheduled clonidine 0.2 mg every 8 hours As needed labetalol 10 mg every hour and clonidine 0.1 mg by tube every 4 hours. 01/01 2d Echo - Normal left ventricular size. LVEF 65-70%. 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 senior clinical data coordinator is Mariya Munoz [phone] Discussed with product coordinator - Current tacrolimus dosing is 6 mg po [id number] with target trough 3-5. Ms Munoz provided history that warfarin is for Factor V Leiden heterozygosity and that it was managed by a health director outside of the [facility] system. Family states it is Dr. Kaiser. Lansoprazole 30 mg daily for GI prophylaxis. Patient is on pantoprazole 40 mg daily at home. Docusate serum/senna 1 tablet twice daily for bowel regimen. Polythene glycol 17 g twice daily. F Tube feeds with vital high-protein Metoclopramide 10 mg 3 times daily FEN/RENAL: Chronic kidney disease stage IIIa Hypophosphatemia Hypernatremia Maintain Rushing. Monitor urine output Accurate I's and O's, ICU electrolyte protocol Currently on 3% saline at 10 cc an hour Follow serum osmolality closely ID: Immunosuppressed state Healthcare associated pneumonia UTI Sepsis Appears to have developed healthcare associated pneumonia. Sputum culture E Coli, Enterobacter UTI with enterococcus Continue vancomycin and cefepime Received Claudia Operative cefazolin per neurosurgery. HEME/ONC: Warfarin induced coagulopathyINR 2.8 (resolved) Factor V Leiden heterozygosity - indication for chronic anticoagulation. 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 Resumed after liver translation 11/09 Thrombocytopenia, anemia, leukopenia Warfarin on hold. Residential Assistant is Dr. Kaiser, she sees him in the [place] office. Spoke with ELAINE Chandler with Dr. Kaiser who states Ms Cole was on warfarin due to Factor V Leiden heterozygosity with prior h/o portal vein thrombosis. The fact that she has now had spontaneous subdural while INR was therapeutic could preclude her from therapeutic anticoagulation indefinitely given heterozygosity for mutation. ENDO: Diabetes mellitus with acute hyperglycemia Hold linagliptin 5 mg p.o. every morning, hold insulin degludec flex touch 18 units subcu nightly. On Medium dose aspart insulin sliding scale every 4 hours (24 units last 24 hours). GLucose is >200 this morning. Insulin detemir 22 q12 PROPH: SCDs for DVT prophylaxis. Continue lansoprazole for stress ulcer prophylaxis and history of GERD ACCESS: Right IJ CVL day #7 placed 01/01, DC. Left radial art line placed 12/30 in OR #9 Full code Overall impression: Patient is critically ill with severe encephalopathy from acute subdural hemorrhage and cerebral edema. Care now complicated with severe sepsis most likely from healthcare associated pneumonia and hypoxemic respiratory failure. Remains critically ill at this time, prognosis poor. Critical Care 40 mins
--- NOTE | 2018-01-08 15:54 | P.PNPAL ---
Reason for Visit Reason for visit: a. To assist with evaluation and management of symptoms including: Dyspnea, encephalopathy, pain b. To assist medical decision maker(s) with: better understanding of current medical conditions; weighing benefits/burdens of medical treatment options; making medical treatment decisions. Subjective Subjective/Interval History: INTERVAL NOTE: Rechecking patient to assess pain, dyspnea, encephalopathy Neurologically, the patient seems about the same, although family reports that she open her eyes a couple times (but did not track). She is breathing a few breaths over the ventilator. EEG revealed left hemispheric slowing. She has been off the Precedex for a day, and is on no sedating medications.. Family/Friend Interactions: I met with the and both daughters again. They are aware that this spontaneous eye opening does NOT likely mean the patient will "wake up and be normal again." They also aware that they face the decision about tracheostomy and long-term care versus compassionate withdrawal of life support in the next 3 or 4 days. Objective Vital Signs: Vital Signs 01/07/18 16:00 01/07/18 18:00 01/07/18 20:00 Temperature 99.7 F H 99.8 F H Pulse Rate 78 84 88 Respiratory Rate 24 20 Blood Pressure 157/67 H 138/62 Pulse Oximetry 96 95 01/07/18 21:24 01/07/18 23:24 01/08/18 00:00 Temperature 99.2 F Pulse Rate 95 H 78 77 Respiratory Rate 20 23 Blood Pressure 168/71 H Pulse Oximetry 97 01/08/18 00:07 01/08/18 01:00 01/08/18 02:00 Temperature Pulse Rate 75 Respiratory Rate 20 20 Blood Pressure Pulse Oximetry 96 97 01/08/18 04:00 01/08/18 04:02 01/08/18 06:00 Temperature 99.0 F Pulse Rate 77 78 Respiratory Rate 23 20 Blood Pressure 155/57 H Pulse Oximetry 97 01/08/18 08:00 01/08/18 12:30 01/08/18 15:35 Temperature Pulse Rate Respiratory Rate 16 24 16 Blood Pressure Pulse Oximetry 92 L 98 98 Intake & Output 01/07/18 01/08/18 01/08/18 18:59 06:59 18:59 Intake Total 570 / 570 1892 / 1892 600 / 600 Output Total 500 / 500 400 / 400 Balance 70 / 70 1492 / 1492 600 / 600 Weight 114.1 kg Intake: IV 200 / 200 1330 / 1330 600 / 600 Precedex Inj 200 MCG In NS Inj 100 / 100 48 ML @ 0.2 MCG/KG/HR 5.54 mls/ hr IV.CONT TITRATE PRN Rx#: [id number] Cardene Inj 50 MG In NS Inj 230 1000 / 1000 500 / 500 ML @ 5 MG/HR 25 mls/hr IV.CONT TITRATE PRN Rx#:[id number] Sodium Chloride 3% Inj 500 ML @ 230 / 230 10 mls/hr IV.SIG Q24H GRICELDA Rx#: [id number] Maxipime Inj 2,000 MG In NS Inj 100 / 100 100 / 100 100 / 100 100 ML @ 200 mls/hr IV.SIG Q12H GRICELDA Rx#:[id number] Vancomycin Inj 1,250 MG In NS 0 / 0 Inj 250 ML @ 250 mls/hr IV.SIG Q24H GRICELDA Rx#:[id number] Tube Feeding 280 / 280 442 / 442 Tube Irrigant 90 / 90 120 / 120 Output: Urine Amount (Catheter) 500 / 500 400 / 400 Indwelling Urethral Catheter 500 / 500 400 / 400 Other: Date of Last Bowel Movement 01/07/18 01/08/18 # Bowel Movements 1 2 # Incontinent Bowel Movements 2 Physical Exam: CONSTITUTIONAL/GENERAL: This is an adequately nourished patient, in no apparent distress; unresponsive, intubated. TUBES/LINES/DRAINS: ET tube, OG tube, SCDs, central line EYES: Pupils equal and round, 2 mm. CARDIOVASCULAR: Regular rate and rhythm without murmurs, gallops, or rubs. No JVD. Peripheral pulses symmetric. RESPIRATORY/CHEST: Symmetric, unlabored respirations. Scattered rhonchi. GASTROINTESTINAL: Abdomen soft, non-tender, nondistended. No hepato-splenomegaly , or palpable masses. No guarding. Bowel sounds present. MUSCULOSKELETAL: Extremities without clubbing, cyanosis, or edema. No joint tenderness or effusion noted. No calf tenderness. No mottling or clubbing. NEUROLOGICAL: Does not respond to voice, touch, or pain to me, but the daughters reported that the patient opened her eyes briefly. PSYCHIATRIC: Unable to assess due to clinical condition. Diagnostic Tests Laboratory: Laboratory Results - last 72 hr 01/05/18 01/05/18 01/05/18 16:37 19:30 19:30 WBC RBC Hgb Hct MCV MCH MCHC RDW Plt Count MPV Puncture Site Patient Temperature O2 Saturation ABG pH ABG pCO2 ABG pO2 ABG HCO3 ABG O2 Content ABG Base Excess ABG Methemoglobin Kojo Test Hemoglobin Carboxyhemoglobin O2 Delivery Device Vent Setting Inspired O2 Critical Value Sodium 153 H Potassium Chloride Carbon Dioxide Anion Gap BUN Creatinine Estimated GFR POC Glucose 202 H Random Glucose Osmolality 326 H Calcium Magnesium Total Bilirubin AST ALT Alkaline Phosphatase Ammonia Total Protein Albumin Urine Color Urine Clarity Urine pH Ur Specific [place] Urine Protein Urine Glucose (UA) Urine Ketones Urine Occult Blood Urine Nitrate Urine Bilirubin Urine Urobilinogen Ur Leukocyte Esterase Urine RBC Urine WBC Urine WBC Clumps Ur Squamous Epith Cells Urine Bacteria Granular Casts Urine Mucus Micro UA Comment Urine Culture Comments Random Vancomycin Tacrolimus 01/05/18 01/05/18 01/06/18 20:15 20:15 00:30 WBC RBC Hgb Hct MCV MCH MCHC RDW Plt Count MPV Puncture Site Patient Temperature O2 Saturation ABG pH ABG pCO2 ABG pO2 ABG HCO3 ABG O2 Content ABG Base Excess ABG Methemoglobin Kojo Test Hemoglobin Carboxyhemoglobin O2 Delivery Device Vent Setting Inspired O2 Critical Value Sodium 152 H Potassium Chloride Carbon Dioxide Anion Gap BUN Creatinine Estimated GFR POC Glucose 197 H Random Glucose Osmolality 328 H Calcium Magnesium Total Bilirubin AST ALT Alkaline Phosphatase Ammonia Total Protein Albumin Urine Color Pepper Urine Clarity Cloudy H Urine pH 5.0 Ur Specific [place] 1.034 Urine Protein 100 H Urine Glucose (UA) Negative Urine Ketones Trace H Urine Occult Blood Negative Urine Nitrate Negative Urine Bilirubin Negative Urine Urobilinogen 2.0 H Ur Leukocyte Esterase Moderate H Urine RBC 3 Urine WBC 166 H Urine WBC Clumps Rare H Ur Squamous Epith Cells 2 Urine Bacteria Moderate H Granular Casts 6 Urine Mucus Few H Micro UA Comment Culture indicated Urine Culture Comments Culture indicated Random Vancomycin Tacrolimus 01/06/18 01/06/18 01/06/18 00:31 03:37 06:00 WBC RBC Hgb Hct MCV MCH MCHC RDW Plt Count MPV Puncture Site Patient Temperature O2 Saturation ABG pH ABG pCO2 ABG pO2 ABG HCO3 ABG O2 Content ABG Base Excess ABG Methemoglobin Kojo Test Hemoglobin Carboxyhemoglobin O2 Delivery Device Vent Setting Inspired O2 Critical Value Sodium 153 H Potassium 3.9 Chloride 119 H Carbon Dioxide 22.6 Anion Gap 11 BUN 47 H Creatinine 1.49 H Estimated GFR 35 L POC Glucose 200 H 210 H Random Glucose 160 H Osmolality 328 H Calcium 8.3 L Magnesium Total Bilirubin 0.4 AST 20 ALT 22 Alkaline Phosphatase 57 Ammonia Total Protein 5.3 L Albumin 1.6 L Urine Color Urine Clarity Urine pH Ur Specific [place] Urine Protein Urine Glucose (UA) Urine Ketones Urine Occult Blood Urine Nitrate Urine Bilirubin Urine Urobilinogen Ur Leukocyte Esterase Urine RBC Urine WBC Urine WBC Clumps Ur Squamous Epith Cells Urine Bacteria Granular Casts Urine Mucus Micro UA Comment Urine Culture Comments Random Vancomycin Tacrolimus 01/06/18 01/06/18 01/06/18 06:00 06:00 07:51 WBC 2.7 L RBC 2.38 L Hgb 7.4 L Hct 21.9 L MCV 92.2 MCH 31.1 MCHC 33.8 RDW 14.5 Plt Count 102 L MPV 8.0 Puncture Site Patient Temperature O2 Saturation ABG pH ABG pCO2 ABG pO2 ABG HCO3 ABG O2 Content ABG Base Excess ABG Methemoglobin Kojo Test Hemoglobin Carboxyhemoglobin O2 Delivery Device Vent Setting Inspired O2 Critical Value Sodium Potassium Chloride Carbon Dioxide Anion Gap BUN Creatinine Estimated GFR POC Glucose 148 H Random Glucose Osmolality Calcium Magnesium Total Bilirubin AST ALT Alkaline Phosphatase Ammonia Total Protein Albumin Urine Color Urine Clarity Urine pH Ur Specific [place] Urine Protein Urine Glucose (UA) Urine Ketones Urine Occult Blood Urine Nitrate Urine Bilirubin Urine Urobilinogen Ur Leukocyte Esterase Urine RBC Urine WBC Urine WBC Clumps Ur Squamous Epith Cells Urine Bacteria Granular Casts Urine Mucus Micro UA Comment Urine Culture Comments Random Vancomycin Tacrolimus Less than 2.0 L 01/06/18 01/06/18 01/06/18 13:23 14:30 16:06 WBC RBC Hgb Hct MCV MCH MCHC RDW Plt Count MPV Puncture Site Patient Temperature O2 Saturation ABG pH ABG pCO2 ABG pO2 ABG HCO3 ABG O2 Content ABG Base Excess ABG Methemoglobin Kojo Test Hemoglobin Carboxyhemoglobin O2 Delivery Device Vent Setting Inspired O2 Critical Value Sodium Potassium Chloride Carbon Dioxide Anion Gap BUN Creatinine Estimated GFR POC Glucose 186 H 178 H Random Glucose Osmolality Calcium Magnesium Total Bilirubin AST ALT Alkaline Phosphatase Ammonia Less than 10 L Total Protein Albumin Urine Color Urine Clarity Urine pH Ur Specific [place] Urine Protein Urine Glucose (UA) Urine Ketones Urine Occult Blood Urine Nitrate Urine Bilirubin Urine Urobilinogen Ur Leukocyte Esterase Urine RBC Urine WBC Urine WBC Clumps Ur Squamous Epith Cells Urine Bacteria Granular Casts Urine Mucus Micro UA Comment Urine Culture Comments Random Vancomycin Tacrolimus 01/06/18 01/06/18 01/06/18 19:22 20:25 23:54 WBC RBC Hgb Hct MCV MCH MCHC RDW Plt Count MPV Puncture Site Patient Temperature O2 Saturation ABG pH ABG pCO2 ABG pO2 ABG HCO3 ABG O2 Content ABG Base Excess ABG Methemoglobin Kojo Test Hemoglobin Carboxyhemoglobin O2 Delivery Device Vent Setting Inspired O2 Critical Value Sodium 151 H Potassium Chloride Carbon Dioxide Anion Gap BUN Creatinine Estimated GFR POC Glucose 167 H 172 H Random Glucose Osmolality 330 H Calcium Magnesium Total Bilirubin AST ALT Alkaline Phosphatase Ammonia Total Protein Albumin Urine Color Urine Clarity Urine pH Ur Specific [place] Urine Protein Urine Glucose (UA) Urine Ketones Urine Occult Blood Urine Nitrate Urine Bilirubin Urine Urobilinogen Ur Leukocyte Esterase Urine RBC Urine WBC Urine WBC Clumps Ur Squamous Epith Cells Urine Bacteria Granular Casts Urine Mucus Micro UA Comment Urine Culture Comments Random Vancomycin Tacrolimus 01/07/18 01/07/18 01/07/18 03:41 06:45 08:13 WBC RBC Hgb Hct MCV MCH MCHC RDW Plt Count MPV Puncture Site Patient Temperature O2 Saturation ABG pH ABG pCO2 ABG pO2 ABG HCO3 ABG O2 Content ABG Base Excess ABG Methemoglobin Kojo Test Hemoglobin Carboxyhemoglobin O2 Delivery Device Vent Setting Inspired O2 Critical Value Sodium 152 H Potassium Chloride Carbon Dioxide Anion Gap BUN Creatinine Estimated GFR POC Glucose 180 H 175 H Random Glucose Osmolality 334 H Calcium Magnesium Total Bilirubin AST ALT Alkaline Phosphatase Ammonia Total Protein Albumin Urine Color Urine Clarity Urine pH Ur Specific [place] Urine Protein Urine Glucose (UA) Urine Ketones Urine Occult Blood Urine Nitrate Urine Bilirubin Urine Urobilinogen Ur Leukocyte Esterase Urine RBC Urine WBC Urine WBC Clumps Ur Squamous Epith Cells Urine Bacteria Granular Casts Urine Mucus Micro UA Comment Urine Culture Comments Random Vancomycin 20.7 Tacrolimus 01/07/18 01/07/18 01/07/18 08:51 11:42 12:51 WBC RBC Hgb Hct MCV MCH MCHC RDW Plt Count MPV Puncture Site Right radial Patient Temperature 98.6 O2 Saturation 94 ABG pH 7.46 H ABG pCO2 33 L ABG pO2 86 ABG HCO3 23 ABG O2 Content 13.7 ABG Base Excess -0.8 ABG Methemoglobin 1.2 Kojo Test Present Hemoglobin 10.3 L Carboxyhemoglobin 1.4 O2 Delivery Device Ventilator Vent Setting Inspired O2 40 Critical Value No Sodium 154 H Potassium Chloride Carbon Dioxide Anion Gap BUN Creatinine Estimated GFR POC Glucose 95 Random Glucose Osmolality 334 H Calcium Magnesium Total Bilirubin AST ALT Alkaline Phosphatase Ammonia Total Protein Albumin Urine Color Urine Clarity Urine pH Ur Specific [place] Urine Protein Urine Glucose (UA) Urine Ketones Urine Occult Blood Urine Nitrate Urine Bilirubin Urine Urobilinogen Ur Leukocyte Esterase Urine RBC Urine WBC Urine WBC Clumps Ur Squamous Epith Cells Urine Bacteria Granular Casts Urine Mucus Micro UA Comment Urine Culture Comments Random Vancomycin Tacrolimus 01/07/18 01/07/18 01/08/18 17:07 20:55 00:06 WBC RBC Hgb Hct MCV MCH MCHC RDW Plt Count MPV Puncture Site Patient Temperature O2 Saturation ABG pH ABG pCO2 ABG pO2 ABG HCO3 ABG O2 Content ABG Base Excess ABG Methemoglobin Kojo Test Hemoglobin Carboxyhemoglobin O2 Delivery Device Vent Setting Inspired O2 Critical Value Sodium Potassium Chloride Carbon Dioxide Anion Gap BUN Creatinine Estimated GFR POC Glucose 122 H 111 H 158 H Random Glucose Osmolality Calcium Magnesium Total Bilirubin AST ALT Alkaline Phosphatase Ammonia Total Protein Albumin Urine Color Urine Clarity Urine pH Ur Specific [place] Urine Protein Urine Glucose (UA) Urine Ketones Urine Occult Blood Urine Nitrate Urine Bilirubin Urine Urobilinogen Ur Leukocyte Esterase Urine RBC Urine WBC Urine WBC Clumps Ur Squamous Epith Cells Urine Bacteria Granular Casts Urine Mucus Micro UA Comment Urine Culture Comments Random Vancomycin Tacrolimus 01/08/18 01/08/18 01/08/18 04:40 04:40 08:19 WBC 4.3 RBC 2.50 L Hgb 7.6 L Hct 23.3 L MCV 93.2 MCH 30.3 MCHC 32.5 RDW 14.6 Plt Count 126 L MPV 8.0 Puncture Site Patient Temperature O2 Saturation ABG pH ABG pCO2 ABG pO2 ABG HCO3 ABG O2 Content ABG Base Excess ABG Methemoglobin Kojo Test Hemoglobin Carboxyhemoglobin O2 Delivery Device Vent Setting Inspired O2 Critical Value Sodium 155 H Potassium 4.0 Chloride 124 H Carbon Dioxide 24.4 Anion Gap 7 BUN 58 H Creatinine 1.51 H Estimated GFR 34 L POC Glucose 167 H Random Glucose 132 H Osmolality Calcium 8.1 L Magnesium 2.5 Total Bilirubin 0.4 AST 19 ALT 21 Alkaline Phosphatase 58 Ammonia Total Protein 5.6 L Albumin 1.5 L Urine Color Urine Clarity Urine pH Ur Specific [place] Urine Protein Urine Glucose (UA) Urine Ketones Urine Occult Blood Urine Nitrate Urine Bilirubin Urine Urobilinogen Ur Leukocyte Esterase Urine RBC Urine WBC Urine WBC Clumps Ur Squamous Epith Cells Urine Bacteria Granular Casts Urine Mucus Micro UA Comment Urine Culture Comments Random Vancomycin Tacrolimus 01/08/18 11:54 WBC RBC Hgb Hct MCV MCH MCHC RDW Plt Count MPV Puncture Site Patient Temperature O2 Saturation ABG pH ABG pCO2 ABG pO2 ABG HCO3 ABG O2 Content ABG Base Excess ABG Methemoglobin Kojo Test Hemoglobin Carboxyhemoglobin O2 Delivery Device Vent Setting Inspired O2 Critical Value Sodium Potassium Chloride Carbon Dioxide Anion Gap BUN Creatinine Estimated GFR POC Glucose 117 H Random Glucose Osmolality Calcium Magnesium Total Bilirubin AST ALT Alkaline Phosphatase Ammonia Total Protein Albumin Urine Color Urine Clarity Urine pH Ur Specific [place] Urine Protein Urine Glucose (UA) Urine Ketones Urine Occult Blood Urine Nitrate Urine Bilirubin Urine Urobilinogen Ur Leukocyte Esterase Urine RBC Urine WBC Urine WBC Clumps Ur Squamous Epith Cells Urine Bacteria Granular Casts Urine Mucus Micro UA Comment Urine Culture Comments Random Vancomycin Tacrolimus Result Diagrams: 01/08/18 04:40 01/08/18 04:40 Microbiology: Microbiology 01/05/18 12:36 Aerobic Blood Culture - Preliminary Blood - Peripheral No growth in 3 days Anaerobic Blood Culture - Preliminary No growth in 3 days 01/05/18 12:30 Aerobic Blood Culture - Preliminary Blood - Peripheral No growth in 3 days Anaerobic Blood Culture - Preliminary No growth in 3 days 01/05/18 20:15 Urine Culture - Final Clean Catch Urine Enterococcus faecalis 01/04/18 09:30 Gram Stain - Final Sputum - Endotracheal Sputum Culture - Final Escherichia coli Enterobacter cloacae Assessment and Plan Pertinent Non-Medical Issues: Psychosocial: Originally from [place], came to [place] in 1999. Lives with . Second marriage, now for 20 years. She has 2 daughters that live locally and a son that lives in [place]. 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 Spiritual: Caodaism background, not connected with any holiness or clergy recently. Family would like a saturator operator come visit. Legal: The patient lacks capacity for decision-making, and it seems very unlikely that she will regain that capacity. The patient's is the decision-making proxy. Ethical issues impacting care: Important Contacts: : Jair Cole Cell phone: [phone] Prognosis: Her prognosis is poor, as it appears that she has had a significant brain injury. Code Status: Alternative Code Plan: * ALTERNATE CODE, intubation only, per request of and both daughters 8/8 /18 * DECISION-MAKING: The patient lacks capacity for decision-making, and it seems very unlikely that she will regain that capacity. The patient's is the decision-making proxy. * GOALS: The patient's family reports that the patient made it clear that she would not want to be kept alive artificially if she had a significant injury to her brain that would prevent a resumption of "normal life." They understand that she has been off sedation and there is very little neurologic change. He understands they will place the decision about tracheostomy and long-term nursing care in the next 3 or 4 days. The patient's is considering compassionate withdrawal of life support. * SYMPTOMS: The patient's encephalopathy is profound. Dyspnea is being managed by the ventilator. I see no obvious signs of pain now, 7 days postop. I have no further medication recommendations at this time. * Palliative Care will continue to follow the patient during this hospitalization. Time Spent Total Floor Time (mins): 44 Face to Face Time (mins): 11 >50% Time in Counseling or Coordination of Care: Yes Attestation Attestation: To help prompt me to consider important information that might be impacting today's encounter and assessment, information from prior notes written by myself or my colleagues may have been "brought forward" into today's note. My signature on this note, however, is an attestation that I personally performed the exam, history, and/or decision-making noted today, and, unless otherwise indicated, the interactions with patient, family, and staff as well as the review of records all occurred today. I also attest that the listed assessment and stated plan reflect my best clinical judgment today based on the combination of historical information, prior notes, and today's exam/ interactions. When time spent is documented, it refers only to time spent today by the signer, or if indicated, combined time spent today by collaborating physician/nurse practitioner.
--- NOTE | 2018-01-08 16:49 | P.PNNS ---
Subjective Interval history: No acute events overnight. Physical Exam Vital signs: Vital Signs 01/07/18 18:00 01/07/18 20:00 01/07/18 21:24 Temperature 99.8 F H Pulse Rate 84 88 95 H Respiratory Rate 20 20 Blood Pressure 138/62 Pulse Oximetry 95 01/07/18 23:24 01/08/18 00:00 01/08/18 00:07 Temperature 99.2 F Pulse Rate 78 77 Respiratory Rate 23 20 Blood Pressure 168/71 H Pulse Oximetry 97 96 01/08/18 01:00 01/08/18 02:00 01/08/18 04:00 Temperature 99.0 F Pulse Rate 75 77 Respiratory Rate 20 23 Blood Pressure 155/57 H Pulse Oximetry 97 01/08/18 04:02 01/08/18 06:00 01/08/18 08:00 Temperature Pulse Rate 78 Respiratory Rate 20 16 Blood Pressure Pulse Oximetry 97 92 L 01/08/18 12:30 01/08/18 15:35 Temperature Pulse Rate Respiratory Rate 24 16 Blood Pressure Pulse Oximetry 98 98 Intake & Output 01/07/18 01/08/18 01/08/18 18:59 06:59 18:59 Intake Total 570 / 570 1892 / 1892 600 / 600 Output Total 500 / 500 400 / 400 Balance 70 / 70 1492 / 1492 600 / 600 Weight 114.1 kg Intake: IV 200 / 200 1330 / 1330 600 / 600 Precedex Inj 200 MCG In NS Inj 100 / 100 48 ML @ 0.2 MCG/KG/HR 5.54 mls/ hr IV.CONT TITRATE PRN Rx#: [id number] Cardene Inj 50 MG In NS Inj 230 1000 / 1000 500 / 500 ML @ 5 MG/HR 25 mls/hr IV.CONT TITRATE PRN Rx#:[id number] Sodium Chloride 3% Inj 500 ML @ 230 / 230 10 mls/hr IV.SIG Q24H GRICELDA Rx#: [id number] Maxipime Inj 2,000 MG In NS Inj 100 / 100 100 / 100 100 / 100 100 ML @ 200 mls/hr IV.SIG Q12H GRICELDA Rx#:[id number] Vancomycin Inj 1,250 MG In NS 0 / 0 Inj 250 ML @ 250 mls/hr IV.SIG Q24H GRICELDA Rx#:[id number] Tube Feeding 280 / 280 442 / 442 Tube Irrigant 90 / 90 120 / 120 Output: Urine Amount (Catheter) 500 / 500 400 / 400 Indwelling Urethral Catheter 500 / 500 400 / 400 Other: Date of Last Bowel Movement 01/07/18 01/08/18 # Bowel Movements 1 2 # Incontinent Bowel Movements 2 Narrative: Does not open eyes PERRL Cough present Intubated Does not respond to noxious stimuli in any extremity Flap full, but soft - Urinary Catheter Management Indwelling Urethral Catheter Cath placed during this visit: yes Reason for continuing: Hourly intake/output Insertion date: 12/30/17 Insertion time: 01:30 Assessment and Plan - Assessment (1) Subdural hematoma Code(s): S06.5X9A - Traumatic subdural hemorrhage with loss of consciousness of unspecified duration, initial encounter Status: Acute - Plan Impression 72 y/o female s/p left craniotomy for evacuation of SDH by Dr. Uribe on 12/30/17. She has not had any significant improvement in her neurologic exam. Follow up CT head from 01/06/18 demonstrated expected post-operative changes, resolved midline shift. Given her lack of neurologic improvement and EEG without seizure activity, she has a poor neurologic prognosis. Plan: Continue neuro checks. Continue blood pressure management. I attempted to call the patient's daughter, but she did not answer. Palliative care spoke with her and daughters in person today and they are considering tracheostomy/PEG versus comfort care measures.
[2018-01-09] MEDS: Labetalol HCl Inj 100 MG/20 ML Vial IV.PUSH PRN ×3 (00:43→21:04)
[2018-01-09] MEDS: Insulin NovoLOG Aspart Correctional Sugar Inj SQ SCH ×6 (01:59→20:51)
[2018-01-09 05:14] LABS: Calcium 8.1 mg/dL (8.5-10.1); Carbon Dioxide 23.4 meq/L (21.0-32.0); Potassium 4.1 meq/L (3.5-5.1)
[2018-01-09] MEDS: niCARdipine Inj 50 MG in Sodium Chlor 0.9% Inj 230 ML IV.CONT PRN ×3 (08:10→21:35)
[2018-01-09] MEDS: Insulin Detemir Inj 1,000 UNIT/10 ML Vial SQ SCH ×2 (08:25→20:53)
[2018-01-09] MEDS: amLODIPine 10 MG Tablet NG/OG SCH (08:25)
[2018-01-09] MEDS: Hypromellose 0.3% Opth Gel 10 GM Bottle EACH EYE SCH ×2 (08:25→20:52)
[2018-01-09] MEDS: Polyethylene Glycol 3350 17 GM Packet NG/OG SCH (08:25)
[2018-01-09] MEDS: Carvedilol 12.5 MG Tablet PO SCH ×2 (08:25→20:50)
[2018-01-09] MEDS: Glycerin Adult 2 GM Supp RECTAL SCH (08:25)
[2018-01-09] MEDS: Senna/Docusate Sodium 8.6/50 MG Tablet PO SCH (08:26)
--- NOTE | 2018-01-09 09:49 | P.PNNS ---
Subjective Interval history: No acute events overnight. Physical Exam Vital signs: Vital Signs 01/08/18 10:00 01/08/18 12:00 01/08/18 12:30 Temperature 98.3 F Pulse Rate 82 80 Respiratory Rate 23 24 Blood Pressure 156/66 H Pulse Oximetry 98 01/08/18 14:00 01/08/18 15:35 01/08/18 16:00 Temperature 98.5 F Pulse Rate 68 78 Respiratory Rate 16 21 Blood Pressure 148/64 H Pulse Oximetry 98 01/08/18 18:00 01/08/18 19:29 01/08/18 20:00 Temperature 98.7 F Pulse Rate 77 78 Respiratory Rate 24 22 Blood Pressure 165/69 H Pulse Oximetry 98 01/08/18 22:00 01/08/18 23:23 01/09/18 00:00 Temperature 98.3 F Pulse Rate 76 68 Respiratory Rate 20 18 Blood Pressure 133/59 L Pulse Oximetry 99 01/09/18 02:00 01/09/18 03:11 01/09/18 04:00 Temperature 98.2 F Pulse Rate 76 84 Respiratory Rate 24 10 L Blood Pressure 156/97 H Pulse Oximetry 95 01/09/18 06:00 01/09/18 08:00 Temperature Pulse Rate 86 Respiratory Rate 19 Blood Pressure Pulse Oximetry 97 Intake & Output 01/08/18 01/09/18 01/09/18 18:59 06:59 18:59 Intake Total 1632.5 / 1632.5 482 / 482 350 / 350 Output Total 350 / 350 200 / 200 Balance 1282.5 / 1282.5 282 / 282 350 / 350 Weight 117.6 kg Intake: IV 1112.5 / 1112.5 350 / 350 Cardene Inj 50 MG In NS Inj 230 750 / 750 250 / 250 ML @ 5 MG/HR 25 mls/hr IV.CONT TITRATE PRN Rx#:[id number] Maxipime Inj 2,000 MG In NS Inj 100 / 100 100 / 100 100 ML @ 200 mls/hr IV.SIG Q12H GRICELDA Rx#:[id number] Vancomycin Inj 1,250 MG In NS 262.5 / 262.5 Inj 250 ML @ 250 mls/hr IV.SIG Q24H GRICELDA Rx#:[id number] Tube Feeding 400 / 400 482 / 482 Tube Irrigant 120 / 120 Output: Urine Amount (Catheter) 350 / 350 200 / 200 Indwelling Urethral Catheter 350 / 350 200 / 200 Other: Date of Last Bowel Movement 01/08/18 01/08/18 # Bowel Movements 1 # Incontinent Bowel Movements 2 Narrative: Does not open eyes PERRL Cough present Intubated Does not respond to noxious stimuli in any extremity Flap full, but soft - Urinary Catheter Management Indwelling Urethral Catheter Cath placed during this visit: yes Reason for continuing: Hourly intake/output Insertion date: 12/30/17 Insertion time: 01:30 Assessment and Plan - Assessment (1) Subdural hematoma Code(s): S06.5X9A - Traumatic subdural hemorrhage with loss of consciousness of unspecified duration, initial encounter Status: Acute - Plan Impression 72 y/o female s/p left craniotomy for evacuation of SDH by Dr. Uribe on 12/30/17. She has not had any significant improvement in her neurologic exam. Follow up CT head from 01/06/18 demonstrated expected post-operative changes, resolved midline shift. Given her lack of neurologic improvement and EEG without seizure activity, she has a poor neurologic prognosis. Plan: Continue neuro checks. Continue blood pressure management. No family at bedside this morning. Palliative care spoke with her and daughters in person yesterday and they are considering tracheostomy/PEG versus comfort care measures.
--- NOTE | 2018-01-09 11:52 | P.PNCC ---
Subjective Subjective Remarks/Hospital Course: 72-year-old female with past medical history of hypertension, diabetes , prior liver transplant in 2010, on chronic anticoagulation for warfarin (per family report due to prior hx of portal vein thrombosis prior to her transplant) . She reportedly got up to go to the bathroom around 10 PM. She developed headache, nausea and multiple episodes of vomiting. There is no reported head trauma. CT brain demonstrates left subdural hematoma with 1 cm left to right shift. INR 2.8. Administering k Centra 25 U/kg, vitamin K 10 mg IV. Blood pressure 169/75. Initiating Cardene drip. Dr. Uribe has been consulted and will be taking patient emergently to operating room following correction of coagulopathy. 12/31 Underwent Left frontal temporal parietal decompressive craniectomy, evacuation of acute subdural hematoma on 12/[address] Uribe R frontal fiberoptic ICP monitor also in place. ICPs are <3. Repeat CT brain this morning demonstrates no residual subdural. Mass-effect is resolved. Remains on mechanical ventilation and cardene drip for hypertension management. 01/01: No acute events overnight. T-max 99.9. No bowel movement. Replacing calcium, potassium magnesium. Quite tachypneic this a.m. 01/02: Afebrile. Replacing phosphorus this a.m. Appears more comfortable on fentanyl and propofol drips. Remains on nicardipine drip at 6 mg an hour to maintain systolic blood pressure less than 140. Subjective 01/03: Afebrile. Currently on nicardipine 15 mg/h. Was off last night. Tube feeds currently at 30 cc an hour due to high residuals. Positive bowel movement 2. Remains on propofol and fentanyl drips. 01/04: Neuro exam remains unchanged, low-grade temperature noted. Poorly controlled hypertension with minimal stimulation becomes very hypotensive. Remains sedated with propofol and fentanyl. Will restart Cardene for blood pressure control to facilitate weaning trials 01/05: Remains intubated sedated. Neuro unchanged. Sedation restarted due to hypoxia and ventilator asynchrony. Increased ET tube secretions, chest x-ray showing bibasilar infiltrate. Currently FiO2 at 60%. Probable healthcare associated pneumonia, fever up to 101.3. Start vancomycin and cefepime. Unable to completely discontinue sedation due to uncontrolled hypertension 01/06: CT of the head done today shows evolving area of low density with trace associated intraparenchymal blood in the left temporal lobe identified. Clinically remains unchanged. Sputum culture growing E. coli and Enterobacter. Fever trending down after starting cefepime yesterday. Sedation with propofol will change to Precedex to facilitate neuro exam 01/07: Patient remains unresponsive, sedated only with Precedex at 0.5 mcg/kg/h. EEG showed Left hemisphere slowing. No epileptiform activity. Urine cx with Group D Enterococcus. Palliative care following, ALT CODE now. 01/08: Osmolality suitably concentrated. Left hemispheric swelling remains problematic. Unable to elicit any response today. Culture results well covered with antibiotics. 01/09: Remains unresponsive. Appears to have fixed dense deficit. Prognosis is poor. Leaving Rushing in purely for comfort measures as she is undoubtedly progressing toward hospice. Objective Vital Signs / I&O: Vital Signs 01/08/18 12:00 01/08/18 12:30 01/08/18 14:00 Temperature 98.3 F Pulse Rate 80 68 Respiratory Rate 23 24 Blood Pressure 156/66 H Pulse Oximetry 98 01/08/18 15:35 01/08/18 16:00 01/08/18 18:00 Temperature 98.5 F Pulse Rate 78 77 Respiratory Rate 16 21 Blood Pressure 148/64 H Pulse Oximetry 98 01/08/18 19:29 01/08/18 20:00 01/08/18 22:00 Temperature 98.7 F Pulse Rate 78 76 Respiratory Rate 24 22 Blood Pressure 165/69 H Pulse Oximetry 98 01/08/18 23:23 01/09/18 00:00 01/09/18 02:00 Temperature 98.3 F Pulse Rate 68 76 Respiratory Rate 20 18 Blood Pressure 133/59 L Pulse Oximetry 99 01/09/18 03:11 01/09/18 04:00 01/09/18 06:00 Temperature 98.2 F Pulse Rate 84 86 Respiratory Rate 24 10 L Blood Pressure 156/97 H Pulse Oximetry 95 01/09/18 08:00 01/09/18 10:00 Temperature 98.4 F Pulse Rate 74 77 Respiratory Rate 24 Blood Pressure 138/63 Pulse Oximetry 96 Intake & Output 01/08/18 01/09/18 01/09/18 18:59 06:59 18:59 Intake Total 1632.5 / 1632.5 482 / 482 350 / 350 Output Total 350 / 350 200 / 200 Balance 1282.5 / 1282.5 282 / 282 350 / 350 Weight 117.6 kg Intake: IV 1112.5 / 1112.5 350 / 350 Cardene Inj 50 MG In NS Inj 230 750 / 750 250 / 250 ML @ 5 MG/HR 25 mls/hr IV.CONT TITRATE PRN Rx#:[id number] Maxipime Inj 2,000 MG In NS Inj 100 / 100 100 / 100 100 ML @ 200 mls/hr IV.SIG Q12H GRICELDA Rx#:[id number] Vancomycin Inj 1,250 MG In NS 262.5 / 262.5 Inj 250 ML @ 250 mls/hr IV.SIG Q24H GRICELDA Rx#:[id number] Tube Feeding 400 / 400 482 / 482 Tube Irrigant 120 / 120 Output: Urine Amount (Catheter) 350 / 350 200 / 200 Indwelling Urethral Catheter 350 / 350 200 / 200 Other: Date of Last Bowel Movement 01/08/18 01/08/18 01/09/18 # Bowel Movements 1 # Incontinent Bowel Movements 2 Result Diagrams: 01/08/18 04:40 01/09/18 04:35 Objective Remarks: GENERAL: 72-year-old female patient who is orotracheally intubated and minimally sedated now with Precedex SKIN: Warm and dry, well-perfused HEAD: Normocephalic. Fiberoptic ICP removed 01/01. Left craniectomy site clean and dry without signs of infection. EYES: Pupils equal and round, sluggishly reactive. No scleral icterus. No injection or drainage. ENT: No nasal bleeding or discharge. Mucous membranes pink and moist. NECK: Trachea midline. Obese. Right IJ is clean dry and intact. CARDIOVASCULAR: Regular rate and rhythm, S1, S2 no S 4. 2/6 systolic murmur left sternal border. No JVD. RESPIRATORY: Diminished in bases due to body habitus. Clear anteriorly without wheezes, rales, rhonchi. GASTROINTESTINAL: Abdomen soft, non-tender, nondistended. Well-healed scar right upper quadrant. No guarding. Bowel sounds present. : Rushing in place with yellow urine output MUSCULOSKELETAL: Extremities with some upper and lower extremity edema. Scar overlies left knee. L radial art line in place with distal perfusion intact. NEUROLOGICAL: Currently sedated with Precedex at 0.5 mcg/kg/hour. On sedation not moving upper lower extremities spontaneously. Winces to painful stimuli, partial eye opening. Very mild withdrawal only. Assessment and Plan - Assessment and Plan Plan: NEURO/PSYCH: Acute left subdural hematoma with mass-effect s/p left frontal temporal parietal decompressive craniectomy, evacuation of SDH and ICP monitor 12/30/[address] Uribe ICP monitor removed 01/[address] brain o residual subdural or mass-effect. F/u CT 01/06/18-an evolving area of low density with trace associated intraparenchymal blood in the left temporal lobe identified EEG 01/06: Left hemispheric slowing no seizures Was on warfarin for SMV/IMV thrombosis diagnosed 2008 with INR 2.8 upon presentation. Received prothrombin complex concentrate 25 units/KG and phytonodione 10 mg IV preoperatively. Repeat INR 1.2 on 12/31. Received mannitol 25 g IV in the emergency department 12/30 Levetiracetam 500 mg IV every 12 hours for seizure prophylaxis. Blood pressure management as per below. Goal 120-140 systolic Precedex to facilitate neuro exam. Use as needed fentanyl Holding pregabalin 50 mill grams p.o. twice daily RESP: Acute respiratory failure secondary to altered mental status Difficult airway Healthcare associated pneumonia [facility] 15/550/1.06/07/44. Ventilator bundle Albuterol/ipratropium aerosols every 4 hours with albuterol aerosols every 2 hours as needed for dyspnea Spontaneous breathing trials when clinically indicated. Mental status will not permit extubation Chest x-ray today with bibasilar infiltrates. Sputum culture E Coli, Enterobacter Continue vancomycin and cefepime CV: Malignant hypertension Hypercholesterolemia Nicardipine drip to maintain systolic blood pressure less than 140, currently weaned off Continue Carvedilol 25 mg twice daily, amlodipine 10 mg daily. Hydralazine to 100 mg 3 times daily- ? Unavailable Continue losartan 50 BID (home med is valsartan 80 mg daily). Scheduled clonidine 0.2 mg every 8 hours As needed labetalol 10 mg every hour and clonidine 0.1 mg by tube every 4 hours. 01/01 2d Echo - Normal left ventricular size. LVEF 65-70%. 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 quality assurance coordinator is Mariya Munoz [phone] Discussed with vocational coordinator - Current tacrolimus dosing is 6 mg po [id number] with target trough 3-5. Ms Munoz provided history that warfarin is for Factor V Leiden heterozygosity and that it was managed by a geriatric nursing assistant outside of the [place] system. Family states it is Dr. Kaiser. Lansoprazole 30 mg daily for GI prophylaxis. Patient is on pantoprazole 40 mg daily at home. Docusate serum/senna 1 tablet twice daily for bowel regimen. Polythene glycol 17 g twice daily. F Tube feeds with vital high-protein Metoclopramide 10 mg 3 times daily FEN/RENAL: Chronic kidney disease stage IIIa Hypophosphatemia Hypernatremia Maintain Rushing. Monitor urine output Accurate I's and O's, ICU electrolyte protocol Currently on 3% saline at 10 cc an hour Follow serum osmolality closely ID: Immunosuppressed state Healthcare associated pneumonia UTI Sepsis Appears to have developed healthcare associated pneumonia. Sputum culture E Coli, Enterobacter UTI with enterococcus Continue vancomycin and cefepime Received Claudia Operative cefazolin per neurosurgery. HEME/ONC: Warfarin induced coagulopathyINR 2.8 (resolved) Factor V Leiden heterozygosity - indication for chronic anticoagulation. 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 Resumed after liver translation 11/09 Thrombocytopenia, anemia, leukopenia Warfarin on hold. Harness Rigger is Dr. Kaiser, she sees him in the [place] office. Spoke with ELAINE Chandler with Dr. Kaiser who states Ms Cole was on warfarin due to Factor V Leiden heterozygosity with prior h/o portal vein thrombosis. The fact that she has now had spontaneous subdural while INR was therapeutic could preclude her from therapeutic anticoagulation indefinitely given heterozygosity for mutation. ENDO: Diabetes mellitus with acute hyperglycemia Hold linagliptin 5 mg p.o. every morning, hold insulin degludec flex touch 18 units subcu nightly. On Medium dose aspart insulin sliding scale every 4 hours (24 units last 24 hours). GLucose is >200 this morning. Insulin detemir 22 q12 PROPH: SCDs for DVT prophylaxis. Continue lansoprazole for stress ulcer prophylaxis and history of GERD ACCESS: Right IJ CVL day #7 placed /, DC. Left radial art line placed 12/30 in OR #9 Full code Overall impression: Patient is critically ill with severe encephalopathy from acute subdural hemorrhage and cerebral edema. Care now complicated with severe sepsis most likely from healthcare associated pneumonia and hypoxemic respiratory failure. Remains critically ill at this time with severe fixed neurologic deficit. Prognosis poor.
[2018-01-09] MEDS: Vancomycin Inj 1,250 MG in Sodium Chlor 0.9% Inj 250 ML IV.SIG SCH (12:06)
[2018-01-10] MEDS: Glycerin Adult 2 GM Supp RECTAL SCH ×3 (00:10→20:45)
[2018-01-10] MEDS: Polyethylene Glycol 3350 17 GM Packet NG/OG SCH ×3 (00:10→20:45)
[2018-01-10] MEDS: Senna/Docusate Sodium 8.6/50 MG Tablet PO SCH ×3 (00:10→20:46)
[2018-01-10] MEDS: Insulin NovoLOG Aspart Correctional Sugar Inj SQ SCH ×6 (01:58→20:45)
[2018-01-10] MEDS: Hypromellose 0.3% Opth Gel 10 GM Bottle EACH EYE SCH ×2 (08:27→20:44)
[2018-01-10] MEDS: amLODIPine 10 MG Tablet NG/OG SCH (08:28)
[2018-01-10] MEDS: Carvedilol 12.5 MG Tablet PO SCH ×2 (08:28→20:44)
[2018-01-10] MEDS: Insulin Detemir Inj 1,000 UNIT/10 ML Vial SQ SCH ×2 (08:29→20:45)
[2018-01-10] MEDS: niCARdipine Inj 50 MG in Sodium Chlor 0.9% Inj 230 ML IV.CONT PRN (08:56)
--- NOTE | 2018-01-10 10:43 | P.PNCC ---
Subjective Subjective Remarks/Hospital Course: 72-year-old female with past medical history of hypertension, diabetes , prior liver transplant in 2010, on chronic anticoagulation for warfarin (per family report due to prior hx of portal vein thrombosis prior to her transplant) . She reportedly got up to go to the bathroom around 10 PM. She developed headache, nausea and multiple episodes of vomiting. There is no reported head trauma. CT brain demonstrates left subdural hematoma with 1 cm left to right shift. INR 2.8. Administering k Centra 25 U/kg, vitamin K 10 mg IV. Blood pressure 169/75. Initiating Cardene drip. Dr. Uribe has been consulted and will be taking patient emergently to operating room following correction of coagulopathy. 12/31 Underwent Left frontal temporal parietal decompressive craniectomy, evacuation of acute subdural hematoma on 12/[address] Uribe R frontal fiberoptic ICP monitor also in place. ICPs are <3. Repeat CT brain this morning demonstrates no residual subdural. Mass-effect is resolved. Remains on mechanical ventilation and cardene drip for hypertension management. 01/01: No acute events overnight. T-max 99.9. No bowel movement. Replacing calcium, potassium magnesium. Quite tachypneic this a.m. 01/02: Afebrile. Replacing phosphorus this a.m. Appears more comfortable on fentanyl and propofol drips. Remains on nicardipine drip at 6 mg an hour to maintain systolic blood pressure less than 140. Subjective 01/03: Afebrile. Currently on nicardipine 15 mg/h. Was off last night. Tube feeds currently at 30 cc an hour due to high residuals. Positive bowel movement 2. Remains on propofol and fentanyl drips. 01/04: Neuro exam remains unchanged, low-grade temperature noted. Poorly controlled hypertension with minimal stimulation becomes very hypotensive. Remains sedated with propofol and fentanyl. Will restart Cardene for blood pressure control to facilitate weaning trials 01/05: Remains intubated sedated. Neuro unchanged. Sedation restarted due to hypoxia and ventilator asynchrony. Increased ET tube secretions, chest x-ray showing bibasilar infiltrate. Currently FiO2 at 60%. Probable healthcare associated pneumonia, fever up to 101.3. Start vancomycin and cefepime. Unable to completely discontinue sedation due to uncontrolled hypertension 01/06: CT of the head done today shows evolving area of low density with trace associated intraparenchymal blood in the left temporal lobe identified. Clinically remains unchanged. Sputum culture growing E. coli and Enterobacter. Fever trending down after starting cefepime yesterday. Sedation with propofol will change to Precedex to facilitate neuro exam 01/07: Patient remains unresponsive, sedated only with Precedex at 0.5 mcg/kg/h. EEG showed Left hemisphere slowing. No epileptiform activity. Urine cx with Group D Enterococcus. Palliative care following, ALT CODE now. 01/08: Osmolality suitably concentrated. Left hemispheric swelling remains problematic. Unable to elicit any response today. Culture results well covered with antibiotics. 01/09: Remains unresponsive. Appears to have fixed dense deficit. Prognosis is poor. Leaving Rushing in purely for comfort measures as she is undoubtedly progressing toward hospice. 01/10: No improvement in neurologic function over the last 24 hours. No seizure activity. We are continuing full aggressive care while the family works with the palliative care service to identify long-term goals. The chance for any meaningful neurological recovery from this state approaches zero. Objective Vital Signs / I&O: Vital Signs 01/09/18 12:00 01/09/18 12:53 01/09/18 14:00 Temperature 98.8 F Pulse Rate 90 84 Respiratory Rate 23 26 H Blood Pressure 124/58 L Pulse Oximetry 96 95 01/09/18 14:33 01/09/18 16:00 01/09/18 18:00 Temperature 99.3 F Pulse Rate 82 78 Respiratory Rate 21 27 H Blood Pressure 123/59 L Pulse Oximetry 95 97 01/09/18 20:00 01/09/18 22:00 01/09/18 22:12 Temperature 99.2 F Pulse Rate 80 82 Respiratory Rate 20 22 Blood Pressure 129/58 L Pulse Oximetry 97 96 01/10/18 00:00 01/10/18 02:00 01/10/18 04:00 Temperature 99.0 F 99.0 F Pulse Rate 78 82 84 Respiratory Rate 19 21 Blood Pressure 120/68 117/60 Pulse Oximetry 99 01/10/18 04:10 01/10/18 06:00 01/10/18 08:00 Temperature 99.1 F Pulse Rate 81 80 Respiratory Rate 26 H 25 H Blood Pressure 137/65 Pulse Oximetry 97 97 01/10/18 08:06 Temperature Pulse Rate Respiratory Rate 27 H Blood Pressure Pulse Oximetry Intake & Output 01/09/18 01/10/18 01/10/18 18:59 06:59 18:59 Intake Total 1900.5 / 1900.5 734 / 734 250 / 250 Output Total 325 / 325 350 / 350 Balance 1575.5 / 1575.5 384 / 384 250 / 250 Weight 119.9 kg Intake: IV 1261.5 / 1261.5 350 / 350 250 / 250 Cardene Inj 50 MG In NS Inj 230 500 / 500 250 / 250 250 / 250 ML @ 5 MG/HR 25 mls/hr IV.CONT TITRATE PRN Rx#:[id number] Sodium Chloride 3% Inj 500 ML @ 299 / 299 10 mls/hr IV.SIG Q24H GRICELDA Rx#: [id number] Maxipime Inj 2,000 MG In NS Inj 200 / 200 100 / 100 100 ML @ 200 mls/hr IV.SIG Q12H GRICELDA Rx#:[id number] Vancomycin Inj 1,250 MG In NS 262.5 / 262.5 Inj 250 ML @ 250 mls/hr IV.SIG Q24H GRICELDA Rx#:[id number] Tube Feeding 519 / 519 384 / 384 Tube Irrigant 120 / 120 Output: Urine Amount (Catheter) 325 / 325 350 / 350 Indwelling Urethral Catheter 325 / 325 350 / 350 Other: Date of Last Bowel Movement 01/09/18 01/10/18 01/10/18 # Bowel Movements 0 Result Diagrams: 01/08/18 04:40 01/10/18 05:00 Objective Remarks: GENERAL: 72-year-old female, orotracheally intubated. SKIN: Warm and dry, well-perfused HEAD: Normocephalic. Fiberoptic ICP removed 01/01. Left craniectomy site clean and dry without signs of infection. EYES: Pupils equal and round, sluggishly reactive. No conjunctival icterus. No injection or drainage. ENT: No nasal bleeding or discharge. Mucous membranes pink and moist. NECK: Trachea midline. Obese. Right IJ is clean dry and intact. CARDIOVASCULAR: Regular rate and rhythm, S1, S2 no S 4. 2/6 systolic murmur left sternal border. No JVD. RESPIRATORY: Diminished in bases. Full excursions on ventilator. Clear anteriorly without wheezes, rales, rhonchi. GASTROINTESTINAL: Abdomen soft, non-tender, nondistended. Well-healed scar right upper quadrant. No guarding. Bowel sounds active. : Rushing in place with yellow urine output MUSCULOSKELETAL: Extremities with generalized upper and lower extremity edema. Scar overlies left knee. NEUROLOGICAL: Winces to noxious stimuli with partial eye opening. Very mild withdrawal left lower extremity only. Assessment and Plan - Assessment and Plan Plan: NEURO/PSYCH: Acute left subdural hematoma with mass-effect s/p left frontal temporal parietal decompressive craniectomy, evacuation of SDH and ICP monitor 12/30/[address] Uribe ICP monitor removed 01/[address] brain o residual subdural or mass-effect. F/u CT 01/06/18-an evolving area of low density with trace associated intraparenchymal blood in the left temporal lobe identified EEG 01/06: Left hemispheric slowing no seizures Was on warfarin for SMV/IMV thrombosis diagnosed 2008 with INR 2.8 upon presentation. Received prothrombin complex concentrate 25 units/KG and phytonodione 10 mg IV preoperatively. Repeat INR 1.2 on 12/31. Received mannitol 25 g IV in the emergency department 12/30 Levetiracetam 500 mg IV every 12 hours for seizure prophylaxis. Blood pressure management as per below. Goal 120-140 systolic Precedex to facilitate neuro exam. Use as needed fentanyl Holding pregabalin 50 mill grams p.o. twice daily RESP: Acute respiratory failure secondary to altered mental status Difficult airway Healthcare associated pneumonia [facility] 15550/1.06/07/44. Ventilator bundle Albuterol/ipratropium aerosols every 4 hours with albuterol aerosols every 2 hours as needed for dyspnea Spontaneous breathing trials when clinically indicated. Mental status will not permit extubation Chest x-ray today with bibasilar infiltrates. Sputum culture E Coli, Enterobacter Continue vancomycin and cefepime CV: Malignant hypertension Hypercholesterolemia Nicardipine drip to maintain systolic blood pressure less than 140, currently weaned off Continue Carvedilol 25 mg twice daily, amlodipine 10 mg daily. Hydralazine to 100 mg 3 times daily- ? Unavailable Continue losartan 50 BID (home med is valsartan 80 mg daily). Scheduled clonidine 0.2 mg every 8 hours As needed labetalol 10 mg every hour and clonidine 0.1 mg by tube every 4 hours. 01/01 2d Echo - Normal left ventricular size. LVEF 65-70%. 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 taxicab coordinator is Mariya Munoz [phone] Discussed with international guest coordinator - Current tacrolimus dosing is 6 mg po [id number] with target trough 3-5. Ms Munoz provided history that warfarin is for Factor V Leiden heterozygosity and that it was managed by a handkerchief presser outside of the [place] system. Family states it is Dr. Kaiser. Lansoprazole 30 mg daily for GI prophylaxis. Patient is on pantoprazole 40 mg daily at home. Docusate serum/senna 1 tablet twice daily for bowel regimen. Polythene glycol 17 g twice daily. F Tube feeds with vital high-protein Metoclopramide 10 mg 3 times daily FEN/RENAL: Chronic kidney disease stage IIIa Hypophosphatemia Hypernatremia Maintain Rushing. Monitor urine output Accurate I's and O's, ICU electrolyte protocol Currently on 3% saline at 10 cc an hour Follow serum osmolality closely Serum osmolality suitably concentrated. ID: Immunosuppressed state Healthcare associated pneumonia UTI Sepsis Appears to have developed healthcare associated pneumonia. Sputum culture E Coli, Enterobacter UTI with enterococcus Continue vancomycin and cefepime Received Claudia Operative cefazolin per neurosurgery. HEME/ONC: Warfarin induced coagulopathyINR 2.8 (resolved) Factor V Leiden heterozygosity - indication for chronic anticoagulation. 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 Resumed after liver translation 11/09 Thrombocytopenia, anemia, leukopenia Warfarin on hold. Abrasive Wheel Molder is Dr. Kaiser, she sees him in the [place] office. Spoke with ELAINE Chandler with Dr. Kaiser who states Ms Cole was on warfarin due to Factor V Leiden heterozygosity with prior h/o portal vein thrombosis. The fact that she has now had spontaneous subdural while INR was therapeutic could preclude her from therapeutic anticoagulation indefinitely given heterozygosity for mutation. ENDO: Diabetes mellitus with acute hyperglycemia Hold linagliptin 5 mg p.o. every morning, hold insulin degludec flex touch 18 units subcu nightly. On Medium dose aspart insulin sliding scale every 4 hours (24 units last 24 hours). GLucose is >200 this morning. Insulin detemir 22 q12 PROPH: SCDs for DVT prophylaxis. Continue lansoprazole for stress ulcer prophylaxis and history of GERD ACCESS: Right IJ CVL day #7 placed 01/01, DC. Left radial art line placed 12/30 in OR #9 Full code Overall impression: Patient is critically ill with severe encephalopathy from acute subdural hemorrhage and cerebral compression followed by edema. Care now complicated with severe sepsis most likely from healthcare associated pneumonia and hypoxemic respiratory failure. Remains critically ill at this time with severe fixed neurologic deficit after dominant hemisphere compression injury. Prognosis very poor for any meaningful neurological recovery.
[2018-01-10] MEDS: fentaNYL Citrate Inj 100 MCG/2 ML Ampul IV.PUSH PRN (11:08)
[2018-01-10] MEDS ORDERED: Pharmacy Ordered Lab Info OTHER ONE (12:45)
[2018-01-10] MEDS: Vancomycin Inj 1,250 MG in Sodium Chlor 0.9% Inj 250 ML IV.SIG SCH (13:30)
--- NOTE | 2018-01-10 14:30 | P.PNNS ---
Subjective Interval history: No acute events overnight. Physical Exam Vital signs: Vital Signs 01/09/18 14:33 01/09/18 16:00 01/09/18 18:00 Temperature 99.3 F Pulse Rate 82 78 Respiratory Rate 21 27 H Blood Pressure 123/59 L Pulse Oximetry 95 97 01/09/18 20:00 01/09/18 22:00 01/09/18 22:12 Temperature 99.2 F Pulse Rate 80 82 Respiratory Rate 20 22 Blood Pressure 129/58 L Pulse Oximetry 97 96 01/10/18 00:00 01/10/18 02:00 01/10/18 04:00 Temperature 99.0 F 99.0 F Pulse Rate 78 82 84 Respiratory Rate 19 21 Blood Pressure 120/68 117/60 Pulse Oximetry 99 01/10/18 04:10 01/10/18 06:00 01/10/18 08:00 Temperature 99.1 F Pulse Rate 81 80 Respiratory Rate 26 H 25 H Blood Pressure 137/65 Pulse Oximetry 97 97 01/10/18 08:06 01/10/18 10:00 01/10/18 11:18 Temperature Pulse Rate 82 Respiratory Rate 27 H 17 Blood Pressure Pulse Oximetry 100 01/10/18 12:00 Temperature 98.9 F Pulse Rate 76 Respiratory Rate 18 Blood Pressure 123/57 L Pulse Oximetry 95 Intake & Output 01/09/18 01/10/18 01/10/18 18:59 06:59 18:59 Intake Total 1900.5 / 1900.5 734 / 734 350 / 350 Output Total 325 / 325 350 / 350 Balance 1575.5 / 1575.5 384 / 384 350 / 350 Weight 119.9 kg Intake: IV 1261.5 / 1261.5 350 / 350 350 / 350 Cardene Inj 50 MG In NS Inj 230 500 / 500 250 / 250 250 / 250 ML @ 5 MG/HR 25 mls/hr IV.CONT TITRATE PRN Rx#:[id number] Sodium Chloride 3% Inj 500 ML @ 299 / 299 10 mls/hr IV.SIG Q24H [facility] Rx#: [id number] Maxipime Inj 2,000 MG In NS Inj 200 / 200 100 / 100 100 / 100 100 ML @ 200 mls/hr IV.SIG Q12H [facility] Rx#:[id number] Vancomycin Inj 1,250 MG In NS 262.5 / 262.5 Inj 250 ML @ 250 mls/hr IV.SIG Q24H [facility] Rx#:[id number] Tube Feeding 519 / 519 384 / 384 Tube Irrigant 120 / 120 Output: Urine Amount (Catheter) 325 / 325 350 / 350 Indwelling Urethral Catheter 325 / 325 350 / 350 Other: Date of Last Bowel Movement 01/09/18 01/10/18 01/10/18 # Bowel Movements 0 Narrative: Does not open eyes PERRL Cough present Intubated Does not respond to noxious stimuli in any extremity Flap full, but soft - Urinary Catheter Management Indwelling Urethral Catheter Cath placed during this visit: yes Reason for continuing: Hourly intake/output Insertion date: 12/30/17 Insertion time: 01:30 Assessment and Plan - Assessment (1) Subdural hematoma Code(s): S06.5X9A - Traumatic subdural hemorrhage with loss of consciousness of unspecified duration, initial encounter Status: Acute - Plan Impression 72 y/o female s/p left craniotomy for evacuation of SDH by Dr. Uribe on 12/30/17. She has not had any significant improvement in her neurologic exam. Follow up CT head from 01/06/18 demonstrated expected post-operative changes, resolved midline shift. Given her lack of neurologic improvement and EEG without seizure activity, she has a poor neurologic prognosis. Plan: Continue neuro checks. Continue blood pressure management. No family at bedside this morning. Palliative care spoke with her and daughters in person on 01/08/18 and they are considering tracheostomy/PEG versus comfort care measures.
[2018-01-10 14:32] LABS: Calcium 8.1 mg/dL (8.5-10.1); Carbon Dioxide 21.2 meq/L (21.0-32.0)
[2018-01-10 14:50] LABS: Potassium 4.7 meq/L (3.5-5.1); Vancomycin,Trough 32.9 mcg/mL (5.0-10.0)
[2018-01-11] MEDS: Insulin NovoLOG Aspart Correctional Sugar Inj SQ SCH ×4 (00:11→13:26)
[2018-01-11 05:46] LABS: Baso % (Auto) 0.8 % (0.0-2.0); Eos # (Auto) 0.1 th/mm3 (0.0-0.4); Eos % (Auto) 1.9 % (0.0-4.0); Hematocrit 22.3 % (35.0-46.0); Hemoglobin 7.2 gm/dL (11.6-15.3); Lymph # (Auto) 0.6 th/mm3 (1.0-4.8); Lymph % (Auto) 16.5 % (9.0-44.0); Mean Corpuscular HGB Conc 32.2 % (32.0-36.0); Mean Corpuscular Hemoglobin 30.3 pg (27.0-34.0); Mean Platelet Volume 8.2 fL (7.0-11.0); Mono # (Auto) 0.4 th/mm3 (0.0-0.9); Mono % (Auto) 12.1 % (0.0-8.0); Neut # (Auto) 2.4 th/mm3 (1.8-7.7); Neut % (Auto) 68.7 % (16.0-70.0); Platelet Count 134 th/mm3 (150-450); Red Blood Count 2.37 mil/mm3 (4.00-5.30); Red Cell Distribution Width 14.9 % (11.6-17.2); White Blood Count 3.4 th/mm3 (4.0-11.0)
[2018-01-11 06:26] LABS: Alanine Aminotransferase 22 U/L (10-53); Albumin 1.5 g/dL (3.4-5.0); Alkaline Phosphatase 55 U/L (45-117); Anion Gap 10 meq/L (5-15); Aspartate Aminotransferase 28 U/L (15-37); Blood Urea Nitrogen 92 mg/dL (7-18); Calcium 8.1 mg/dL (8.5-10.1); Carbon Dioxide 18.6 meq/L (21.0-32.0); Chloride 127 meq/L (98-107); Glomerular Filtration Rate 20 mL/min (>89); Glucose,Random 131 mg/dL (74-106); Potassium 4.8 meq/L (3.5-5.1); Total Protein 5.6 g/dL (6.4-8.2)
[2018-01-11 06:29] LABS: Sodium 156 meq/L (136-145)
[2018-01-11] MEDS: Insulin Detemir Inj 1,000 UNIT/10 ML Vial SQ SCH (10:10)
[2018-01-11] MEDS: Polyethylene Glycol 3350 17 GM Packet NG/OG SCH (12:03)
[2018-01-11] MEDS: Carvedilol 12.5 MG Tablet PO SCH (12:03)
[2018-01-11] MEDS: amLODIPine 10 MG Tablet NG/OG SCH (12:03)
[2018-01-11] MEDS: Glycerin Adult 2 GM Supp RECTAL SCH (12:04)
[2018-01-11] MEDS: Hypromellose 0.3% Opth Gel 10 GM Bottle EACH EYE SCH (12:04)
[2018-01-11] MEDS: Senna/Docusate Sodium 8.6/50 MG Tablet PO SCH (12:05)
--- NOTE | 2018-01-11 14:01 | P.PNPAL ---
Reason for Visit Reason for visit: a. To assist with evaluation and management of symptoms including: Dyspnea, encephalopathy, pain b. To assist medical decision maker(s) with: better understanding of current medical conditions; weighing benefits/burdens of medical treatment options; making medical treatment decisions. Subjective Subjective/Interval History: INTERVAL NOTE: Rechecking patient to assess pain, dyspnea, encephalopathy Neurologically, the patient seems about the same, with no signs of improvement. The internet sales consultant and neurosurgery report poor prognosis. Family/Friend Interactions: I met again with the patient's Jair and with other friends who are present from [place] now. Jair has decided to proceed with withdrawal of life support to allow natural . He is certain that is what the patient would want. Advance Directives Significant change in goals:: wants to proceed with withdrawal of life support later this afternoon. Objective Vital Signs: Vital Signs 01/10/18 14:00 01/10/18 15:30 01/10/18 16:00 Temperature 98.3 F Pulse Rate 74 76 Respiratory Rate 30 H 20 Blood Pressure 104/54 L Pulse Oximetry 97 97 01/10/18 18:00 01/10/18 20:00 01/10/18 20:31 Temperature 98.4 F Pulse Rate 76 74 Respiratory Rate 20 22 Blood Pressure 109/54 L Pulse Oximetry 98 98 01/10/18 22:00 01/10/18 23:56 01/11/18 00:00 Temperature 98.4 F Pulse Rate 93 H 69 Respiratory Rate 25 H 23 Blood Pressure 124/58 L Pulse Oximetry 98 98 01/11/18 02:00 01/11/18 03:45 01/11/18 04:00 Temperature 98.7 F Pulse Rate 74 72 Respiratory Rate 21 19 Blood Pressure 130/60 Pulse Oximetry 98 99 01/11/18 06:00 01/11/18 07:49 01/11/18 08:00 Temperature 98 F Pulse Rate 82 101 H 72 Respiratory Rate 16 Blood Pressure 127/55 L Pulse Oximetry 99 01/11/18 08:22 01/11/18 10:00 01/11/18 12:00 Temperature 98.3 F Pulse Rate 76 71 Respiratory Rate 23 16 Blood Pressure 132/62 Pulse Oximetry 99 99 Intake & Output 01/10/18 01/11/18 01/11/18 18:59 06:59 18:59 Intake Total 1232.5 / 1232.5 820 / 820 350 / 350 Output Total 350 / 350 350 / 350 Balance 882.5 / 882.5 470 / 470 350 / 350 Weight 122.2 kg Intake: IV 612.5 / 612.5 100 / 100 350 / 350 Cardene Inj 50 MG In NS Inj 230 250 / 250 250 / 250 ML @ 5 MG/HR 25 mls/hr IV.CONT TITRATE PRN Rx#:[id number] Maxipime Inj 2,000 MG In NS Inj 100 / 100 100 / 100 100 / 100 100 ML @ 200 mls/hr IV.SIG Q12H [facility] Rx#:[id number] Tube Feeding 500 / 500 520 / 520 Tube Irrigant 120 / 120 200 / 200 Output: Urine Amount (Catheter) 350 / 350 350 / 350 Indwelling Urethral Catheter 350 / 350 350 / 350 Other: Date of Last Bowel Movement 01/10/18 01/11/18 01/10/18 # Bowel Movements 1 3 Physical Exam: CONSTITUTIONAL/GENERAL: This is an adequately nourished patient, in no apparent distress; unresponsive, intubated. TUBES/LINES/DRAINS: ET tube, OG tube, SCDs, central line EYES: Pupils equal and round, 2 mm. CARDIOVASCULAR: Regular rate and rhythm without murmurs, gallops, or rubs. No JVD. Peripheral pulses symmetric. RESPIRATORY/CHEST: Symmetric, unlabored respirations. Scattered rhonchi. GASTROINTESTINAL: Abdomen soft, non-tender, nondistended. No hepato-splenomegaly , or palpable masses. No guarding. Bowel sounds present. MUSCULOSKELETAL: Extremities without clubbing, cyanosis, or edema. No joint tenderness or effusion noted. No calf tenderness. No mottling or clubbing. NEUROLOGICAL: Does not respond to voice, touch, or pain to me. PSYCHIATRIC: Unable to assess due to clinical condition. Diagnostic Tests Laboratory: Laboratory Results - last 72 hr 01/08/18 01/08/18 01/09/18 16:38 21:53 00:41 WBC RBC Hgb Hct MCV MCH MCHC RDW Plt Count MPV Neut % (Auto) Lymph % (Auto) [place] % (Auto) Eos % (Auto) Baso % (Auto) Neut # (Auto) Lymph # (Auto) [place] # (Auto) Eos # (Auto) Baso # (Auto) WBC Differential Differential Comment Sodium Potassium Chloride Carbon Dioxide Anion Gap BUN Creatinine Estimated GFR POC Glucose 137 H 143 H 167 H Random Glucose Calcium Total Bilirubin AST ALT Alkaline Phosphatase Total Protein Albumin TSH Vancomycin Trough 01/09/18 01/09/18 01/09/18 04:31 04:35 07:59 WBC RBC Hgb Hct MCV MCH MCHC RDW Plt Count MPV Neut % (Auto) Lymph % (Auto) [place] % (Auto) Eos % (Auto) Baso % (Auto) Neut # (Auto) Lymph # (Auto) [place] # (Auto) Eos # (Auto) Baso # (Auto) WBC Differential Differential Comment Sodium 156 H* Potassium 4.1 Chloride 125 H Carbon Dioxide 23.4 Anion Gap 8 BUN 66 H Creatinine 1.69 H Estimated GFR 30 L POC Glucose 128 H 128 H Random Glucose 122 H Calcium 8.1 L Total Bilirubin AST ALT Alkaline Phosphatase Total Protein Albumin TSH Vancomycin Trough 01/09/18 01/09/18 01/09/18 11:53 17:26 20:20 WBC RBC Hgb Hct MCV MCH MCHC RDW Plt Count MPV Neut % (Auto) Lymph % (Auto) [place] % (Auto) Eos % (Auto) Baso % (Auto) Neut # (Auto) Lymph # (Auto) [place] # (Auto) Eos # (Auto) Baso # (Auto) WBC Differential Differential Comment Sodium Potassium Chloride Carbon Dioxide Anion Gap BUN Creatinine Estimated GFR POC Glucose 150 H 131 H 123 H Random Glucose Calcium Total Bilirubin AST ALT Alkaline Phosphatase Total Protein Albumin TSH Vancomycin Trough 01/10/18 01/10/18 01/10/18 00:30 04:12 05:00 WBC RBC Hgb Hct MCV MCH MCHC RDW Plt Count MPV Neut % (Auto) Lymph % (Auto) [place] % (Auto) Eos % (Auto) Baso % (Auto) Neut # (Auto) Lymph # (Auto) [place] # (Auto) Eos # (Auto) Baso # (Auto) WBC Differential Differential Comment Sodium Potassium Chloride Carbon Dioxide Anion Gap BUN Creatinine 1.98 H Estimated GFR 25 L POC Glucose 132 H 138 H Random Glucose Calcium Total Bilirubin AST ALT Alkaline Phosphatase Total Protein Albumin TSH Vancomycin Trough 01/10/18 01/10/18 01/10/18 08:22 12:09 12:50 WBC RBC Hgb Hct MCV MCH MCHC RDW Plt Count MPV Neut % (Auto) Lymph % (Auto) [place] % (Auto) Eos % (Auto) Baso % (Auto) Neut # (Auto) Lymph # (Auto) [place] # (Auto) Eos # (Auto) Baso # (Auto) WBC Differential Differential Comment Sodium 157 H* Potassium 4.7 Chloride 124 H Carbon Dioxide 21.2 Anion Gap 12 BUN 85 H Creatinine 2.09 H Estimated GFR 23 L POC Glucose 109 120 H Random Glucose 116 H Calcium 8.1 L Total Bilirubin AST ALT Alkaline Phosphatase Total Protein Albumin TSH Vancomycin Trough 32.9 H 01/10/18 01/10/18 01/11/18 17:57 20:20 00:04 WBC RBC Hgb Hct MCV MCH MCHC RDW Plt Count MPV Neut % (Auto) Lymph % (Auto) [place] % (Auto) Eos % (Auto) Baso % (Auto) Neut # (Auto) Lymph # (Auto) [place] # (Auto) Eos # (Auto) Baso # (Auto) WBC Differential Differential Comment Sodium Potassium Chloride Carbon Dioxide Anion Gap BUN Creatinine Estimated GFR POC Glucose 131 H 141 H 165 H Random Glucose Calcium Total Bilirubin AST ALT Alkaline Phosphatase Total Protein Albumin TSH Vancomycin Trough 01/11/18 01/11/18 01/11/18 05:09 05:17 05:17 WBC 3.4 L RBC 2.37 L Hgb 7.2 L Hct 22.3 L MCV 94.0 MCH 30.3 MCHC 32.2 RDW 14.9 Plt Count 134 L MPV 8.2 Neut % (Auto) 68.7 Lymph % (Auto) 16.5 [place] % (Auto) 12.1 H Eos % (Auto) 1.9 Baso % (Auto) 0.8 Neut # (Auto) 2.4 Lymph # (Auto) 0.6 L [place] # (Auto) 0.4 Eos # (Auto) 0.1 Baso # (Auto) 0.0 WBC Differential . Differential Comment Auto diff final Sodium 156 H* Potassium 4.8 Chloride 127 H Carbon Dioxide 18.6 L Anion Gap 10 BUN 92 H Creatinine 2.37 H Estimated GFR 20 L POC Glucose 141 H Random Glucose 131 H Calcium 8.1 L Total Bilirubin 0.4 AST 28 ALT 22 Alkaline Phosphatase 55 Total Protein 5.6 L Albumin 1.5 L TSH 2.330 Vancomycin Trough 01/11/18 01/11/18 09:22 12:17 WBC RBC Hgb Hct MCV MCH MCHC RDW Plt Count MPV Neut % (Auto) Lymph % (Auto) [place] % (Auto) Eos % (Auto) Baso % (Auto) Neut # (Auto) Lymph # (Auto) [place] # (Auto) Eos # (Auto) Baso # (Auto) WBC Differential Differential Comment Sodium Potassium Chloride Carbon Dioxide Anion Gap BUN Creatinine Estimated GFR POC Glucose 131 H 150 H Random Glucose Calcium Total Bilirubin AST ALT Alkaline Phosphatase Total Protein Albumin TSH Vancomycin Trough Result Diagrams: 01/11/18 05:17 01/11/18 05:17 Microbiology: Microbiology 01/05/18 12:36 Aerobic Blood Culture - Final Blood - Peripheral No growth in 5 days Anaerobic Blood Culture - Final No growth in 5 days 01/05/18 12:30 Aerobic Blood Culture - Final Blood - Peripheral No growth in 5 days Anaerobic Blood Culture - Final No growth in 5 days Assessment and Plan Pertinent Non-Medical Issues: Psychosocial: Originally from [place], came to [place] in 1999. Lives with . Second marriage, now for 20 years. She has 2 daughters that live locally and a son that lives in [place]. 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 Spiritual: Sabianist background, not connected with any latter-day or clergy recently. Family would like a environmental advisor come visit. Legal: The patient lacks capacity for decision-making, and it seems very unlikely that she will regain that capacity. The patient's is the decision-making proxy. Ethical issues impacting care: Important Contacts: : Jair Cole Cell phone: [phone] Prognosis: Her prognosis is poor/terminal, as it appears that she has had a significant brain injury. Code Status: Alternative Code Plan: * DO NOT RESUSCITATE, per request of 01/11/18 * DECISION-MAKING: The patient lacks capacity for decision-making, and she will not regain that capacity. The patient's is the decision-making proxy. * GOALS: The patient's requests compassionate withdrawal of life support this afternoon. * SYMPTOMS: The patient's encephalopathy is profound. Dyspnea is being managed by the ventilator. I see no obvious signs of pain now, 11 days postop. I have no further medication recommendations at this time. * Palliative Care will continue to follow the patient during this hospitalization. Time Spent Total Floor Time (mins): 44 Face to Face Time (mins): 16 >50% Time in Counseling or Coordination of Care: Yes (d/w neurosurgeon Dr. Willis and w RN) Attestation Collaborating MD Comments: To help prompt me to consider important information that might be impacting today's encounter and assessment, information from prior notes written by myself or my colleagues may have been "brought forward" into today's note. My signature on this note, however, is an attestation that I personally performed the exam, history, and/or decision-making noted today, and, unless otherwise indicated, the interactions with patient, family, and staff as well as the review of records all occurred today. I also attest that the listed assessment and stated plan reflect my best clinical judgment today based on the combination of historical information, prior notes, and today's exam/ interactions. When time spent is documented, it refers only to time spent today by the signer, or if indicated, combined time spent today by collaborating physician/nurse practitioner.
[2018-01-11] MEDS ORDERED: Morphine Inj 4 MG/ML Vial IV.PUSH ONE ×2 (14:02)
[2018-01-11] MEDS ORDERED: Morphine Inj 4 MG/ML Vial IV.PUSH PRN ×2 (14:02)
[2018-01-11] MEDS ORDERED: Acetaminophen 650 MG Supp RECTAL PRN (14:02)
[2018-01-11] MEDS ORDERED: Hyoscyamine Inj 0.5 MG/ML Ampul IV.PUSH ONE (14:02)
[2018-01-11] MEDS ORDERED: Hyoscyamine Inj 0.5 MG/ML Ampul IV.PUSH PRN (14:02)
[2018-01-11] MEDS ORDERED: Bisacodyl 10 MG Supp RECTAL PRN (14:02)
--- NOTE | 2018-01-11 14:21 | P.PNCC ---
Subjective Subjective Remarks/Hospital Course: 72-year-old female with past medical history of hypertension, diabetes , prior liver transplant in 2010, on chronic anticoagulation for warfarin (per family report due to prior hx of portal vein thrombosis prior to her transplant) . She reportedly got up to go to the bathroom around 10 PM. She developed headache, nausea and multiple episodes of vomiting. There is no reported head trauma. CT brain demonstrates left subdural hematoma with 1 cm left to right shift. INR 2.8. Administering k Centra 25 U/kg, vitamin K 10 mg IV. Blood pressure 169/75. Initiating Cardene drip. Dr. Uribe has been consulted and will be taking patient emergently to operating room following correction of coagulopathy. 12/31 Underwent Left frontal temporal parietal decompressive craniectomy, evacuation of acute subdural hematoma on 12/[address] Uribe R frontal fiberoptic ICP monitor also in place. ICPs are <3. Repeat CT brain this morning demonstrates no residual subdural. Mass-effect is resolved. Remains on mechanical ventilation and cardene drip for hypertension management. 01/01: No acute events overnight. T-max 99.9. No bowel movement. Replacing calcium, potassium magnesium. Quite tachypneic this a.m. 01/02: Afebrile. Replacing phosphorus this a.m. Appears more comfortable on fentanyl and propofol drips. Remains on nicardipine drip at 6 mg an hour to maintain systolic blood pressure less than 140. Subjective 01/03: Afebrile. Currently on nicardipine 15 mg/h. Was off last night. Tube feeds currently at 30 cc an hour due to high residuals. Positive bowel movement 2. Remains on propofol and fentanyl drips. 01/04: Neuro exam remains unchanged, low-grade temperature noted. Poorly controlled hypertension with minimal stimulation becomes very hypotensive. Remains sedated with propofol and fentanyl. Will restart Cardene for blood pressure control to facilitate weaning trials 01/05: Remains intubated sedated. Neuro unchanged. Sedation restarted due to hypoxia and ventilator asynchrony. Increased ET tube secretions, chest x-ray showing bibasilar infiltrate. Currently FiO2 at 60%. Probable healthcare associated pneumonia, fever up to 101.3. Start vancomycin and cefepime. Unable to completely discontinue sedation due to uncontrolled hypertension 01/06: CT of the head done today shows evolving area of low density with trace associated intraparenchymal blood in the left temporal lobe identified. Clinically remains unchanged. Sputum culture growing E. coli and Enterobacter. Fever trending down after starting cefepime yesterday. Sedation with propofol will change to Precedex to facilitate neuro exam 01/07: Patient remains unresponsive, sedated only with Precedex at 0.5 mcg/kg/h. EEG showed Left hemisphere slowing. No epileptiform activity. Urine cx with Group D Enterococcus. Palliative care following, ALT CODE now. 01/08: Osmolality suitably concentrated. Left hemispheric swelling remains problematic. Unable to elicit any response today. Culture results well covered with antibiotics. 01/09: Remains unresponsive. Appears to have fixed dense deficit. Prognosis is poor. Leaving Rushing in purely for comfort measures as she is undoubtedly progressing toward hospice. 01/10: No improvement in neurologic function over the last 24 hours. No seizure activity. We are continuing full aggressive care while the family works with the palliative care service to identify long-term goals. The chance for any meaningful neurological recovery from this state approaches zero. 01/11: No improvement. Family has decided to withdraw support. I agree. Objective Vital Signs / I&O: Vital Signs 01/10/18 15:30 01/10/18 16:00 01/10/18 18:00 Temperature 98.3 F Pulse Rate 76 76 Respiratory Rate 30 H 20 Blood Pressure 104/54 L Pulse Oximetry 97 97 01/10/18 20:00 01/10/18 20:31 01/10/18 22:00 Temperature 98.4 F Pulse Rate 74 93 H Respiratory Rate 20 22 Blood Pressure 109/54 L Pulse Oximetry 98 98 01/10/18 23:56 01/11/18 00:00 01/11/18 02:00 Temperature 98.4 F Pulse Rate 69 74 Respiratory Rate 25 H 23 Blood Pressure 124/58 L Pulse Oximetry 98 98 01/11/18 03:45 01/11/18 04:00 01/11/18 06:00 Temperature 98.7 F Pulse Rate 72 82 Respiratory Rate 21 19 Blood Pressure 130/60 Pulse Oximetry 98 99 01/11/18 07:49 01/11/18 08:00 01/11/18 08:22 Temperature 98 F Pulse Rate 101 H 72 Respiratory Rate 16 23 Blood Pressure 127/55 L Pulse Oximetry 99 99 01/11/18 10:00 01/11/18 12:00 Temperature 98.3 F Pulse Rate 76 71 Respiratory Rate 16 Blood Pressure 132/62 Pulse Oximetry 99 Intake & Output 01/10/18 01/11/18 01/11/18 18:59 06:59 18:59 Intake Total 1232.5 / 1232.5 820 / 820 350 / 350 Output Total 350 / 350 350 / 350 Balance 882.5 / 882.5 470 / 470 350 / 350 Weight 122.2 kg Intake: IV 612.5 / 612.5 100 / 100 350 / 350 Cardene Inj 50 MG In NS Inj 230 250 / 250 250 / 250 ML @ 5 MG/HR 25 mls/hr IV.CONT TITRATE PRN Rx#:[id number] Maxipime Inj 2,000 MG In NS Inj 100 / 100 100 / 100 100 / 100 100 ML @ 200 mls/hr IV.SIG Q12H GRICELDA Rx#:[id number] Tube Feeding 500 / 500 520 / 520 Tube Irrigant 120 / 120 200 / 200 Output: Urine Amount (Catheter) 350 / 350 350 / 350 Indwelling Urethral Catheter 350 / 350 350 / 350 Other: Date of Last Bowel Movement 01/10/18 01/11/18 01/10/18 # Bowel Movements 1 3 Result Diagrams: 01/11/18 05:17 01/11/18 05:17 Objective Remarks: GENERAL: 72-year-old female, orotracheally intubated. SKIN: Warm and dry, well-perfused HEAD: Normocephalic. Fiberoptic ICP removed 01/01. Left craniectomy site clean and dry without signs of infection. EYES: Pupils equal and round, sluggishly reactive. No conjunctival icterus. No injection or drainage. ENT: No nasal bleeding or discharge. Mucous membranes pink and moist. NECK: Trachea midline. Obese. Right IJ is clean dry and intact. CARDIOVASCULAR: Regular rate and rhythm, S1, S2 no S 4. 2/6 systolic murmur left sternal border. No JVD. RESPIRATORY: Diminished in bases. Full excursions on ventilator. Clear anteriorly without wheezes, rales, rhonchi. GASTROINTESTINAL: Abdomen soft, non-tender, nondistended. Well-healed scar right upper quadrant. No guarding. Bowel sounds active. : Rushing in place with yellow urine output MUSCULOSKELETAL: Extremities with generalized upper and lower extremity edema. Scar overlies left knee. NEUROLOGICAL: Winces to noxious stimuli with partial eye opening. Very mild withdrawal left lower extremity only. Assessment and Plan - Assessment and Plan Plan: NEURO/PSYCH: Acute left subdural hematoma with mass-effect s/p left frontal temporal parietal decompressive craniectomy, evacuation of SDH and ICP monitor 12/30/[address] Uribe ICP monitor removed 01/[address] brain o residual subdural or mass-effect. F/u CT 01/06/18-an evolving area of low density with trace associated intraparenchymal blood in the left temporal lobe identified EEG 01/06: Left hemispheric slowing no seizures Was on warfarin for SMV/IMV thrombosis diagnosed 2008 with INR 2.8 upon presentation. Received prothrombin complex concentrate 25 units/KG and phytonodione 10 mg IV preoperatively. Repeat INR 1.2 on 12/31. Received mannitol 25 g IV in the emergency department 12/30 Levetiracetam 500 mg IV every 12 hours for seizure prophylaxis. Blood pressure management as per below. Goal 120-140 systolic Precedex to facilitate neuro exam. Use as needed fentanyl Holding pregabalin 50 mill grams p.o. twice daily RESP: Acute respiratory failure secondary to altered mental status Difficult airway Healthcare associated pneumonia [facility] 15/550/1.06/07/44. Ventilator bundle Albuterol/ipratropium aerosols every 4 hours with albuterol aerosols every 2 hours as needed for dyspnea Spontaneous breathing trials when clinically indicated. Mental status will not permit extubation Chest x-ray today with bibasilar infiltrates. Sputum culture E Coli, Enterobacter Continue vancomycin and cefepime CV: Malignant hypertension Hypercholesterolemia Nicardipine drip to maintain systolic blood pressure less than 140, currently weaned off Continue Carvedilol 25 mg twice daily, amlodipine 10 mg daily. Hydralazine to 100 mg 3 times daily- ? Unavailable Continue losartan 50 BID (home med is valsartan 80 mg daily). Scheduled clonidine 0.2 mg every 8 hours As needed labetalol 10 mg every hour and clonidine 0.1 mg by tube every 4 hours. 01/01 2d Echo - Normal left ventricular size. LVEF 65-70%. 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 donor services coordinator is Mariya Munoz [phone] Discussed with patient assessment coordinator - Current tacrolimus dosing is 6 mg po [id number] with target trough 3-5. Ms Munoz provided history that warfarin is for Factor V Leiden heterozygosity and that it was managed by a black top paver operator outside of the [facility] system. Family states it is Dr. Kaiser. Lansoprazole 30 mg daily for GI prophylaxis. Patient is on pantoprazole 40 mg daily at home. Docusate serum/senna 1 tablet twice daily for bowel regimen. Polythene glycol 17 g twice daily. F Tube feeds with vital high-protein Metoclopramide 10 mg 3 times daily FEN/RENAL: Chronic kidney disease stage IIIa Hypophosphatemia Hypernatremia Maintain Rushing. Monitor urine output Accurate I's and O's, ICU electrolyte protocol Currently on 3% saline at 10 cc an hour Follow serum osmolality closely Serum osmolality suitably concentrated. ID: Immunosuppressed state Healthcare associated pneumonia UTI Sepsis Appears to have developed healthcare associated pneumonia. Sputum culture E Coli, Enterobacter UTI with enterococcus Continue vancomycin and cefepime Received Claudia Operative cefazolin per neurosurgery. HEME/ONC: Warfarin induced coagulopathyINR 2.8 (resolved) Factor V Leiden heterozygosity - indication for chronic anticoagulation. 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 Resumed after liver translation 11/09 Thrombocytopenia, anemia, leukopenia Warfarin on hold. Online Communications Manager is Dr. Kaiser, she sees him in the [place] office. Spoke with ELAINE Chandler with Dr. Kaiser who states Ms Cole was on warfarin due to Factor V Leiden heterozygosity with prior h/o portal vein thrombosis. The fact that she has now had spontaneous subdural while INR was therapeutic could preclude her from therapeutic anticoagulation indefinitely given heterozygosity for mutation. ENDO: Diabetes mellitus with acute hyperglycemia Hold linagliptin 5 mg p.o. every morning, hold insulin degludec flex touch 18 units subcu nightly. On Medium dose aspart insulin sliding scale every 4 hours (24 units last 24 hours). GLucose is >200 this morning. Insulin detemir 22 q12 PROPH: SCDs for DVT prophylaxis. Continue lansoprazole for stress ulcer prophylaxis and history of GERD ACCESS: Right IJ CVL day #7 placed 8/3, DC. Left radial art line placed 12/30 in OR #9 Full code Overall impression: Patient is critically ill with severe encephalopathy from acute subdural hemorrhage and cerebral compression followed by edema. Care now complicated with severe sepsis most likely from healthcare associated pneumonia and hypoxemic respiratory failure. Remains critically ill at this time with severe fixed neurologic deficit after dominant hemisphere compression injury. Prognosis approaches zero for any meaningful neurological recovery.
[2018-01-11] MEDS ORDERED: Morphine Inj 4 MG/ML Vial IV.PUSH SCH (16:00)
[2018-01-11 16:19] VITALS: O2SAT 98
--- NOTE | 2018-01-11 17:24 | P.PNNS ---
Subjective Interval history: No improvement. Proceeding with Palliation today. Physical Exam Vital signs: Vital Signs 01/10/18 18:00 01/10/18 20:00 01/10/18 20:31 Temperature 98.4 F Pulse Rate 76 74 Respiratory Rate 20 22 Blood Pressure 109/54 L Pulse Oximetry 98 98 01/10/18 22:00 01/10/18 23:56 01/11/18 00:00 Temperature 98.4 F Pulse Rate 93 H 69 Respiratory Rate 25 H 23 Blood Pressure 124/58 L Pulse Oximetry 98 98 01/11/18 02:00 01/11/18 03:45 01/11/18 04:00 Temperature 98.7 F Pulse Rate 74 72 Respiratory Rate 21 19 Blood Pressure 130/60 Pulse Oximetry 98 99 01/11/18 06:00 01/11/18 07:49 01/11/18 08:00 Temperature 98 F Pulse Rate 82 101 H 72 Respiratory Rate 16 Blood Pressure 127/55 L Pulse Oximetry 99 01/11/18 08:22 01/11/18 10:00 01/11/18 11:00 Temperature Pulse Rate 76 Respiratory Rate 23 16 Blood Pressure Pulse Oximetry 99 98 01/11/18 12:00 01/11/18 14:00 01/11/18 16:00 Temperature 98.3 F 98.8 F Pulse Rate 71 74 72 Respiratory Rate 16 16 Blood Pressure 132/62 122/60 Pulse Oximetry 99 98 01/11/18 16:12 Temperature Pulse Rate Respiratory Rate 18 Blood Pressure Pulse Oximetry Intake & Output 01/10/18 01/11/18 01/11/18 18:59 06:59 18:59 Intake Total 1232.5 / 1232.5 820 / 820 350 / 350 Output Total 350 / 350 350 / 350 Balance 882.5 / 882.5 470 / 470 350 / 350 Weight 122.2 kg Intake: IV 612.5 / 612.5 100 / 100 350 / 350 Cardene Inj 50 MG In NS Inj 230 250 / 250 250 / 250 ML @ 5 MG/HR 25 mls/hr IV.CONT TITRATE PRN Rx#:[id number] Maxipime Inj 2,000 MG In NS Inj 100 / 100 100 / 100 100 / 100 100 ML @ 200 mls/hr IV.SIG Q12H GRICELDA Rx#:[id number] Tube Feeding 500 / 500 520 / 520 Tube Irrigant 120 / 120 200 / 200 Output: Urine Amount (Catheter) 350 / 350 350 / 350 Indwelling Urethral Catheter 350 / 350 350 / 350 Other: Date of Last Bowel Movement 01/10/18 01/11/18 01/10/18 # Bowel Movements 1 3 Narrative: Does not open eyes PERRL Cough present Intubated Does not respond to noxious stimuli in any extremity Flap full, but soft - Urinary Catheter Management Indwelling Urethral Catheter Cath placed during this visit: yes Reason for continuing: Hourly intake/output Insertion date: 12/30/17 Insertion time: 01:30 Assessment and Plan - Assessment (1) Subdural hematoma Code(s): S06.5X9A - Traumatic subdural hemorrhage with loss of consciousness of unspecified duration, initial encounter Status: Acute - Plan Impression 72 y/o female s/p left craniotomy for evacuation of SDH by Dr. Uribe on 12/30/17. She has not had any significant improvement in her neurologic exam. Follow up CT head from 01/06/18 demonstrated expected post-operative changes, resolved midline shift. Given her lack of neurologic improvement and EEG without seizure activity, she has a poor neurologic prognosis. Plan: I spoke with the Palliative attending and agree with proceeding with comfort care.
[2018-01-11 20:15] VITALS: BP 112/52; PULSE 74; RESP 16; TEMP 98.2
--- NOTE | 2018-03-02 07:38 | P.DS ---
Date of admission: 12/30/17 00:19 Primary care physician: UNKNOWN Attending physician on discharge: Arturo Ch Brief History from admission: 72-year-old female with past medical history of hypertension, diabetes , prior liver transplant in 2010, on chronic anticoagulation with warfarin due to history of portal vein thrombosis which preexisted transplant. She reportedly got up to go to the bathroom around 10 PM. She developed headache, nausea and multiple episodes of vomiting. There is no reported head trauma. CT brain demonstrates left subdural hematoma with 1 cm left to right shift. INR 2.8. Administering k Centra 25 U/kg, vitamin K 10 mg IV. Blood pressure 169/75. Initiating Cardene drip. Dr. Uribe has been consulted and will be taking patient emergently to operating room following correction of coagulopathy. Patient update on day of discharge: Compassionate extubation, withdrawal of artificial support. Patient at 212 0 hours 01/11/2018. DS: Diagnosis - Discharge Diagnosis (1) Acute hypoxemic respiratory failure Status: Acute (2) Subdural hematoma Status: Acute (3) Hypertensive emergency Status: Acute DS: Summary Hospital Course: 72-year-old female with past medical history of hypertension, diabetes , prior liver transplant in 2010, on chronic anticoagulation for warfarin (per family report due to prior hx of portal vein thrombosis prior to her transplant) . She reportedly got up to go to the bathroom around 10 PM. She developed headache, nausea and multiple episodes of vomiting. There is no reported head trauma. CT brain demonstrates left subdural hematoma with 1 cm left to right shift. INR 2.8. Administering k Centra 25 U/kg, vitamin K 10 mg IV. Blood pressure 169/75. Initiating Cardene drip. Dr. Uribe has been consulted and will be taking patient emergently to operating room following correction of coagulopathy. 12/31 Underwent Left frontal temporal parietal decompressive craniectomy, evacuation of acute subdural hematoma on 12/[address] Uribe R frontal fiberoptic ICP monitor also in place. ICPs are <3. Repeat CT brain this morning demonstrates no residual subdural. Mass-effect is resolved. Remains on mechanical ventilation and cardene drip for hypertension management. 01/01: No acute events overnight. T-max 99.9. No bowel movement. Replacing calcium, potassium magnesium. Quite tachypneic this a.m. 8/4: Afebrile. Replacing phosphorus this a.m. Appears more comfortable on fentanyl and propofol drips. Remains on nicardipine drip at 6 mg an hour to maintain systolic blood pressure less than 140. Subjective 01/03: Afebrile. Currently on nicardipine 15 mg/h. Was off last night. Tube feeds currently at 30 cc an hour due to high residuals. Positive bowel movement 2. Remains on propofol and fentanyl drips. 01/04: Neuro exam remains unchanged, low-grade temperature noted. Poorly controlled hypertension with minimal stimulation becomes very hypotensive. Remains sedated with propofol and fentanyl. Will restart Cardene for blood pressure control to facilitate weaning trials 01/05: Remains intubated sedated. Neuro unchanged. Sedation restarted due to hypoxia and ventilator asynchrony. Increased ET tube secretions, chest x-ray showing bibasilar infiltrate. Currently FiO2 at 60%. Probable healthcare associated pneumonia, fever up to 101.3. Start vancomycin and cefepime. Unable to completely discontinue sedation due to uncontrolled hypertension 01/06: CT of the head done today shows evolving area of low density with trace associated intraparenchymal blood in the left temporal lobe identified. Clinically remains unchanged. Sputum culture growing E. coli and Enterobacter. Fever trending down after starting cefepime yesterday. Sedation with propofol will change to Precedex to facilitate neuro exam 01/07: Patient remains unresponsive, sedated only with Precedex at 0.5 mcg/kg/h. EEG showed Left hemisphere slowing. No epileptiform activity. Urine cx with Group D Enterococcus. Palliative care following, ALT CODE now. 01/08: Osmolality suitably concentrated. Left hemispheric swelling remains problematic. Unable to elicit any response today. Culture results well covered with antibiotics. 01/09: Remains unresponsive. Appears to have fixed dense deficit. Prognosis is poor. Leaving Rushing in purely for comfort measures as she is undoubtedly progressing toward hospice. 01/10: No improvement in neurologic function over the last 24 hours. No seizure activity. We are continuing full aggressive care while the family works with the palliative care service to identify long-term goals. The chance for any meaningful neurological recovery from this state approaches zero. 01/11: No improvement. Family has decided to withdraw support. I agree. - Time Spent with Patient Total time spent providing and/or coordinating discharge services: Greater than 30 minutes - Quality: VTE Deep Vein Thrombosis/Pulmonary Embolism Present on Admission: No Exam Narrative: Results Procedures completed during hospitalization: none Completed studies during hospitalization: Pending at discharge 12/30/17 08:55 Surgical [PTH] Routine - Impressions ITS Impressions Abdomen X-Ray 01/02/18 00:00 CONCLUSION: No evidence of bowel obstruction. Gastric tubing appears appropriate in position. Head CT 01/06/18 06:00 CONCLUSION: 1. Postsurgical changes are identified. 2. There is an evolving area of low density with trace associated intraparenchymal blood in the left temporal lobe identified. . Chest X-Ray 01/08/18 06:00 CONCLUSION: Stable chest x-ray with right basilar pleural-parenchymal opacity likely representing airspace consolidation with small pleural effusion. Discharge Plan - Discharge Disposition Patient Disposition: 20 - Discharge Details Date/Time: 01/11/18 21:20 - Physicians Team Primary Care Provider: UNKNOWN, Attending Provider: Lilia Galicia Other Providers: Wesley Uribe MD ; [facility] ; Mando Kay MD
== END 2018-01-11 21:20 | disposition expired ==
LOC: NEPC 22:53 → NEDA 12-30 00:19 → N03 12-30 03:19
PROVIDERS: ADMIT Emergency Medicine; ATTEND Emergency Medicine
PROC: CRASUBD (ICD-10-PCS; 2017-12-30 01:18)